=== PATIENT | female | born 1975 | race African-American/Black ===

== ENCOUNTER 2022-08-09 10:22 | Outpatient (REF) | payer MEDICARE, MEDICAID, SELFPAY ==
--- NOTE | ~2022-08-09 | XR_ITS ---
EXAMINATION: XR WRIST, LEFT XR HAND, LEFT CLINICAL INFORMATION: Left hand and wrist pain. COMPARISON: None available. TECHNIQUE: PA, lateral, and oblique views of the left wrist and PA, lateral, and oblique views of the left hand FINDINGS: LEFT WRIST: The bones and soft tissues appear unremarkable. No fracture appreciated. Alignment is anatomic. Joint spaces are maintained. No erosions or soft tissue calcifications. LEFT HAND: The bones and soft tissues appear unremarkable. No fracture appreciated. Alignment is anatomic. Joint spaces are maintained. No erosions or soft tissue calcifications. XR/XR hand wrist LT IMPRESSION: Normal plain film examination of the left hand and wrist.
== END 2022-08-09 10:23 | disposition home or self-care (01) ==
LOC: HO.XRAY 10:22
PROVIDERS: PCP Family Medicine; Visit Provider Family Medicine
DX: M25.532 Pain in left wrist (principal)
CPT/HCPCS: 73110; 73130

== ENCOUNTER 2022-08-30 10:39 | Outpatient (REF) | payer MEDICARE, MEDICAID, SELFPAY ==
--- NOTE | ~2022-08-30 | CT_ITS ---
EXAMINATION: CT ABDOMEN AND PELVIS WITH CONTRAST CLINICAL INFORMATION: Left lower quadrant abdominal pain. COMPARISON: None available. TECHNIQUE: Multidetector volumetric images were obtained from the superior aspect of the liver through the pubic symphysis following administration 85 mL of Omnipaque 350 intravenous contrast. Sagittal and coronal reformatted images were obtained on the technologist's workstation. Oral contrast: No This CT examination was performed using dose optimization techniques as appropriate, variously including the following: *Automated exposure control *Adjustment of mA and/or kV according to patient size (this includes techniques or standardized protocols for targeted exams where dose is matched to indication/reason for exam; i.e. extremities or head) *Use of iterative reconstruction technique DLP: 768. mGy-cm FINDINGS: LUNG BASES: The visualized lung bases are unremarkable. LIVER, GALLBLADDER, AND BILIARY TREE: The liver is normal in size, shape, and attenuation. No focal hepatic lesion or biliary ductal dilatation is present. The gallbladder is unremarkable with no evidence of radiopaque gallstones, gallbladder wall thickening, or obvious pericholecystic inflammatory changes. PANCREAS: No discrete pancreatic mass. No ductal dilatation or focal parenchymal atrophy. SPLEEN: Normal. ADRENAL GLANDS: No adrenal mass. KIDNEYS AND URETERS: Symmetric nephrograms. Tiny simple cyst lower right kidney. No imaging follow-up is recommended. No suspicious renal mass. No nephrolithiasis or hydronephrosis. BLADDER: Unremarkable. GASTROINTESTINAL TRACT: Small hiatal hernia. The small bowel is normal in caliber. No mesenteric mass or fluid. The appendix is normal. No inflammatory changes in the right lower quadrant. The large bowel is normal in caliber. ABDOMINAL WALL: No significant hernia is appreciated. LYMPH NODES: No lymphadenopathy. VASCULAR: No aortic aneurysm. Retroaortic left renal vein. PELVIC VISCERA: Hysterectomy. Simple appearing cyst left ovary. No imaging follow-up is recommended. The right ovary appears normal. OSSEOUS STRUCTURES: No suspicious osseous lesions. CT/CT abdomen pelvis w IV con IMPRESSION: No explanation for right lower quadrant pain. Normal appendix. Normal right ovary. No inflammatory changes or fluid collection in the right lower quadrant. Fleischner guidelines were followed.
[2022-08-30] MEDS: iohexoL 350 MG/ML 100 ML INFUS..BTL IV (13:36)
[2022-08-30] MEDS: Barium Sulfate Oral (Mocha) 450 ML ORAL.SUSP 900 ML PO (13:37)
== END 2022-08-30 10:40 | disposition home or self-care (01) ==
LOC: HO.CT 10:39
PROVIDERS: PCP Family Medicine; Visit Provider Family Medicine
DX: R10.32 Left lower quadrant pain (principal); G89.29 Other chronic pain
CPT/HCPCS: 74177; Q9967

== ENCOUNTER 2022-09-07 11:00 | Outpatient (RCR) | payer MEDICARE, MEDICAID, SELFPAY | END 2022-09-07 11:25 | disposition home or self-care (01) | LOC: HO.OT 11:00 | PROVIDERS: PCP Family Medicine; Visit Provider Family Medicine | DX: M25.532 Pain in left wrist (principal) | CPT/HCPCS: 29125; 97035; 97110; 97165; 97760 ==

== ENCOUNTER → 2022-11-29 10:27 | Outpatient (BNVA) | payer MEDICARE, MEDICAID, SELFPAY | PROVIDERS: PCP Family Medicine; Visit Provider Physician Assistant Surgical ==

== ENCOUNTER 2022-12-23 11:04 | Outpatient (AMB) | payer MEDICARE, MEDICAID, SELFPAY ==
--- NOTE | 2022-12-23 11:10 | A.OFFVIS_ITS ---
Intake VS Expanded 12/23/22 11:13 Height 5 ft 6 in Weight 214 lb 12.8 oz BMI 34.7 BP 134/73 Blood Pressure Location Rt brachial Blood Pressure Position Sitting Pulse 76 Pulse Source Pulse Oximeter Temp 97.2 F Temperature Source Temporal Artery Scan Pulse Oximetry 98 Oxygen Delivery Method Room Air Body Fat 92.4 Body Fat Percentage 43.0 Free Fat Mass 122.4 Muscle Mass 116.2 Visceral Mass 11.0 Water Mass 87.0 BMR 1,705 Intake Visit Reasons: (OV) [employer] [facility] BMI 35.2 Poultry Veterinarian Required: Yes Poultry Veterinarian Name: office cmi Allergies Latex, Natural Rubber Allergy (Severe, Verified 12/23/22 11:12) Hives Medication List - Last Reconciled 12/23/22 by RILEY Camara aripiprazole (Abilify) 5 mg PO BEDTIME cholecalciferol (vitamin D3) 50 mcg PO DAILY clonazepam 1 mg PO BID famotidine 10 mg PO DAILY rosuvastatin 10 mg PO DAILY venlafaxine ER (Effexor XR) 37.5 mg PO DAILY HPI HPI Comments History of Present Illness Details Pt is here to start the [facility] [place] Weight Management surgical weight loss program. She heard about our program from social media. Her goal is to lose weight and achieve a healthy lifestyle as well as to improve, if not resolve, obesity related medical conditions, including HLD and possible JIMMIE. She reports first being concerned about her weight about a year ago when she moved here from [facility], highest weight to date was 220. Her weight upon initial presentation to the SWL clinic at [facility] was 218.2 pounds with a BMI of 35.2 on 11/29/22. Current weight is 214.8 pounds with a BMI of 34.7. She has tried mul tiple methods of weight loss including fad diets without permanent results. She lives with a friend. She does not work. She wakes at:?10 am, and goes to bed at?6 pm. Stating she sleeps 16 hours per day and naps during the day. Dinner is at 4 pm. Willing to try to wake at 9 am and bed at 9 pm Breakfast: 2 eggs w toast or ham or Orgain shake AM snack: donut or cake, banana Lunch: skip or sandwich or fast food, pizza PM snack: skip Dinner: rice, beans, meat, salad, pasta potato After dinner: corn flakes or cheese/crackers Other snacks: as above Liquids: 48-64 oz water, rare soda, 12 oz fruit punch or apple juice daily Alcohol/marijuana/tobacco intake: 5-6 beers 1-2 x per month, no tobacco or cannabis Exercise: stationary bike at home, GERD score: 23 ALANA score: 2 ESS score: 12 QOL score: 114 PFSH Surgical History History of abdominoplasty Hx of breast implant Hx of hysterectomy Hx of knee surgery Hx of thyroidectomy Family History Mother Psychiatric diagnosis Hypertension Father Diabetes Sister Hypothyroid Vitamin D deficiency Vitamin B12 deficiency Social History Alcohol intake: current Alcohol intake frequency: holidays/special occasions only Patient Tobacco Use Status: Never used Tobacco Review of Systems Const All systems reviewed & are unremarkable except as noted in HPI and below Physical Exam Vital Signs: Last Vital Signs Temp 97.2 F 12/23/22 11:13 Pulse 76 12/23/22 11:13 BP 134/73 12/23/22 11:13 Pulse Ox 98 12/23/22 11:13 Oxygen Delivery Method Room Air 12/23/22 11:13 BMI result Body Mass Index 34.7 Const General: cooperative, healthy appearing and no acute distress Orientation/consciousness: patient oriented x3 HEENT Head: Yes normal to inspection Ears: hearing grossly normal bilaterally General nose exam: Normal external nose present Face and sinus: Yes normal facial exam Eyes General: appearance normal, both eyes and all related structures Resp Effort & Inspection: normal respiratory effort Auscultation: clear to auscultation bilaterally Cardio Rate: regular rate Rhythm: regular rhythm Heart sounds: S1 normal heart sound present and S2 normal heart sound present GI Inspection: Yes normal to inspection, No distended and Yes obesity Palpation (GI): Soft to palpation, nontender and no guarding Auscultation: normal bowel sounds Skin General skin exam: no rashes or lesions noted Neuro General: patient oriented x3 Extrem General: No edema Psych Appearance: grossly normal Mental Status: mental status grossly normal Speech and movement: Normal speech and movement present Affect: normal affect Attitude: cooperative Assessment & Plan Assessment & Plan (1) Obesity (BMI 30-39.9): Code(s): E66.9 - Obesity, unspecified Plan: This is a?47 yo female who will start our SWL program to prepare for bariatric surgery.? Blood work, h pylori , CXR, ECG, Abd US and UGI have been ordered. She is being scheduled for RD and BH initial consultations. She will start SWL classes and watch the first three videos before her next appointment. ? Adequate sleep of 7-8 hours per night discussed, awakening at 9 am and going to bed at 9 pm ? Purchase body composition analyzer scale (Radha zendejas or Sayra recommended) and check weight weekly. The best time to do this is first thing in the morning after going to the bathroom. 1. Nutritional counseling: Be sure to careful read the number of scoops per shake Start with 3 Orgain shakes ([employer], [employer], [employer]), (1 scoop in 8 oz low fat unsweetened almond milk or water each) First shake at 10am-12pm, Second shake at 1pm-3pm 1 protein bar (Fulfil bars at [employer], [employer], or [employer]) at 5pm-7pm. Dinner at 4pm (8 forks of protein and 8 forks of salad/vegetables). Meal to inc lude lean meat (beef, fish, pork, turkey, chicken), cooked vegetables or a salad with olive oil and/or fruits (berries, pears, apples, kiwi). Avoid salt, breads, potatoes, rice, pasta, desserts. 1 protein bar (Fulfil bars at [employer], [employer], or [employer]) at 5pm-7pm. Another shake with 1 scoop in 8 oz unsweetened almond milk at 7pm-9pm. Try to drink 64 oz of water daily and avoid soda and juices. ?2. Each shake would be drunk slowly, like coffee in a period of 2 hours. ?3. Cut each bar in 4 pieces and eat each piece in 30 min ?to make each bar last 2 hours. ?4. I emphasized the importance of measuring accurately the food portion and measure it carefully when serving the food on the plate ?5. The meal portions include 8 full-size forks of meat and 8 full-size forks of salad. You always eat the meat portion but you can replace up to half of the forks of salad/vegetables with rice, potatoes or pasta, or a fruit ?if you like. The less you do it the better weight loss will be. ?6. One full-size fork is what can be scooped on the fork without falling aside and not what can be bit with the fork. Use regular forks like those you find in a typical restaurant. ?7.? Please send me weight measurements as soon as possible and then once a week. Always include your diet and exercise plan. Alternatively come weekly at the office for weight checks and send me the measurements. ?8. Exercise counseling: Begin by watching a stretching for beginners video. Start slowly and begin to stretch your muscles. You should do this before and after each exercise session to prevent injury. Please join [employer] gym near your home. Ask the support group manager or one of the trainers how to use the machines if you are unfamiliar with them. Start elliptical with a resistance of 2. Increase resistance by 1 every 3 min to your most comfortable resistance with a max resistance of 8. Reduce the resistance by 1 every 3 minutes back down to 2 and repeat cycles for 300 calories. Alternatively, start treadmill with a speed of 3.0 and incline of 0, increasing incline by 1 every 3 minutes to the highest comfortable level (max 6 for now) then decrease in the same fashion. Repeat process to a goal of 300 calories. Goal of 2000 calories burned or more weekly. You may also consider use of the stationary bike. The easiest would be to chose the fat-burn or interval training program on the machine and do this until you reach the 300 calorie goal. Alternatively, you can manually adjust the resistance in a similar fashion as mentioned above, (resistance of 2-8 with a goal speed of 12 mph). Tracking calories is essential. 9. Alternatively start walking outside daily, tracking calories with a goal of 300 calories per day, daily. You can download the tamar [employer] which can track your time, distance and calories while walking outside. You press start in the tamar when you start and then stop when you are finished. 10.? It is important to communicate with me weekly by text, your weight and if you are having any problems with the plans. 11. Please get labs, EKG and chest X-Ray within 1 week. 12. Discussed and answered all questions regarding?obtained consent to participate in the [facility]?Registry. 13. Please follow the diet plan exactly, without any change. If you do not like something about the plan or you feel hungry, you need to communicate with me so I can help you revise the plan. You should not change the plan yourself. Text me at [phone] 14. Goal is to lose at least 12 pounds in the first month 15. Goal is to lose 10% of your weight before surgery, which is about 21 lbs. Ultimate weight goal: 193 lbs before surgery Patient is morbidly obese and is not considered stable at this time.?I spent a total of 70 minutes reviewing/updating records, examining the patient and counseling the patient on weight management as detailed above. (2) Snoring: Code(s): R06.83 - Snoring Plan: check home sleep study, refer to Sleep Med if pos Orders: Orders Vitamin B12 and Folate Today E66.9 - Obesity, unspecified Comprehensive Met. Panel Today E66.9 - Obesity, unspecified C Reactive Protein Today E66.9 - Obesity, unspecified Ferritin Today E66.9 - Obesity, unspecified Hemoglobin A1c Today E66.9 - Obesity, unspecified Insulin Today E66.9 - Obesity, unspecified IRON PROFILE Today E66.9 - Obesity, unspecified Lipid Panel Today E66.9 - Obesity, unspecified PTHI Today E66.9 - Obesity, unspecified TSH reflex Free T4 Today E66.9 - Obesity, unspecified Vitamin A Today E66.9 - Obesity, unspecified Vitamin B1 Today E66.9 - Obesity, unspecified Vitamin D 25-OH Total Today E66.9 - Obesity, unspecified Zinc Today E66.9 - Obesity, unspecified ECG 12 lead EKG Today E66.9 - Obesity, unspecified FL upper GI w air Today E66.9 - Obesity, unspecified Complete Blood Count Auto Diff Today E66.9 - Obesity, unspecified RT home sleep study Today E66.9 - Obesity, unspecified, R06.83 - Snoring H Pylori Breath Test Today E66.9 - Obesity, unspecified US abdomen comp w elastography Today E66.9 - Obesity, unspecified XR chest 2V Today E66.9 - Obesity, unspecified Referrals Behavioral Health Referral E66.9 - Obesity, unspecified Nutrition/Dietitian Referral E66.9 - Obesity, unspecified Coding Level of Care Code New Pt Level 5 (37951) Diagnoses Obesity (BMI 30-39.9) E66.9 Snoring R06.83 Time Spent (min) 70
[2022-12-23 11:13] VITALS: BP 134/73; PULSE 76; TEMP 36.2; O2SAT 98; BMI 34.7
== END 2022-12-23 12:09 | disposition home or self-care (01) ==
PROVIDERS: PCP Family Medicine; Visit Provider Physician Assistant Surgical
DX: E66.9 Obesity, unspecified (principal); Z68.34 Body mass index [BMI] 34.0-34.9, adult; R06.83 Snoring
CPT/HCPCS: 99205

== ENCOUNTER → 2022-12-23 11:04 | Outpatient (BNVA) | payer MEDICARE, MEDICAID, SELFPAY | PROVIDERS: PCP Family Medicine; Visit Provider Physician Assistant Surgical | DX: E66.9 Obesity, unspecified (principal); R06.83 Snoring; Z68.34 Body mass index [BMI] 34.0-34.9, adult | CPT/HCPCS: 99202 ==

== ENCOUNTER → 2022-12-26 12:30 | Outpatient (REF) | payer MEDICARE, MEDICAID, SELFPAY | LOC: HO.SL 12:30 | PROVIDERS: PCP Family Medicine; Visit Provider Physician Assistant Surgical | DX: G47.33 Obstructive sleep apnea (adult) (pediatric) (principal); E66.9 Obesity, unspecified; R06.83 Snoring | CPT/HCPCS: 95806 ==

== ENCOUNTER → 2022-12-26 12:46 | Outpatient (BNV) | payer MEDICARE, MEDICAID, SELFPAY | PROVIDERS: PCP Family Medicine; Visit Provider Internal Medicine | DX: G47.33 Obstructive sleep apnea (adult) (pediatric) (principal) | CPT/HCPCS: 95806 ==

== ENCOUNTER 2022-12-27 09:45 | Outpatient (REF) | payer MEDICARE, MEDICAID, SELFPAY ==
--- NOTE | ~2022-12-27 | XR_ITS ---
EXAMINATION: XR CHEST 2 VIEWS CLINICAL INFORMATION: Obesity. COMPARISON: None. TECHNIQUE: Frontal and lateral views of the chest were obtained. FINDINGS: The heart, great vessels, pulmonary vasculature and mediastinum are normal. The lungs show no focal infiltrate, effusion or pneumothorax. There is no acute osseous abnormality. XR/XR chest 2V IMPRESSION: No active cardiopulmonary disease.
--- NOTE | 2022-12-27 09:51 | ECG_ITS ---
Test Reason : e66.9 Blood Pressure : / mmHG Vent. Rate : 065 BPM Atrial Rate : 065 BPM P-R Int : 158 ms QRS Dur : 088 ms QT Int : 412 ms P-R-T Axes : 052 -12 002 degrees QTc Int : 428 ms Normal sinus rhythm Minimal voltage criteria for LVH, may be normal variant ( R in aVL ) Cannot rule out Anterior infarct , age undetermined Abnormal ECG No previous ECGs available Referred By: Ramiro Monte Electronically Signed By:Juan C Kinsey
[2022-12-27 10:15] LABS: MANUAL DIFF FLAG NO
[2022-12-27 10:19] LABS: Basophils Percent Auto 0.7 % (0-2); Eosinophils Absolute Auto 0.1 X10*3/uL (0.0-0.4); Eosinophils Percent Auto 2.3 % (0-4); Hematocrit 44.2 % (37.0-47.0); Hemoglobin 14.5 g/dl (12.0-16.0); Imm Gran Abs Auto 0.04 X10*3/uL (0.00-0.03); Imm Gran Pct Auto 0.7 % (0.0-0.4); Lymphocytes Absolute Auto 1.4 X10*3/uL (1.2-4.9); Lymphocytes Percent Auto 22.9 % (20-40); Mean Corpuscular HGB Conc 32.8 g/dl (31.0-35.0); Mean Corpuscular Hemoglobin 28.3 pg (27.0-33.0); Mean Corpuscular Volume 86.3 fL (80.0-98.0); Monocytes Absolute Auto 0.3 X10*3/uL (0.1-1.2); Monocytes Percent Auto 5.1 % (2-11); Neutrophils Absolute Auto 4.1 x10*3/uL (2.0-8.3); Neutrophils Percent Auto 68.3 % (45-73); Platelet Count 145 X10*3/uL (160-400); Red Blood Count 5.12 X10*6/uL (4.20-5.50); Red Cell Distribution Width 14.4 % (11.0-16.0); White Blood Count 6.1 X10*3/uL (4.8-10.8)
[2022-12-27 10:37] LABS: Estimated Average Glucose 108 mg/dL; Hemoglobin A1c % 5.4 %
[2022-12-27 10:48] LABS: Alanine Aminotransferase 13 U/L (0-31); Albumin Level 4.1 g/dL (3.5-5.0); Alkaline Phosphatase 82 U/L (39-117); Anion Gap 10 (12-20); Aspartate Amino Transferase 15 U/L (5-31); Bilirubin Total 0.5 mg/dL (0.0-1.0); Blood Urea Nitrogen 11 mg/dL (9-16); C Reactive Protein 1.35 mg/dL (< or = 0.50); Calcium 8.9 mg/dL (8.4-10.2); Carbon Dioxide 25 mmol/L (22-29); Chloride 110 mmol/L (96-108); Cholesterol 138 mg/dL; Estimated Glomerular Filt Rate > 60; Glucose Random 91 mg/dL (60-115); HDL Cholesterol 48 mg/dL; Iron 106 mcg/dL (30-160); LDL Cholesterol Calculated 76 mg/dl; Percent Iron Saturation 44 % (15-50); Potassium 4.2 mmol/L (3.3-5.1); Sodium 141 mmol/L (135-145); Total Iron Binding Capacity 241 mcg/dL (228-428); Total Protein 7.3 g/dL (6.5-8.0); Triglycerides 70 mg/dL; Unsaturated Iron Binding 135 ug/dL
[2022-12-27 11:08] LABS: Folate 11.6 ng/mL (> or = 4.0); Vitamin B12 425 pg/mL (200-900)
[2022-12-27 11:26] LABS: Ferritin 121 ng/mL (10-250); TSH reflex Free T4 1.49 uIU/mL (0.32-4.0); Vitamin D 25-OH Total 42.3 ng/mL (>30)
[2022-12-27 12:08] LABS: Insulin 11 uU/mL (2-29)
[2022-12-29 22:09] LABS: Calcium (PTHI) 8.6 mg/dL (8.6-10.2); PTHI 53 pg/mL (16-77)
[2022-12-30 16:59] LABS: Zinc 64 mcg/dL (60-130)
[2022-12-31 17:48] LABS: Vitamin A 36 mcg/dL (38-98)
[2023-01-04 14:54] LABS: Vitamin B1 9 nmol/L (8-30)
== END 2022-12-27 09:46 | disposition home or self-care (01) ==
LOC: HO.XRAY 09:45
PROVIDERS: PCP Family Medicine; Visit Provider Physician Assistant Surgical
DX: E66.9 Obesity, unspecified (principal); R94.31 Abnormal electrocardiogram [ECG] [EKG]
CPT/HCPCS: 36415; 71046; 80053; 80061; 82306; 82607; 82728; 82746; 83036; 83525; 83540; 83970; 84425; 84443; 84590; 84630; 85025; 86140; 93005

== ENCOUNTER → 2022-12-27 09:51 | Outpatient (BNV) | payer MEDICARE, MEDICAID, SELFPAY | PROVIDERS: PCP Family Medicine; Visit Provider Internal Medicine Cardiovascular Disease | DX: R94.31 Abnormal electrocardiogram [ECG] [EKG] (principal) | CPT/HCPCS: 93010 ==

== ENCOUNTER 2023-01-05 11:20 | Outpatient (AMB) | payer MEDICARE, MEDICAID, SELFPAY ==
--- NOTE | 2023-01-05 11:54 | A.OFFWM_ITS ---
Intake Intake Visit Reasons: (OV) BH Intake Allergies Latex, Natural Rubber Allergy (Severe, Verified 12/23/22 11:12) Hives PFSH Surgical History History of abdominoplasty Hx of breast implant Hx of hysterectomy Hx of knee surgery Hx of thyroidectomy Family History Mother Psychiatric diagnosis Hypertension Father Diabetes Sister Hypothyroid Vitamin D deficiency Vitamin B12 deficiency Social History Alcohol intake: current Alcohol intake frequency: holidays/special occasions only Patient Tobacco Use Status: Never used Tobacco Behavioral Health Assessment Weight Management Therapy Therapy Notes Details PT is a 47 year old female who presents for initial BH assessment as part of surgical Weight-loss management program. Presenting Concerns Referral Source [facility] Provider. Reason for referral Completion of behavioral health assessment as part of process for weight-loss surgery. Precipitating Event Weight gain and physical challenges. Living Situation Current Living Situation Relative's/Guardian's [place] (Pt lives at her boyfriend's home.) At risk of losing current housing? No Satisfied with current living situation? Yes Comments PT lives with boyfriend and his son. Food/Weight/Diet Expectations of change Pt wants to be at her healthy weight or at least 135- 140Lbs. Goal is to lose 10% of her weight before surgery, which is about 21 lbs. Ultimate weight goal: 193 lbs before surgery. History/Relationship with food Used to skip meals. Example of meals Breakfast: eggs/skip or will have a shake. Lunch: Skip or something quick (ground meat/letters/tortilla chips) Dinner: rice, beans, meat. Will have snacks in between meals. Soda couple times at week. History/Relationship with weight Was overweight after pregnancies for the past 20 years her weight has been in between 145-150Lbs until last year, when she started gaining weight in . History/Relationship with dieting Tried OTC pills, diets, eat less, shakes. PCP prescribed her with Lomaira 8mg and Topamax 50mg for weight loss, tried for about 2 weeks but [facility]MP-provider D/C these meds. Walking 1 hour. Binge Eating Do you frequently eat large amounts of food in short periods of time, not feeling physically hungry? No Do you feel out of control when you eat a large amount of food in a short period of time? Yes Do you eat large amounts of food rapidly and typically alone? No Night Eating Do you wake up at least once during the night to eat? No If you wake up in the night, do you find that it is necessary to eat something in order to fall back asleep? No Do you have little or no appetite in the morning and feel very hungry in the evening, often overeating between dinner and when you go to bed? No Social History Family history and relationship PT is . She has 2 adult sons. (28 and 21 y/o) they live in [place]. Has 2 siblings, sister lives near, brother in [place]. They have a good relationship Parents alive. Mom in [place], dad in [place]. Good relationships. Parental/Familial medical asst obligations None, children are adult. Developmental history and status None reported. Social support Sister, son, partner, cousin, mother. Community support None reported. Confucianism/Spirituality Restorationist. Cultural/Ethnic information [place] in [place]. [place] speaking only. Moved to [place] in 2021. Legal Involvement and History Current or historical involvement with the legal system? None reported. Education Highest grade completed 9th grade. Has a certificate in cosmetology. Preferred learning style Verbal Currently enrolled in educational program? No Interested in further educational program? No Educational Interests/Skills Decor, arts/craft. 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 No Meaningful activities Listen to music, exercise, cleaning. Financial Situation Describe current financial situation Comfortable Financial assistance? Food [employer] and [employer]SI Service Service? No Mental Health and Addiction Treatment Current/Past substance abuse? No Current/Past addictive behavior concerns? No Psychiatric history PT has been in mental health treatment for about 12 years ago. Never inpatient but has received partial hospitalization for severe depression. Currently sees a psychiatrist every 3 month and therapist on a monthly basis. Denies any hx of SI and/or self/other-harm. Medical and Physical Health Summary Additional Medical History not covered in history None reported Sexual History concerns None reported Physical exam in the last year? Yes Pain Screening Current pain? Yes Pain in the last few months? Yes Comments Knee pain, had multiple surgeries in both knee due to arthritis. Medications Is the patient compliant with medications? Yes Does the patient have Singh Guardian in place? Not applicable Does the patient use complimentary health approaches? No Trauma/Abuse History History of trauma? No Questionnaires PHQ-9 Over the last 2 weeks, how often have you been bothered by any of the following problems? 1. Little interest or pleasure in doing things: several days 2. Feeling down, depressed, or hopeless: not at all 3. Trouble falling or staying asleep, or sleeping too much: nearly every day ( I Sleeps a lot 7pm-9am, during the day she naps.) 4. Feeling tired or having little energy: several days 5. Poor appetite or overeating: not at all 6. Feeling bad about yourself - or that you are a failure or have let yourself or your family down: not at all 7. Trouble concentrating on things, such as reading the newspaper or watching television: not at all 8. Moving or speaking so slowly that other people could have noticed. Or the opposite - being so fidgety or restless that you have been moving around a lot more than usual: not at all 9. Thoughts that you would be better off or of hurting yourself in some way: not at all Total score: 5 Depression Screening Interpretation: Positive Source: Developed by Drs. Akin Estrella, Caron Bower, Primo Gamino and colleagues, with an educational leroy from [employer] Binge Eating Scale Group 1 A. I don't feel self-conscious about my wt. or body size when I'm with others. B. I feel concerned about how I look to others, but it normally does not make me fell disappointed with myself C. I do get self-conscious about my appearance and wt. which makes me feel disappointed in myself. D. I feel very self-conscious about my wt. and frequently I feel intense shame and disgust for myself. I try to avoid social contacts because of my self- consciousness. Response Group 1: C Group 2 A. I don't have any difficulty eating slowly in the proper manner. B. Although I seem to gobble down foods, I don't end up feeling stuffed because of eating to much. C. At times, I tend to eat quickly and then, I feel uncomfortably full afterwards. D. I have the habit of bolting down my food, without really chewing it. When this happens I usually feel uncomfortably stuffed because I've eaten to much. Response Group 2: C Group 3 A. I feel capable to control my eating urges when I want to. B. I feel like I have failed to control my eating more than the average person. C. I feel utterly helpless when it comes to feeling in control of my eating urges. D. Because I feel so helpless about controlling my eating I have become very desperate about trying to get control. Response Group 3: A Group 4 A. I don't have the habit of eating when I'm bored. B. I sometimes eat when I'm bored, but often I'm able to get busy and get my mind off food. C. I have a regular habit of eating when I'm bored, but occasionally, I can use some other activity to get my mind off eating. D. I have a strong habit of eating when I'm bored. Nothing seems to help me breath the habit. Response Group 4: B Group 5 A. I'm usually physically hungry when I eat something. B. Occasionally, I eat something on impulse even though I really am not hungry. C. I have the regular habit of eating foods, that I might not really enjoy, to satisfy a hungry feeling even though physically, I don't need the food. D. Although I'm not physically hungry, I get a hungry feeling in my mouth that only seems to be satisfied when I eat a food, like sandwich, that fills my mouth. Sometimes, when I eat the food to satisfy my mouth hunger, I then spit the food out so I won't gain weight. Response Group 5: B Group 6 A. I don't feel any guilt or self-hate after I overeat. B. After I overeat, occasionally I feel guilt or self-hate. C. Almost all the time I experience strong guilt or self-hate after I overeat. Response Group 6: B Group 7 A. I don't lose total control of my eating when dieting even after periods when I overeat. B. Sometimes when I eat a forbidden food on a diet, I feel like I blew it and eat even more. C. Frequently, I have the habit of saying to myself, I've blown it now, why not go all the way, when I overeat on a diet. When that happens I eat more. D. I have a regular habit of starting a strict diets for myself but I break the diets by going on an eating binge. My life seems to be either a feast or famine. Response Group 7: A Group 8 A. I rarely eat so much food that I feel uncomfortably stuffed afterwards. B. Usually about once a month, I each such a quantity of food, I end up feeling very stuffed. C. I have regular periods during the month when I eat large amounts of food, either at mealtime or at snacks. D. I eat so much food that I regularly feel quite uncomfortable after eating and sometimes a bit nauseous. Response Group 8: C Group 9 A. My level of calorie intake does not go up very high or go down very low on a regular basis. B. Sometimes after I overeat, I will try to reduce my caloric intake to almost nothing to compensate for the excess calories I've eaten. C. I have a regular habit of overeating during the night. It seems that my routine is not to be hungry in the morning but overeat in the evening. D. In my adult years, I have had week-long periods where I practically starve myself. This follows periods when I overeat. It seems I live a life of either feast or famine. Response Group 9: A Group 10 A. I usually am able to stop eating when I want to. I know when enough is enough . B. Every so often, I experience a compulsion to eat which I can't seem to control. C. Frequently, I experience strong urges to eat which I seem unable to control, but at other times I can control my eating urges. D. I feel incapable of controlling urges to eat. I have a fear of not being able to stop eating voluntarily. Response Group 10: C Group 11 A. I don't have any problem stopping eating when I feel full. B. I usually can stop eating when I feel full but occasionally overeat leaving me feeling uncomfortably stuffed. C. I have a problem stopping eating once I start and usually I feel unco mfortably stuffed after I eat a meal. D. Because I have a problem not being able to stop eating when I want, I sometimes have to induce vomiting to relieve my stuffed feeling. Response Group 11: C Group 12 A. I seem to eat just as much when I'm with others, Family social gatherings as when I'm by myself. B. Sometimes, when I'm with other persons, I don't eat as much as I want to eat because I'm self-conscious about my eating. C. Frequently, I eat only a small amount of food when others are present, because I'm very embarrassed about my eating. D. I feel so ashamed about overeating that I pick times to overeat when I know no one will see me. I feel like a closet eater. Response Group 12: A Group 13 A. I eat three meals a day with only an occasional between meal snack. B. I eat 3 meals a day, but I also normally snack between meals. C. When I am snacking heavily, I get in the habit of skipping regular meals. D. There are regular periods when I seem to be continually eating, with no planned meals. Response Group 13: C Group 14 A. I don't think much about trying to control unwanted eating urges. B. At least some of the time, I feel my thoughts are pre-occupied with trying to control my eating urges. C. I feel that frequently I spend much time thinking about how much I ate or about trying not to eat anymore. D. It seems to me that most of my waking hours are pre-occupied by thoughts about eating or not eating. I feel like I'm constantly struggling not to eat. Response Group 14: C Group 15 A. I don't think about food a great deal. B. I have strong craving for food but they last only for brief periods of time. C. I have days when I can't seem to think about anything else but food. D. Most of my days seem to be pre-occupied with thoughts about food. I feel like I live to eat. Response Group 15: A Group 16 A. I usually know whether or not I'm physically hungry. I take the right portion of food to satisfy me. B. Occasionally, I feel uncertain about knowing whether or not I'm physically hungry. A these times it's hard to know how much food I should take to satisfy me. C. Even though I might know how many calories I should eat, I don't have any idea what is a normal amount of food for me. Response Group 16: A Binge Eating Score: 17 Score less than 17 Minimal Risk Score between 18-26 Moderate Risk Score between 27-46 High Risk Assessment & Plan Assessment & Plan (1) Major depression: Code(s): F32.9 - Major depressive disorder, single episode, unspecified Qualifiers: Major depression recurrence: recurrent Major depression episode severity: moderate Plan PT will need support with habit building and with behavioral activation. Will be seen 1-2 more times to provide toolds and monitor compliance before being cleared. Follow up in 1 month. Coding Level of Care Code New Pt Psy Diag Eval (71379) Patient Type New Diagnoses Major depression F32.9 Major depression recurrence: recurrent Major depression episode severity: moderate Time Spent (min) 60
== END 2023-01-05 12:39 | disposition home or self-care (01) ==
PROVIDERS: PCP Family Medicine; Visit Provider Counselor Mental Health
DX: F32.9 Major depressive disorder, single episode, unspecified (principal)
CPT/HCPCS: 90791

== ENCOUNTER → 2023-01-05 11:20 | Outpatient (BNVA) | payer MEDICARE, MEDICAID, SELFPAY | PROVIDERS: PCP Family Medicine; Visit Provider Counselor Mental Health ==

== ENCOUNTER 2023-01-10 09:51 | Outpatient (REF) | payer MEDICARE, MEDICAID, SELFPAY | END 2023-01-10 09:52 | disposition home or self-care (01) | LOC: HO.US 09:51 | PROVIDERS: PCP Family Medicine; Visit Provider Physician Assistant Surgical | DX: E66.9 Obesity, unspecified (principal) | CPT/HCPCS: 76705; 76981 ==

== ENCOUNTER → 2023-01-10 09:55 | Outpatient (BNV) | payer MEDICARE, MEDICAID, SELFPAY | PROVIDERS: Visit Provider Radiology Diagnostic Radiology | DX: E66.9 Obesity, unspecified (principal) | CPT/HCPCS: 74246 ==

== ENCOUNTER 2023-01-13 10:37 | Outpatient (AMB) | payer MEDICARE, MEDICAID, SELFPAY ==
--- NOTE | 2023-01-13 10:25 | A.OFFVIS_ITS ---
Intake Intake Visit Reasons: (TV) Initial Nutrition [facility] Report Checker Required: Yes Report Checker Name: [email or web address] [id number] Information Interpreted: non-clinical & clinical Allergies Latex, Natural Rubber Allergy (Severe, Verified 12/23/22 11:12) Hives HPI Nutrition Presentation Reason for consult elevated BMI Diet Assmnt Details I am doing very well with nutrition plan - but doesn't seem to be following it at all 10am 2 scoops orgain in water 10:30am takes all her medications 12pm 1 boiled egg 5pm salad with chicken 8 bites of each Exercise: is walking 30 minutes, 1 mile [facility] online classes: completed, pt took them in [place]. reports she understood, willing to take in tongan also she has no questions. we did not discuss classes today Dietary counseling reduction Who buys your food self Who prepares/cooks your food self Meal frequency regular: breakfast (eggs, toast), dinner (rice, beans, juice ) and snacks and irregular: lunch Lifestyle Eating out rarely or never Food frequency Dairy: daily, Fruit: several times weekly, Vegetables: occasionally (only likes broccoli , tomato, lettuce ), Grains/pasta/breads/cereal (carbs): daily, Meats/poultry/fish (protein): daily, Meat substitutes/nuts/seeds/legumes: daily, Restaurants/fast foods: never (rarely), Water: daily, Soda: daily, Juice: daily and Coffee: daily (AM coffee ) Diagnosis Nutrition problem #1 overweight/obesity As related to (etiology) #1 excess energy intake and physical inactivity As evidenced by (sign/symptom) #1 high BMI Monitoring/Goals Nutrition problem monitoring total energy intake, level of knowledge/skill, total PRO intake, total CHO intake and weight Outcome progress applied knowledge Learning/Education Readiness to learn good Stages of change action Educational materials provided Yes Most Recent Diabetes Results: Cholesterol 138 mg/dL 12/27/22 HDL Cholesterol 48 mg/dL 12/27/22 Triglycerides 70 mg/dL 12/27/22 Creatinine 0.80 mg/dL (0.5-1.4) 12/27/22 Blood Urea Nitrogen 11 mg/dL (9-16) 12/27/22 Sodium 141 mmol/L (135-145) 12/27/22 Potassium 4.2 mmol/L (3.3-5.1) 12/27/22 Chloride 110 mmol/L (96-108) H 12/27/22 Carbon Dioxide 25 mmol/L (22-29) 12/27/22 Calcium 8.9 mg/dL (8.4-10.2) 12/27/22 AST 15 U/L (5-31) 12/27/22 ALT 13 U/L (0-31) 12/27/22 Total Protein 7.3 g/dL (6.5-8.0) 12/27/22 Albumin 4.1 g/dL (3.5-5.0) 12/27/22 PFSH Surgical History History of abdominoplasty Hx of breast implant Hx of hysterectomy Hx of knee surgery Hx of thyroidectomy Family History Mother Psychiatric diagnosis Hypertension Father Diabetes Sister Hypothyroid Vitamin D deficiency Vitamin B12 deficiency Social History Alcohol intake: current Alcohol intake frequency: holidays/special occasions only Patient Tobacco Use Status: Never used Tobacco Assessment & Plan Assessment & Plan (1) Obesity (BMI 30-39.9): Code(s): E66.9 - Obesity, unspecified Patient Instructions: I reviewed her nutrition plan from [place] with pt. she did not realize she wasnt following it. will start today. Recommend increasing exercise intensity or duration. Will review classes at next appointment. She will take them in [facility]. Follow-up again 02/16 at 11am phone Telehealth Telehealth Location of provider rendering services: practice address Location of patient: address on file Patient Identification confirmed using: Name, : Yes Telehealth method: voice only Patient verbally consented to treatment: Yes Patient verbally consented to billing insurance company: Yes Patient informed of any privacy concerns related to visit: Yes Minutes spent on Phone/Video with Pt.: 35 Coding Level of Care Code Nutr Indiv Intake (74612) Diagnoses Obesity (BMI 30-39.9) E66.9 Time Spent (min) 35
== END 2023-01-13 10:47 | disposition home or self-care (01) ==
LOC: HO.HBS 10:37
PROVIDERS: Visit Provider Dietitian, Registered
DX: E66.9 Obesity, unspecified (principal)

== ENCOUNTER → 2023-01-13 10:37 | Outpatient (BNVA) | payer MEDICARE, MEDICAID, SELFPAY | PROVIDERS: Visit Provider Dietitian, Registered | DX: E66.9 Obesity, unspecified (principal); Z71.3 Dietary counseling and surveillance | CPT/HCPCS: 97802 ==

== ENCOUNTER → 2023-01-19 07:45 | Outpatient (REF) | payer MEDICARE, MEDICAID, SELFPAY ==
--- NOTE | ~2023-01-19 | NM_ITS ---
EXERCISE MYOCARDIAL PERFUSION STUDY INDICATION: Preoperative cardiovascular evaluation TECHNIQUE: The patient was brought in for an exercise perfusion study on 01/19/2023. Patient performed exercise as per Wai protocol and was injected 35 mCi of sestamibi once target heart rate was achieved. Images were obtained using the SPECT gamma camera interlaced with the gating device. Images were obtained in supine position. Resting perfusion study was performed on 01/25/2023. Patient was administered 35 mCi of sestamibi intravenously at rest. Images were then obtained in supine position. Images were processed with the software and compared side to side in short axis, horizontal long axis and vertical long axis views. Total DLP 102mGy-cm. FINDINGS: Raw images were reviewed. The stress perfusion study showed no significant perfusion defects. Both uncorrected as well as CT attenuation corrected images were reviewed. The gated study shows normal LV systolic function with calculated LVEF of 68%. LV cavity is normal in size. The gated study shows normal wall thickening and contraction of segments. Resting study shows diminished tracer uptake along the anterior wall. There is some improvement with CT attenuation correction that could all indicate soft tissue attenuation artifact. Gating at rest reveals normal wall motion with ejection fraction at 71%. The findings are consistent with no clear reversible or fixed perfusion defects. NM/NM latrice perf SPECT rest & str IMPRESSION: 1. Myocardial perfusion imaging study shows normal myocardial perfusion. 2. Gated LVEF is 68% during stress and 71% during rest. 3. Transient ischemic dilatation not present. EKG component of the test reported separately.
--- NOTE | ~2023-01-19 | US_ITS ---
EXAMINATION: US COMPLETE ABDOMEN WITH LIVER ELASTOGRAPHY CLINICAL INFORMATION: Obesity. COMPARISON: None available. TECHNIQUE: Real-time imaging of the abdominal viscera. Noninvasive ultrasound liver fibrosis assessment is performed using Elvira ElastPQ point quantification shear wave elastography (2D-SWE) with a C5-2 MHz transducer. Multiple elastography samples are obtained. FINDINGS: PANCREAS: Limited. The visualized pancreatic head, neck and proximal body are normal in appearance. The remainder of the pancreas is obscured from visualization by the overlying bowel gas. ABDOMINAL AORTA: The proximal, middle, and distal aortic segments are normal in caliber. INFERIOR VENA CAVA: Visualized portions are normal. LIVER: Normal. The liver demonstrates normal size, contour and echogenicity. No focal lesion or intrahepatic biliary duct dilatation. The right lobe measures 16.3 cm in length. The left lobe measures 11.3 cm in length. Portal flow is towards the liver (hepatopetal). Shear wave liver elastography median stiffness is 1.27 m/s (reference: normal median stiffness is 1.3 m/s or less). IQR/median stiffness to assess sampling precision is 0.10 (reference: good quality data set is IQR/median stiffness of 0.15 or less). GALLBLADDER: Normal. The gallbladder is physiologically distended without evidence of stones, sludge, polyps, wall thickening or pericholecystic fluid. COMMON BILE DUCT: Normal in caliber measuring 0.0 cm in diameter. RIGHT KIDNEY: Normal. No hydronephrosis. No renal calculi or focal parenchymal lesions. The kidney measures 11.1 cm in maximum dimension. LEFT KIDNEY: Normal. No hydronephrosis. No renal calculi or focal parenchymal lesions. The kidney measures 11.0 cm in maximum dimension. SPLEEN: Normal. The spleen measures 10.8 cm in maximum dimension. FREE FLUID: None. US/US abdomen comp w elastography IMPRESSION: 1. There is generalized increase in hepatic echotexture, consistent with fatty infiltration or hepatocellular disease. Please correlate clinically. No focal hepatic mass or intrahepatic biliary dilatation is seen. 2. Liver elastography: Measurements are consistent with a high probability of normal liver stiffness. 3. Technically limited ultrasound examination of the pancreas. REFERENCE: Society of Radiologists in Ultrasound Liver Stiffness Thresholds (2020): LIVER STIFFNESS THRESHOLDS: *Liver Stiffness equal or less than 1.3 m/s: High probability of being normal. *Liver Stiffness less than 1.7 m/s: In the absence of other known clinical signs, rules out compensated advanced chronic liver disease. *Liver Stiffness 1.7-2.1 m/s: Suggestive of compensated advanced chronic liver disease but need further test for confirmation. *Liver Stiffness over 2.1 m/s: Rules in compensated advanced chronic liver disease. *Liver Stiffness over 2.4 m/s: Suggestive of clinically significant portal hypertension. QUALITY OF DATA SET: *IQR/Median value equal or less than 0.15 implies a quality data set. *IQR/Median value over 0.15 implies a poor quality data set. SIGNIFICANT CHANGE FROM PRIOR EXAM: Significant change if liver stiffness measurement is 10% or greater from prior exam. OTHER CONSIDERATIONS: The stage of liver fibrosis may be overestimated in the setting of acute hepatitis, liver inflammation, elevated liver function tests, hepatic vascular congestion, obstructive cholestasis, non-fasting state, and infiltrative diseases such as amyloidosis and lymphoma. In some patients with NAFLD, the liver stiffness thresholds for compensated advanced chronic liver disease may be lower. In causes other than viral hepatitis and NAFLD, liver stiffness thresholds are not well established.
--- NOTE | ~2023-01-19 | FL_ITS ---
EXAMINATION: XR FLUOROSCOPY UPPER GI WITH AIR CLINICAL INFORMATION: Preop obesity. COMPARISON: No relevant prior. TECHNIQUE: Air-contrast upper GI examination was performed using standard techniques with both thick and thin barium and effervescent granules. Numerous spot images were obtained. FINDINGS: The esophagus is normal in caliber, contour, and mucosal appearance. There is no stricture or mass. Esophageal peristalsis is normal in appearance. There is a tiny type I hiatus hernia. There is minimal GE reflux noted during the examination, approximately a length of 1 thoracic vertebral body. The stomach has a normal contour and mucosal fold appearance. No evidence of mass, ulceration, or fold thickening. There is normal passage of contrast into the duodenal bulb and duodenal sweep. Normal appearing bulb and normal mucosal pattern in the proximal duodenum. FLUOROSCOPY TIME: 3.3 minutes 30 fluoroscopy spot images obtained. DOSE AREA PRODUCT: 37.031 uGy-m2 (microgray-meter squared) FL/FL upper GI w air IMPRESSION: Very small type I hiatus hernia. Mild episodic GE reflux. Otherwise normal examination.
--- NOTE | 2023-01-19 07:47 | CA_ITS ---
Acquisition Time: 2023-01-19 08:05:24 Total Exercise Time: 00:07:37 Test Indications: Abnormal ECG Medications: CLONAZAPAM ARPIPRAZOLE VIT D FAMOTIDINE ROSUVASTATIN Protocol: MARJ Max HR: 153 BPM 88% of Pred: 173 BPM Max BP: 144/080 mmHG Max Work Load: 9.4 METS Exercise stress test exercise 7 min 37 sec of marj protocol achieving 89% MPHR, with mild SOB, no chest discomfort, without arrhythmais, with normotensive response to exercise, without EKG changes. Nuclear images pending. Test reviewed with Dr. Kinsey. Referred By: Ramiro Monte Overread By: XAVI SANFORD
== END ==
LOC: HO.CARD 07:45
PROVIDERS: Visit Provider Physician Assistant Surgical
DX: R94.31 Abnormal electrocardiogram [ECG] [EKG] (principal); E66.9 Obesity, unspecified
CPT/HCPCS: 74246; 78452; 93017; A9500

== ENCOUNTER → 2023-01-19 08:02 | Outpatient (BNV) | payer MEDICARE, MEDICAID, SELFPAY | PROVIDERS: Visit Provider Internal Medicine | DX: R06.02 Shortness of breath (principal); R94.31 Abnormal electrocardiogram [ECG] [EKG] | CPT/HCPCS: 78452; 93016; 93018 ==

== ENCOUNTER 2023-01-20 11:10 | Outpatient (AMB) | payer MEDICARE, MEDICAID, SELFPAY ==
--- NOTE | 2023-01-20 11:38 | A.OFFVIS_ITS ---
Intake VS Expanded 01/20/23 11:46 Height 5 ft 6 in Weight 210 lb 3.2 oz BMI 33.9 BP 140/81 H Blood Pressure Location Rt brachial Blood Pressure Position Sitting Pulse 83 Pulse Source Pulse Oximeter Temp 97.1 F Temperature Source Temporal Artery Scan Pulse Oximetry 98 Oxygen Delivery Method Room Air Body Fat 90.0 Body Fat Percentage 42.8 Free Fat Mass 120.2 Muscle Mass 114.0 Visceral Mass 10.0 Water Mass 85.6 BMR 1,673 Intake Visit Reasons: (OV) F/U SWL Waffle Machine Operator Required: Yes Waffle Machine Operator Name: office cmi Allergies Latex, Natural Rubber Allergy (Severe, Verified 01/20/23 11:45) Hives Medication List - Last Reconciled 01/20/23 by RILEY Camara aripiprazole (Abilify) 5 mg PO BEDTIME cholecalciferol (vitamin D3) 50 mcg PO DAILY clonazepam 1 mg PO BID famotidine 10 mg PO DAILY rosuvastatin 10 mg PO DAILY venlafaxine ER (Effexor XR) 37.5 mg PO DAILY vitamin A palmitate 3,000 mcg PO DAILY 90 days HPI HPI Comments History of Present Illness Details The patient is a pleasant 47 year old female who returns to the clinic for pre-operative surgical weight loss management. They were last seen in the office on 12/23/22, recorded weight at that time was 214.8 pounds, with a BMI of 34.7. Today's weight is 214.2 pounds and BMI is 33.9. There has been a weight loss of 8 pounds since initiating the surgical weight loss program on 11/29/22 with a total body weight loss of 3.6 %. 12/27/22 sleep study positive for mod-severe JIMMIE Pre op work up completed as follows: SWL classes:? 08/27 BH appts: f/u 02/09/23 ? ? RD appts: f/u 02/16/23 Labs: 12/27/22-low A H. pylori: P CXR: 12/27/22-nad EK12/27/22-min voltage for LVH cannot r/o ant infarct - 01/19/23 stress test results P ABD U/S: 01/10/23-fatty liver UGI: 01/05/23-sm HH, GERD The patient reports she is doing well. She is following the meal plan but not exactly. Drinking shakes over 30 minutes. Eating the bars only sometimes as too sweet. Bars 2-3 days per week. Now doing 2 shakes Current meal plan includes: 2 Orgain shakes ([employer], [employer], [employer]), (2 scoop in 8 oz low fat unsweetened almond milk or water each) First shake at 10am-12pm, Second shake at? 1pm-3pm Dinner at 4pm (8 forks of protein and 8 forks of salad/vegetables). Drinking 48 oz of water Current exercise plan includes: walking outside, 3 days not tracking calories, 1 hour stationary bike at home 2 x per week 30 minutes. PFSH Surgical History History of abdominoplasty Hx of breast implant Hx of hysterectomy Hx of knee surgery Hx of thyroidectomy Family History Mother Psychiatric diagnosis Hypertension Father Diabetes Sister Hypothyroid Vitamin D deficiency Vitamin B12 deficiency Social History Alcohol intake: current Alcohol intake frequency: holidays/special occasions only Patient Tobacco Use Status: Never used Tobacco Physical Exam Const General: healthy appearing and no acute distress Resp Effort & Inspection: normal respiratory effort Auscultation: clear to auscultation bilaterally Cardio Rate: regular rate Rhythm: regular rhythm GI Auscultation: normal bowel sounds Extrem General: Yes normal to inspection Assessment & Plan Assessment & Plan (1) Obesity (BMI 30-39.9): Code(s): E66.9 - Obesity, unspecified Plan: Follow meal plans exactly, including duration to drink the shakes. Increase exercise and track calories. f/u appts discussed rtc 1 month Coding Level of Care Code Est Pt Level 3 (11689) Diagnoses Obesity (BMI 30-39.9) E66.9
[2023-01-20 11:46] VITALS: BP 140/81; PULSE 83; TEMP 36.2; O2SAT 98; BMI 33.9
== END 2023-01-20 12:10 | disposition home or self-care (01) ==
PROVIDERS: PCP Family Medicine; Visit Provider Physician Assistant Surgical
DX: E66.9 Obesity, unspecified (principal); Z68.33 Body mass index [BMI] 33.0-33.9, adult
CPT/HCPCS: 99213

== ENCOUNTER → 2023-01-20 11:10 | Outpatient (BNVA) | payer MEDICARE, MEDICAID, SELFPAY | PROVIDERS: PCP Family Medicine; Visit Provider Physician Assistant Surgical | DX: E66.9 Obesity, unspecified (principal); Z68.33 Body mass index [BMI] 33.0-33.9, adult | CPT/HCPCS: 99212 ==

== ENCOUNTER 2023-01-31 10:44 | Outpatient (REF) | payer MEDICARE, MEDICAID, SELFPAY ==
[2023-02-01 03:59] LABS: HIV AB/AG Nonreactive (Nonreactive); HIV Num 1 0.05 S/CO (0.00-0.99); ~HepC Num1 0.21 S/CO (0.00-0.79); ~Hepatitis C Antibody Nonreactive (Nonreactive)
== END 2023-01-31 10:45 | disposition home or self-care (01) ==
LOC: HO.CHCLDS 10:44
PROVIDERS: Visit Provider Family Medicine
DX: Z11.4 Encounter for screening for human immunodeficiency virus [HIV] (principal); Z11.59 Encounter for screening for other viral diseases
CPT/HCPCS: 36415; 86803; 87389

== ENCOUNTER 2023-02-09 10:46 | Outpatient (AMB) | payer MEDICARE, MEDICAID, SELFPAY ==
--- NOTE | 2023-02-09 11:09 | A.OFFWM_ITS ---
Intake Intake Visit Reasons: (OV) F/U SWL Allergies Latex, Natural Rubber Allergy (Severe, Verified 01/20/23 11:45) Hives PFSH Surgical History History of abdominoplasty Hx of breast implant Hx of hysterectomy Hx of knee surgery Hx of thyroidectomy Family History Mother Psychiatric diagnosis Hypertension Father Diabetes Sister Hypothyroid Vitamin D deficiency Vitamin B12 deficiency Social History Alcohol intake: current Alcohol intake frequency: holidays/special occasions only Patient Tobacco Use Status: Never used Tobacco Behavioral Health Assessment Weight Management Therapy Therapy Notes Details PT is a 47 year old female who presents for a follow up. BH intake done on 01/05. Pt disclosed she is currently receiving mental health services for depression, she sees her therapist every month and prescriber every 3 months. PT reports she is stable and reported no history of hospitalization/crisis for behavioral h ealth. Denied any safety concerns around SI and/or self-other harm, also there is no history of substance use reported. There is also no evidence for stress/emotional-eating, and scores from BES suggest minimal risk for binge eating behavior. PHQ- scores from today showed no active symptoms/concerns with depression. Her mental status exam is withing normal limits, suggesting person's functioning is not impaired. Today, Pt reports she has increased exercise and her meal plan was adjusted. She is more active during the day and sleep schedule is better (10pm-8am). She also has finished her online nutrition classes. Doing spinning class (5 days at week for 30-45 min) and burning 200-300 Calories per day. PT was provided with strategies for behavioral activation and increase engagement in activities that don't involve food. At this time patient is cleared from the behavioral health standpoint. Presenting Concerns Referral Source WMP Provider. Reason for referral Completion of behavioral health assessment as part of process for weight-loss surgery. Precipitating Event Weight gain and physical challenges. Living Situation Current Living Situation Relative's/Guardian's [place] (Pt lives at her boyfriend's home.) At risk of losing current housing? No Satisfied with current living situation? Yes Comments PT lives with boyfriend and his son. Food/Weight/Diet Expectations of change Pt wants to be at her healthy weight or at least 135- 140Lbs. Goal is to lose 10% of her weight before surgery, which is about 21 lbs. Ultimate weight goal: 193 lbs before surgery. History/Relationship with food Used to skip meals. Example of meals Breakfast: eggs/skip or will have a shake. Lunch: Skip or something quick (ground meat/letters/tortilla chips) Dinner: rice, beans, meat. Will have snacks in between meals. Soda couple times at week. History/Relationship with weight Was overweight after pregnancies for the past 20 years her weight has been in between 145-150Lbs until last year, when she started gaining weight in . History/Relationship with dieting Tried OTC pills, diets, eat less, shakes. PCP prescribed her with Lomaira 8mg and Topamax 50mg for weight loss, tried for about 2 weeks but WMP-provider D/C these meds. Walking 1 hour. Binge Eating Do you frequently eat large amounts of food in short periods of time, not feeling physically hungry? No Do you feel out of control when you eat a large amount of food in a short period of time? Yes Do you eat large amounts of food rapidly and typically alone? No Night Eating Do you wake up at least once during the night to eat? No If you wake up in the night, do you find that it is necessary to eat something in order to fall back asleep? No Do you have little or no appetite in the morning and feel very hungry in the evening, often overeating between dinner and when you go to bed? No Social History Family history and relationship PT is . She has 2 adult sons. (28 and 21 y/o) they live in another [place]. Has 2 siblings, sister lives near, brother in [place]. They have a good relationship Parents alive. Mom in [place], dad in [place]. Good relationships. Parental/Familial night stocker obligations None, children are adult. Developmental history and status None reported. Social support Sister, son, partner, cousin, mother. Community support None reported. Nondenominational/Spirituality [employer]. Cultural/Ethnic information Born and raised in [place]. [place]ian speaking only. Moved to [place] in 2021. Legal Involvement and History Current or historical involvement with the legal system? None reported. Education Highest grade completed 9th grade. Has a certificate in cosmetology. Preferred learning style Verbal Currently enrolled in educational program? No Interested in further educational program? No Educational Interests/Skills Decor, arts/craft. 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 No Meaningful activities Listen to music, exercise, cleaning. Financial Situation Describe current financial situation Comfortable Financial assistance? Food [place] [facility] and [employer] Service Service? No Mental Health and Addiction Treatment Current/Past substance abuse? No Current/Past addictive behavior concerns? No Psychiatric history PT has been in mental health treatment about 12 years ago. Never inpatient but has received partial hospitalization for severe depression. Currently sees a psychiatrist every 3 month and therapist on a monthly basis. - Services @[facility] in [place], [place]. Services via telehealth. Denies any Hx of SI and/or self/other-harm. Medical and Physical Health Summary Additional Medical History not covered in history None reported Sexual History concerns None reported Physical exam in the last year? Yes Pain Screening Current pain? Yes Pain in the last few months? Yes Comments Knee pain, had multiple surgeries in both knee due to arthritis. Medications Is the patient compliant with medications? Yes Does the patient have Singh Guardian in place? Not applicable Does the patient use complimentary health approaches? No Trauma/Abuse History History of trauma? No Questionnaires PHQ-9 Over the last 2 weeks, how often have you been bothered by any of the following problems? 1. Little interest or pleasure in doing things: not at all 2. Feeling down, depressed, or hopeless: not at all 3. Trouble falling or staying asleep, or sleeping too much: not at all 4. Feeling tired or having little energy: not at all 5. Poor appetite or overeating: not at all 6. Feeling bad about yourself - or that you are a failure or have let yourself or your family down: not at all 7. Trouble concentrating on things, such as reading the newspaper or watching television: not at all 8. Moving or speaking so slowly that other people could have noticed. Or the opposite - being so fidgety or restless that you have been moving around a lot more than usual: not at all 9. Thoughts that you would be better off or of hurting yourself in some way: not at all Total score: 0 Depression Screening Interpretation: Negative Source: Developed by Drs. Akin Estrella, Caron Bower, Primo Gamino and colleagues, with an educational leroy from [employer]. Binge Eating Scale Group 1 A. I don't feel self-conscious about my wt. or body size when I'm with others. B. I feel concerned about how I look to others, but it normally does not make me fell disappointed with myself C. I do get self-conscious about my appearance and wt. which makes me feel disappointed in myself. D. I feel very self-conscious about my wt. and frequently I feel intense shame and disgust for myself. I try to avoid social contacts because of my self- consciousness. Response Group 1: C Group 2 A. I don't have any difficulty eating slowly in the proper manner. B. Although I seem to gobble down foods, I don't end up feeling stuffed because of eating to much. C. At times, I tend to eat quickly and then, I feel uncomfortably full afterwards. D. I have the habit of bolting down my food, without really chewing it. When this happens I usually feel uncomfortably stuffed because I've eaten to much. Response Group 2: C Group 3 A. I feel capable to control my eating urges when I want to. B. I feel like I have failed to control my eating more than the average person. C. I feel utterly helpless when it comes to feeling in control of my eating urges. D. Because I feel so helpless about controlling my eating I have become very desperate about trying to get control. Response Group 3: A Group 4 A. I don't have the habit of eating when I'm bored. B. I sometimes eat when I'm bored, but often I'm able to get busy and get my mind off food. C. I have a regular habit of eating when I'm bored, but occasionally, I can use some other activity to get my mind off eating. D. I have a strong habit of eating when I'm bored. Nothing seems to help me breath the habit. Response Group 4: B Group 5 A. I'm usually physically hungry when I eat something. B. Occasionally, I eat something on impulse even though I really am not hungry. C. I have the regular habit of eating foods, that I might not really enjoy, to satisfy a hungry feeling even though physically, I don't need the food. D. Although I'm not physically hungry, I get a hungry feeling in my mouth that only seems to be satisfied when I eat a food, like sandwich, that fills my mouth. Sometimes, when I eat the food to satisfy my mouth hunger, I then spit the food out so I won't gain weight. Response Group 5: B Group 6 A. I don't feel any guilt or self-hate after I overeat. B. After I overeat, occasionally I feel guilt or self-hate. C. Almost all the time I experience strong guilt or self-hate after I overeat. Response Group 6: B Group 7 A. I don't lose total control of my eating when dieting even after periods when I overeat. B. Sometimes when I eat a forbidden food on a diet, I feel like I blew it and eat even more. C. Frequently, I have the habit of saying to myself, I've blown it now, why not go all the way, when I overeat on a diet. When that happens I eat more. D. I have a regular habit of starting a strict diets for myself but I break the diets by going on an eating binge. My life seems to be either a feast or famine. Response Group 7: A Group 8 A. I rarely eat so much food that I feel uncomfortably stuffed afterwards. B. Usually about once a month, I each such a quantity of food, I end up feeling very stuffed. C. I have regular periods during the month when I eat large amounts of food, either at mealtime or at snacks. D. I eat so much food that I regularly feel quite uncomfortable after eating and sometimes a bit nauseous. Response Group 8: C Group 9 A. My level of calorie intake does not go up very high or go down very low on a regular basis. B. Sometimes after I overeat, I will try to reduce my caloric intake to almost nothing to compensate for the excess calories I've eaten. C. I have a regular habit of overeating during the night. It seems that my routine is not to be hungry in the morning but overeat in the evening. D. In my adult years, I have had week-long periods where I practically starve myself. This follows periods when I overeat. It seems I live a life of either feast or famine. Response Group 9: A Group 10 A. I usually am able to stop eating when I want to. I know when enough is enough. B. Every so often, I experience a compulsion to eat which I can't seem to control. C. Frequently, I experience strong urges to eat which I seem unable to control, but at other times I can control my eating urges. D. I feel incapable of controlling urges to eat. I have a fear of not being able to stop eating voluntarily. Response Group 10: C Group 11 A. I don't have any problem stopping eating when I feel full. B. I usually can stop eating when I feel full but occasionally overeat leaving me feeling uncomfortably stuffed. C. I have a problem stopping eating once I start and usually I feel uncomfortably stuffed after I eat a meal. D. Because I have a problem not being able to stop eating when I want, I sometimes have to induce vomiting to relieve my stuffed feeling. Response Group 11: C Group 12 A. I seem to eat just as much when I'm with others, Family social gatherings as when I'm by myself. B. Sometimes, when I'm with other persons, I don't eat as much as I want to eat because I'm self-conscious about my eating. C. Frequently, I eat only a small amount of food when others are present, because I'm very embarrassed about my eating. D. I feel so ashamed about overeating that I pick times to overeat when I know no one will see me. I feel like a closet eater. Response Group 12: A Group 13 A. I eat three meals a day with only an occasional between meal snack. B. I eat 3 meals a day, but I also normally snack between meals. C. When I am snacking heavily, I get in the habit of skipping regular meals. D. There are regular periods when I seem to be continually eating, with no planned meals. Response Group 13: C Group 14 A. I don't think much about trying to control unwanted eating urges. B. At least some of the time, I feel my thoughts are pre-occupied with trying to control my eating urges. C. I feel that frequently I spend much time thinking about how much I ate or about trying not to eat anymore. D. It seems to me that most of my waking hours are pre-occupied by thoughts about eating or not eating. I feel like I'm constantly struggling not to eat. Response Group 14: C Group 15 A. I don't think about food a great deal. B. I have strong craving for food but they last only for brief periods of time. C. I have days when I can't seem to think about anything else but food. D. Most of my days seem to be pre-occupied with thoughts about food. I feel like I live to eat. Response Group 15: A Group 16 A. I usually know whether or not I'm physically hungry. I take the right portion of food to satisfy me. B. Occasionally, I feel uncertain about knowing whether or not I'm physically hungry. A these times it's hard to know how much food I should take to satisfy me. C. Even though I might know how many calories I should eat, I don't have any idea what is a normal amount of food for me. Response Group 16: A Binge Eating Score: 17 Score less than 17 Minimal Risk Score between 18-26 Moderate Risk Score between 27-46 High Risk Assessment & Plan Assessment & Plan (1) Major depression: Code(s): F32.9 - Major depressive disorder, single episode, unspecified Qualifiers: Major depression recurrence: recurrent Active/Remission status: remission status unspecified Qualified Code(s): F33.9 - Major depressive disorder, recurrent, unspecified Plan PT is cleared today and there is no need to F/up. Coding Level of Care Code Established Pt Psytx 45 mins (38414) Patient Type Established Diagnoses Recurrent major depressive disorder, remission status unspecified F33.9 Major depression recurrence: recurrent Active/Remission status: remission status unspecified Time Spent (min) 50
== END 2023-02-09 12:00 | disposition home or self-care (01) ==
PROVIDERS: PCP Family Medicine; Visit Provider Counselor Mental Health
DX: F33.9 Major depressive disorder, recurrent, unspecified (principal)
CPT/HCPCS: 90834

== ENCOUNTER → 2023-02-09 10:46 | Outpatient (BNVA) | payer MEDICARE, MEDICAID, SELFPAY | PROVIDERS: PCP Family Medicine; Visit Provider Counselor Mental Health ==

== ENCOUNTER → 2023-02-16 10:59 | Outpatient (BNVA) | payer MEDICARE, MEDICAID, SELFPAY | PROVIDERS: PCP Family Medicine; Visit Provider Dietitian, Registered | DX: E66.9 Obesity, unspecified (principal); Z71.3 Dietary counseling and surveillance | CPT/HCPCS: 97803 ==

== ENCOUNTER 2023-02-17 10:53 | Outpatient (AMB) | payer MEDICARE, MEDICAID, SELFPAY ==
--- NOTE | 2023-02-17 11:35 | A.OFFVIS_ITS ---
Intake VS Expanded 02/17/23 11:41 BP 134/69 Blood Pressure Location Rt brachial Blood Pressure Position Sitting Pulse 78 Pulse Source Pulse Oximeter Temp 97.3 F Temperature Source Temporal Artery Scan Pulse Oximetry 100 Oxygen Delivery Method Room Air Height 5 ft 6 in Weight 205 lb 3.2 oz BMI 33.1 Body Fat % 43.4 Body Fat Mass 89.0 Fat Free Mass 116.0 Visceral Fat Rating 10.0 Body Water % 40.3 Body Water Mass 82.6 Muscle Mass/Score 110.0 Basal Metabolic Rate/Score 1,620 Intake Visit Reasons: (OV) F/U SWL Allergies Latex, Natural Rubber Allergy (Severe, Verified 02/17/23 11:40) Hives HPI HPI Comments History of Present Illness Details The patient is a pleasant 47 year old female who returns to the clinic for pre-operative surgical weight loss management. They were last seen in the office on 01/20/23, recorded weight at that time was 210.2 pounds, with a BMI of 33.9. Today's weight is 205.2 pounds and BMI is 33.1. There has been a weight loss of 13 pounds since initiating the surgical weight loss program on 11/29/22 with a total body weight loss of 5.95 %. 12/27/22 sleep study positive for mod-kanu re JIMMIE Pre op work up completed as follows: SWL classes:? 08/27 BH appts: cleared-02/09/23 ? ? RD appts: cleared-02/16/23 Labs: 12/27/22-low A H. pylori: not yet done CXR: 12/27/22-nad EK12/27/22-min voltage for LVH cannot r/o ant infarct - 01/19/23 stress test results-normal perfusion imaging study ABD U/S: 01/10/23-fatty liver UGI: 01/05/23-sm HH, GERD The patient reports she is doing well. doing the two shakes but added a anguillan yo gurt after dinner. reports feeling hungry in the morning Current meal plan includes: 2 Orgain shakes ([employer], [employer], [employer]), (2 scoop in 8 oz low fat unsweetened almond milk or water each) First shake at 10am-12pm, Second shake at? 1pm-3pm Dinner at 4pm (8 forks of protein and 8 forks of salad/vegetables). anguillan yogurt Drinking 48 oz of water Current exercise plan includes: walking outside, 3 days not tracking calories, 1 hour stationary bike at home 5 x per week 300-340 calories. PFSH Surgical History History of abdominoplasty Hx of breast implant Hx of hysterectomy Hx of thyroidectomy Hx of knee surgery Family History Mother Psychiatric diagnosis Hypertension Father Diabetes Sister Hypothyroid Vitamin D deficiency Vitamin B12 deficiency Social History Alcohol intake: current Alcohol intake frequency: holidays/special occasions only Patient Tobacco Use Status: Never used Tobacco Physical Exam Const General: healthy appearing and no acute distress Resp Effort & Inspection: normal respiratory effort Auscultation: clear to auscultation bilaterally Cardio Rate: regular rate Rhythm: regular rhythm GI Auscultation: normal bowel sounds Extrem General: Yes normal to inspection Assessment & Plan Assessment & Plan (1) Obesity (BMI 30-39.9): Code(s): E66.9 - Obesity, unspecified Plan: cristina meal plan: 2 Orgain shakes ([employer], [employer], [employer]), First shake at 10am-12pm, (2 scoop in 8 oz low fat unsweetened almond milk or water each) anguillan yogurt noon Second shake at? 1pm-3pm, (1 scoop in 8 oz low fat unsweetened almond milk or water each) Dinner at 4pm (8 forks of protein and 8 forks of salad/vegetables). Continue exercise plan and will refer to Dr Montgomery for further pre-op planning. Given number for sleep medicine and told to call by monday if she has not heard from them Coding Level of Care Code Est Pt Level 3 (44927) Diagnoses Obesity (BMI 30-39.9) E66.9
[2023-02-17 11:41] VITALS: BP 134/69; PULSE 78; TEMP 36.3; O2SAT 100; BMI 33.1
== END 2023-02-17 12:06 | disposition home or self-care (01) ==
PROVIDERS: PCP Family Medicine; Visit Provider Physician Assistant Surgical
DX: E66.9 Obesity, unspecified (principal); Z68.33 Body mass index [BMI] 33.0-33.9, adult
CPT/HCPCS: 99213

== ENCOUNTER → 2023-02-17 10:53 | Outpatient (BNVA) | payer MEDICARE, MEDICAID, SELFPAY | PROVIDERS: PCP Family Medicine; Visit Provider Physician Assistant Surgical | DX: E66.9 Obesity, unspecified (principal) | CPT/HCPCS: 99212 ==

== ENCOUNTER 2023-03-01 10:30 | Outpatient (REF) | payer MEDICARE, MEDICAID, SELFPAY ==
--- NOTE | ~2023-03-01 | MM_ITS ---
EXAMINATION: MM SCREENING DIGITAL BREAST TOMOSYNTHESIS, BILATERAL BILATERAL BREAST IMPLANTS CLINICAL INFORMATION: Screening. Asymptomatic. COMPARISON: Mammography: This study is compared to prior mammogram from 2020. There are no other mammograms for comparison. TECHNIQUE: Digital mammography is performed in craniocaudal and mediolateral oblique views along with computer-aided detection (CAD). Digital breast tomosynthesis is performed in implant-displaced craniocaudal and implant-displaced mediolateral oblique views along with computer-aided detection (CAD). Synthesized 2D images are generated from the tomosynthesis. FINDINGS: The breasts are heterogeneously dense, which may obscure small masses (ACR BI-RADS breast composition Category c). There are bilateral, retroglandular, mammographically intact silicone breast implants. There is an asymmetry in the lower outer quadrant of the left breast. This is present in the implant displaced view. Additional mammographic and targeted sonographic imaging of this finding is advised. In the right breast, there no are no significant masses, abnormal calcifications, or other abnormalities. MM/MM tomosynthesis screen imp BI IMPRESSION: Asymmetry of the left breast in the left CC implant displaced view warrants additional mammographic and targeted sonographic imaging. No mammographic signs of malignancy right breast. Mammographically intact, retroglandular silicone breast implants. ASSESSMENT: BI-RADS BI-RADS 0 - Incomplete: Needs additional Imaging. RECOMMENDATION: 1. Additional views of the left breast 2. Targeted ultrasound if warranted after review of the additional views. 3. Radiology department staff will contact the patient for additional imaging. Additional Imaging required This patient's information was entered into a reminder system with a target due date for their next mammogram.
== END 2023-03-01 10:31 | disposition home or self-care (01) ==
LOC: HO.MAMMO 10:30
PROVIDERS: Visit Provider Family Medicine
DX: Z12.31 Encounter for screening mammogram for malignant neoplasm of breast (principal)
CPT/HCPCS: 77063; 77067

== ENCOUNTER → 2023-03-01 11:00 | Outpatient (BNV) | payer MEDICARE, MEDICAID, SELFPAY | PROVIDERS: Visit Provider Radiology Diagnostic Radiology | DX: Z12.31 Encounter for screening mammogram for malignant neoplasm of breast (principal) | CPT/HCPCS: 77063; 77067 ==

== ENCOUNTER 2023-03-17 10:25 | Outpatient (AMB) | payer MEDICARE, MEDICAID, SELFPAY ==
--- NOTE | 2023-03-17 10:30 | MHC.OFFVISWM ---
Intake VS Expanded 03/17/23 10:40 BP 104/61 Blood Pressure Location Rt brachial Blood Pressure Position Sitting Pulse 90 Pulse Source Pulse Oximeter Temp 97.6 F Temperature Source Tympanic Pulse Oximetry 96 Oxygen Delivery Method Room Air Height 5 ft 6 in Weight 207 lb BMI 33.4 Body Fat % 96 Body Fat Mass 86.2 Fat Free Mass 120.6 Visceral Fat Rating 10.0 Body Water % 41.6 Body Water Mass 86.0 Muscle Mass/Score 114.4 Basal Metabolic Rate/Score 1,672 Intake Visit Reasons: (OV) F/U SWL (Ramiro) Log Scaler Required: Yes Log Scaler Name: Lashay Allergies Latex, Natural Rubber Allergy (Severe, Verified 03/17/23 10:44) Hives HPI HPI Comments History of Present Illness Details The patient is a pleasant 47 year old female who returns to the clinic for pre-operative surgical weight loss management. She entered the SWL program upon initial presentation to the SWL clinic at [facility] was 218.2 pounds with a BMI of 35.2 on 11/29/22. On 02/17/23, her weight was 205.2 pounds and BMI is 33.1. There has been a weight loss of 11 pounds since initiating the surgical weight loss program on 11/29/22. Her goal was to the 21 lb to a weight of 193 lb for surgery. 12/27/22 sleep study positive for mod-severe JIMMIE She has past surgical history that includes multiple right knee operations and ongoing pain. Her right knee limits what she can do and her last procedure was 3 years ago. She also reports a history of an abdominplasty but no intra-abdominal surgery. Pre op work up completed as follows: SWL classes:? 08/27 BH appts: cleared-02/09/23 ? ? RD appts: cleared-02/16/23 Labs: 12/27/22-low A H. pylori: not yet done CXR: 12/27/22-nad EK12/27/22-min voltage for LVH cannot r/o ant infarct - 01/19/23 stress test results-normal perfusion imaging study ABD U/S: 01/10/23-fatty liver UGI: 01/05/23-sm HH, GERD The patient reports she is doing well. doing the two shakes but added a latvian yogurt after dinner. reports feeling hungry in the morning Current meal plan includes: 2 Orgain shakes ([employer], [employer], [facility]), (2 scoop in 8 oz low fat unsweetened almond milk or water each) First shake at 10am-12pm, Second shake at? 1pm-3pm Dinner at 4pm (8 forks of protein and 8 forks of salad/vegetables). latvian yogurt She denies any hunger and there were no changes made to the meal plan, but she notes that she is limited and not exercising due to her right knee pain. Drinking 48 oz of water Current exercise plan includes: walking outside, 3 days not tracking calories, 1 hour; she reports less exercises today's visit secondary to right knee pain stationary bike at home 5 x per week 300-340 calories. [facility] Surgical History History of abdominoplasty Hx of breast implant Hx of hysterectomy Hx of thyroidectomy Hx of knee surgery Family History Mother Psychiatric diagnosis Hypertension Father Diabetes Sister Hypothyroid Vitamin D deficiency Vitamin B12 deficiency Social History Alcohol intake: current Alcohol intake frequency: holidays/special occasions only Patient Tobacco Use Status: Never used Tobacco Review of Systems Const All systems reviewed & are unremarkable except as noted in HPI and below Physical Exam On exam, she is anicteric and nontoxic She is in good spirits She is having no respiratory distress Abdomen is obese Her right knee has visible scarring and trace lower extremity edema Results Reviewed Results Reviewed: 12/27/22 labs Load vitamin-A (replaced) o/w MVI wnl Hemoglobin 14.5 with normal indices, normal iron studies, white blood cell count 6.1, platelets are slightly low at 145 K BUN 11, creatinine 0.80, electrolytes within normal parameters CRP elevated at 1.35 LFTs, lipids, remaining studies WNL Diagnostic imaging 01/25/23 myocardial perfusion test EF 71% with no reversible or fixed defect CXR NAD U/S NAFLD, no evidence of fibrosis UGI small HH with GERD Assessment & Plan Assessment & Plan (1) Hypercholesterolemia: Code(s): E78.00 - Pure hypercholesterolemia, unspecified (2) Abnormal EKG: Code(s): R94.31 - Abnormal electrocardiogram [ECG] [EKG] (3) JIMMIE (obstructive sleep apnea): Code(s): G47.33 - Obstructive sleep apnea (adult) (pediatric) (4) Snoring: Code(s): R06.83 - Snoring (5) Obesity (BMI 30-39.9): Code(s): E66.9 - Obesity, unspecified Plan We reviewed her initial appointment & goal is to lose 10% of your weight before surgery, which is about 21 lbs. Ultimate weight goal: 193 lbs before surgery as well as the fact she is 207 lbs today, which is up 2 lbs from her last visit. The patient is advised of these parameters and will follow-up with me in 2 weeks to reassess. 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 The importance of diet and increased activity to optimize surgical weight loss was reviewed and apparently understood. The inherent risks of weight regain if maladaptive eating and sedentary behavior occur, risks of bleeding that could require reoperation or blood transfusion and risk of from DVT/PE were discussed with the patient and apparently understood. Patient states she is having no hunger issues and there are no changes to her meal plan. The importance of increasing her activity regarding her weight gain was discussed and apparently understood. Her questions seemed to be satisfactorily answered. F/u 2 weeks re: 45' appt Coding Level of Care Code Est Pt Level 4 (55600) Diagnoses Hypercholesterolemia E78.00 Abnormal EKG R94.31 JIMMIE (obstructive sleep apnea) G47.33 Snoring R06.83 Obesity (BMI 30-39.9) E66.9
[2023-03-17 10:40] VITALS: BP 104/61; PULSE 90; TEMP 36.4; O2SAT 96; BMI 33.4
== END 2023-03-17 11:16 | disposition home or self-care (01) ==
PROVIDERS: PCP Family Medicine; Visit Provider Surgery
DX: E66.9 Obesity, unspecified (principal); Z68.33 Body mass index [BMI] 33.0-33.9, adult; R94.31 Abnormal electrocardiogram [ECG] [EKG]; G47.33 Obstructive sleep apnea (adult) (pediatric); R06.83 Snoring
CPT/HCPCS: 99213

== ENCOUNTER → 2023-03-17 10:25 | Outpatient (BNVA) | payer MEDICARE, MEDICAID, SELFPAY | PROVIDERS: PCP Family Medicine; Visit Provider Surgery | DX: E66.9 Obesity, unspecified (principal); R94.31 Abnormal electrocardiogram [ECG] [EKG]; E78.00 Pure hypercholesterolemia, unspecified; G47.33 Obstructive sleep apnea (adult) (pediatric); R06.83 Snoring; Z68.33 Body mass index [BMI] 33.0-33.9, adult | CPT/HCPCS: 99212 ==

== ENCOUNTER 2023-03-31 13:33 | Outpatient (AMB) | payer MEDICARE, MEDICAID, SELFPAY ==
--- NOTE | 2023-03-31 13:43 | MHC.OFFVISWM ---
Intake VS Expanded 03/31/23 13:52 BP 136/71 Blood Pressure Location Rt brachial Blood Pressure Position Sitting Pulse 87 Pulse Source Pulse Oximeter Temp 97.0 F Temperature Source Tympanic Pulse Oximetry 95 Oxygen Delivery Method Room Air Height 5 ft 6 in Weight 205 lb 12.8 oz BMI 33.2 Body Fat % 41.5 Body Fat Mass 85.4 Fat Free Mass 120.4 Visceral Fat Rating 10.0 Body Water % 41.7 Body Water Mass 85.8 Muscle Mass/Score 114.2 Basal Metabolic Rate/Score 1,668 Intake Visit Reasons: (OV) F/U SWL (Ramiro) Home Energy Inspector Required: Yes Information Interpreted: clinical only Field Operations Farm Manager: Field Operations Farm Manager Present Allergies Latex, Natural Rubber Allergy (Severe, Verified 03/17/23 10:44) Hives HPI HPI Comments History of Present Illness Details The patient is a pleasant 47 year old female who returns to the clinic for pre-operative surgical weight loss management. She entered the SWL program upon initial presentation to the SWL clinic at [facility] [place] was 218.2 pounds with a BMI of 35.2 on 11/29/22. On 02/17/23, her weight was 205.2 pounds and BMI is 33.1. There has been a weight loss of 11 pounds since initiating the surgical weight loss program on 11/29/22. Her goal was to the 21 lb to a weight of 193 lb for surgery. Hospital interpretive services helped for today's visit. 12/27/22 sleep study positive for mod-severe JIMMIE She has past surgical history that includes multiple right knee operations and ongoing pain. Her right knee limits what she can do and her last procedure was 3 years ago. She also reports a history of an abdominplasty but no intra-abdominal surgery. Pre op work up completed as follows: SWL classes:? 08/27 BH appts: cleared-02/09/23 ? ? RD appts: cleared-02/16/23 Labs: 12/27/22-low A H. pylori: not yet done CXR: 12/27/22-nad EK12/27/22-min voltage for LVH cannot r/o ant infarct - 01/19/23 stress test results-normal perfusion imaging study ABD U/S: 01/10/23-fatty liver UGI: 01/05/23-sm HH, GERD The patient reports she is doing well. doing the two shakes but added a croatian yogurt after dinner. reports feeling hungry in the morning Current meal plan includes: 2 Orgain shakes ([employer], [employer], [facility]), (2 scoop in 8 oz low fat unsweetened almond milk or water each) First shake at 10am-12pm, Second shake at? 1pm-3pm Dinner at 4pm (8 forks of protein and 8 forks of salad/vegetables). [place] yogurt She denies any hunger and there were no changes made to the meal plan, but she notes that she is limited and not exercising due to her right knee pain. Drinking 48 oz of water Current exercise plan includes: walking outside, 3 days not tracking calories, 1 hour; she reports less exercises today's visit secondary to right knee pain stationary bike at home 5 x per week 300-340 calories. [facility] Surgical History History of abdominoplasty Hx of breast implant Hx of hysterectomy Hx of thyroidectomy Hx of knee surgery Family History Mother Psychiatric diagnosis Hypertension Father Diabetes Sister Hypothyroid Vitamin D deficiency Vitamin B12 deficiency Social History Alcohol intake: current Alcohol intake frequency: holidays/special occasions only Patient Tobacco Use Status: Never used Tobacco Review of Systems Const All systems reviewed & are unremarkable except as noted in HPI and below Physical Exam Vital Signs: Last Vital Signs Temp 97.0 F 03/31/23 13:52 Pulse 87 03/31/23 13:52 BP 136/71 03/31/23 13:52 Pulse Ox 95 03/31/23 13:52 Oxygen Delivery Method Room Air 03/31/23 13:52 BMI result Body Mass Index 33.2 On exam, she is anicteric and nontoxic She is in good spirits She is having no respiratory distress Abdomen is obese Her right knee has visible scarring and trace lower extremity edema Results Reviewed Results Reviewed: 12/27/22 labs Load vitamin-A (replaced) o/w MVI wnl Hemoglobin 14.5 with normal indices, normal iron studies, white blood cell count 6.1, platelets are slightly low at 145 K BUN 11, creatinine 0.80, electrolytes within normal parameters CRP elevated at 1.35 LFTs, lipids, remaining studies WNL Diagnostic imaging 01/25/23 myocardial perfusion test EF 71% with no reversible or fixed defect CXR NAD U/S NAFLD, no evidence of fibrosis UGI small HH with GERD Assessment & Plan Assessment & Plan (1) Obesity (BMI 30-39.9): Code(s): E66.9 - Obesity, unspecified (2) Hypercholesterolemia: Code(s): E78.00 - Pure hypercholesterolemia, unspecified (3) Snoring: Code(s): R06.83 - Snoring (4) Abnormal EKG: Code(s): R94.31 - Abnormal electrocardiogram [ECG] [EKG] (5) JIMMIE (obstructive sleep apnea): Code(s): G47.33 - Obstructive sleep apnea (adult) (pediatric) Plan The patient noted that she bought protein bars off [employer] and she is not happy with the taste. She is not happy with the degree of weight loss and she also was concerned that causing her to lose weight to 193 lb preoperatively would ultimately result in a final weight of 93 lb. She noted that her son had a bariatric operation in [place] and lost 100 lb and only weighs 128 lb currently. So the patient extrapolated this to believe that she would be only 93 lb and she does not want to be that then. The importance of having a healthy meal plan was reviewed via interpretive services. Will schedule a follow-up with Lillie Oconnor since the patient seems to both be struggling with weight loss and her selections. Patient will see me in 3 weeks for follow-up. Coding Level of Care Code Est Pt Level 4 (72542) Diagnoses Obesity (BMI 30-39.9) E66.9 Hypercholesterolemia E78.00 Snoring R06.83 Abnormal EKG R94.31 JIMMIE (obstructive sleep apnea) G47.33
[2023-03-31 13:52] VITALS: BP 136/71; PULSE 87; TEMP 36.1; O2SAT 95; BMI 33.2
== END 2023-03-31 14:27 | disposition home or self-care (01) ==
PROVIDERS: PCP Family Medicine; Visit Provider Surgery
DX: E66.9 Obesity, unspecified (principal); Z68.33 Body mass index [BMI] 33.0-33.9, adult
CPT/HCPCS: 99213

== ENCOUNTER → 2023-03-31 13:33 | Outpatient (BNVA) | payer MEDICARE, MEDICAID, SELFPAY | PROVIDERS: PCP Family Medicine; Visit Provider Surgery | DX: E66.9 Obesity, unspecified (principal); E78.00 Pure hypercholesterolemia, unspecified; R06.83 Snoring; G47.33 Obstructive sleep apnea (adult) (pediatric); Z68.33 Body mass index [BMI] 33.0-33.9, adult | CPT/HCPCS: 99212 ==

== ENCOUNTER 2023-04-17 13:35 | Outpatient (REF) | payer MEDICARE, MEDICAID, SELFPAY ==
--- NOTE | ~2023-04-17 | US_ITS ---
EXAMINATION: MM DIAGNOSTIC DIGITAL BREAST TOMOSYNTHESIS, LEFT US BREAST LIMITED, LEFT MAMMOGRAPHY: CLINICAL INFORMATION: Evaluate one view asymmetry seen 4:00 axis left breast, implant displaced CC view only. COMPARISON: Mammography: 03/01/2023 TECHNIQUE: Digital left mammography is performed in craniocaudal and mediolateral oblique views. Digital breast tomosynthesis is performed in implant-displaced craniocaudal and implant-displaced mediolateral oblique views. Synthesized 2D images are generated from the tomosynthesis. Computer-aided detection (CAD) is performed for this exam FINDINGS: The breasts are heterogeneously dense, which may obscure small masses (ACR BI-RADS breast composition Category c). In the approximate 4:00 axis of the left breast, there is a circumscribed oval mass which will be evaluated by ultrasound. Otherwise, implants appear intact. No additional masses, areas of architectural distortion, or suspicious calcifications identified in the left breast. ULTRASOUND: CLINICAL INFORMATION: Evaluate oval circumscribed mass seen left breast 4:00 axis. COMPARISON: None TECHNIQUE: Targeted sonographic evaluation was performed using a high frequency linear transducer. Attention was given to the 4:00 axis left breast. Selected archived documentation. FINDINGS: LEFT BREAST: There is a mixture of fatty and fibroglandular tissue. No suspicious mass is seen. There is no pathologic acoustic shadowing. There is a simple cyst in the 4:00 axis, 4 cm from the nipple, left breast, measuring 1.1 x 0.4 x 0.8 cm. There is a small daughter cyst measuring 5 mm. There is no implant abnormality. No abnormal fluid collection. US/US breast LT limited mamm only IMPRESSION: Benign cyst left breast 4:00 axis correlating with the mammographic finding. No implant abnormality. No findings suspicious for malignancy in the left breast. Recommend the patient resume routine annual screening. OVERALL ASSESSMENT: Mammography: BI-RADS 2 - Benign Findings Ultrasound: BI-RADS 2 - Benign Findings RECOMMENDATION: 1 year F/U This patient's information was entered into a reminder system with a target due date for their next mammogram.
== END 2023-04-17 13:36 | disposition home or self-care (01) ==
LOC: HO.MAMMO 13:35
PROVIDERS: PCP Family Medicine; Visit Provider Family Medicine
DX: N64.89 Other specified disorders of breast (principal)
CPT/HCPCS: 76642; 77061; 77065

== ENCOUNTER → 2023-04-17 14:00 | Outpatient (BNV) | payer MEDICARE, MEDICAID, SELFPAY | PROVIDERS: PCP Family Medicine; Visit Provider Radiology Diagnostic Radiology | DX: N63.23 Unspecified lump in the left breast, lower outer quadrant (principal) | CPT/HCPCS: 76642; 77061; 77065; G0279 ==

== ENCOUNTER → 2023-04-18 11:54 | Outpatient (BNVA) | payer MEDICARE, MEDICAID, SELFPAY | PROVIDERS: PCP Family Medicine; Visit Provider Dietitian, Registered | DX: E66.9 Obesity, unspecified (principal); E78.00 Pure hypercholesterolemia, unspecified; G47.33 Obstructive sleep apnea (adult) (pediatric); Z68.32 Body mass index [BMI] 32.0-32.9, adult | CPT/HCPCS: 97803; 99212 ==

== ENCOUNTER 2023-04-18 13:21 | Outpatient (AMB) | payer MEDICARE, MEDICAID, SELFPAY ==
--- NOTE | 2023-04-18 13:37 | A.OFFVIS_ITS ---
Intake VS Expanded 04/18/23 13:44 BP 130/79 Blood Pressure Location Rt brachial Blood Pressure Position Sitting Pulse 87 Pulse Source Pulse Oximeter Temp 96.7 F L Temperature Source Tympanic Pulse Oximetry 98 Oxygen Delivery Method Room Air Height 5 ft 6 in Weight 202 lb 9.6 oz BMI 32.7 Body Fat % 42.3 Body Fat Mass 85.6 Fat Free Mass 116.8 Visceral Fat Rating 10.0 Body Water % 41.2 Body Water Mass 83.4 Muscle Mass/Score 110.8 Basal Metabolic Rate/Score 1,625 Intake Visit Reasons: (OV) F/U SWL (Ramiro) Discharge Coordinator Required: Yes Discharge Coordinator Language: Peanut Sheller Name: Zoila Allergies Latex, Natural Rubber Allergy (Severe, Verified 03/17/23 10:44) Hives HPI HPI Comments History of Present Illness Details The patient is a pleasant 47 year old female who returns to the clinic for pre-operative surgical weight loss management. She entered the SWL program upon [place] presentation to [place] [facility] [place] 218.2 pounds with a BMI of 35.2 on 11/29/22 and was diagnosed with moderate-severe obstructive sleep apnea related to her obesity. Today, she presents with a weight of 202.6 pounds and BMI is 32.7, represent a weight loss of 13 pounds since initiating the surgical weight loss program on 11/29/22. Her goal was to the 21 lb to a weight of 193 lb for surgery. Hospital interpretive services helped for today's visit. 12/27/22 sleep study positive for mod-aknu re JIMMIE. The patient notes daytime fatigue is interfering with her exercise and activity. She again noted today that she is comfortable with her frame and is adding cheese to her diet. She has past surgical history that includes multiple right knee operations and ongoing pain. Her right knee limits what she can do and her last procedure was 3 years ago. She also reports a history of an abdominplasty but no intra-abdominal surgery. Pre op work up completed as follows: SWL classes:? 08/27 BH appts: cleared-02/09/23 ? ? RD appts: cleared-02/16/23 Labs: 12/27/22-low A H. pylori: not yet done CXR: 12/27/22-nad EK12/27/22-min voltage for LVH cannot r/o ant infarct - 01/19/23 stress test results-normal perfusion imaging study ABD U/S: 01/10/23-fatty liver UGI: 01/05/23-sm HH, GERD The patient reports she is doing well. doing the two shakes but added a frisian yogurt after dinner. reports feeling hungry in the morning Current meal plan includes: 2 Orgain shakes ([employer], [employer], [facility]), (2 scoop in 8 oz low fat unsweetened almond milk or water each) First shake at 10am-12pm, Second shake at? 1pm-3pm Dinner at 4pm (8 forks of protein and 8 forks of salad/vegetables). Divehi yogurt if needed She denies any hunger and there were no changes made to the meal plan, but she notes that she is limited and not exercising due to her right knee pain. Drinking 48 oz of water Current exercise plan includes: walking outside, 3 days not tracking calories, 1 hour; she reports less exercises today's visit secondary to right knee pain stationary bike at home 5 x per week 300-340 calories. [facility] Surgical History History of abdominoplasty Hx of breast implant Hx of hysterectomy Hx of thyroidectomy Hx of knee surgery Family History Mother Psychiatric diagnosis Hypertension Father Diabetes Sister Hypothyroid Vitamin D deficiency Vitamin B12 deficiency Social History Alcohol intake: current Alcohol intake frequency: holidays/special occasions only Patient Tobacco Use Status: Never used Tobacco Review of Systems Const All systems reviewed & are unremarkable except as noted in HPI and below Physical Exam On exam, she is anicteric and nontoxic She is in good spirits She is having no respiratory distress Abdomen is obese Her right knee has visible scarring and trace lower extremity edema Results Reviewed Results Reviewed: 12/27/22 labs Load vitamin-A (replaced) o/w MVI wnl Hemoglobin 14.5 with normal indices, normal iron studies, white blood cell count 6.1, platelets are slightly low at 145 K BUN 11, creatinine 0.80, electrolytes within normal parameters CRP elevated at 1.35 LFTs, lipids, remaining studies WNL Diagnostic imaging 01/25/23 myocardial perfusion test EF 71% with no reversible or fixed defect CXR NAD U/S NAFLD, no evidence of fibrosis UGI small HH with GERD Assessment & Plan Assessment & Plan (1) Obesity (BMI 30-39.9): Code(s): E66.9 - Obesity, unspecified (2) Hypercholesterolemia: Code(s): E78.00 - Pure hypercholesterolemia, unspecified (3) JIMMIE (obstructive sleep apnea): Code(s): G47.33 - Obstructive sleep apnea (adult) (pediatric) Plan The patient is a follow-up with her sleep medicine doctor for mid April. She is not yet contact them regarding her fatigue. Importance of following the meal plan and increased activity for weight loss was discussed. Patient again stated that she does not believe it is reasonable for her to lose 10% of her body weight preoperatively; she is worried that she will lose 100 lb postoperatively and only weigh 93 lb. She also asked today about the gastric balloon which we briefly discussed, along with the importance of following the meal plan and exercising. No changes were made to her meal plan. Patient will follow-up in 1 month with Ramiro Monte PA-C and is encouraged to discuss her concerns with him. The patient may benefit from 2nd opinion from Dr. Santizo. The risk of weight regain if she does not follow meal plan or exercise was discussed. The patient has not lost the 10% weight loss and we did discuss candidly that she may be at an increased risk for failure of bariatric surgery, which carries an increased risk of weight regain. Coding Level of Care Code Est Pt Level 4 (39962) Diagnoses Obesity (BMI 30-39.9) E66.9 Hypercholesterolemia E78.00 JIMMIE (obstructive sleep apnea) G47.33
[2023-04-18 13:44] VITALS: BP 130/79; PULSE 87; TEMP 35.9; O2SAT 98; BMI 32.7
== END 2023-04-18 14:11 | disposition home or self-care (01) ==
PROVIDERS: PCP Family Medicine; Visit Provider Surgery
DX: E66.9 Obesity, unspecified (principal); Z68.32 Body mass index [BMI] 32.0-32.9, adult; E78.00 Pure hypercholesterolemia, unspecified; G47.33 Obstructive sleep apnea (adult) (pediatric)
CPT/HCPCS: 99214

== ENCOUNTER 2023-05-02 07:35 | Outpatient (AMB) | payer MEDICARE, MEDICAID, SELFPAY ==
--- NOTE | 2023-05-02 07:56 | MHC.OFFVIS ---
Intake Vital Signs 05/02/23 08:01 Height 5 ft 6 in Weight 202 lb BMI 32.6 BP 112/82 Blood Pressure Location Rt brachial Position Sitting Pulse 81 Pulse Source Pulse Oximeter Pulse Oximetry (%) 97 Oxygen Delivery Method Room Air Intake Visit Reasons: INP-Snoring/JIMMIE - Confirmed Intake Note: Patient presents for snoring,had sleep study done. Allergies Latex, Natural Rubber Allergy (Severe, Verified 05/02/23 08:02) Hives HPI HPI Comments History of Present Illness Details 47 y/o female patient presents for new in-person visit to manage sleep apnea. She had a home sleep study done. The home sleep study result was significant for moderately severe degree of sleep apnea. The AHI 20/hr and oxygen bia was 87%. Pt reports loud snoring, non refreshing sleep with daytime sleepiness. Sleep questionnaire: Have you ever been diagnosed with a sleep disorder? Yes, JIMMIE. Have you ever had a sleep study in the past? Yes, home sleep study. Have you ever been treated for a sleep disorder? No. Do you take medications for a sleep disorder? No. Do you snore? Yes, loudly. Do you wake up gasping at night? No. Do you have episodes of apneas? Yes. If yes, are they witnessed? Yes. Do you have episodes of nocturnal chest pain or dyspnea? No. Do you have difficulty initiating sleep? No. Do you have difficulty maintaining sleep? No. Do you wake up tired? Yes. Do you have headaches upon awakening? Yes, sometimes. Do you wake up with dry mouth or throat? Yes. Do you have GERD? Yes. Do you have nocturia? 2-3 times. Do you have nocturnal leg cramps? Yes, sometimes. Do you have symptoms of restless legs? No. Do you act out your dreams? No. Sleep hygiene questionnaire: What is your usual sleep routine? Usual bedtime is at 7-8 pm; Usual wake up time is at 9-10 am. Do you take naps? Yes, sometimes. Is your sleep environment cool, dark, and quiet? Yes. Do you exercise? Yes. Do you take caffeine or other stimulants? Coffee in the morning. Do you use electronics in bed? Watching TV. What is your work schedule? N/A. Hypersomnolence questionnaire: Do you have daytime tiredness or fatigue? Yes. Do you easily fall asleep when inactive? Yes. Have you ever had episodes of sudden weakness? No. Have you ever had episodes of sudden weakness associated with strong emotions? No. PFSH Surgical History (Reviewed 04/18/23 @ 14:11 by David Montgomery MD, FACS, [facility]) History of abdominoplasty Hx of breast implant Hx of hysterectomy Hx of thyroidectomy Hx of knee surgery Family History Mother Psychiatric diagnosis Hypertension Father Diabetes Sister Hypothyroid Vitamin D deficiency Vitamin B12 deficiency Social History Alcohol intake: current Alcohol intake frequency: holidays/special occasions only Patient Tobacco Use Status: Never used Tobacco Review of Systems Const All systems reviewed & are unremarkable except as noted in HPI and below Physical Exam Vital Signs: Last Vital Signs Pulse 81 05/02/23 08:01 BP 112/82 05/02/23 08:01 Pulse Ox 97 05/02/23 08:01 Oxygen Delivery Method Room Air 05/02/23 08:01 BMI result Body Mass Index 32.6 Const General: cooperative Nutritional Appearance: obese Orientation/consciousness: patient oriented x3 Limitations: language barrier Neck Neck: Yes full ROM and Yes supple Resp Effort & Inspection: normal respiratory effort and able to speak in complete sentences Neuro General: patient oriented x3, gait normal and moves all extremities Cranial nerves: Yes CN's II-XII intact bilaterally Cognition (Neuro): normal cognition Gait exam (Neuro): Normal gait present Motor exam (neuro): 5/5 motor strength present throughout, Pronator motor function not present and no tremor noted Psych Appearance: grossly normal Mental Status: mental status grossly normal Speech and movement: Normal speech and movement present Affect: normal affect Attitude: cooperative Assessment & Plan Assessment & Plan (1) JIMMIE (obstructive sleep apnea): Comment: Moderately severe degree of sleep apnea. The AHI was 20/hr and oxygen bia was 87% Code(s): G47.33 - Obstructive sleep apnea (adult) (pediatric) Plan Advised patient to start APAP [id number] to treat her sleep apnea. Stressed compliance, use CPAP nightly and more than 4 hrs. Sleep hygiene education provided. Coding Level of Care Code New Pt Level 3 (57422) Diagnoses JIMMIE (obstructive sleep apnea) G47.33
[2023-05-02 08:01] VITALS: BP 112/82; PULSE 81; O2SAT 97; BMI 32.6
== END 2023-05-02 08:33 | disposition home or self-care (01) ==
PROVIDERS: PCP Family Medicine; Visit Provider Nurse Practitioner Family
DX: G47.33 Obstructive sleep apnea (adult) (pediatric) (principal)
CPT/HCPCS: 99203

== ENCOUNTER → 2023-05-02 07:35 | Outpatient (BNVA) | payer MEDICARE, MEDICAID, SELFPAY | PROVIDERS: PCP Family Medicine; Visit Provider Nurse Practitioner Family | DX: G47.33 Obstructive sleep apnea (adult) (pediatric) (principal) | CPT/HCPCS: 99202 ==

== ENCOUNTER 2023-05-17 10:21 | Outpatient (AMB) | payer MEDICARE, MEDICAID, SELFPAY ==
--- NOTE | 2023-05-17 10:23 | MHC.OFFVISWM ---
Intake VS Expanded 05/17/23 10:33 BP 118/70 Blood Pressure Location Rt brachial Blood Pressure Position Sitting Pulse 82 Pulse Source Pulse Oximeter Temp 96.8 F Temperature Source Temporal Artery Scan Pulse Oximetry 99 Oxygen Delivery Method Room Air Height 5 ft 6 in Weight 202 lb 9.6 oz BMI 32.7 Body Fat % 43.0 Body Fat Mass 87.0 Fat Free Mass 115.4 Visceral Fat Rating 10.0 Body Water % 40.6 Body Water Mass 82.2 Muscle Mass/Score 109.6 Basal Metabolic Rate/Score 1,608 Intake Visit Reasons: (OV) F/U SWL Field Research Associate Required: Yes Field Research Associate Name: [id number] Allergies Latex, Natural Rubber Allergy (Severe, Verified 05/17/23 10:26) Hives Medication List - Last Reconciled 05/17/23 by RILEY Camara aripiprazole (Abilify) 5 mg PO BEDTIME cholecalciferol (vitamin D3) 50 mcg PO DAILY clonazepam 1 mg PO BID famotidine 10 mg PO DAILY rosuvastatin 10 mg PO DAILY venlafaxine ER (Effexor XR) 37.5 mg PO DAILY vitamin A palmitate 3,000 mcg PO DAILY 90 days HPI HPI Comments History of Present Illness Details The patient is a pleasant 47 year old female who returns to the clinic for pre-operative surgical weight loss management. They were last seen in the office on 04/18/2023, recorded weight at that time was 202.6 pounds, with a BMI of 37 point. Today's weight is 202.6 pounds and BMI is 32.7. There has been a weight loss of 15.6 pounds since initiating the surgical weight loss program on 11/29/2022 with a total body weight loss of 7.1 %. Pre op work up completed as follows: SWL classes:? []/8 BH appts: Clear-02/09/2023 ? ? RD appts: Clear-02/16/2023 Labs: 12/27/2022-low a H. pylori: [] CXR: 12/27/2022-no active disease EK12/27/2022-minimal voltage for LVH, cannot rule out anterior infarct. 12/27/2022 nuclear stress test ordered. 01/19/2023-normal perfusion imaging study. ABD U/S: 01/10/2023-fatty liver UGI: 01/05/2023-small hiatal hernia, mild reflux 12/27/2022-sleep study with moderate to severe JIMMIE. The patient reports that since last visit, she states she is continuing to try to lose weight. Sleeping better with CPAP but stressed as she feels she cannot lose any more weight. Current meal plan includes: 2 Orgain shakes ([employer], [employer], [employer]), (2 scoop in 8 oz low fat unsweetened almond milk or water each) First shake at 10am-12pm, Second shake at? 1pm-3pm Dinner at 4pm (8 forks of protein and 8 forks of salad/vegetables). [place] yogurt 1-2 x per week Drinking 80 oz of water Current exercise plan includes: 45 minutes for 300-320 calories, stationary bike, 4-5 days per week in her home. [facility] Surgical History History of abdominoplasty Hx of breast implant Hx of hysterectomy Hx of thyroidectomy Hx of knee surgery Family History Mother Psychiatric diagnosis Hypertension Father Diabetes Sister Hypothyroid Vitamin D deficiency Vitamin B12 deficiency Social History Alcohol intake: current Alcohol intake frequency: holidays/special occasions only Patient Tobacco Use Status: Never used Tobacco Assessment & Plan Assessment & Plan (1) Obesity (BMI 30-39.9): Code(s): E66.9 - Obesity, unspecified Plan: Continue current meal plan. Encouraged increased exercise by 1 day. Will need to get H pylori testing done at her next visit. We attempted to get it done at this visit however she took Pepcid last night. She was encouraged to take Tums if needed and we will check at her next visit as above. Coding Level of Care Code Est Pt Level 3 (83031) Diagnoses Obesity (BMI 30-39.9) E66.9
[2023-05-17 10:33] VITALS: BP 118/70; PULSE 82; TEMP 36; O2SAT 99; BMI 32.7
== END 2023-05-17 11:30 | disposition home or self-care (01) ==
PROVIDERS: PCP Family Medicine; Visit Provider Physician Assistant Surgical
DX: E66.9 Obesity, unspecified (principal); Z68.32 Body mass index [BMI] 32.0-32.9, adult
CPT/HCPCS: 99213

== ENCOUNTER → 2023-05-17 10:21 | Outpatient (BNVA) | payer MEDICARE, MEDICAID, SELFPAY | PROVIDERS: PCP Family Medicine; Visit Provider Physician Assistant Surgical | DX: E66.9 Obesity, unspecified (principal); Z68.32 Body mass index [BMI] 32.0-32.9, adult | CPT/HCPCS: 99212 ==

== ENCOUNTER 2023-06-19 10:13 | Outpatient (AMB) | payer MEDICARE, MEDICAID, SELFPAY ==
--- NOTE | 2023-06-19 10:24 | MHC.OFFVISWM ---
Intake VS Expanded 06/19/23 10:42 BP 122/69 Blood Pressure Location Rt brachial Blood Pressure Position Sitting Pulse 75 Pulse Source Pulse Oximeter Temp 97.3 F Temperature Source Temporal Artery Scan Pulse Oximetry 98 Oxygen Delivery Method Room Air Height 5 ft 6 in Weight 201 lb 9.6 oz BMI 32.5 Body Fat % 42.1 Body Fat Mass 84.8 Fat Free Mass 116.6 Visceral Fat Rating 10.0 Body Water % 41.2 Body Water Mass 83.2 Muscle Mass/Score 110.6 Basal Metabolic Rate/Score 1,621 Intake Visit Reasons: (OV) F/U SWL Commanding Officer Homicide [employer] Required: Yes Commanding Officer H[employer] Name: office cmi Allergies Latex, Natural Rubber Allergy (Severe, Verified 06/19/23 10:35) Hives Medication List - Last Reconciled 06/19/23 by RILEY Camara aripiprazole (Abilify) 5 mg PO BEDTIME cholecalciferol (vitamin D3) 50 mcg PO DAILY clonazepam 1 mg PO BID famotidine 10 mg PO DAILY rosuvastatin 10 mg PO DAILY venlafaxine ER (Effexor XR) 37.5 mg PO DAILY vitamin A palmitate 3,000 mcg PO DAILY 90 days HPI HPI Comments History of Present Illness Details The patient is a pleasant 47 year old female who returns to the clinic for pre-operative surgical weight loss management. They were last seen in the office on 05/17/2023, recorded weight at that time was 202.6 pounds, with a BMI of 32.7. Today's weight is 201.6 pounds and BMI is 32.5. There has been a weight loss of 16.6 pounds since initiating the surgical weight loss program on 11/29/2022 with a total body weight loss of 7.6 %. Complains of constipation. Last BM yesterday but small. Pre op work up completed as follows: SWL classes:? 12/27 BH appts: Clear-02/09/2023 ? ? RD appts: Damien-02/16/2023 Labs: 12/27/2022-low a H. pylori: 06/19/23 CXR: 12/27/2022-no active disease EK12/27/2022-minimal voltage for LVH, cannot rule out anterior infarct. 12/27/2022 nuclear stress test ordered. 01/19/2023-normal perfusion imaging study. ABD U/S: 01/10/2023-fatty liver UGI: 01/05/2023-small hiatal hernia, mild reflux 12/27/2022-sleep study with moderate to severe JIMMIE. The patient reports that since last visit, she states she is continuing to try to lose weight. Sleeping better with CPAP but stressed as she feels she cannot lose any more weight. Current meal plan includes: 2 Orgain shakes ([employer], [employer], [employer]), (2 scoop in 8 oz low fat unsweetened almond milk or water each) First shake at 10am-12pm, Second shake at? 1pm-3pm Dinner at 4pm (8 forks of protein and 8 forks of salad/vegetables). Sinhala yogurt 3-4 x per week Drinking 80-96 oz of water Exercise plan: zoomba, 3 x per week x 20 minutes spin class, 60 minutes, 4-5 x per week, 300-350 calories per session PFSH Surgical History History of abdominoplasty Hx of breast implant Hx of hysterectomy Hx of thyroidectomy Hx of knee surgery Family History Mother Psychiatric diagnosis Hypertension Father Diabetes Sister Hypothyroid Vitamin D deficiency Vitamin B12 deficiency Social History Alcohol intake: current Alcohol intake frequency: holidays/special occasions only Patient Tobacco Use Status: Never used Tobacco Physical Exam Const General: healthy appearing and no acute distress Resp Effort & Inspection: normal respiratory effort Auscultation: clear to auscultation bilaterally Cardio Rate: regular rate Rhythm: regular rhythm GI Auscultation: normal bowel sounds Extrem General: Yes normal to inspection Assessment & Plan Assessment & Plan (1) Obesity (BMI 30-39.9): Code(s): E66.9 - Obesity, unspecified Plan: Overall, patient is doing well. We will adjust her meal plan slightly. 2 Orgain shakes ([employer], [employer], [employer]), (2 scoop in 8 oz low fat unsweetened almond milk or water in erica shake and 1 scoop in second) First shake at 10am-12pm, Second shake at? 1pm-3pm Dinner at 4pm (8 forks of protein and 8 forks of salad/vegetables). Encouraged to increase exercise calories burned to a goal of [address] of increasing her exercise Gautam during her spin class to 400. Additionally, we will discuss with Dr. Santizo possible transfer to him for continued preoperative planning. (2) Constipation: Code(s): K59.00 - Constipation, unspecified Plan: Add senna, 2 at HS. Medications: New sennosides (senna) 17.2 mg (2 x 8.6 mg) PO BEDTIME 90 days PRN 180 tabs 0RF constipation Coding Level of Care Code Est Pt Level 3 (79019) Diagnoses Obesity (BMI 30-39.9) E66.9 Constipation K59.00
[2023-06-19 10:42] VITALS: BP 122/69; PULSE 75; TEMP 36.3; O2SAT 98; BMI 32.5
== END 2023-06-19 10:59 | disposition home or self-care (01) ==
PROVIDERS: PCP Family Medicine; Visit Provider Physician Assistant Surgical
DX: E66.9 Obesity, unspecified (principal); Z68.32 Body mass index [BMI] 32.0-32.9, adult; K59.00 Constipation, unspecified
CPT/HCPCS: 99213

== ENCOUNTER → 2023-06-19 10:13 | Outpatient (BNVA) | payer MEDICARE, MEDICAID, SELFPAY | PROVIDERS: PCP Family Medicine; Visit Provider Physician Assistant Surgical | DX: E66.9 Obesity, unspecified (principal); K59.00 Constipation, unspecified; Z68.32 Body mass index [BMI] 32.0-32.9, adult | CPT/HCPCS: 83013; 99211; 99212 ==

== ENCOUNTER 2023-06-19 10:49 | Outpatient (REF) | payer MEDICARE, MEDICAID, SELFPAY ==
[2023-06-22 13:59] LABS: H Pylori Breath Test Negative (Negative)
== END 2023-06-19 10:50 | disposition home or self-care (01) ==
LOC: HO.LNP 10:49
PROVIDERS: Visit Provider Physician Assistant Surgical
DX: Z13.89 Encounter for screening for other disorder (principal)
CPT/HCPCS: 83013

== ENCOUNTER → 2023-07-05 11:12 | Outpatient (BNVA) | payer MEDICARE, MEDICAID, SELFPAY | PROVIDERS: PCP Family Medicine; Visit Provider Physician Assistant ==

== ENCOUNTER 2023-07-26 10:46 | Outpatient (AMB) | payer MEDICARE, MEDICAID, SELFPAY ==
--- NOTE | 2023-07-26 10:48 | A.OFFVIS_ITS ---
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: Yes Middle School Music Teacher Name: office cmi Allergies Latex, Natural Rubber Allergy (Severe, Verified 07/26/23 10:57) Hives Medication List - Last Reconciled 07/26/23 by RILEY Camara aripiprazole (Abilify) 5 mg PO BEDTIME cholecalciferol (vitamin D3) 50 mcg PO DAILY clonazepam 1 mg PO BID famotidine 10 mg PO DAILY rosuvastatin 10 mg PO DAILY sennosides (senna) 17.2 mg (2 x 8.6 mg) PO BEDTIME PRN 90 days venlafaxine ER (Effexor XR) 37.5 mg PO DAILY vitamin A 1 cap PO DAILY HPI HPI Comments History of Present Illness Details The patient is a pleasant 47 year old female who returns to the clinic for pre-operative surgical weight loss management. They were last seen in the office on 06/19/23, recorded weight at that time was 201.6 pounds, with a BMI of 32.5. Today's weight is 207.8 pounds and BMI is 33.5. There has been a weight loss of 10.4 pounds since initiating the surgical weight loss program on 11/29/2022 with a total body weight loss of 4.7 %. Complains of constipation. Last BM yesterday but small. Pre op work up completed as follows: SWL classes:? 12/27 BH appts: Damien-02/09/2023 ? ? RD appts: Damien-02/16/2023 Labs: 12/27/2022-low a H. pylori: 06/19/23 CXR: 12/27/2022-no active disease EK12/27/2022-minimal voltage for LVH, cannot rule out anterior infarct. 12/27/2022 nuclear stress test ordered. 01/19/2023-normal perfusion imaging study. ABD U/S: 01/10/2023-fatty liver UGI: 01/05/2023-small hiatal hernia, mild reflux 12/27/2022-sleep study with moderate to se sujatha JIMMIE. Given patient's current insurance, she does not qualify for surgery any longer. We discussed this and she has not sure which he would like to do at this point. She is going to discuss it with her family. Current meal plan includes: 2 Orgain shakes ([employer], [employer], [employer]), (2 scoop in 8 oz low fat unsweetened almond milk or water in first shake and 1 scoop in second) First shake at 10am-12pm, Second shake at? 1pm-3pm Dinner at 4pm (8 forks of protein and 8 forks of salad/vegetables). Drinking 80-96 oz of water Exercise plan: zoomba, 3 x per week x 20 minutes spin class, 60 minutes, 4-5 x per week, 300-350 calories per session [facility] Surgical History History of abdominoplasty Hx of breast implant Hx of hysterectomy Hx of thyroidectomy Hx of knee surgery Family History Mother Psychiatric diagnosis Hypertension Father Diabetes Sister Hypothyroid Vitamin D deficiency Vitamin B12 deficiency Social History Alcohol intake: current Alcohol intake frequency: holidays/special occasions only Patient Tobacco Use Status: Never used Tobacco Physical Exam Vital Signs: Last Vital Signs Temp 97.1 F 07/26/23 11:01 Pulse 83 07/26/23 11:01 BP 121/72 07/26/23 11:01 Pulse Ox 98 07/26/23 11:01 Oxygen Delivery Method Room Air 07/26/23 11:01 BMI result Body Mass Index 33.5 Assessment & Plan Assessment & Plan (1) Obesity (BMI 30-39.9): Code(s): E66.9 - Obesity, unspecified Plan: According to the regulations by her insurance, she no longer qualifies for a surgical intervention. She has not sure whether she wants to continue in our program and is going to discuss this with her family. She may return to the office at any time. Coding Level of Care Code Est Pt Level 2 (36735) Diagnoses Obesity (BMI 30-39.9) E66.9
[2023-07-26 11:01] VITALS: BP 121/72; PULSE 83; TEMP 36.2; O2SAT 98; BMI 33.5
== END 2023-07-26 11:25 | disposition home or self-care (01) ==
PROVIDERS: PCP Family Medicine; Visit Provider Physician Assistant Surgical
DX: E66.9 Obesity, unspecified (principal); Z68.33 Body mass index [BMI] 33.0-33.9, adult
CPT/HCPCS: 99212

== ENCOUNTER → 2023-07-26 10:46 | Outpatient (BNVA) | payer MEDICARE, MEDICAID, SELFPAY | PROVIDERS: PCP Family Medicine; Visit Provider Physician Assistant Surgical | DX: E66.9 Obesity, unspecified (principal); Z68.33 Body mass index [BMI] 33.0-33.9, adult | CPT/HCPCS: 99212 ==

== ENCOUNTER 2023-07-27 12:22 | Outpatient (REF) | payer MEDICARE, MEDICAID, SELFPAY ==
--- NOTE | ~2023-07-27 | XR_ITS ---
EXAMINATION: XR ANKLE, LEFT CLINICAL INFORMATION: Left heel pain. COMPARISON: None available. TECHNIQUE: 4 views of the left ankle. FINDINGS: Bone mineralization is normal. Large plantar calcaneal spur. Small ossification at the dorsal aspect of the calcaneus at site of the Achilles tendon insertion. Talar dome preserved. No acute displaced fracture appreciated. Moderate ankle joint effusion. XR/XR ankle LT 2V IMPRESSION: 1. Large plantar calcaneal spur. 2. Small ossification at the dorsal aspect of the calcaneus at site of the Achilles tendon insertion. 3. No acute displaced fracture appreciated. 4. Recommend follow up imaging in 10-14 days if fracture is suspected.
== END 2023-07-27 12:23 | disposition home or self-care (01) ==
LOC: HO.XRAY 12:22
PROVIDERS: PCP Family Medicine; Visit Provider Family Medicine
DX: M79.672 Pain in left foot (principal)
CPT/HCPCS: 73600

== ENCOUNTER 2023-07-28 09:33 | Outpatient (AMB) | payer MEDICARE, MEDICAID, SELFPAY ==
--- NOTE | 2023-07-28 09:59 | A.OFFVIS_ITS ---
Intake Vital Signs 07/28/23 10:05 Height 5 ft 6 in Weight 211 lb BMI 34.1 BP 115/70 Blood Pressure Location Lt brachial Position Sitting Pulse 69 Pulse Source Pulse Oximeter Pulse Oximetry (%) 98 Oxygen Delivery Method Room Air Intake Visit Reasons: 4 mo f/u - Snoring/Elias- CONF Intake Note: Patient intake 4 months f/u. need new supplies for CPAP machine Allergies Latex, Natural Rubber Allergy (Severe, Verified 07/28/23 10:04) Hives HPI HPI Comments History of Present Illness Details 47 y/o female patient presents for follo w up of sleep study. staff interpreter ID # [id number] utilized. The home sleep study result was significant for a moderately to severe degree of sleep apnea. The total sleep time AHI was 20/hr and oxygen bia was 87% with excessive snoring for 54 % of the sleep time. Pt started APAP [id number]. The CPAP compliance and therapy response (04/26/23-07/24/23) reviewed. The usage days 82% and the average usage hours 7 hrs 20 min. The max pressure was 12 and the residual AHI was 1.3/hr. Pt reports she sleeps well, less snoring. She wakes up refreshed, has energy, and daytime sleepiness has resolved. Pt did not get extra supplies, she does not speak Amharic and had hard time to request the supplies. [facility] Surgical History History of abdominoplasty Hx of breast implant Hx of hysterectomy Hx of thyroidectomy Hx of knee surgery Family History Mother Psychiatric diagnosis Hypertension Father Diabetes Sister Hypothyroid Vitamin D deficiency Vitamin B12 deficiency Social History Alcohol intake: current Alcohol intake frequency: holidays/special occasions only Patient Tobacco Use Status: Never used Tobacco Review of Systems Const All systems reviewed & are unremarkable except as noted in HPI and below Physical Exam Vital Signs: Last Vital Signs Pulse 69 07/28/23 10:05 BP 115/70 07/28/23 10:05 Pulse Ox 98 07/28/23 10:05 Oxygen Delivery Method Room Air 07/28/23 10:05 BMI result Body Mass Index 34.1 Const General: cooperative Nutritional Appearance: obese Orientation/consciousness: patient oriented x3 Limitations: language barrier Neck Neck: Yes full ROM and Yes supple Resp Effort & Inspection: normal respiratory effort and able to speak in complete sentences Neuro General: patient oriented x3, gait normal and moves all extremities Cranial nerves: Yes CN's II-XII intact bilaterally Cognition (Neuro): normal cognition Gait exam (Neuro): Normal gait present Motor exam (neuro): 5/5 motor strength present throughout, Pronator motor function not present and no tremor noted Psych Appearance: grossly normal Mental Status: mental status grossly normal Speech and movement: Normal speech and movement present Affect: normal affect Attitude: cooperative Assessment & Plan Assessment & Plan (1) ELIAS (obstructive sleep apnea): Comment: Moderately severe degree of sleep apnea. The AHI was 20/hr and oxygen bia was 87% Code(s): G47.33 - Obstructive sleep apnea (adult) (pediatric) Plan Advised patient to continues to use APAP at [id number] as patient experiences good clinical effects, less snoring, sleep quality has improved. Stressed compliance, use CPAP nightly and more than 4 hrs. Will send supply prescription to [facility]. Coding Level of Care Code Est Pt Level 3 (86648) Diagnoses ELIAS (obstructive sleep apnea) G47.33
[2023-07-28 10:05] VITALS: BP 115/70; PULSE 69; O2SAT 98; BMI 34.1
== END 2023-07-28 10:19 | disposition home or self-care (01) ==
PROVIDERS: PCP Family Medicine; Visit Provider Nurse Practitioner Family
DX: G47.33 Obstructive sleep apnea (adult) (pediatric) (principal)
CPT/HCPCS: 99213

== ENCOUNTER → 2023-07-28 09:33 | Outpatient (BNVA) | payer MEDICARE, MEDICAID, SELFPAY | PROVIDERS: PCP Family Medicine; Visit Provider Nurse Practitioner Family | DX: G47.33 Obstructive sleep apnea (adult) (pediatric) (principal) | CPT/HCPCS: 99212 ==

== ENCOUNTER 2023-08-01 08:50 | Outpatient (REF) | payer MEDICARE, MEDICAID, SELFPAY ==
[2023-08-01 14:13] LABS: Basophils Percent Auto 0.7 % (0-2); Eosinophils Absolute Auto 0.2 X10*3/uL (0.0-0.4); Eosinophils Percent Auto 2.9 % (0-4); Hematocrit 44.5 % (37.0-47.0); Hemoglobin 14.8 g/dl (12.0-16.0); Imm Gran Abs Auto 0.03 X10*3/uL (0.00-0.03); Imm Gran Pct Auto 0.5 % (0.0-0.4); Lymphocytes Absolute Auto 1.8 X10*3/uL (1.2-4.9); MANUAL DIFF FLAG NO; Mean Corpuscular HGB Conc 33.3 g/dl (31.0-35.0); Mean Corpuscular Hemoglobin 28.2 pg (27.0-33.0); Mean Corpuscular Volume 84.9 fL (80.0-98.0); Mean Platelet Volume 11.8 fL (9.4-12.3); Monocytes Absolute Auto 0.3 X10*3/uL (0.1-1.2); Monocytes Percent Auto 5.8 % (2-11); Neutrophils Absolute Auto 3.2 x10*3/uL (2.0-8.3); Neutrophils Percent Auto 57.1 % (45-73); Platelet Count 155 X10*3/uL (160-400); Red Blood Count 5.24 X10*6/uL (4.20-5.50); Red Cell Distribution Width 14.6 % (11.0-16.0); White Blood Count 5.5 X10*3/uL (4.8-10.8)
[2023-08-01 14:59] LABS: Alanine Aminotransferase 17 U/L (0-31); Albumin Level 4.2 g/dL (3.5-5.0); Alkaline Phosphatase 93 U/L (39-117); Anion Gap 15 (12-20); Aspartate Amino Transferase 15 U/L (5-31); Bilirubin Total 0.4 mg/dL (0.0-1.0); Blood Urea Nitrogen 15 mg/dL (9-16); Calcium 9.4 mg/dL (8.4-10.2); Carbon Dioxide 25 mmol/L (22-29); Chloride 106 mmol/L (96-108); Cholesterol 158 mg/dL (<200); Estimated Glomerular Filt Rate > 60; HDL Cholesterol 57 mg/dL (>40); LDL Cholesterol Calculated 82 mg/dL (<100); Potassium 3.7 mmol/L (3.3-5.1); Sodium 142 mmol/L (135-145); Total Protein 7.4 g/dL (6.5-8.0); Triglycerides 95 mg/dL (<150)
[2023-08-01 15:01] LABS: Glucose Fasting 57 mg/dL (60-99)
[2023-08-01 15:04] LABS: Vitamin D 25-OH Total 41.8 ng/mL (>30)
[2023-08-01 15:35] LABS: Free T4 (Free Thyroxine) 0.79 ng/dL (0.71-1.85)
== END 2023-08-01 08:51 | disposition home or self-care (01) ==
LOC: HO.CHCLDS 08:50
PROVIDERS: Visit Provider Family Medicine
DX: E66.09 Other obesity due to excess calories (principal); Z13.29 Encounter for screening for other suspected endocrine disorder; Z13.228 Encounter for screening for other metabolic disorders; Z13.0 Encounter for screening for diseases of the blood and blood-forming organs and certain disorders involving the immune mechanism; Z68.34 Body mass index [BMI] 34.0-34.9, adult
CPT/HCPCS: 36415; 80053; 80061; 82306; 84439; 84443; 85025

== ENCOUNTER 2023-08-28 08:58 | Outpatient (REF) | payer MEDICARE, MEDICAID, SELFPAY ==
[2023-08-28 15:47] LABS: TSH reflex Free T4 2.11 uIU/mL (0.32-4.0)
== END 2023-08-28 08:59 | disposition home or self-care (01) ==
LOC: HO.CHCLDS 08:58
PROVIDERS: Visit Provider Family Medicine
DX: E03.9 Hypothyroidism, unspecified (principal)
CPT/HCPCS: 36415; 84443; 84481

== ENCOUNTER 2023-09-26 14:32 | Outpatient (REF) | payer MEDICARE, MEDICAID, SELFPAY ==
[2023-09-27 04:22] LABS: HBS Num1 0.24 mIU/mL (0-7.99); HBc Num1 0.17 S/CO (0.00-0.79); HBsAGNum1 0.25 S/CO (0.00-0.99); Hepatitis B Core Antibody Nonreactive (Nonreactive); Hepatitis B Surface Antigen Negative (Negative); ~Hepatitis B Surface Antibody NONREACTIVE (Nonreactive)
== END 2023-09-26 14:33 | disposition home or self-care (01) ==
LOC: HO.CHCLDS 14:32
PROVIDERS: Visit Provider Family Medicine
DX: Z11.59 Encounter for screening for other viral diseases (principal); Z72.89 Other problems related to lifestyle
CPT/HCPCS: 36415; 86704; 86706; 87340

== ENCOUNTER → 2023-09-27 10:03 | Outpatient (BNVA) | payer MEDICARE, MEDICAID, SELFPAY | PROVIDERS: PCP Family Medicine; Visit Provider Physician Assistant Surgical ==

== ENCOUNTER 2023-11-03 08:57 | Outpatient (REF) | payer MEDICARE, MEDICAID, SELFPAY ==
--- NOTE | ~2023-11-03 | XR_ITS ---
EXAMINATION: XR KNEE, LEFT Limited right knee CLINICAL INFORMATION: Pain in the knee COMPARISON: None available. TECHNIQUE: AP upright of both knees. Additional lateral patella view of the left knee FINDINGS: Left knee: Small marginal osteophytes but patellofemoral compartment without joint space narrowing indicative of mild osteoarthritis. Medial compartment: Tiny marginal osteophytes without joint space narrowing indicative of minimal osteoarthritis. Lateral compartment normal. No effusion. Limited AP upright right knee: Mild osteoarthritis of the medial compartment with marginal osteophytes without joint space narrowing. Lateral compartment normal. Slight prominence of the tibial tubercle perhaps related to old fracture. Remaining bone and soft tissues unremarkable. XR/XR knee LT 3V IMPRESSION: LEFT KNEE: Mild osteoarthritis. RIGHT KNEE limited: Mild osteoarthritis of the medial compartment.
== END 2023-11-03 08:58 | disposition home or self-care (01) ==
LOC: HO.HOSX 08:57
PROVIDERS: Visit Provider Physician Assistant
DX: M17.12 Unilateral primary osteoarthritis, left knee (principal)
CPT/HCPCS: 20610; 73562; 99202; J1010

== ENCOUNTER 2023-11-03 10:02 | Outpatient (AMB) | payer MEDICARE, MEDICAID, SELFPAY ==
--- NOTE | 2023-11-03 10:16 | MHC.OFFVIS ---
Intake Visit Reasons: New Pt - Left knee pain Intake Note: Shandra is a 48 year old female who presents today as a new patient for a evaluation of her left knee pain. Hx of arthroscopies in [place]. Pt denies any injury. Patient reports ongoing pain for a long time. Pt states it hurts to walk and she hears a cracking sound when she bends her leg. 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 The patient was referred to the office by Family Medicine, in 09/2023, with a complaint of intermittent left knee pain for 7 years, with an increase starting in 08/2023. Per Family Medicine note, the patient reported having two prior surgeries on the bilateral knees. Her medical chart reports five surgeries on the right knee and two surgeries on the left knee but does not specify the procedure performed. While in the office she reports the arthroscopies were done in [place]. While in the office today the patient denies any known injury to the left knee. She states she has had ongoing pain ?for a long time?. She reports pain with ambulation. She claims to hear a cracking sound when she bends her left lower extremity. [facility] Surgical History History of abdominoplasty Hx of breast implant Hx of hysterectomy Hx of thyroidectomy Hx of knee surgery Family History Mother Psychiatric diagnosis Hypertension Father Diabetes Sister Hypothyroid Vitamin D deficiency Vitamin B12 deficiency Social History (System 08/01/23 @ 12:51 by Rosemarie Soto) Alcohol intake: current Alcohol intake frequency: holidays/special occasions only Patient Tobacco Use Status: Never used Tobacco Review of Systems Const All systems reviewed & are unremarkable except as noted in HPI and below Physical Exam Const General: cooperative and no acute distress Orientation/consciousness: patient oriented x3 Resp Effort & Inspection: normal respiratory effort and able to speak in complete sentences Cardio Peripheral pulses: Peripheral pulses 2+ throughout Skin General skin exam: no rashes or lesions noted Neuro General: patient oriented x3 Extrem Other: Left knee: Normal to inspection. No ecchymosis, erythema, or joint effusion. No tenderness to palpation along the medial or lateral joint lines. Full knee extension and flexion. Crepitus felt with ROM. NVI. Office Procedures Joint Injection/Drain Joint Injection/Drain Primary Site: left knee Prep: site was prepped using aseptic technique, ethochloride spray was applied and injection warnings given Injected: 80 mg of, DepoMedrol, with 8 mL of (2% plain lido ) and in the joint Approach Used: anterolateral Procedure: The patient tolerated the procedure well, but had some pain with the injection and there was some relief with the local anesthesia Coding 49363 - Large joint Procedure code (CPT) selection complete Assessment & Plan Assessment & Plan (1) Patellofemoral arthritis of left knee: Code(s): M17.12 - Unilateral primary osteoarthritis, left knee Category: Medical Plan Ms. Sang Sharp is a 48-year-old female, who is Gambian speaking, presents in the office today for an evaluation of left knee pain. The patient was referred to the office by Family Medicine, in 09/2023, with a complaint of intermittent left knee pain for 7 years, with an increase starting in 08/2023. Per Family Medicine note, the patient reported having two prior surgeries on the bilateral knees. Her medical chart reports five surgeries on the right knee and two surgeries on the left knee but does not specify the procedure performed. While in the office she reports the arthroscopies were done in [place]. While in the office today the patient denies any known injury to the left knee. She states she has had ongoing pain ?for a long time?. She reports pain with ambulation. She claims to hear a cracking sound when she bends her left lower extremity. The patient was offered a cortisone injection in the left knee with 80 mg of DepoMedrol. The patient was explained the risk, benefits, and alternatives to receiving this injection. After receiving consent for the injection, the patient had the procedure done while in the office today. The patient tolerated the procedure well with no complications. Follow-up will be PRN, or sooner if needed. X-rays of the left knee which were obtained while in the office today and were reviewed by me, Nu Espinosa PA-C, revealed patellofemoral arthritis. Orders: Orders XR knee LT 3V Today M25.569 - Pain in unspecified knee Patient Instructions: Scribed by Hannah Mcdaniel, family practice medical doctor, for Nu Espinosa PA-C on 11/03/2023 at 10:08 am, EST. Coding Level of Care Code New Pt Level 3 (18784) Diagnoses Patellofemoral arthritis of left knee M17.12 CPT Codes Coding - 10821 Large joint: 04332 - Large joint ([id number])
== END 2023-11-03 10:39 | disposition home or self-care (01) ==
PROVIDERS: PCP Family Medicine; Visit Provider Physician Assistant
DX: M17.12 Unilateral primary osteoarthritis, left knee (principal)
CPT/HCPCS: 20610; 99204; 99214

== ENCOUNTER → 2023-11-24 11:06 | Outpatient (BNVA) | payer MEDICARE, MEDICAID, SELFPAY | PROVIDERS: PCP Family Medicine; Visit Provider Surgery ==

== ENCOUNTER 2023-12-06 11:00 | Outpatient (RCR) | payer MEDICARE, MEDICAID, SELFPAY | END 2024-01-11 09:57 | disposition home or self-care (01) | LOC: HO.PT 11:00 | PROVIDERS: PCP Family Medicine; Visit Provider Podiatrist Foot & Ankle Surgery | DX: M21.962 Unspecified acquired deformity of left lower leg (principal) | CPT/HCPCS: 97110; 97140; 97161; 97535 ==

== ENCOUNTER → 2023-12-11 09:57 | Outpatient (BNVA) | payer MEDICARE, MEDICAID, SELFPAY | PROVIDERS: PCP Family Medicine; Visit Provider Physician Assistant Surgical ==

== ENCOUNTER → 2024-01-05 09:39 | Outpatient (BNVA) | payer MEDICARE, MEDICAID, SELFPAY | PROVIDERS: PCP Family Medicine; Visit Provider Physician Assistant Surgical ==

== ENCOUNTER 2024-01-08 08:04 | Outpatient (AMB) | payer MEDICARE, MEDICAID, SELFPAY ==
--- NOTE | 2024-01-08 10:44 | A.OFFVIS_ITS ---
VS Expanded 01/08/24 10:50 Height 5 ft 6 in Weight 229 lb BMI 37.0 Intake Visit Reasons: TV Consult/Transfer Ramiro *TELEVISION PRODUCTION ASSISTANT* Allergies Latex, Natural Rubber Allergy (Severe, Verified 11/03/23 10:16) Hives HPI HPI TV Consult/Transfer Ramiro *TELEVISION PRODUCTION ASSISTANT*: Details: Start time: 10.00am, End time: 11am ?I spent 45 minutes speaking with the patient on the phone plus an additional 15 minutes reviewing and updating records for a total of 60 minutes HPI Comments Details: Wakes up: 9am, Sleeps: 8pm Has been in the program since 12/2022. Has completed 8 physician visits, 3 nutritional visits and 3 mental health visits Has a stationary bike at home Reviewed results of blood work, CXR, EKG, sleep study, nuclear stress test, H pylori test, UGI and abdominal ultrasound and she is cleared for surgery [facility] Medical History (Updated 01/08/24 @ 11:01 by Laurent Santizo MD) GERD (gastroesophageal reflux disease) Surgical History (System 08/01/23 @ 12:51 by Rosemarie Soto) History of abdominoplasty Hx of breast implant Hx of hysterectomy Hx of thyroidectomy Hx of knee surgery Family History Mother Psychiatric diagnosis Hypertension Father Diabetes Sister Hypothyroid Vitamin D deficiency Vitamin B12 deficiency Social History (System 08/01/23 @ 12:51 by Rosemarie Soto) Alcohol intake: current Alcohol intake frequency: holidays/special occasions only Patient Tobacco Use Status: Never used Tobacco Telehealth Telehealth Telehealth Platform: Telephone Location of provider rendering services: practice address Location of patient: address on file Patient Identification confirmed using: Name, : Yes Telehealth method: voice only Patient verbally consented to treatment: Yes Patient verbally consented to billing insurance company: Yes Patient informed of any privacy concerns related to visit: Yes Minutes spent on Phone/Video with Pt.: 60 Assessment & Plan Assessment & Plan (1) Obesity (BMI 30-39.9): Code(s): E66.9 - Obesity, unspecified Category: Medical Plan: 1. Plan for lap sleeve gastrectomy including upper GI endoscopy. All tests has been completed and reviewed and the patient is cleared for the surgery. ?If diaphragmatic or ventral hernias are present at time of surgery, these will be repaired laparoscopically as well. Risks and complications were discussed in detail including possible conversion to an open procedure, anastomotic leak, bleeding requiring transfusion, small bowel obstruction, , DVT and pulmonary embolism, cardiac, or pulmonary complications, as exterminator termite complications such as anastomotic ulcer, insufficient weight loss and vitamin deficiencies. I emphasized the importance of close follow-up, adherence to instructions and good communication. So far she has proven to be an excellent communicator and very compliant with all our directions accomplishing a great weight loss. I believe that she is an excellent candidate and she is ready. 2. The patient participated in a structured preoperative lifestyle intervention program supervised by a physician the 12 months preceding the surgical procedure. The lifestyle intervention included a structured nutritional plan w ith a specific daily protein intake goal, an exercise plan with a 2000 calorie burn weekly goal, weekly behavior modification guidance and completion of eight 1-hour online nutritional classes and passing successfully the corresponding quizzes. Adherence to preoperative care plan was demonstrated by completing an extensive preoperative work-up. Program participation was demonstrated by completing 14 visits with our medical team and by sharing weight measurements for 12 consecutive months via an approved body composition scale. 3. Until this coming Monday please follow this plan: Orgain shake with ONE scoop in 8oz water at 9-11am and one more at 12pm-2pm, Celebrate protein bar at 3pm- 5pm, dinner at 6pm (SIX forks of protein and SIX forks of salad or vegetables). 4. As of Monday01/15/24 stop food and bars and do 4 Orgain shakes with ONE scoop each at 9-11, 11-1, 1-3 and 4-6 AND one more Orgain shake with TWO scoops in 10oz water at 6pm-8pm. 5. Start stationary bike at a resistance level of 4.0 Increase level by 1.0 every 3 min to a max level of 10.0. Stay at this level for 3 min and then return to level 4.0 and repeat same steps until 300 calories are burned. Velocity target is 12mph and heart rate is 145 bpm. Goal is to burn 2000 calories per week on exercise. 6. Buy a body composition scale this week and send me measurements this week and weekly after that. Orders: Orders Prothrombin Time INR Today E66.9 - Obesity, unspecified, E78.00 - Pure hypercholesterolemia, unspecified, G47.33 - Obstructive sleep apnea (adult) (pediatric) Type and Screen Today E66.9 - Obesity, unspecified, E78.00 - Pure hypercholesterolemia, unspecified, G47.33 - Obstructive sleep apnea (adult) (pediatric) C Reactive Protein Today E66.9 - Obesity, unspecified, E78.00 - Pure hypercholesterolemia, unspecified, G47.33 - Obstructive sleep apnea (adult) (pediatric) Complete Blood Count Auto Diff Today E66.9 - Obesity, unspecified, E78.00 - Pure hypercholesterolemia, unspecified, G47.33 - Obstructive sleep apnea (adult) (pediatric) Comprehensive Met. Panel Today E66.9 - Obesity, unspecified, E78.00 - Pure hypercholesterolemia, unspecified, G47.33 - Obstructive sleep apnea (adult) (pediatric) TSH reflex Free T4 Today E66.9 - Obesity, unspecified, E78.00 - Pure hypercholesterolemia, unspecified, G47.33 - Obstructive sleep apnea (adult) (pediatric) Hemoglobin A1c Today E66.9 - Obesity, unspecified, E78.00 - Pure hypercholesterolemia, unspecified, G47.33 - Obstructive sleep apnea (adult) (pediatric) Lipid Panel Today E66.9 - Obesity, unspecified, E78.00 - Pure hypercholesterolemia, unspecified, G47.33 - Obstructive sleep apnea (adult) (pediatric) Partial Thromboplastin Time Today E66.9 - Obesity, unspecified, E78.00 - Pure hypercholesterolemia, unspecified, G47.33 - Obstructive sleep apnea (adult) (pediatric) Medications: New pantoprazole 40 mg PO DAILY 90 tabs 0RF K21.9 - Gastro-esophageal reflux disease without esophagitis sucralfate 10 mL PO BID 600 mL 2RF K21.9 - Gastro-esophageal reflux disease without esophagitis ondansetron Only take one every 12 hours as needed if you have nausea 4 mg PO Q12H 20 tabs 0RF nausea and vomiting R11.0 - Nausea polyethylene glycol 3350 Mix each measuring cup with 8oz of water, Crystal light, or Gatorade zero, or Propel and do 7 measuring cups on 01/21/24 and another 7 measuring cups on 01/22/24 17 grams PO DAILY 238 grams 0RF Z01.818 - Encounter for other preprocedural examination
[2024-01-08 10:50] VITALS: BMI 37.0
== END 2024-01-08 11:03 | disposition home or self-care (01) ==
LOC: HO.HBS 08:04
PROVIDERS: PCP Family Medicine; Visit Provider Surgery
DX: E66.9 Obesity, unspecified (principal); Z68.37 Body mass index [BMI] 37.0-37.9, adult
CPT/HCPCS: 99443

== ENCOUNTER → 2024-01-08 08:04 | Outpatient (BNVA) | payer MEDICARE, MEDICAID, SELFPAY | PROVIDERS: PCP Family Medicine; Visit Provider Surgery ==

== ENCOUNTER 2024-01-19 09:14 | Outpatient (AMB) | payer MEDICARE, MEDICAID, SELFPAY ==
--- NOTE | 2024-01-19 09:16 | MHC.OFFVISWM ---
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* Allergies Latex, Natural Rubber Allergy (Severe, Verified 01/19/24 09:48) Hives Medication List - Last Reconciled 01/19/24 by Laurent Santizo MD aripiprazole (Abilify) 5 mg PO BEDTIME cholecalciferol (vitamin D3) 50 mcg PO DAILY clonazepam 1 mg PO BID ondansetron 4 mg PO Q12H pantoprazole 40 mg PO DAILY polyethylene glycol 3350 17 grams PO DAILY rosuvastatin 10 mg PO DAILY sennosides (senna) 17.2 mg (2 x 8.6 mg) PO BEDTIME PRN 90 days sucralfate 10 mL PO BID venlafaxine ER (Effexor XR) 37.5 mg PO DAILY vitamin A 1 cap PO DAILY HPI Comments Details: Is doing 4 Orgain shakes with ONE scoop each at 9-11, 11-1, 1-3 and 4-6 AND one more Orgain shake with TWO scoops in 10oz water at 6pm-8pm. exercise: stationary bike [facility] Medical History (Updated 01/19/24 @ 10:03 by Laurent Santizo MD) Arthritis Thyroid nodule Elevated cholesterol Sleep apnea Anxiety GERD (gastroesophageal reflux disease) Surgical History History of abdominoplasty Hx of breast implant Hx of hysterectomy Hx of thyroidectomy Hx of knee surgery Family History Mother Psychiatric diagnosis Hypertension Father Diabetes Sister Hypothyroid Vitamin D deficiency Vitamin B12 deficiency Social History Are you a primary career representative to a significant other at home: No Do you presently have visiting nurse or other home services: No Alcohol intake: current Alcohol intake frequency: a few times a month Patient Tobacco Use Status: Never used Tobacco Physical Exam Vital Signs: Last Vital Signs Temp 96.8 F 01/19/24 09:25 Pulse 72 01/19/24 09:25 BP 140/74 H 01/19/24 09:25 Pulse Ox 98 01/19/24 09:25 Oxygen Delivery Method Room Air 01/19/24 09:25 BMI result Body Mass Index 34.5 GI Inspection: Yes normal to inspection (Gynecoid), Yes incision (well healed) and Yes obesity Palpation (GI): Soft to palpation Extrem Right lower extremity: normal to inspection Left lower extremity: normal to inspection Assessment & Plan Assessment & Plan (1) Obesity (BMI 30-39.9): Code(s): E66.9 - Obesity, unspecified Category: Medical Plan: 1. Plan for lap sleeve gastrectomy including upper GI endoscopy. All tests has been completed and reviewed and the patient is cleared for the surgery. ?If diaphragmatic or ventral hernias are present at time of surgery, these will be repaired laparoscopically as well. Risks and complications were discussed in detail including possible conversion to an open procedure, anastomotic leak, bleeding requiring transfusion, small bowel obstruction, , DVT and pulmonary embolism, cardiac, or pulmonary complications, as snf complications such as anastomotic ulcer, insufficient weight loss and vitamin deficiencies. I emphasized the importance of close follow-up, adherence to instructions and good communication. So far she has proven to be an excellent communicator and very compliant with all our directions accomplishing a great weight loss. I believe that she is an excellent candidate and she is ready. 2. Preop prescriptions were provided and explained the purpose of each one. Need to be purchased preop. Start Pantoprazole now as you get it from the pharmacy, 1 pill per day. Sucralfate and Zofran are for after surgery as needed. 3. Bowel prep: please do 7 packets ?of Miralax mixing each one with a an 8oz glass of water, crystal light, gatorade zero, or propel ?on 01/21/24 and the same amount on 01/22/24. The Miralax you begin with one packet at a time in 8oz water or crystal light, gatorade zero, or propel ?as early in the day as you can and you do them back to back until you finish them. Continue the protein shakes during ?the bowel prep. 4. Needs to purchase 1oz medicine cups . 5. Needs to purchase Children's liquid Tylenol for postop pain control. 6. She needs to stop the Meloxicam as of today 01/19/24. Avoid aspirin, motrin, Advil, Aleve, Ibuprofen, Naproxyn. Tylenol is OK. 7. She needs to purchase the Celebrate 4:1 protein shakes from the hospital's gift shop. 8. Importance of adherence to postop folllow-up and recommendations was underscored and she understands that. 9. Continue to avoid food and bars and continue with 4 Orgain shakes with ONE scoop each at 9-11, 11-1, 1-3 and 4-6 AND one more Orgain shake with TWO scoops in 10oz water at 6pm-8pm. 10. No soups, broths or V8 11. The patient's?medical?history has been reviewed and they are considered low risk for post op DVT and therefore DVT prophylaxis is not considered necessary. Travel after surgery was reviewed. The patient has not disclosed any travel plans during the first 30 days after surgery and they have been advised that within the first 30 days after surgery any bus, plane, train or car travel over 2 hours in duration is contraindicated due to the possibility of developing blood clots from immobility. Any travel, needs to include periods of ambulation of 10 minutes in duration every 2 hours.? Patient was instructed to discuss any plans for travel during this period with their bariatric surgeon.? 12. Use your CPAP daily and bring it to the hospital with your mask 13. Please take at the day of surgery the following medications: NONE 14. Stop any control pills and don't use them for one month after surgery 15. Absolutely no smoking or vaping, or marijuana until the surgery and for at least the first 4 weeks. Only nicotine patches are allowed. 16. Send me weight measurements on Monday, the day of surgery before you go to the hospital. 17. Avoid any steroids by mouth for any reason. Let me know if someone prescribes them to you 18. These instructions supersede anything else you read in the handbook, anything you watched in videos or classes or you were told by any other provider. If there is any conflict, you follow the above instructions and nothing else.
[2024-01-19 09:25] VITALS: BP 140/74; PULSE 72; TEMP 36; O2SAT 98; BMI 35.5
== END 2024-01-19 10:10 | disposition home or self-care (01) ==
PROVIDERS: PCP Family Medicine; Visit Provider Surgery
DX: E66.9 Obesity, unspecified (principal); Z68.35 Body mass index [BMI] 35.0-35.9, adult
CPT/HCPCS: 99499

== ENCOUNTER → 2024-01-19 09:14 | Outpatient (BNVA) | payer MEDICARE, MEDICAID, SELFPAY | PROVIDERS: PCP Family Medicine; Visit Provider Surgery ==

== ENCOUNTER 2024-01-23 08:06 | Inpatient (IN) | payer MEDICARE, MEDICAID, SELFPAY ==
[2024-01-10 12:35] VITALS: BMI 37.0
[2024-01-10 14:16] LABS: MANUAL DIFF FLAG NO
[2024-01-10 14:51] LABS: Basophils Absolute Auto 0.1 X10*3/uL (0.0-0.2); Basophils Percent Auto 0.6 % (0-2); Eosinophils Absolute Auto 0.1 X10*3/uL (0.0-0.4); Eosinophils Percent Auto 0.7 % (0-4); Hematocrit 44.7 % (37.0-47.0); Hemoglobin 14.5 g/dl (12.0-16.0); Imm Gran Abs Auto 0.12 X10*3/uL (0.00-0.03); Imm Gran Pct Auto 1.2 % (0.0-0.4); Lymphocytes Absolute Auto 1.8 X10*3/uL (1.2-4.9); Lymphocytes Percent Auto 18.5 % (20-40); Mean Corpuscular HGB Conc 32.4 g/dl (31.0-35.0); Mean Corpuscular Hemoglobin 28.3 pg (27.0-33.0); Mean Corpuscular Volume 87.1 fL (80.0-98.0); Mean Platelet Volume 11.3 fL (9.4-12.3); Monocytes Absolute Auto 0.4 X10*3/uL (0.1-1.2); Monocytes Percent Auto 4.5 % (2-11); Neutrophils Absolute Auto 7.3 x10*3/uL (2.0-8.3); Neutrophils Percent Auto 74.5 % (45-73); Platelet Count 150 X10*3/uL (160-400); Red Blood Count 5.13 X10*6/uL (4.20-5.50); Red Cell Distribution Width 14.8 % (11.0-16.0); White Blood Count 9.8 X10*3/uL (4.8-10.8)
[2024-01-10 14:58] LABS: Prothrombin Time 11.6 SEC (11.1-13.3)
[2024-01-10 15:10] LABS: Estimated Average Glucose 111 mg/dL; Hemoglobin A1c % 5.5 % (<6.0)
[2024-01-10 16:52] LABS: Alanine Aminotransferase 24 U/L (0-31); Albumin Level 4.5 g/dL (3.5-5.0); Alkaline Phosphatase 93 U/L (39-117); Anion Gap 12 (12-20); Aspartate Amino Transferase 14 U/L (5-31); Bilirubin Total 0.4 mg/dL (0.0-1.0); Blood Urea Nitrogen 17 mg/dL (9-16); C Reactive Protein 2.85 mg/dL (< or = 0.50); Carbon Dioxide 25 mmol/L (22-29); Chloride 104 mmol/L (96-108); Cholesterol 165 mg/dL (<200); Creatinine Clr Calc Pharmacy 98.5; Estimated Glomerular Filt Rate > 60; Glucose Random 83 mg/dL (60-115); HDL Cholesterol 62 mg/dL (>40); LDL Cholesterol Calculated 87 mg/dL (<100); Potassium 3.9 mmol/L (3.3-5.1); Sodium 137 mmol/L (135-145); Total Protein 7.8 g/dL (6.5-8.0); Triglycerides 84 mg/dL (<150)
[2024-01-10 16:54] LABS: TSH reflex Free T4 1.97 uIU/mL (0.32-4.0)
--- NOTE | 2024-01-18 08:43 | ECG_ITS ---
Test Reason : PRE OP Blood Pressure : / mmHG Vent. Rate : 060 BPM Atrial Rate : 060 BPM P-R Int : 158 ms QRS Dur : 088 ms QT Int : 426 ms P-R-T Axes : 071 -02 014 degrees QTc Int : 426 ms Normal sinus rhythm Normal ECG When compared with ECG of 27-DEC-2022 09:52, No significant change was found Referred By: Ramiro oMnte Electronically Signed By:SAM SOLIS
[2024-01-18 09:05] LABS: MANUAL DIFF FLAG NO
[2024-01-18 10:10] LABS: Basophils Absolute Auto 0.1 X10*3/uL (0.0-0.2); Eosinophils Percent Auto 0.7 % (0-4); Hematocrit 46.3 % (37.0-47.0); Hemoglobin 15.2 g/dl (12.0-16.0); Imm Gran Abs Auto 0.02 X10*3/uL (0.00-0.03); Imm Gran Pct Auto 0.3 % (0.0-0.4); Lymphocytes Absolute Auto 1.5 X10*3/uL (1.2-4.9); Lymphocytes Percent Auto 23.9 % (20-40); Mean Corpuscular HGB Conc 32.8 g/dl (31.0-35.0); Mean Corpuscular Hemoglobin 28.4 pg (27.0-33.0); Mean Corpuscular Volume 86.5 fL (80.0-98.0); Mean Platelet Volume 11.5 fL (9.4-12.3); Monocytes Absolute Auto 0.4 X10*3/uL (0.1-1.2); Monocytes Percent Auto 5.9 % (2-11); Neutrophils Absolute Auto 4.1 x10*3/uL (2.0-8.3); Neutrophils Percent Auto 68.2 % (45-73); Platelet Count 154 X10*3/uL (160-400); Red Blood Count 5.35 X10*6/uL (4.20-5.50); Red Cell Distribution Width 14.1 % (11.0-16.0); White Blood Count 6.1 X10*3/uL (4.8-10.8)
[2024-01-18 10:18] LABS: Prothrombin Time 11.7 SEC (11.1-13.3)
[2024-01-18 10:26] LABS: Partial Thromboplastin Time 33.2 SEC (26.0-36.8)
[2024-01-18 10:36] LABS: Estimated Average Glucose 111 mg/dL; Hemoglobin A1c % 5.5 % (<6.0)
[2024-01-18 11:43] LABS: Alanine Aminotransferase 15 U/L (0-31); Albumin Level 4.6 g/dL (3.5-5.0); Alkaline Phosphatase 89 U/L (39-117); Anion Gap 13 (12-20); Aspartate Amino Transferase 14 U/L (5-31); Bilirubin Total 0.5 mg/dL (0.0-1.0); Blood Urea Nitrogen 16 mg/dL (9-16); C Reactive Protein 2.17 mg/dL (< or = 0.50); Calcium 10.1 mg/dL (8.4-10.2); Carbon Dioxide 26 mmol/L (22-29); Chloride 105 mmol/L (96-108); Cholesterol 157 mg/dL (<200); Creatinine Clr Calc Pharmacy 87.2; Estimated Glomerular Filt Rate > 60; Glucose Random 85 mg/dL (60-115); HDL Cholesterol 54 mg/dL (>40); LDL Cholesterol Calculated 89 mg/dL (<100); Potassium 3.8 mmol/L (3.3-5.1); Sodium 140 mmol/L (135-145); Triglycerides 71 mg/dL (<150)
[2024-01-18 12:02] LABS: Insulin 14 uU/mL (2-29)
--- NOTE | 2024-01-18 13:13 | P.CONAN_ITS ---
Documented by User: Griselda Jimenez NP 01/18/24 13:14 HPI - Anesthesia Eval Consult details Narrative: 48yo F for Gastrectomy Sleeve- EGD, possible diaphragmatic hernia, possible ventral hernia, possible open PMFSH Active Problems Active Problems: All Active Problems Pre-op evaluation (Acute) Patellofemoral arthritis of left knee (Acute) Constipation (Acute) JIMMIE (obstructive sleep apnea) (Acute) Abnormal EKG (Acute) Snoring (Acute) Hypercholesterolemia (Acute) Obesity (BMI 30-39.9) (Acute) GERD (gastroesophageal reflux disease) (Acute) Past Medical History Medical History Arthritis Thyroid nodule Elevated cholesterol Sleep apnea Anxiety GERD (gastroesophageal reflux disease) Family History Family History Mother Psychiatric diagnosis Hypertension Father Diabetes Sister Hypothyroid Vitamin D deficiency Vitamin B12 deficiency Surgical History Surgical History History of abdominoplasty Hx of breast implant Hx of hysterectomy Hx of thyroidectomy Hx of knee surgery Social History Social History Are you a primary hospice spiritual care coordinator to a significant other at home: No Do you presently have visiting nurse or other home services: No Alcohol intake: current Alcohol intake frequency: a few times a month Patient Tobacco Use Status: Never used Tobacco Use of substances other than those prescribed or required for medical reasons: No Have you been hit, kicked, punched, or otherwise hurt by someone within the past year? If so, by whom?: No Are you DNR?: No Advance Directives: No Advance Directives on File: No Recently lost weight without trying: No Eating poorly because of decreased appetite: No Nutrition Risks: No Nutritional Risk Patient : No : No Poor oral hygiene: Yes (upper crown) Meds Allergies Allergy/AdvReac Type Severity Reaction Status Date / Time Latex, Natural Rubber Allergy Severe Hives Verified 01/23/24 08:14 Home Medications ?Medication ?Instructions ?Recorded ?Confirmed ?Last Taken ?Type aripiprazole 5 mg tablet (Abilify) 5 mg PO BEDTIME 11/29/22 01/19/24 01/22/24 History cholecalciferol (vitamin D3) 50 50 mcg PO DAILY 11/29/22 01/19/24 01/22/24 History mcg (2,000 unit) capsule clonazepam 1 mg tablet 1 mg PO BID 11/29/22 01/19/24 01/22/24 History rosuvastatin 10 mg tablet 10 mg PO DAILY 11/29/22 01/19/24 01/22/24 History venlafaxine 37.5 mg 37.5 mg PO DAILY 11/29/22 01/19/24 01/23/24 06:30 History capsule,extended release 24 hr (Effexor XR) meloxicam 15 mg tablet 15 mg PO DAILY 01/23/24 01/23/24 01/16/24 History Exam Height,Weight and Vital Signs: Height 5 ft 6 in Weight 103.873 kg Pertinent Lab Results Pertinent Lab Results: Laboratory Tests 01/10/24 01/10/24 01/18/24 14:10 14:15 09:03 WBC 9.8 6.1 RBC 5.13 5.35 Hgb 14.5 15.2 Hct 44.7 46.3 MCV 87.1 86.5 MCH 28.3 28.4 MCHC 32.4 32.8 RDW 14.8 14.1 Plt Count 150 L 154 L MPV 11.3 11.5 Immature Gran % (Auto) 1.2 H 0.3 Neut % (Auto) 74.5 H 68.2 Lymph % (Auto) 18.5 L 23.9 [place] % (Auto) 4.5 5.9 Eos % (Auto) 0.7 0.7 Baso % (Auto) 0.6 1.0 Lymph # (Auto) 1.8 1.5 [place] # (Auto) 0.4 0.4 Eos # (Auto) 0.1 0.0 Baso # (Auto) 0.1 0.1 Abs Immat Gran (auto) 0.12 H 0.02 Absolute Neuts (auto) 7.3 4.1 Absolute Nucleated RBC 0.000 0.000 Nucleated RBC % (auto) 0.0 0.0 PT 11.6 11.7 INR 1.0 1.0 APTT 33.0 33.2 Sodium 137 140 Potassium 3.9 3.8 Chloride 104 105 Carbon Dioxide 25 26 Anion Gap 12 13 BUN 17 H 16 Creatinine 0.85 0.96 Estim Creat Clear Calc 98.5 87.2 Estimated GFR > 60 > 60 Random Glucose 83 85 Estimat Average Glucose 111 111 Hemoglobin A1c % 5.5 5.5 Insulin Level 14 Calcium 10.0 D 10.1 Total Bilirubin 0.4 0.5 AST 14 14 ALT 24 15 Alkaline Phosphatase 93 89 C-Reactive Protein 2.85 H 2.17 H Total Protein 7.8 8.0 Albumin 4.5 4.6 Triglycerides 84 71 Cholesterol 165 157 LDL Cholesterol, Calc 87 89 HDL Cholesterol 62 54 TSH 1.97 2.00 Blood Type O Positive Antibody Screen NEGATIVE Narrative Narrative: EKG 12/2023 Vent. Rate : 060 BPM Atrial Rate : 060 BPM P-R Int : 158 ms QRS Dur : 088 ms QT Int : 426 ms P-R-T Axes : 071 -02 014 degrees QTc Int : 426 ms Normal sinus rhythm Normal ECG When compared with ECG of 27-DEC-2022 09:52, No significant change was found Assessment and Plan Assessment Anesthesia Assessment: Chart Reviewed Documented by User: Sherri Esquivel MD 01/23/24 12:28 HPI - Anesthesia Eval Consult details Narrative: 48yo F for EGD, Laparoscopic Sleeve Gastrectomy, possible diaphragmatic hernia repair, possible ventral hernia repair, possible open PMFSH Past Medical History Medical History Arthritis Thyroid nodule Elevated cholesterol Sleep apnea Anxiety GERD (gastroesophageal reflux disease) Family History Family History Mother Psychiatric diagnosis Hypertension Father Diabetes Sister Hypothyroid Vitamin D deficiency Vitamin B12 deficiency Family history of problems with anesthesia: No Surgical History Surgical History History of abdominoplasty Hx of breast implant Hx of hysterectomy Hx of thyroidectomy Hx of knee surgery History of Problems with Anesthesia: No Social History Social History Are you a primary hospice spiritual care coordinator to a significant other at home: No Do you presently have visiting nurse or other home services: No Alcohol intake: current Alcohol intake frequency: a few times a month Patient Tobacco Use Status: Never used Tobacco Use of substances other than those prescribed or required for medical reasons: No Have you been hit, kicked, punched, or otherwise hurt by someone within the past year? If so, by whom?: No Are you DNR?: No Advance Directives: No Advance Directives on File: No Recently lost weight without trying: No Eating poorly because of decreased appetite: No Nutrition Risks: No Nutritional Risk Patient : No : No Poor oral hygiene: Yes (upper crown) Meds Allergies Allergy/AdvReac Type Severity Reaction Status Date / Time Latex, Natural Rubber Allergy Severe Hives Verified 01/23/24 08:14 Home Medications ?Medication ?Instructions ?Recorded ?Confirmed ?Last Taken ?Type aripiprazole 5 mg tablet (Abilify) 5 mg PO BEDTIME 11/29/22 01/19/24 01/22/24 History cholecalciferol (vitamin D3) 50 50 mcg PO DAILY 11/29/22 01/19/24 01/22/24 History mcg (2,000 unit) capsule clonazepam 1 mg tablet 1 mg PO BID 11/29/22 01/19/24 01/22/24 History rosuvastatin 10 mg tablet 10 mg PO DAILY 11/29/22 01/19/24 01/22/24 History venlafaxine 37.5 mg 37.5 mg PO DAILY 11/29/22 01/19/24 01/23/24 06:30 History capsule,extended release 24 hr (Effexor XR) meloxicam 15 mg tablet 15 mg PO DAILY 01/23/24 01/23/24 01/16/24 History Exam Height,Weight and Vital Signs: Height 5 ft 6 in Weight 103.873 kg 01/23/24 Height 5 ft 6 in Weight 95.708 kg Vital Signs Temp Pulse Resp BP Pulse Ox O2 Del Method 01/23/24 08:24 97.0 F 66 16 141/87 H 97 Room Air Airway Mallampati Class: III TM Dist: >3cm Neck ROM: Full Loose/Missing/Broken Teeth: No (Cap top front. Denies broken, loose or missing teeth) Heart: RRR + ?murmur (patient unaware) Lungs: CTAB Assessment and Plan Assessment Anesthesia Assessment: Anesthesia Plan Discussed and Chart Reviewed Final Anesthetic Review Family History of Problems with Anesthesia: No History of Problems with Anesthesia: No NPO: Yes ASA Class: III Final Preanesthetic Review: No Changes in Pt Med Stat, Meds/Allgs Chart Reviewed, Consent Obtained/Reviewed and Anes Risks/Benef Reviewed Patient Risk: Intermediate Procedure Risk: Intermediate Assessment/Block/Sedation in SS: Assess/Block/Sedation- Anesthetic Plan Anesthetic Plan: GA Disposition: Standard PACU and Inp. Admit - Standard Bed
[2024-01-23] VITALS (10 sets, daily range): BP systolic 120–148; BP diastolic 75–87; PULSE 59–90; RESP 12–18; TEMP 36.1–36.6; O2SAT 97–98; BMI 34.1
[2024-01-23] MEDS: Aprepitant 32 MG/4.4 ML VIAL IVPUSH (08:42)
[2024-01-23] MEDS: Lactated Ringers 1,000 ML 999 ML IV (08:43)
--- NOTE | 2024-01-23 10:29 | P.BOP_ITS ---
Brief Operative Note Date of Service: 01/23/24 Pre-op diagnosis: Severe obesity with comorbidities (see below) Post-op diagnosis: same Procedure: BMI : 37 Kg/m2 COMORBIDITIES: sleep apnea on CPAP, hyperlipidemia, depression, anxiety, GERD ?The patient presented to the Weight Management Program with significant obesity that was negatively impacting the patient's comorbidities as listed above.? The program is a phased program with a special focus on preoperative medical weight management to promote substantial weight loss and prepare the patients for the second phase of the program: bariatric surgery. The patient participated in an intensive weekly lifestyle ?intervention and exercise program. It was deemed appropriate for the patient to now have bariatric surgery. In light of the current Covid-19 pandemic and the well documented strong association of obesity and increased risk of worse outcomes if infected with Covid-19 (REFERENCES: https://pubmed.ncbi.nlm.nih.gov/06139265/ ,? https://pubmed.ncb i.nlm.nih.gov/17463720/ ), any delay in undergoing bariatric surgery may lead to the patient's worsening health condition and increased?risk of more severe Covid-19 disease if infected. In addition a recent?study from [facility] published in [facility] [facility] on 05/17/2021 ([email or web address]) found that, among patients with obesity, substantial weight loss achieved with surgery was associated with improved outcomes of COVID-19 infection. The findings suggest that obesity can be a modifiable risk factor for the severity of COVID-19 infection. In addition, the patient met the BMI-criteria for bariatric surgery based on the BMI on initial presentation. The patient should not be penalized for achieving such weight loss because ?it is not sustainable long-term without surgical intervention and it was achieved in preparation for bariatric surgery ?under my direction and based on my published research (file :///[email or web address]).pdf and? https://www.soard.org/article/[email or web address](39)60587-X/pdf ) ?that a 10% preoperative weight loss improves long-term weight loss after surgery and reduces perioperative complications.? Insurance carriers such as [facility] have endorsed my recommendations ?and have included in their policies criteria to include a 10% preoperative weight loss requirement. PROCEDURE: Esophago-gastroscopy, laparoscopic lysis of adhesions, laparoscopic sleeve gastrectomy and laparoscopic gastropexy INDICATIONS: This is a 48 year-old female who was electively scheduled for laparoscopic, possibly open sleeve gastrectomy. The risks and complications of the procedure were discussed with the patient in advance, particularly the possibility of ; pulmonary embolism; staple line leak; bleeding; GERD; cardiac, pulmonary, or renal complications; as well as long-term problems such as insufficient weight loss, vitamin deficiency, strictures, or ulcers. The patient understood all the risks, and was in agreement to proceed with surgery. DESCRIPTION OF PROCEDURE: After informed consent was obtained from the patient, the patient was given preoperative antibiotics, and was transferred to the operating room. After successful induction of general anesthesia, pneumatic compression devices were placed on both lower extremities. An upper endoscopy was performed next. The oropharynx and esophagus appeared to be within normal limits. There was no diaphragmatic hernia present. The stomach was entered. Then after all fluid and air were suctioned and the stomach was fully decompressed, the scope was withdrawn and secured in the mid esophagus. The patient was then prepped and draped in the usual sterile manner, and abdominal access was established at the right upper quadrant with the Mariam technique. A 12 mm blunt port was inserted, and the abdomen was insufflated with CO2 to a pressure of 15 mmHg. Under direct visualization, additional ports were placed, specifically two 5 mm Versi-step ports to the left upper quadrant, and a 5 mm Versi-Step port to the right upper quadrant. 1% lidocaine plain was used to infiltrate all port sites as well as all fascia defects. Using the EndoClose suture passer device, I placed a #1 Polysorb tie across the falciform ligament in order to retract it up against the abdominal wall and prevent injury of the ligament with our instruments during the procedure. Following that, the patient was placed in a steep reverse Trendelenburg position. An additional 5 mm port was placed to the right flank for the Mediflex retractor that was used to retract the left lobe of the liver. The gastro-esophageal fat pad was opened with the ultrasonic device (Thunderbeat, Olympus) and the anterior esophagus and hiatus were exposed. The angle of His was opened with the ultrasonic device the fundus of the stomach from any diaphragmatic and splenic attachments. I then opened the gastrocolic ligament between the transverse colon and the greater curvature of the stomach with the ultrasonic device to enter the lesser sac and facilitate the ligation of the short gastric vessels. I started at a mid-point along the greater curvature and using the Thunderbeat, all short gastric vessels were divided all the way to the angle of His until the left quinton was completely dissected at its entirety. I then divided the gastro-colic ligament distally to a distance of about 3-4 cm proximal to the pylorus. The stomach was then divided transversely with two Endo BETHANY-45 purple and four BETHANY-60 articulating purple loads using the [employer] stapler and loads. Every effort was made that the gastric sleeve had a tubular shape and an even caliber throughout. Once the sleeve resection was completed, the staple line of the gastric sleeve was reinforced with Hemoclips. The resected stomach was retrieved without difficulty from the Mariam port. A gastropexy was then performed in order to prevent postoperative GERD and partial gastric volvulus. Several interrupted 2.0 Surgidac sutures were placed between the sleeve's staple line and the previously divided greater omentum and gastro-colic ligament using the Endo-Stitch device. ?An upper endoscopy was performed. There was no narrowing at the GE junction. The scope was easily advanced all the way to the pylorus which was clearly visualized. There was no narrowing anywhere and the sleeve's caliber was even throughout. The sleeve's staple line was inspected and there was no evidence of ischemia, bleeding or dehiscence. At that point the gastroscope was withdrawn from the patient?s mouth while we were decompressing the bowel and the stomach from any remaining air. I looked into the lesser sac to see how the sleeve was situating and it was situ ating well. There was no bleeding from the staple line, spleen, or short gastric vessels. The Mediflex retractor was removed, and the undersurface of the liver was inspected and there was no bleeding. The patient was placed in supine position. I closed the fascial defect of the 12 mm port site with a figure of eight #1 Polysorb suture. Then 30cc Ropivacaine plain with 10 mg of Dexamethasone were used to infiltrate the fascial closure as well as all skin incisions. At this point, the abdomen was deflated, all ports were removed under direct vision, and no bleeding was noted from any of the port sites. The skin incisions were irrigated with saline and were closed with 4-0 absorbable monofilament sutures. Steri-Strips and OpSites were used to cover all incisions. The patient was extubated and was transferred in stable condition to the recovery room for further care. I was present and performed all urban parts of the procedure. Mr. Monte was the assistant laboratory director. There were no residents to assist with this case. Brody Santizo MD, PhD, FACS Surgeon: Laurent Santizo MD Anesthesia: GETA, local and other (TAP block) Was an Gas Distribution Supervisor used for this Procedure?: No Gas Distribution Supervisor: Ramiro Monte Estimated blood loss (mL): 10 IV fluids (mL): 2,000 Urine output (mL): 0 (No Anglin to record output) Pathology: other (Stomach) Condition: stable Disposition: PACU
--- NOTE | 2024-01-23 10:29 | MHC.SHP ---
Pre-Procedural Eval Section A - 24 Hr Update-Section A only Date of Service: 01/23/24 The patient is an INPATIENT: Yes The patient has been examined within 24 hours of the surgical procedure. The History & Physical has been completed within 30 days and I have reviewed it.: Yes Section B - Complete if H&P > 30 days Chief Complaint: obesity Relevant Family History (Specify if Yes): No Relevant Social History: None Present Medications: None Medical History: No relevant PMH History of Previous Operations: No relevant previous surgery Allergies: Allergies Allergy/AdvReac Type Severity Reaction Status Date / Time Latex, Natural Rubber Allergy Severe Hives Verified 01/23/24 08:14 Review of Systems Sugical H&P ROS: Negative: Constitution, Cardiovascular, Respiratory, Neurological, Psychiatric, Hem-Onc, Allergic/Immunologic, Gastrointestinal, Genitourinary, Musculoskeletal, Integumentary, Endocrine and Eyes/Ears/Nose/Throat Exam Surgical H&P Exam: Normal: HEENT, Normal: Heart, Normal: Lungs, Normal: Extremities, Normal: Abdomen, Normal: Skin and Normal: Neurological Plan Diagnosis/Plan: Unchanged I have reviewed the history and physical and performed a pertinent physical examination on my patient. No changes have occurred unless specified. Time Spent With Patient Time: Total time managing care of this patient today ____ minutes.
--- NOTE | 2024-01-23 10:43 | P.PNGS_ITS ---
Subjective Subjective Date of Service: 01/24/24 Interval history: Feels well. Mild incisional pain. She is tolerating phase 1 bariatric diet Physical Exam 2 Vital Signs: Vital Signs: Last Vital Signs Temp 97.0 F 01/23/24 08:24 Pulse 66 01/23/24 08:24 Resp 16 01/23/24 08:24 BP 141/87 H 01/23/24 08:24 Pulse Ox 97 01/23/24 08:24 O2 Del Method Room Air 01/23/24 08:24 BMI result Body Mass Index 34.1 GI: Inspection: Yes normal to inspection and Yes incision (clean, dry and intact) Palpation (GI): Soft to palpation Extrem: Right lower extremity: normal to inspection (no calf tenderness) L eft lower extremity: normal to inspection (no calf tenderness) Objective Data Active Medications Lactated Ringer's (Lr) 1,000 mls @ 100 mls/hr IVCONT .Q10H NEREYDA Labs 01/24/24 05:38 01/24/24 05:38 Procedures Date of Service Date of Service: 01/24/24 Progress Note: A&P Assessment and plan (1) Obesity (BMI 30-39.9): Status: Acute Assessment and Plan: s/p laparoscopic sleeve gastrectomy, lysis of adhesions and gastropexy Doing well Will check am labs and if OK the patient will be discharged home (2) BMI 37.0-37.9, adult: Status: Acute (3) Hypercholesterolemia: Status: Acute (4) Sleep apnea treated with continuous positive airway pressure (CPAP): Status: Acute (5) GERD (gastroesophageal reflux disease): Status: Acute (6) S/P laparoscopic sleeve gastrectomy: Status: Acute Time Spent With Patient Time: Total time managing care of this patient today ____ minutes. Quality Stroke Does the patient have a stroke diagnosis?: No VTE Prior VTE?: No VTE Risk Level:: Surgical - moderate VTE Device Contraindication: N/A - Device Ordered VTE Drug Contraindication: Treatment Not Indicated
[2024-01-23] MEDS: ceFAZolin Sodium/Dextrose,Iso 2 GM/50 ML PIGGYBACK IV ×2 (11:03→17:18)
[2024-01-23] MEDS: Acetaminophen 1,000 MG/100 ML PIGGYBACK 400 MG IV (11:10)
--- NOTE | 2024-01-23 13:25 | P.DS_ITS ---
DS: Providers Provider Date of Service: 01/24/24 Date of admission: 01/23/24 08:06 Primary care physician: Zoila Titus MD DS: Diagnosis Discharge Diagnosis (1) Obesity (BMI 30-39.9): Status: Acute (2) BMI 37.0-37.9, adult: Status: Acute (3) Hypercholesterolemia: Status: Acute (4) Sleep apnea treated with continuous positive airway pressure (CPAP): Status: Acute (5) GERD (gastroesophageal reflux disease): Status: Acute (6) S/P laparoscopic sleeve gastrectomy: Status: Acute DS: Summary Hospital Course Hospital Course: ADMITTING DIAGNOSIS: obesity, anxiety, vanessa, hld ? DISCHARGE DIAGNOSIS: same, s/p laparoscopic sleeve gastrectomy ? PAST SURGICAL HISTORY: abdominoplasty, breast augmentation, hysterectomy, thyroidectomy ? PROCEDURE: upper endoscopy, laparoscopic sleeve gastrectomy ? DISCHARGE SUMMARY: ? History of Present Illness: ? The patient is a?48 year-old woman with a BMI of?35 kg/m2 and associated co- morbidities as described above. The patient had extensive work-up and was electively scheduled for laparoscopic, possible open sleeve gastrectomy and gastropexy. Risks and complications of the surgery were discussed with the patient in advance, particularly the possibility of , pulmonary embolism, anastomotic leak, bleeding, bowel injury, GERD, cardiac, renal or pulmonary complications. The patient understood all the risks and was in agreement with the surgical plan. ? Hospital Course: ? The patient underwent an uneventful laparoscopic sleeve gastrectomy with gastropexy on the day of admission. Postoperatively, the patient was transferred to the surgical floor. The patient received IV Acetaminophen and IV dilaudid for pain control. Patient was started on bariatric phase 1 diet POD #0. On postoperative day one, the patient was feeling well without nausea, vomiting, fevers, or tachycardia. The patient had some mild incisional pain and the abdomen was soft. ? On the morning of postoperative day one, the patient was continued on 1 ounce of water or ice every half hour. During the day, the patient did fairly well, having some incisional pain, but able to ambulate adequately and to tolerate liquids well. ? Since the patient is doing well, we decided that the patient was ready to be discharged. The patient was given instructions to follow-up with me next week and to call my office for any fever over 101, persistent abdominal pain, nausea, vomiting, GERD, symptoms of DVT such as calf tenderness, or leg swelling, or pulmonary embolism such as chest pain or shortness of breath. The patient was also instructed to drink 40-60 ounces of liquids per day using the 1-ounce cups. The patient had been given prescriptions for Tylenol for pain, Zofran prn for nausea, and pantoprazole and carafate previously. The patient was encouraged to ambulate and use the incentive spirometer. The patient was allowed to shower, but no baths, and encouraged to stay active at home. All of these instructions were given to the patient personally. All questions were answered and the patient understood all instructions, the instructions were also given to the patient in print. Time Attestation Total time managing care of this patient today: 25 mintues. Discharge Coordination Time (in mins): 25 Quality: Safe Use of Opioids Does Pt have an Active Cancer Diagnosis on the Problem List?: No Quality: Stroke Does the patient have a stroke diagnosis?: No Physical Exam Vital Signs: Vital Signs: Last Vital Signs Temp 97.7 F 01/23/24 13:18 Pulse 90 01/23/24 13:18 Resp 12 01/23/24 13:18 BP 123/81 01/23/24 13:18 Pulse Ox 97 01/23/24 13:18 O2 Del Method Nasal Cannula wit h Capnography 01/23/24 13:18 O2 Flow Rate 3 01/23/24 13:18 BMI result Body Mass Index 34.1 DS: Data Data Completed and Pending Pending studies at discharge: Pending at discharge 01/23/24 11:59 Surgical [PTH] Routine Discharge Plan Discharge Anticipated Discharge Date/Time: 01/24/24 10:00 Patient Disposition: Home, Self-Care Discharge Diagnosis: s/p laparoscopic sleeve gastrectomy Referrals: Zoila Titus MD [Primary Care Provider] - 1 Week Discharge Medications: Continued aripiprazole 2 mg tablet 2 mg PO BEDTIME venlafaxine [Effexor XR] 37.5 mg capsule,extended release 24hr 37.5 mg PO DAILY rosuvastatin 10 mg tablet 10 mg PO DAILY clonazepam 1 mg tablet 1 mg PO BID sennosides [senna] 8.6 mg tablet 17.2 mg PO BEDTIME PRN (Reason: constipation) 90 Days Qty: 180 0RF pantoprazole 40 mg tablet,delayed release (DR/EC) 40 mg PO DAILY Qty: 90 0RF sucralfate 100 mg/mL suspension 10 ml PO BID Qty: 600 2RF ondansetron 4 mg tablet,disintegrating 4 mg PO Q12H Qty: 20 0RF Rx Instructions: Only take one every 12 hours as needed if you have nausea Discontinued vitamin A 3,000 mcg (10,000 unit) capsule 1 cap PO DAILY Qty: 90 0RF meloxicam 15 mg tablet 15 mg PO DAILY vitamin A 3,000 mcg (10,000 unit) capsule 1 cap PO DAILY cholecalciferol (vitamin D3) 50 mcg (2,000 unit) capsule 50 mcg PO DAILY Discharge Orders: Discharge Order (Routine); Ordered 01/24/24 Ordered By: Laurent Santizo Activity on Discharge: No heavy lifting Stand Alone Forms: Patient Portal Discharge page Print Language: [place] Care Plan Goals: weight loss Health Concerns: obesity Plan of Treatment: No tub baths, sex or returning to work until discussed at first post op appointment. No exercise, alcohol, tobacco or illegal drug use. Continue to use incentive spirometer hourly while awake. Walk in home for 5- 10 minutes every 2 hours during the first week. Follow all instructions in the bariatric handbook and call with any questions.Discharge Instructions 1. Please call your doctor or come back to the emergency room should any new symptoms arise. 2. You will receive a courtesy call from [facility] 24-48 hours after discharge. 3. Activity: abstain from alcohol, practice limited stair climbing, no bending, no driving, no exercise, no illicit substances, no lifting, no sex, no tub bath, no work. 4. Diet: continue as discussed with Dr. Santizo. 5. Dressing Change/Wound Care: Your incision is covered by clear bandages and guaze underneath. If the area is tender, you may apply an ice pack for short intervals (no more than 20 minutes on, followed by at least 20 minutes off). Do not apply heat. Do not use creams, lotions, or topical antibiotics unless instructed to do so by your surgeon. These can cause infection or allergic reaction. 6. Call your doctor if: - Your temperature exceeds 101.5 F - You experience excessive pain or swelling - You have an unexpected reaction to medication - You have excessive bleeding - You experience continued vomiting/nausea - Your incision begins to separate - Your incision shows signs of infection such as increased redness, swelling, excessive pain, heat, or drainage (light blood or clear fluid is normal) 7. General instructions: No lifting greater than 5 lbs for 1 week and not more than 20lbs the next 3?weeks. No driving until seen at the office in 5-7 days after surgery. If you do not move your bowels in the next 2 days, please tell?Dr. Santizo. Please walk around your home every hour or two to prevent blood clots from forming in your legs. You do not need to wake from sleeping to walk. Please sleep in a bed or couch to prevent kinking at the hips and knees. Please take your incentive spirometer (your lung protective services case worker) home with you and use it for the next few days to prevent pneumonia. You may shower, no hot tubs, baths or swimming pools.?Please follow the post op diet instructions you are?given by Dr Santizo? and text me daily at 5-6pm for an update.?If you have any issues or concerns or questions please communicate this to him via text.? The Celebrate shakes have all of the bariatric vitamins you need if you consume these shakes. If you are drinking other protein shakes, you will need to purchase the Celebrate multivitamins and calcium that are available in the hospital gift shop on the first floor of the main hospital.??Do not take anything without first discussing with Dr Santizo. Please make sure you are consuming at least 40 ounces of fluids per day starting the?day AFTER your discharge from the hospital. Always drink 1-2 ml per minute using the 5ml?syringe. If you drink faster you may experience?bloating,?gas pain, burping, nausea or heartburn. In that case please slow down your pace and use the syri nge to?understand better the?proper?pace and volume of drinking. Do not hesitate to contact the office with any questions at . The patient's medical history has been reviewed and they are considered low risk for post op DVT and therefore DVT prophylaxis is not considered necessary. Travel after surgery was reviewed. The patient has not disclosed any travel plans during the first 30 days after surgery and they have been advised that within the first 30 days after surgery any bus, plane, train or car travel over 2 hours in duration is contraindicated due to the possibility of developing blood clots from immobility. Any travel, needs to include periods of ambulation of 10 minutes in duration every 2 hours.? The patient was instructed to discuss any plans for travel during this period with their bariatric surgeon. Assessment: stable s/p laparoscopic sleeve gastrectomy Discharge Date/Time: 01/24/24 09:30
[2024-01-23 13:49] LABS: Hematocrit 43.2 % (37.0-47.0); Hemoglobin 14.5 g/dl (12.0-16.0)
[2024-01-23 14:05] LABS: Anion Gap 14 (12-20); Blood Urea Nitrogen 12 mg/dL (9-16); Carbon Dioxide 23 mmol/L (22-29); Chloride 106 mmol/L (96-108); Creatinine Clr Calc Pharmacy 95.5; Estimated Glomerular Filt Rate > 60; Glucose Random 120 mg/dL (60-115); Potassium 3.7 mmol/L (3.3-5.1); Sodium 139 mmol/L (135-145)
[2024-01-23] MEDS: 0.9 % Sodium Chloride Flush 3 ML SYRINGE IVFLUSH ×2 (15:28→21:34)
[2024-01-23] MEDS: Lactated Ringers 1,000 ML 100 ML IVCONT ×2 (15:31→23:42)
--- NOTE | 2024-01-23 15:37 | PHA.MEDREC ---
Addendum entered by Jeni Tapia RPh 01/23/24 16:29: Reviewed by [facility] Original Note: Pharmacy Consult ? Medication Reconciliation Pharmacy has completed the medication reconciliation. Spoke to patient through gambling supervisor service (Lul) to speak with patient. Patient was able to confirm med list with me . Patient states she no longer takes Topiramate 50 mg daily. Patient states she is not sure if her Aripiprazole is 2 mg or 5 mg, claim states 2 mg, so left what claim states. she said she doesn't take it all the time because it makes her sad.
[2024-01-23] MEDS: Acetaminophen 1,000 MG/100 ML PIGGYBACK 16.7 MG IV ×2 (17:48→22:44)
[2024-01-23] MEDS: clonazePAM 1 MG TABLET PO (21:33)
[2024-01-23] MEDS: Famotidine/PF 20 MG/2 ML VIAL IVPUSH (21:33)
[2024-01-24 03:39] VITALS: BP 141/77; PULSE 61; RESP 16; TEMP 36; O2SAT 97
[2024-01-24] MEDS: Acetaminophen 1,000 MG/100 ML PIGGYBACK 16.7 MG IV (04:57)
[2024-01-24 06:05] LABS: MANUAL DIFF FLAG NO
[2024-01-24 06:24] LABS: Basophils Percent Auto 0.1 % (0-2); Hematocrit 41.4 % (37.0-47.0); Imm Gran Abs Auto 0.03 X10*3/uL (0.00-0.03); Imm Gran Pct Auto 0.3 % (0.0-0.4); Lymphocytes Absolute Auto 0.9 X10*3/uL (1.2-4.9); Lymphocytes Percent Auto 9.1 % (20-40); Mean Corpuscular HGB Conc 33.8 g/dl (31.0-35.0); Mean Corpuscular Hemoglobin 28.7 pg (27.0-33.0); Mean Corpuscular Volume 84.8 fL (80.0-98.0); Mean Platelet Volume 11.7 fL (9.4-12.3); Monocytes Absolute Auto 0.3 X10*3/uL (0.1-1.2); Monocytes Percent Auto 2.9 % (2-11); Neutrophils Absolute Auto 8.3 x10*3/uL (2.0-8.3); Neutrophils Percent Auto 87.6 % (45-73); Platelet Count 142 X10*3/uL (160-400); Red Blood Count 4.88 X10*6/uL (4.20-5.50); Red Cell Distribution Width 13.4 % (11.0-16.0); White Blood Count 9.5 X10*3/uL (4.8-10.8)
[2024-01-24 06:27] LABS: Anion Gap 14 (12-20); Blood Urea Nitrogen 10 mg/dL (9-16); Calcium 9.2 mg/dL (8.4-10.2); Carbon Dioxide 21 mmol/L (22-29); Chloride 105 mmol/L (96-108); Creatinine Clr Calc Pharmacy 96.6; Estimated Glomerular Filt Rate > 60; Glucose Random 106 mg/dL (60-115); Potassium 3.9 mmol/L (3.3-5.1); Sodium 136 mmol/L (135-145)
[2024-01-24 06:49] VITALS: BP 141/71; PULSE 82; RESP 17; TEMP 36.6; O2SAT 98
[2024-01-24] MEDS: Venlafaxine HCl ER 37.5 MG CAP.ER.24H PO (08:27)
[2024-01-24] MEDS: clonazePAM 1 MG TABLET PO (08:27)
[2024-01-24] MEDS: Famotidine/PF 20 MG/2 ML VIAL IVPUSH (08:27)
--- NOTE | 2024-01-24 09:39 | MHC.CM.PN ---
IMM DELIVERED. PT LIVES WITH FRIENDS. INDEPENDENT WITH MOBILITY. PCP DR. MCQUEEN PT AGREES TO COMPLETING A HCP, WHEN CM RETURNED TO ROOM FOR PT SIGNATURE, PT HAD LEFT. DP: PT HAS BEEN MEDICALLY CLEARED FOR DC HOME, NO SERVICES. PT HAS OWN RIDE HOME.
== END 2024-01-24 09:30 | disposition home or self-care (01) | DRG 621 ==
LOC: HO.SSSA 13:28 → HO.S3 13:42
PROVIDERS: Physician Assistant Surgical; Admitting Provider Surgery; PCP Family Medicine; Visit Provider Surgery
PROC: 0DB64Z3 Excision of Stomach, Percutaneous Endoscopic Approach, Vertical (ICD-10-PCS; CPT 43845; principal; 2024-01-23 10:20)
DX: E66.01 Morbid (severe) obesity due to excess calories (principal); F41.9 Anxiety disorder, unspecified; K21.9 Gastro-esophageal reflux disease without esophagitis; E78.00 Pure hypercholesterolemia, unspecified; F32.A Depression, unspecified; G47.33 Obstructive sleep apnea (adult) (pediatric); Z68.37 Body mass index [BMI] 37.0-37.9, adult; Z91.040 Latex allergy status; Z79.899 Other long term (current) drug therapy
CPT/HCPCS: 36415; 80048; 80053; 80061; 83036; 83525; 84443; 85014; 85018; 85025; 85610; 85730; 86140; 86850; 86900; 86901; 88304; 88307; 88342; 93005; A4649; C9145; J0131; J0690; J1100; J1170; J2250; J2405; J2704; J2795; J3010; J7120

== ENCOUNTER → 2024-01-23 08:06 | Outpatient (BNV) | payer MEDICARE, MEDICAID, SELFPAY | PROVIDERS: Admitting Provider Surgery; PCP Family Medicine; Visit Provider Surgery | DX: E66.9 Obesity, unspecified (principal); Z68.37 Body mass index [BMI] 37.0-37.9, adult; E78.00 Pure hypercholesterolemia, unspecified; G47.30 Sleep apnea, unspecified; K21.9 Gastro-esophageal reflux disease without esophagitis; Z98.84 Bariatric surgery status | CPT/HCPCS: 43659; 43775; 99024; 99499 ==

== ENCOUNTER 2024-02-02 09:13 | Outpatient (AMB) | payer MEDICARE, MEDICAID, SELFPAY ==
--- NOTE | 2024-02-02 09:19 | A.OFFVIS_ITS ---
VS Expanded 02/02/24 09:26 BP 122/70 Blood Pressure Location Rt brachial Blood Pressure Position Sitting Pulse 75 Pulse Source Pulse Oximeter Temp 97.1 F Temperature Source Temporal Artery Scan Pulse Oximetry 97 Oxygen Delivery Method Room Air Height 5 ft 6 in Weight 201 lb 9.6 oz BMI 32.5 Body Fat % 44.4 Body Fat Mass 89.6 Fat Free Mass 112.0 Visceral Fat Rating 10.0 Body Water % 39.6 Body Water Mass 79.8 Muscle Mass/Score 106.2 Basal Metabolic Rate/Score 1,571 Intake Visit Reasons: (OV) PO LSG 01/23/24 Systems Technician Required: Yes Systems Technician Name: #[id number] Allergies Latex, Natural Rubber Allergy (Severe, Verified 02/02/24 09:28) Hives Medication List - Last Reconciled 02/02/24 by RILEY Camara aripiprazole 2 mg PO BEDTIME clonazepam 1 mg PO BID pantoprazole 40 mg PO DAILY rosuvastatin 10 mg PO DAILY sennosides (senna) 17.2 mg (2 x 8.6 mg) PO BEDTIME PRN 90 days sucralfate 10 mL PO BID venlafaxine ER (Effexor XR) 37.5 mg PO DAILY HPI Comments Details: Patient is a pleasant 48-year-old female who returns to the office today in follow-up. She underwent a sleeve gastrectomy approximately 10 days ago on 01/23/2024. Tolerating 2 celebrate 4 in 1 shakes with 2 scoops each and 1 celebrate rebuild shake with 1 scoop. She is additionally having a proximally 40-50 oz of fluid per day. She is moving her bowels. [facility] Medical History (Updated 01/27/24 @ 00:03 by Jese Trinidad) BMI 37.0-37.9, adult Pre-op evaluation Arthritis Thyroid nodule Elevated cholesterol Sleep apnea Anxiety GERD (gastroesophageal reflux disease) Surgical History (Updated 02/02/24 @ 09:19 by Kasandra Wu CMA) Hx of laparoscopic partial gastrectomy History of abdominoplasty Hx of breast implant Hx of hysterectomy Hx of thyroidectomy Hx of knee surgery Family History Mother Psychiatric diagnosis Hypertension Father Diabetes Sister Hypothyroid Vitamin D deficiency Vitamin B12 deficiency Social History Household Members: Spouse Housing: House Are you a primary home care liaison to a significant other at home: No Do you presently have visiting nurse or other home services: No Alcohol intake: current Alcohol intake frequency: a few times a month Patient Tobacco Use Status: Never used Tobacco service: No Physical Exam Vital Signs: Last Vital Signs Temp 97.1 F 02/02/24 09:26 Pulse 75 02/02/24 09:26 BP 122/70 02/02/24 09:26 Pulse Ox 97 02/02/24 09:26 Oxygen Delivery Method Room Air 02/02/24 09:26 BMI result Body Mass Index 32.5 GI Inspection: Yes incision (Clean, dry, intact.) Assessment & Plan Assessment & Plan (1) S/P laparoscopic sleeve gastrectomy: Code(s): Z98.84 - Bariatric surgery status Category: Surgical Plan: POD 10 s/p LSG on 01/23/[address] Santizo Original weight on 12/23/2022 was 214.8 pounds and op weight was 228.3 pounds. Be sure to text Dr Santizo exactly 1 week after surgery your weight from your home scale so he can adjust your meal plan. Continue meal plan until f/u soraida Rubio in 2 weeks May shower, no submersion in bath for another week Continue abdominal binder with activity and exercise for the next 2 weeks. Exercise prior to surgery was stationary bike and may resume No abdominal exercises for 6 weeks post operatively Will be emailed link to post op video for review Reminded of the pace of drinking, 2 mL per minute, 1 oz/15 min.
[2024-02-02 09:26] VITALS: BP 122/70; PULSE 75; TEMP 36.2; O2SAT 97; BMI 32.5
== END 2024-02-02 09:50 | disposition home or self-care (01) ==
PROVIDERS: PCP Family Medicine; Visit Provider Physician Assistant Surgical
DX: Z98.84 Bariatric surgery status (principal)
CPT/HCPCS: 99024

== ENCOUNTER → 2024-02-02 09:13 | Outpatient (BNVA) | payer MEDICARE, MEDICAID, SELFPAY | PROVIDERS: PCP Family Medicine; Visit Provider Physician Assistant Surgical | DX: Z48.815 Encounter for surgical aftercare following surgery on the digestive system (principal); Z98.84 Bariatric surgery status; Z71.3 Dietary counseling and surveillance | CPT/HCPCS: 99212 ==

== ENCOUNTER 2024-02-23 10:40 | Outpatient (AMB) | payer MEDICARE, MEDICAID, SELFPAY ==
--- NOTE | 2024-02-23 10:41 | MHC.OFFVISWM ---
VS Expanded 02/23/24 10:48 BP 117/68 Blood Pressure Location Rt brachial Blood Pressure Position Sitting Pulse 71 Pulse Source Pulse Oximeter Temp 97.3 F Temperature Source Temporal Artery Scan Pulse Oximetry 95 Oxygen Delivery Method Room Air Height 5 ft 6 in Weight 191 lb 12.8 oz BMI 31.0 Body Fat % 41.9 Body Fat Mass 80.2 Fat Free Mass 111.4 Visceral Fat Rating 9.0 Body Water % 41.4 Body Water Mass 79.4 Muscle Mass/Score 105.6 Basal Metabolic Rate/Score 1,547 Intake Visit Reasons: (OV) PO LSG 01/23/24 Allergies Latex, Natural Rubber Allergy (Severe, Verified 02/02/24 09:28) Hives HPI Comments Details: This?a?48?yo female who is s/p LSG without hiatal hernia repair on?01/23/2024. Presents for 1 month post op visit. Weight today is 191.8 pounds, with a BMI of 30.9. There has been a 23 pound weight loss,(initial weight 214.8 pounds) since starting the program on 12/23/2022 reflecting a 10.7 % total body weight loss and a weight loss of 19.2 pounds since surgery (operative weight 211 pounds) reflecting a 9 % TBWL since surgery. No complaints of nausea, emesis, abdominal pain or reflux. Reports infrequent but normal bowel movements every 2-3 days and uses stool softeners regularly. States that she is feeling as though the bars are 2 sweet. She will discuss this with Dr. Santizo. Present meal plan includes: celebrate 4 in 1 x 3, 1 scoop, 1 scoop, 2 scoops. 8-10, 11-1, 2-4 celebrate bar at 5-8 drinking 32 oz ? Exercise routine includes: treadmill 220 calories 6 days per week [facility] Medical History (Updated 01/27/24 @ 00:03 by Jese Trinidad) BMI 37.0-37.9, adult Pre-op evaluation Arthritis Thyroid nodule Elevated cholesterol Sleep apnea Anxiety GERD (gastroesophageal reflux disease) Surgical History Hx of laparoscopic partial gastrectomy History of abdominoplasty Hx of breast implant Hx of hysterectomy Hx of thyroidectomy Hx of knee surgery Family History Mother Psychiatric diagnosis Hypertension Father Diabetes Sister Hypothyroid Vitamin D deficiency Vitamin B12 deficiency Social History Household Members: Spouse Housing: House Are you a primary director long term care to a significant other at home: No Do you presently have visiting nurse or other home services: No Alcohol intake: current Alcohol intake frequency: a few times a month Patient Tobacco Use Status: Never used Tobacco service: No Physical Exam Vital Signs: Last Vital Signs Temp 97.3 F 02/23/24 10:48 Pulse 71 02/23/24 10:48 BP 117/68 02/23/24 10:48 Pulse Ox 95 02/23/24 10:48 Oxygen Delivery Method Room Air 02/23/24 10:48 BMI result Body Mass Index 31.0 GI Inspection: Yes incision (Spitting suture removed from the lateral right to port sites.) Assessment & Plan Assessment & Plan (1) S/P laparoscopic sleeve gastrectomy: Code(s): Z98.84 - Bariatric surgery status Category: Surgical Plan: Overall doing well. She will discuss with Dr. Santizo possibly changing the bar to a celebrate rebuild shake or possibly English yogurt. I would encourage her to increase her exercise to 300 calories burned daily. We will have her follow-up in the office in approximately 3 weeks. Encouraged to continue to send weight is weekly and if any questions or concerns
[2024-02-23 10:48] VITALS: BP 117/68; PULSE 71; TEMP 36.3; O2SAT 95; BMI 31.0
== END 2024-02-23 11:30 | disposition home or self-care (01) ==
PROVIDERS: PCP Family Medicine; Visit Provider Physician Assistant Surgical
DX: Z98.84 Bariatric surgery status (principal)
CPT/HCPCS: 99024

== ENCOUNTER → 2024-02-23 10:40 | Outpatient (BNVA) | payer MEDICARE, MEDICAID, SELFPAY | PROVIDERS: PCP Family Medicine; Visit Provider Physician Assistant Surgical | DX: Z71.3 Dietary counseling and surveillance (principal); Z98.84 Bariatric surgery status | CPT/HCPCS: 99212 ==

== ENCOUNTER 2024-04-01 10:47 | Outpatient (AMB) | payer MEDICARE, MEDICAID, SELFPAY ==
--- NOTE | 2024-04-01 10:53 | A.OFFVIS_ITS ---
VS Expanded 04/01/24 11:10 BP 112/64 Blood Pressure Location Rt brachial Blood Pressure Position Sitting Pulse 64 Pulse Source Pulse Oximeter Temp 97.2 F Temperature Source Temporal Artery Scan Pulse Oximetry 98 Oxygen Delivery Method Room Air Height 5 ft 6 in Weight 177 lb 3.2 oz BMI 28.6 Body Fat % 39.4 Body Fat Mass 69.6 Fat Free Mass 107.4 Visceral Fat Rating 8.0 Body Water % 43.2 Body Water Mass 76.6 Muscle Mass/Score 101.8 Basal Metabolic Rate/Score 1,481 Intake Visit Reasons: (OV) PO LSG 01/23/24 Accounts Receivable Supervisor Required: Yes Accounts Receivable Supervisor Name: # [id number] Allergies Latex, Natural Rubber Allergy (Severe, Verified 04/01/24 10:58) Hives Medication List - Last Reconciled 04/01/24 by RILEY Camara aripiprazole 2 mg PO BEDTIME clonazepam 1 mg PO BID pantoprazole 40 mg PO DAILY rosuvastatin 10 mg PO DAILY sennosides (senna) 17.2 mg (2 x 8.6 mg) PO BEDTIME PRN 90 days sucralfate 10 mL PO BID venlafaxine ER (Effexor XR) 37.5 mg PO DAILY HPI Comments Details: This?a?48?yo female who is s/p LSG without hiatal hernia repair on?01/23/2024. Presents for 2 month post op visit. Weight today is 177.2 pounds, with a BMI of 28.6. There has been a 37.6 pound weight loss,(initial weight 214.8 pounds) since starting the program on 12/23/2022 reflecting a 17.5 % total body weight loss and a weight loss of 33.8 pounds since surgery (operative weight 211 pounds) reflecting a 16 % TBWL since surgery. No complaints of nausea, emesis, abdominal pain or reflux. Reports infrequent but normal bowel movements every 2- 3 days and uses stool softeners regularly. States that she does not want to continue with the protein bar and wants to reduce number of shakes Present meal plan includes: celebrate 4 in 1 x 3, 1 scoop, 1 scoop, 2 scoops. 8-10, 11-1, 2-4 celebrate bar at 5-8 drinking 32 oz ? Exercise routine includes: spinning, 3 days per week, 320-350 calories treadmill 290 calories 3 days per week [facility] Medical History (Reviewed 04/01/24 @ 11: by RILEY Camara) BMI 37.0-37.9, adult Pre-op evaluation Arthritis Thyroid nodule Elevated cholesterol Sleep apnea Anxiety GERD (gastroesophageal reflux disease) Surgical History (Reviewed 04/01/24 @ 11: by RILEY Camara) Hx of laparoscopic partial gastrectomy History of abdominoplasty Hx of breast implant Hx of hysterectomy Hx of thyroidectomy Hx of knee surgery Family History (Reviewed 04/01/24 @ : by RILEY Camara) Mother Psychiatric diagnosis Hypertension Father Diabetes Sister Hypothyroid Vitamin D deficiency Vitamin B12 deficiency Social History (Reviewed 04/01/24 @ : by RILEY Camara) Household Members: Spouse Housing: House Are you a primary lawn care professional to a significant other at home: No Do you presently have visiting nurse or other home services: No Alcohol intake: current Alcohol intake frequency: a few times a month Patient Tobacco Use Status: Never used Tobacco service: No Physical Exam Const General: healthy appearing and no acute distress Resp Effort & Inspection: normal respiratory effort Auscultation: clear to auscultation bilaterally Cardio Rate: regular rate Rhythm: regular rhythm GI Auscultation: normal bowel sounds Extrem General: Yes normal to inspection Assessment & Plan Assessment & Plan (1) S/P laparoscopic sleeve gastrectomy: Code(s): Z98.84 - Bariatric surgery status Category: Surgical Plan: Change meal plan per pt celebrate 4 in 1 x 3, 1 scoop, 2 scoops. 8-10, 11-1 Meal with 4 forks of protein and 4 forks of cooked vegetables at 5-8 Continue to text weekly with her weight and if any questions or concerns.
[2024-04-01 11:10] VITALS: BP 112/64; PULSE 64; TEMP 36.2; O2SAT 98; BMI 28.6
== END 2024-04-01 11:34 | disposition home or self-care (01) ==
PROVIDERS: PCP Family Medicine; Visit Provider Physician Assistant Surgical
DX: Z98.84 Bariatric surgery status (principal)
CPT/HCPCS: 99024

== ENCOUNTER → 2024-04-01 10:47 | Outpatient (BNVA) | payer MEDICARE, MEDICAID, SELFPAY | PROVIDERS: PCP Family Medicine; Visit Provider Physician Assistant Surgical | DX: Z48.815 Encounter for surgical aftercare following surgery on the digestive system (principal); Z71.3 Dietary counseling and surveillance; Z98.84 Bariatric surgery status | CPT/HCPCS: 99212 ==

== ENCOUNTER 2024-05-01 09:20 | Outpatient (REF) | payer MEDICARE, MEDICAID, SELFPAY ==
--- NOTE | ~2024-05-01 | MM_ITS ---
EXAMINATION: MM SCREENING DIGITAL BREAST TOMOSYNTHESIS, BILATERAL CLINICAL INFORMATION: Screening. Asymptomatic. COMPARISON: Mammography: Comparison is made with relevant avialable priors. TECHNIQUE: Digital mammography is performed in craniocaudal and mediolateral oblique views along with computer-aided detection (CAD). Digital breast tomosynthesis is performed in implant-displaced craniocaudal and implant-displaced mediolateral oblique views along with computer-aided detection (CAD). FINDINGS: The breasts are heterogeneously dense, which may obscure small masses (ACR BI-RADS breast composition Category c). Bilateral prepectoral silicone implants are stable appearing. There are no significant masses, abnormal calcifications, or other abnormalities. MM/MM tomosynthesis screen imp BI IMPRESSION: There are no significant changes from prior study. ASSESSMENT: BI-RADS BI-RADS 2 - Benign Findings RECOMMENDATION: Routine annual mammography screening. 1 year F/U This patient's information was entered into a reminder system with a target due date for their next mammogram. Electronically signed by: Kamla Christianson DO 05/07/2024 01:30 PM AYAAN
[2024-05-01 09:45] LABS: MANUAL DIFF FLAG NO
[2024-05-01 10:11] LABS: Basophils Percent Auto 0.5 % (0-2); Eosinophils Absolute Auto 0.1 X10*3/uL (0.0-0.4); Eosinophils Percent Auto 0.8 % (0-4); Hematocrit 39.5 % (37.0-47.0); Hemoglobin 13.4 g/dl (12.0-16.0); Imm Gran Abs Auto 0.03 X10*3/uL (0.00-0.03); Imm Gran Pct Auto 0.4 % (0.0-0.4); Lymphocytes Absolute Auto 1.4 X10*3/uL (1.2-4.9); Lymphocytes Percent Auto 19.1 % (20-40); Mean Corpuscular HGB Conc 33.9 g/dl (31.0-35.0); Mean Corpuscular Hemoglobin 28.5 pg (27.0-33.0); Monocytes Absolute Auto 0.4 X10*3/uL (0.1-1.2); Neutrophils Absolute Auto 5.3 x10*3/uL (2.0-8.3); Neutrophils Percent Auto 73.2 % (45-73); Platelet Count 130 X10*3/uL (160-400); Red Cell Distribution Width 14.5 % (11.0-16.0); White Blood Count 7.3 X10*3/uL (4.8-10.8)
[2024-05-01 10:51] LABS: Alanine Aminotransferase 18 U/L (0-31); Albumin Level 4.1 g/dL (3.5-5.0); Alkaline Phosphatase 100 U/L (39-117); Anion Gap 10 (12-20); Aspartate Amino Transferase 17 U/L (5-31); Bilirubin Total 0.4 mg/dL (0.0-1.0); Blood Urea Nitrogen 13 mg/dL (9-16); Carbon Dioxide 26 mmol/L (22-29); Chloride 111 mmol/L (96-108); Cholesterol 169 mg/dL (<200); Estimated Glomerular Filt Rate > 60; Glucose Random 83 mg/dL (60-115); HDL Cholesterol 44 mg/dL (>40); LDL Cholesterol Calculated 109 mg/dL (<100); Sodium 143 mmol/L (135-145); Total Protein 7.1 g/dL (6.5-8.0); Triglycerides 81 mg/dL (<150)
[2024-05-01 11:09] LABS: TSH reflex Free T4 0.04 uIU/mL (0.32-4.0); Vitamin D 25-OH Total 60.7 ng/mL (>30)
[2024-05-01 12:11] LABS: Free T4 (Free Thyroxine) 1.04 ng/dL (0.71-1.85)
== END 2024-05-01 09:21 | disposition home or self-care (01) ==
LOC: HO.MAMMO 09:20
PROVIDERS: PCP Family Medicine; Visit Provider Family Medicine
DX: E66.09 Other obesity due to excess calories (principal); Z68.34 Body mass index [BMI] 34.0-34.9, adult; Z13.29 Encounter for screening for other suspected endocrine disorder; Z13.228 Encounter for screening for other metabolic disorders; Z13.0 Encounter for screening for diseases of the blood and blood-forming organs and certain disorders involving the immune mechanism; Z12.31 Encounter for screening mammogram for malignant neoplasm of breast
CPT/HCPCS: 36415; 77063; 77067; 80053; 80061; 82306; 84439; 84443; 85025

== ENCOUNTER → 2024-05-01 12:15 | Outpatient (BNV) | payer MEDICARE, MEDICAID, SELFPAY | PROVIDERS: PCP Family Medicine; Visit Provider Internal Medicine | DX: Z12.31 Encounter for screening mammogram for malignant neoplasm of breast (principal) | CPT/HCPCS: 77063; 77067 ==

== ENCOUNTER 2024-05-08 10:24 | Outpatient (AMB) | payer MEDICARE, MEDICAID, SELFPAY ==
--- NOTE | 2024-05-08 10:53 | A.OFFVIS_ITS ---
VS Expanded 05/08/24 11:04 BP 121/61 Blood Pressure Location Rt brachial Blood Pressure Position Sitting Pulse 64 Pulse Source Pulse Oximeter Temp 98.1 F Temperature Source Temporal Artery Scan Pulse Oximetry 99 Oxygen Delivery Method Room Air Height 5 ft 6 in Weight 168 lb 3.2 oz BMI 27.1 Body Fat % 36.6 Body Fat Mass 61.6 Fat Free Mass 106.4 Visceral Fat Rating 7.0 Body Water % 45.1 Body Water Mass 75.8 Muscle Mass/Score 101.0 Basal Metabolic Rate/Score 1,457 Intake Visit Reasons: (OV) PO LSG 01/23/24 Photographic Engineer Required: Yes Photographic Engineer Services: Photographic Engineer Present Photographic Engineer Name: Hospital ear muff assembler Allergies Latex, Natural Rubber Allergy (Severe, Verified 05/08/24 10:58) Hives Medication List - Last Reconciled 05/08/24 by RILEY Camara aripiprazole 2 mg PO BEDTIME clonazepam 1 mg PO BID rosuvastatin 10 mg PO DAILY sennosides (senna) 17.2 mg (2 x 8.6 mg) PO BEDTIME PRN 90 days venlafaxine ER (Effexor XR) 37.5 mg PO DAILY HPI Comments Details: This?a?48?yo female who is s/p LSG without hiatal hernia repair on?01/23/2024. Presents for 3 month post op visit. Weight today is 168.2 pounds, with a BMI of 27.1. There has been a 46.6 pound weight loss,(initial weight 214.8 pounds) since starting the program on 12/23/2022 reflecting a 21.6 % total body weight loss and a weight loss of 42.8 pounds since surgery (operative weight 211 pounds) reflecting a 20.2 % TBWL since surgery. No complaints of nausea, emesis, abdominal pain or reflux. Reports infrequent but normal bowel movements every 2-3 days and uses stool softeners regularly. Wants to use celebrate rebuild or Orgain Present meal plan includes: celebrate 4 in 1 x 2, 1 scoop, 2 scoops. 8-10, 11-1 Meal with 4 forks of protein and 4 forks of cooked vegetables at 5-8 drinking 32 oz ? Exercise routine includes: spinning, 3 days per week, 320-350 calories treadmill 250-300 calories 2 days per week [facility] Medical History BMI 37.0-37.9, adult Pre-op evaluation Arthritis Thyroid nodule Elevated cholesterol Sleep apnea Anxiety GERD (gastroesophageal reflux disease) Surgical History Hx of laparoscopic partial gastrectomy History of abdominoplasty Hx of breast implant Hx of hysterectomy Hx of thyroidectomy Hx of knee surgery Family History Mother Psychiatric diagnosis Hypertension Father Diabetes Sister Hypothyroid Vitamin D deficiency Vitamin B12 deficiency Social History Household Members: Spouse Housing: House Are you a primary healthcare associate to a significant other at home: No Do you presently have visiting nurse or other home services: No Alcohol intake: current Alcohol intake frequency: a few times a month Patient Tobacco Use Status: Never used Tobacco service: No Physical Exam Vital Signs: Last Vital Signs Temp 98.1 F 05/08/24 11:04 Pulse 64 05/08/24 11:04 BP 121/61 05/08/24 11:04 Pulse Ox 99 05/08/24 11:04 Oxygen Delivery Method Room Air 05/08/24 11:04 BMI result Body Mass Index 27.1 Const General: healthy appearing and no acute distress Resp Effort & Inspection: normal respiratory effort Auscultation: clear to auscultation bilaterally Cardio Rate: regular rate Rhythm: regular rhythm GI Auscultation: normal bowel sounds Extrem General: Yes normal to inspection Assessment & Plan Assessment & Plan (1) S/P laparoscopic sleeve gastrectomy: Code(s): Z98.84 - Bariatric surgery status Category: Surgical Plan: Change meal plans slightly: celebrate 4 in 1 ,2 scoops. 8-10, celebrate rebuild, 1.5 scoops or Orgain 1.5 scoops in 8 oz of almond milk at 11-1 Meal with 4 forks of protein and 4 forks of cooked vegetables at 5-8 Recommend increasing exercise while using the treadmill for a goal of 400 calories per session Return to the office 1 month.
[2024-05-08 11:04] VITALS: BP 121/61; PULSE 64; TEMP 36.7; O2SAT 99; BMI 27.1
== END 2024-05-08 11:33 | disposition home or self-care (01) ==
PROVIDERS: PCP Family Medicine; Visit Provider Physician Assistant Surgical
DX: E66.3 Overweight (principal); Z68.27 Body mass index [BMI] 27.0-27.9, adult; Z90.3 Acquired absence of stomach [part of]; Z98.84 Bariatric surgery status
CPT/HCPCS: 99213

== ENCOUNTER → 2024-05-08 10:24 | Outpatient (BNVA) | payer MEDICARE, MEDICAID, SELFPAY | PROVIDERS: PCP Family Medicine; Visit Provider Physician Assistant Surgical | DX: Z98.84 Bariatric surgery status (principal) | CPT/HCPCS: 99212 ==

== ENCOUNTER 2024-06-06 08:36 | Outpatient (AMB) | payer MEDICARE, MEDICAID, SELFPAY ==
--- NOTE | 2024-06-06 08:54 | MHC.OFFVIS ---
Vital Signs 06/06/24 08:55 Height 5 ft 6 in Weight 166 lb BMI 26.8 BP 100/70 Blood Pressure Location Rt brachial Position Sitting Intake Visit Reasons: follow up Snoring/JIMMIE Intake Note: Patient presents for JIMMIE Allergies Latex, Natural Rubber Allergy (Severe, Verified 06/06/24 09:01) Hives HPI Comments Details: 47 y/o female patient presents for follow up of sleep apnea. Since last visit, patient has undergone weight loss surgery, with good effect. She has lost at least 50 lb since. HST showed AHI 20/hr and oxygen bia was 87% with excessive snoring for 54 % of the sleep time. Pt reports she is overall compliant with her APAP machine. She has been having dry throat when using her machine. However, overall she states she is sleeping well and feels better when she uses her APAP machine. [facility] Usage 05/11/2023 - 06/09/2023 Usage days 29/30 days (97%) >= 4 hours 29 days Usage hours 205 hours 58 minutes Average usage (total days) 6 hours 52 minutes Average usage (days used) 7 hours 6 minutes Median usage (days used) 7 hours 4 minutes Total used hours (value since last reset - 06/09/2023) 205 hours AirSense 10 AutoSet Serial number [id number] Mode AutoSet Min Pressure 6 cmH2O Max Pressure 20 cmH2O EPR Fulltime EPR level 2 Response Standard Therapy Pressure - cmH2O Median: 7.4 95th percentile: 10.2 Maximum: 11.6 Leaks - L/min Median: 0.0 95th percentile: 3.0 Maximum: 12.7 Events per hour AI: 0.7 HI: 0.1 AHI: 0.8 Apnea Index Central: 0.0 Obstructive: 0.7 Unknown: 0.0 RERA Index PFSH Medical History BMI 37.0-37.9, adult Pre-op evaluation Arthritis Thyroid nodule Elevated cholesterol Sleep apnea Anxiety GERD (gastroesophageal reflux disease) Surgical History Hx of laparoscopic partial gastrectomy History of abdominoplasty Hx of breast implant Hx of hysterectomy Hx of thyroidectomy Hx of knee surgery Family History Mother Psychiatric diagnosis Hypertension Father Diabetes Sister Hypothyroid Vitamin D deficiency Vitamin B12 deficiency Social History Household Members: Spouse Housing: House Are you a primary customer care representative to a significant other at home: No Do you presently have visiting nurse or other home services: No Alcohol intake: current Alcohol intake frequency: a few times a month Patient Tobacco Use Status: Never used Tobacco service: No Physical Exam Vital Signs: Last Vital Signs BP 100/70 06/06/24 08:55 BMI result Body Mass Index 26.8 Const General: no acute distress Orientation/consciousness: patient oriented x3 Resp Effort & Inspection: normal respiratory effort and able to speak in complete sentences Neuro General: patient oriented x3 Psych Mental Status: mental status grossly normal Speech and movement: Clear speech present Attitude: cooperative Assessment & Plan Assessment & Plan (1) JIMMIE (obstructive sleep apnea): Comment: Moderately severe degree of sleep apnea. The AHI was 20/hr and oxygen bia was 87% Code(s): G47.33 - Obstructive sleep apnea (adult) (pediatric) Category: Medical (2) Dry throat: Code(s): J39.2 - Other diseases of pharynx Category: Medical Plan Continue APAP 6-20 cmH2O nightly > 4 hours, as pt continues to have good clinical effect from use. However, we adjusted EPR from 2 to 3 and humidification level from automatic set to level 4 to manual set to level 5 via pt's [employer] Airview Account- in hopes this reduces throat dryness at night. If ineffective, patient may try OTC XyliMelts 1-2 tabs apply to gum q.h.s. p.r.n. oral/throat dryness. Clean CPAP machine and supplies routinely. Change CPAP supplies routinely. Use distilled water in CPAP water reservoir. Pt to contact us or respiratory company with any questions or concerns. Pt to follow-up in 6 months or sooner prn. Coding Level of Care Code Est Pt Level 4 (37847) Diagnoses JIMMIE (obstructive sleep apnea) G47.33 Dry throat J39.2
[2024-06-06 08:55] VITALS: BP 100/70; BMI 26.8
== END 2024-06-06 09:52 | disposition home or self-care (01) ==
PROVIDERS: PCP Family Medicine; Visit Provider Nurse Practitioner Family
DX: G47.33 Obstructive sleep apnea (adult) (pediatric) (principal); J39.2 Other diseases of pharynx
CPT/HCPCS: 99214

== ENCOUNTER → 2024-06-06 08:36 | Outpatient (BNVA) | payer MEDICARE, MEDICAID, SELFPAY | PROVIDERS: PCP Family Medicine; Visit Provider Nurse Practitioner Family | DX: G47.33 Obstructive sleep apnea (adult) (pediatric) (principal); J39.2 Other diseases of pharynx | CPT/HCPCS: 99212 ==

== ENCOUNTER 2024-06-24 10:03 | Outpatient (AMB) | payer MEDICARE, MEDICAID, SELFPAY ==
--- NOTE | 2024-06-24 10:11 | A.OFFVIS_ITS ---
VS Expanded 06/24/24 10:15 BP 128/69 Blood Pressure Location Rt brachial Blood Pressure Position Sitting Pulse 61 Pulse Source Pulse Oximeter Temp 97.9 F Temperature Source Temporal Artery Scan Pulse Oximetry 97 Oxygen Delivery Method Room Air Height 5 ft 6 in Weight 160 lb 6.4 oz BMI 25.9 Body Fat % 35.6 Body Fat Mass 57.0 Fat Free Mass 103.2 Visceral Fat Rating 7.0 Body Water % 45.8 Body Water Mass 73.4 Muscle Mass/Score 97.8 Basal Metabolic Rate/Score 1,410 Intake Visit Reasons: (OV) PO LSG 01/23/24 Special Education Instructor Required: Yes Special Education Instructor Services: Special Education Instructor Present Special Education Instructor Name: hospital cmi Allergies Latex, Natural Rubber Allergy (Severe, Verified 06/24/24 10:12) Hives Medication List - Last Reconciled 06/24/24 by RILEY Camara aripiprazole 2 mg PO BEDTIME clonazepam 1 mg PO BID rosuvastatin 10 mg PO DAILY sennosides (senna) 17.2 mg (2 x 8.6 mg) PO BEDTIME PRN 90 days venlafaxine ER (Effexor XR) 37.5 mg PO DAILY HPI Comments Details: This?a?48?yo female who is s/p LSG without hiatal hernia repair on?01/23/2024. Presents for 5 month post op visit. Weight today is 160.4 pounds, with a BMI of 25.9. There has been a 54.4 pound weight loss,(initial weight 214.8 pounds) since starting the program on 12/23/2022 reflecting a 25.3 % total body weight loss and a weight loss of 50.6 pounds since surgery (operative weight 211 pounds) reflecting a 23.9 % TBWL since surgery. No complaints of nausea, emesis, abdominal pain or reflux. Reports infrequent but normal bowel movements every 2-3 days and uses stool softeners regularly. Taking bariatric fusion mvi Reports that she is doing well and very happy with her results Present meal plan includes: ccelebrate 4 in 1 ,2 scoops. 8-10, celebrate rebuild, 1.5 scoops at 11-1 Meal with 4 forks of protein and 4 forks of cooked vegetables at 5-8 drinking 48 oz ? Exercise routine includes: spinning, 3 days per week, 300-350 calories treadmill 300-310 calories 3 days per week PFSH Medical History BMI 37.0-37.9, adult Pre-op evaluation Arthritis Thyroid nodule Elevated cholesterol Sleep apnea Anxiety GERD (gastroesophageal reflux disease) Surgical History Hx of laparoscopic partial gastrectomy History of abdominoplasty Hx of breast implant Hx of hysterectomy Hx of thyroidectomy Hx of knee surgery Family History Mother Psychiatric diagnosis Hypertension Father Diabetes Sister Hypothyroid Vitamin D deficiency Vitamin B12 deficiency Social History Household Members: Spouse Housing: House Are you a primary home care attendant to a significant other at home: No Do you presently have visiting nurse or other home services: No Alcohol intake: current Alcohol intake frequency: a few times a month Patient Tobacco Use Status: Never used Tobacco service: No Physical Exam Const General: healthy appearing and no acute distress Resp Effort & Inspection: normal respiratory effort Auscultation: clear to auscultation bilaterally Cardio Rate: regular rate Rhythm: regular rhythm GI Auscultation: normal bowel sounds Extrem General: Yes normal to inspection Assessment & Plan Assessment & Plan (1) S/P laparoscopic sleeve gastrectomy: Code(s): Z98.84 - Bariatric surgery status Category: Surgical Plan: Doing well, wants to continue current meal plan encouraged to continue exercising as she is able f/u 1 month and will check labs at that
[2024-06-24 10:15] VITALS: BP 128/69; PULSE 61; TEMP 36.6; O2SAT 97; BMI 25.9
--- OUTSIDE RECORDS SUMMARY | 2024-06-24 10:42 | XMS_ITS | Encounter Summary ---
Author Organization [facility] Address [id number] [place] [id number] Care Team Providers Care Cyber Defense Incident Responder Name Role Phone Zoila Titus MD Primary Care Provider [phone] Encounter Details Date Type Department Care Team (Late Contact Info) Description 05/24/2024 Telephone Orthopedic Surgery [place] [id number] [phone] Moe Blair DPM [address] [phone] Social History Tobacco Use Types Packs/Day Years Used Date Smoking Tobacco: Never Assessed Sex and Gender Information Value Date Recorded Sex Assigned at Not on file Gender Identity Not on file Sexual Orientation Not on file Job Start Date Occupation Industry Not on file Not on file Not on file documented as of this encounter Progress Notes * Kenzie Noriega - 05/24/2024 12:16 PM EST Lidocaine needs a PA documented in this encounter Plan of Treatment Upcoming Encounters Date Type Department Care Team (Late st Contact Info) Description 07/25/2024 10:30 AM EST Office Visit Orthopedic Surgery [facility] [address] [phone] Moe Blair DPM [address] [phone] documented as of this encounter Visit Diagnoses Not on filedocumented in this encounter Care Teams Cyber Defense Incident Responder Relationship Specialty Start Date End Date Zoila Titus MD [address] [place] [address] PCP - General 08/03/23 documented as of this encounter
--- OUTSIDE RECORDS SUMMARY | 2024-06-24 10:42 | XMS_ITS | Encounter Summary ---
Author Organization [employer] [facility] Address [address] [place] [address] Care Team Providers Care Hcc Coders Name Role Phone Zoila Titus MD Primary Care Provider [phone] Reason for Visit * Reason Comments Acupuncture Encounter Details Date Type Department Care Team ([facility] st Contact Info) Description 06/11/2024 9:45 AM EST Office Visit [facility] [address] [place], [place] [phone] Stephenie Cristina MD [address] [place], [place] [phone] Chronic pain of both knees (Primary Dx); Stress Social History Tobacco Use Types Packs/Day Years Used Date Smoking Tobacco: Never Passive Smoke Exposure: Never Smokeless Tobacco: Never Alcohol Use Standard Drinks/Week Comments Never 0 (1 standard drink = 0.6 oz pur e alcohol) Depression Answer Date Recorded Patient Health Questionnaire-9 Score 6 01/27/2023 Housing Stability Answer Date Recorded What is your housing situation today? I have arsenio may 03/06/[address] you li ve. Do you have problems with any of the following? None of the above 03/06/2023 Food Insecurity Answer Date Recorded Within the past 12 months, y ou worried that your food would run out before you got money to buy more: Never True 03/06/2023 Within the past 12 months,th e food you bought just didn't last and you didn't have enough money to get more: Never True Transportation Answer Date Recorded In the past 12 months, has l ack of transportation kept you from medical appts, meetings, work or from getting things needed for daily living? No 03/06/2023 Utilities Answer Date Recorded In the past 12 months, has t he electric, gas, oil or water company threatened to shut off services in your home? No 03/06/2023 Depression Answer Date Recorded Patient Health Questionnaire-2 Score 0 01/27/2023 Comments Unknown Sex and Gender Information Value Date Recorded Sex Assigned at Female 05/18/2022 10:29 AM EST Legal Sex Female 10:26 AM EST Gender Identity Female 05/18/2022 10:29 AM EST Sexual Orientation Straight 06/09/2022 10 :26 AM EST documented as of this encounter Progress Notes * Stephenie Cristina MD - 06/11/2024 9:45 AM EST Subjective Patient ID: Shandra Sharp is a 48 y.o. female who presents for Acupuncture. Shandra is here for acupuncture visit #4 for knee and hip pain and stress. She experience some pain relief after last week's treatment. Objective Physical Exam Constitutional: Appearance: Normal appearance. Skin: General: Skin is warm and dry. Neurological: Mental Status: She is alert and oriented to person, place, and time. Assessment/Plan Diagnoses and all orders for this visit: Chronic pain of both knees Stress Written consent obtained for ear acupuncture. Ears prepped with alcohol pad. Five ear points needled bilaterally: Sympathetic, Bernstein Men, Kidney, Liver and Lung. Treatment duration: 30 minutes. Good hemostasis. Patient tolerated well. Follow up weekly for repeat acupuncture treatments as desired. documented in this encounter Plan of Treatment Upcoming Encounters Date Type Department Care Team (Late st Contact Info) Description 11/06/2024 10:00 AM EDT Office Visit [facility] [address] [place] [address] Rere Zarco documented as of this encounter Visit Diagnoses Diagnosis Chronic pain of both knees- Primary Stress Other psychological or physical stress, not elsewhere classified documented in this encounter Additional Health Concerns Assessment Noted Time PHQ-9 Depression Total Score: 6 01/28/20 23 11:47 AM EDT documented as of this encounter Care Teams Hcc Coders Relationship Specialty Start Date End Date Zoila Titus MD [address] [place] [address] PCP - General Family Medicine 06/28/22 Jerson Ramirez Psychiatrist 07/27/23 documented as of this encounter
--- OUTSIDE RECORDS SUMMARY | 2024-06-24 10:42 | XMS_ITS | Encounter Summary ---
Author Organization [employer] Address [address] [place] [address] Care Team Providers Care Loading Machine Adjuster Name Role Phone Zoila Titus MD Primary Care Provider [phone] Encounter Details Date Type Department Care Team (Latest Contact Info) Description 06/04/2024 Travel Social History Tobacco Use Types Packs/Day Years Used Date Smoking Tobacco: Never Passive Smoke Exposure: Never Smokeless Tobacco: Never Alcohol Use Standard Drinks/Week Comments Never 0 (1 standard drink = 0.6 oz pur e alcohol) Depression Answer Date Recorded Patient Health Questionnaire-9 Score 6 01/27/2023 Housing Stability Answer Date Recorded What is your housing situation today? I have arsenio yadira 03/06/[address] you li [...] AM EST documented as of this encounter Plan of Treatment Upcoming Encounters Date Type Department Care Team (Late st Contact Info) Description 11/06/2024 10:00 AM EDT Office Visit [facility] [address] [place] [address] Rere Zarco documented as of this encounter Visit Diagnoses Not on filedocumented in this encounter Additional Health Concerns Assessment Noted Time PHQ-9 Depression Total Score: 6 01/28/20 23 11:47 AM EDT documented as of this encounter Care Teams Loading Machine Adjuster Relationship Specialty Start Date End Date Zoila Tiuts MD [address] [place] [phone] PCP - General Family Medicine 06/28/22 Jerson Ramirez Psychiatrist 07/27/23 documented as of this encounter
--- OUTSIDE RECORDS SUMMARY | 2024-06-24 10:42 | XMS_ITS | Clinical Summary ---
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 022 Active venlafaxine XR (Effexor XR) 37.5 MG 24 hr capsule 023 Active lidocaine (Lidoderm) 5 % patch Apply 1 patch topically in the morning. Remove & discard patch within 12 hours or as directed by . 30 patch 11 024 Active Additional Information Patient not taking.Reported on 05/03/2024 clotrimazole (Lotrimin) 1 % cream 024 Active senna (Senokot) 8.6 MG tablet Take 2 tablets (17.2 mg) by mouth if needed at bedtime for constipation. 120 tablet 2 024 Active Additional Information Patient not taking.Reported on 05/03/2024 pantoprazole (ProtoNix) 40 MG EC tablet Active polyethylene glycol, PEG, 3350 (Glycolax) 17 GM/SCOOP powder Active sucralfate (Carafate) 1 GM/10ML suspension 08/30/2 024 Active rosuvastatin (Crestor) 10 MG tabletIndications :Mixed hyperlipidemia TAKE 1 TABLET BY MOUTH EVERY MORNING 30 tablet 5 024 Active Additional Information Patient not taking.Reported on 05/03/2024 Diclofenac Sodium 1 % gel APPLY 5 GRAMS TOPICALLY BEFORE BREAKFAST, BEFORE LUNCH, BEFORE EVENING MEAL, AND AT BEDTIME. 200 g 1 025 Active Diclofenac Sodium 1 % gel Apply 5 g topically before breakfast, before lunch, before evening meal, and at bedtime. 200 g 2 023 2024 Discontinued Active Problems Problem Noted Date Diagnosed Date Class 2 severe obesity with serious comorbidity and body mass index (BMI) of 35.0 to 35.9 in adult 11/13/2023 Assessment & Plan (11/14/2023 10:43 AM EDT): Discussed alternative treatments to aid with weight loss and side effects. Discussed calorie deficit, recommended reduction of 20-30% of maintenance calories; assistant superintendent for curriculum referral offered. Recommended to decrease soda and sugary beverage consumption. Recommended at least 20 g per meal of protein to assist with satiety. Recommended at least 150 min/week of moderate intensity exercise. Prescribing Wegovy for continued weight loss. Advised to consider possible surgery for her knee and foot due to decreasing effect of injection. Reviewed and updated immunization records. Discussed medications and refills as needed. F/u in 6 weeks. Relevant Medications Beta Carotene (Vitamin A) 3 MG (75425 UT) Capsule Semaglutide-Weight Management (Wegovy) 0.25 MG /0.5 ML solution auto-injector. Senna (Senokot) 8.6 MG Tablet Relevant Orders Hepatitis B Vaccine Adult 19 yrs + Class 2 obesity due to exces s calories without serious comorbidity with body mass index (BMI) of 35.0 to 35.9 in adult 09/26/2023 Assessment & Plan (09/26/2023 2:35 PM EDT): Discussed increasing medication dosage. Discontinue 8 mg and begin 37.5 mg of Adipex-P. Relevant Medication Phentermine (Adipex-P) 7.5 MG Tablet Topiramate 50 MG Tablet Intractable left heel pain 07/27/2023 Assessment & Plan (07/29/2023 2:39 AM EST): Ordered XR ankle and sent referral to duck farmer for left heel pain worse with stepping, no plantar pain Chronic LLQ pain 08/08/2022 Assessment & Plan (08/08/2022 1:24 PM EDT): Reports feels like a pulsating force in her abdomen LLQ, denies constipation. On and off for the last 8 months, reviewed recent labs. Benign abdominal exam. Will send imaging and f/up with results Left wrist pain 08/08/2022 Assessment & Plan (08/08/2022 1:25 PM EDT): New onset, does have some decrease turnaround planner strength unknown if chronic. Right hand dominant. Will send for imaging and OP. Consider hand surgery referral. Iron deficiency 06/09/2022 Assessment & Plan (06/09/2022 4:54 PM EST): Reviewed labs from [place], reports prior hx of AUB due to fibroids and hx of iron deficiency, last last Hgb normal and ferritin within normal limits, if normal on labs then will discontinue iron Chronic pain of both knees 06/09/2022 Assessment & Plan (08/08/2022 1:06 PM EDT): Patient? s clinical findings support the need for a walker given the patient has a mobility limitation that significantly impairs her ability to participate in one or more mobility-related activities of daily living (MRADL). Medical condition: Severe bilateral knee osteoarthrtiis Patient needs a walker to perform MRADL? s and the functional mobility deficit cannot be sufficiently resolved by use of a cane or crutches, given he/she will need assistance of both upper extremities for balance. The patient is willing to use a walker and the functional mobility deficit can be improved with the use of this device. Patient has a minimal need for weight bearing and will benefit from a four-wheel walker (rollator) with a seat and a basket. Assessment & Plan (06/09/2022 4:54 PM EST): Patient reports various surgeries in [place] for both knees, reports difficulties with ambulation due to this, no use of assistance devices observed, she requested disability parking given her knee pain, printed out form from [facility] for her to bring with her information for medical records. Blurry vision, bilateral 06/09/2022 Assessment & Plan (06/09/2022 4:55 PM EST): Requested radiation control specialist referral Vitamin D insufficiency 06/09/2022 Assessment & Plan (06/09/2022 4:55 PM EST): Present on labs drawn in [place], not on supplementation, will check and supplement if needed Hyperlipidemia 06/09/2022 Assessment & Plan (02/01/2024 2:53 PM EDT): Pt was advised to stop taking Crestor. Advised to have a lipid panel recheck in 3 months to r/o necessity to continue treatment. Assessment & Plan (06/09/2022 4:56 PM EST): Present on labs review from [place], will recheck labs and assess need for pharmacotherapy after results are available for review. Fatigue 06/09/2022 Assessment & Plan (06/09/2022 4:56 PM EST): Reports fatigue more often since moving from [place], following with psychiatry. Will check labs and f/up Anxiety 06/09/2022 Moderate episode of recurrent major depressive d isorder 06/09/2022 Assessment & Plan (07/27/2023 11:23 AM EST): Following with psychiatry. On abilify, clonazepam and effexor. History of parathyroid surgery 06/09/2022 Resolved Problems Problem Noted Date Diagnosed Date Resolved Date Iron deficiency anemia 06/09/202206/09 Encounters Date Type Department Care Team Description 06/20/2024 Orders Only [facility] [address] [place] [address] Provider, MD Domenica 06/11/2024 9:45 AM EST Office Visit [facility] [address] [place] [phone] Stephenie Cristina MD Chronic pain of both knees (Primary Dx); Stress 06/11/2024 Travel 06/04/2024 10:00 AM EST Office Visit [facility] [address], [place] [phone] Stephenie Cristina MD Chronic pain of both knees (Primary Dx); Stress 06/04/2024 Travel 05/27/2024 Refill [facility] [address] [place] [address] Zoila Titus MD 05/08/2024 Telephone [facility] [address] [place] [address] Zoila Titus MD Results 05/03/2024 9:00 AM EST Office Visit [facility] [address] [place] [address] Rere Zarco Periodontal disease (Primary Dx) 05/01/2024 Orders Only [facility] [address] [place] [address] Zoila Titus MD 04/15/2024 Travel from Last 3 Months Immunizations Name Administration Dates Next Due Hep B, adult 11/13/2023,10/13/2023 INFLUENZA VACCINE QUADRIVALE NT RECOMBINANT PRESERVATIVE FREE RIV4 01/20/2023 Influenza injectable quadriv alent preservative free 02/24/2022 Influenza, IIV3, injectable 01/20/2023 Influenza, seasonal, injecta ble, preservative free 02/01/2024 Pfizer Covid-19 Vaccine 12+ 09/26/2023,,08/28/2020 Tdap 01/27/2023 Family History Medical History Relation Name Comments Colon cancer Mother's Brother Breast cancer Mother's Sister Relation Name Status Comments Mother's Brother Alive Mother's Sister Other Social History Tobacco Use Types Packs/Day Years Used Date Smoking Tobacco: Never Passive Smoke Exposure: Never Smokeless Tobacco: Never Tobacco Cessation:Counseling Given: Not Answered Alcohol Use Standard Drinks/Week Comments Never 0 [...] Orientation Straight 06/09/2022 10 :26 AM EST Last Filed Vital Signs Vital Sign Reading Time Taken Comments Blood Pressure 124/78 05/03/2024 8:26 AM EST Pulse 65 03/14/2024 10:32 AM EDT Temperature 36.8 ??C (98.2 ??F) 02/01/2024 1 0:07 AM EDT Respiratory Rate 20 02/01/2024 10:0 7 AM EDT Oxygen Saturation 98% 02/01/2024 10: 07 AM EDT Inhaled Oxygen Concentration - - Weight 92.4 kg (203 lb 12.8 oz) 024 10:07 AM EDT Height 165.1 cm (5' 5 ) 02/01/2024 10:0 7 AM EDT Body Mass Index 33.91 02/01/2024 10:07 AM EDT Plan of Treatment Upcoming Encounters Date Type Department Care Team (Late st Contact Info) Description 11/06/2024 10:00 AM EDT Office Visit [facility] [address] [place] [phone] Rere Frazier Health Maintenance Due Date Last Done Comments CT Colonography 1975 Colonoscopy 1975 FIT 1975 FOBT 1975 Sigmoidoscopy 1975 Alcohol/Substance Use Screening 1987 Family Planning (PISQ) 09/19/1990 HPV/Cotest 09/19/2005 COVID-19 Vaccine ( season) 2024 09/26/2023, 03/29/2021, 09/24/2020, Additional history exists Depression Screening 01/28/2024 01/27/2023, 01/28/20 23 Hepatitis B Vaccines (3 of 3 - 19+ 3-dose series) 04/14/2024 11/13/2023, 10/13/2023 Cervical Cancer Screening 09/13/2024 Pap Smear 09/13/2024 09/13/2021 Dental X-Ray: Bitewings 10/18/2024 10/18/2023, 07/07 SDOH Screening 10/30/2024 10/31/2023 Dental Oral Exam 11/02/2024 05/03/2024, , 01/24/2023, Additional history exists Dental Prophylaxis 11/02/2024 05/03/2024, 0 10/18/2023, 01/24/2023, Additional history exists Mammogram 05/01/2025 05/01/2024, 03/23, 03/01/2023 Tobacco Screening 05/03/2025 05/03/2024 Dental X-Ray: Full Mouth 07/08/2025 07/07/2022 Zoster Vaccines (1 of 2) 09/19/2025 Colorectal Cancer Screening 08/28/2026 FIT DNA/Cologuard 08/28/2026 08/29/2023 Lipid Panel 05/01/2029 05/01/2024, 07/20, 12/27/2022, Additional history exists DTaP/Tdap/Td Vaccines (2 - Td or Tdap) 01/27/2033 01/27/2023 RSV Patients and Patients Aged 60 years or older (1 - 1-dose 75+ series) 09/19/2050 HIV Screening Completed 01/31/2023 Hepatitis C Screening Completed 01/31/2023 Influenza Vaccine Completed 02/01/2024, , 01/20/2023, Additional history exists HIB Vaccines Aged Out No longer eligi ble based on patient's age to complete this topic HPV Vaccines Aged Out No longer eligi ble based on patient's age to complete this topic Hepatitis A Vaccines Aged Out No long er eligible based on patient's age to complete this topic IPV Vaccines Aged Out No longer eligi ble based on patient's age to complete this topic Meningococcal Vaccine Aged Out No bandar lyndsay eligible based on patient's age to complete this topic Pneumococcal Vaccine: Pediatrics (0 to 5 Years) and At-Risk Patients (6 to 49) Years) Aged Out No longer eligible based on patient's age to complete this topic RSV under 20 months Aged Out No longe r eligible based on patient's age to complete this topic Rotavirus Vaccines Aged Out No longer eligible based on patient's age to complete this topic Procedures Procedure Name Priority Date/Time Associated Diagnosis Comments XR FOOT 3+ VIEWS LEFT Routine 06/20/2024 1:39 PM EST PERIODIC ORAL EVALUATION - ESTABLISHED PATIENT Routine 05/03/2024 9:00 AM EST Periodontal disease ORAL HYGIENE INSTRUCTIONS Routine 05/03/2024 9:00 AM EST Periodontal disease ADJUNCTIVE GENERAL SERVICES - PROFESSIONAL VISITS - CASE PRESENTATION, SUBSEQUENT TO DETAILED AND EXTENSIVE TREATMENT PLANNING Routine 05/03/2024 9:00 AM EST Periodontal disease PROPHYLAXIS - ADULT Routine 05/03/2024 9 :00 AM EST Periodontal disease BI MAMMOGRAM SCREEN W FRITZ W IMPLANTS ROGER Routine 05/01/2024 11:31 AM EST T4, FREE Routine 05/01/2024 9:43 AM EST TSH W/REFLEX TO FT4 Routine 05/01/2024 9 :43 AM EST VITAMIN D,25-OH,TOTAL,IA Routine 05/01/2024 9:43 AM EST CBC WITH AUTO DIFFERENTIAL Routine 05/01/2024 9:43 AM EST LIPID PANEL, STANDARD Routine 05/01/2024 9:43 AM EST Hyperlipidemia, unspecified hyperlipidemia type COMPREHENSIVE METABOLIC PANEL Routine 05/01/2024 9:43 AM EST Class 1 obesity due to excess calories with serious comorbidity and body mass index (BMI) of 34.0 to 34.9 in adult BITEWINGS - 4 RADIOGRAPHIC IMAGES Routine 10/18/2023 10:00 AM EDT Periodontal disease Dental caries LAB COLOGUARD?? COLON CANCER SCREEN Routine 08/29/2023 6:10 AM EDT Colon cancer screening HEPATITIS C ANTIBODY Routine 01/31/2023 10:48 AM EDT Encounter for health-related screening HIV ANTIBODY/ANTIGEN ([place] D[facility]) Routine 01/31/2023 10:48 AM EDT DIAGNOSTIC - DIAGNOSTIC IMAGING - INTRAORAL - COMPREHENSIVE SERIES OF RADIOGRAPHIC IMAGES Routine 07/07/2022 11:00 AM EST PAP SMEAR Routine 09/13/2021 12:00 AM EDT from Last 3 Months or Most Recently Relevant to Health Maintenance Results * XR Foot 3+ Views Left (06/20/2024 1:39 PM EST) Anatomical Region Laterality Modality Lower Extremities, Foot Left Radiogra phic Imaging us Historical Provider IMLori XR PROCEDURES Final R esult * BI Mammogram Screen w/ Fritz w/ Implants Roger (05/01/2024 11:31 AM EST) Anatomical Region Laterality Modality Mammography 05/01/2024 11:3 1 AM EST Narrative 05/07/2024 1:33 PM EST ? [facility] ? [address] ?[place] [address] ? Mammography Report ? Signed ? Patient: Shandra Boyd ?MR#: [id number] ?? [id number] ? : 1975 ?Acct:[id number] ? Age/Sex: 48 / F ?ADM Date: 12/11/24 ? Loc: HO.MAMMO ? Attending Dr: Zoila Titus MD ? Ordering Physician: Zoila Titus MD ?Results: 2Beni ?? gn Findings ? Date of Service: 05/01/24 ?Follow Up: 1 Year From Orig ?? inal Mammogram ? Procedure(s): MM tomosynthesis screen imp BI ?? Accession Number(s): [id number] ? cc: Zoila Titus MD ? EXAMINATION: ?? MM SCREENING DIGITAL BREAST TOMOSYNTHESIS, BILATERAL ? CLINICAL INFORMATION: ? Screening. Asymptomatic. ? COMPARISON: ?? Mammography: Comparison is made with relevant avialable priors. ? TECHNIQUE: ?? Digital mammography is performed in craniocaudal and mediolateral ?? oblique views along with computer-aided detection (CAD). Digital breast ?? tomosynthesis is performed in implant-displaced craniocaudal and ?? implant-displaced mediolateral oblique views along with computer-aided ?? detection (CAD). ? FINDINGS: ?? The breasts are heterogeneously dense, which may obscure small masses ?? (ACR BI-RADS breast composition Category c). ?? Bilateral prepectoral silicone implants are stable appearing. ?? There are no significant masses, abnormal calcifications, or other ?? abnormalities. ? MM/MM tomosynthesis screen imp BI ?? IMPRESSION: ?? There are no significant changes from prior study. ? ASSESSMENT: ? BI-RADS BI-RADS 2 - Benign Findings ? RECOMMENDATION: ?? Routine annual mammography screening. ? 1 year F/U ? This patient's information was entered into a reminder system with a ?? target due date for their next mammogram. ? Electronically signed by: ??Kamla Christianson DO ??05/07/2024 01:30 PM EST ? Dictated By: ?Kamla Christianson DO ? Signed By: ?<Electronically signed by Kamla Christianson, DO in OV> ? 05/07/24 1330 ? DD/ 1131 ? TD/TT: 05/01/24 1158 ? Process Operator: ? Procedure Note Donotuseinterpreter, Image - 05/07/2024 [facility] [address] [place], [place] [address] Mammography Report Signed Patient: Shandra BoydMR#: [id number] : 1975Acct:[id number] Age/Sex: 48 / FADM Date: 05/01/24 Loc: HO.MAMMO Attending Dr: Zoila Titus MD Ordering Physician: Zoila Titus MDResults: 2Beni gn Findings Date of Service: 05/01/24Follow Up: 1 Year From Orig inal Mammogram Procedure(s): MM tomosynthesis screen imp BI Accession Number(s): [id number] cc: Zoila Titus MD EXAMINATION: MM SCREENING DIGITAL BREAST TOMOSYNTHESIS, BILATERAL CLINICAL INFORMATION: Screening. Asymptomatic. COMPARISON: Mammography: Comparison is made with relevant avialable priors. TECHNIQUE: Digital mammography is performed in craniocaudal and mediolateral oblique views along with computer-aided detection (CAD). Digital breast tomosynthesis is performed in implant-displaced craniocaudal and implant-displaced mediolateral oblique views along with computer-aided detection (CAD). FINDINGS: The breasts are heterogeneously dense, which may obscure small masses (ACR BI-RADS breast composition Category c). Bilateral prepectoral silicone implants are stable appearing. There are no significant masses, abnormal calcifications, or other abnormalities. MM/MM tomosynthesis screen imp BI IMPRESSION: There are no significant changes from prior study. ASSESSMENT: BI-RADS BI-RADS 2 - Benign Findings RECOMMENDATION: Routine annual mammography screening. 1 year F/U This patient's information was entered into a reminder system with a target due date for their next mammogram. Electronically signed by: Kamla Christianson DO 05/07/2024 01:30 PM EST RP Dictated By: Kamla Christianson DO Signed By: <Electronically signed by Kamla Christianson DO in OV> 05/07/24 1330 DD/ 1131 TD/TT: 05/01/24 1158 Process Operator: Zoila Titus MD IMG BI PROCEDURES Final Resul t * Vitamin D, 25-Hydroxy, Total, Immunoassay (05/01/2024 9:43 AM EST) Vitamin D 25-OH Total 60.7 >30 ng/mL [facility] Comment:Health Based Referen ce Values*< 20 ng/mL Ovsivzbhf59-44 ng/mL Insufficient> 30 ng/mL Sufficient*Patricia ORTIZ. N Engl J Med. 2007;357:266-280Care must be taken in interpreting Vitamin D results fromdifferent laboratories and methodologies. Published datademonstrated that results from patients undergoinghemodialysis may show a negative bias when tested withvarious automated 25-OH vitamin D assays when compared toLC-MS/MS.When testing samples from patients whose predominant form ofVitamin D is Vitamin D2, such as patients receiving VitaminD2 supplementation, results that are subtherapeutic shouldbe confirmed with another method such as LC-MS/MS. 05/01/2024 9:43 AM EST 05/01/2024 9:43 AM EST us Zoila Titus MD LAB BLOOD ORDERABLES Final Re sult [facility] [address] [place] [address] [phone] * (ABNORMAL) TSH with Reflex to Free T4 (05/01/2024 9:43 AM EST) TSH reflex Free T4 0.04(L) 0.32 - 4.0 uIU/mL [facility] 05/01/2024 9:43 AM EST 05/01/2024 9:43 AM EST us Zoila Titus MD LAB BLOOD ORDERABLES Final Re sult [facility] [address] [place] [phone] * (ABNORMAL) CBC auto differential (05/01/2024 9:43 AM EST) White Blood Count 7.3 4.8 - 10.8 X10*3/uL [facility] Red Blood Count 4.70 4.20 - 5.50 X10*6/uL [facility] Hemoglobin 13.4 12.0 - 16.0 g/dl [facility] Hematocrit 39.5 37.0 - 47.0 % [facility] Mean Corpuscular Volume 84.0 80.0 - 98.0 fL [facility] Mean Corpuscular Hemoglobin 28.5 27.0 - 33.0 pg [facility] Mean Corpuscular HGB Conc 33.9 31.0 - 35.0 g/dl [facility] Red Cell Distribution Width 14.5 11.0 - 16.0 % [facility] Platelet Count 130(L) 160 - 400 X10*3/uL [facility] Mean Platelet Volume 12.0 9.4 - 12.3 fL [facility] Neutrophils Percent Auto 73.2(H) 45 - 73 % [facility] Imm Gran Pct Auto 0.4 0.0 - 0.4 % [facility] Lymphocytes Percent Auto 19.1(L) 20 - 40 % [facility] Monocytes Percent Auto 6.0 2 - 11 % [facility] Eosinophils Percent Auto 0.8 0 - 4 % [facility] Basophils Percent Auto 0.5 0 - 2 % [facility] NRBC Pct Auto 0.0 0.0 - 0.2 /100WBC [facility] Neutrophils Absolute Auto 5.3 2.0 - 8.3 x10*3/uL [facility] Imm Gran Abs Auto 0.03 0.00 - 0.03 X10*3/uL [facility] Lymphocytes Absolute Auto 1.4 1.2 - 4.9 X10*3/uL [facility] Monocytes Absolute Auto 0.4 0.1 - 1.2 X10*3/uL [facility] Eosinophils Absolute Auto 0.1 0.0 - 0.4 X10*3/uL [facility] Basophils Absolute Auto 0.0 0.0 - 0.2 X10*3/uL [facility] NRBC Abs Auto 0.000 0.0 - 0.012 X10*3/uL [facility] 05/01/2024 9:43 AM EST 05/01/2024 9:43 AM EST Zoila Titus MD LAB BLOOD ORDERABLES Final Re sult Performing Organization Address [facility] Co co Phone Number [facility] [address] [place] [phone] * T4, Free (05/01/2024 9:43 AM EST) Free T4 (Free Thyroxine) 1.04 0.71 - 1.85 ng/dL [facility] 05/01/2024 9:43 AM EST 05/01/2024 9:43 AM EST Zoila Titus MD LAB BLOOD ORDERABLES Final Re sult Performing Organization Address [facility] Co co Phone Number [facility] [address] [place] [phone] * (ABNORMAL) Lipid Panel, Standard (05/01/2024 9:43 AM EST) Triglycerides 81 <150 mg/dL [facility] Comment:Desirable Triglyceri de: less than 150 mg/dLBorderline High Triglyceride 150-199 mg/dLHigh Triglyceride: 200-499 mg/dLVery High Triglyceride: greater than or equal to 5OO mg/dL Cholesterol 169 <200 mg/dL [facility] Comment:Desirable Cholestero l: less than 200 mg/dLBorderline High Cholesterol: 200-239 mg/dLHigh Cholesterol: greater than 239 mg/dL LDL Cholesterol Calculated 109(H) <100 mg/dL [facility] Comment:Desirable LDL: less than 100 mg/dLNear Optimal/Above Optimal LDL: 110- 129 mg/dLBorderline High LDL: 130-159 mg/dLHigh LDL: 160-189 mg/dLVery High LDL: greater than or equal to 190 mg/dL HDL Cholesterol 44 >40 mg/dL [facility] Comment:Desirable HDL: great er than 40 mg/dL Note: This HDL assay may give artificially low results in patients with liver disease. Blood Venous blood specimen / Unknown 05/01/2024 9:43 AM EST 05/01/2024 9:43 AM EST us Zoila Titus MD LAB BLOOD ORDERABLES Final Re sult [facility] [address] [place] [phone] * (ABNORMAL) Comprehensive Metabolic Panel (05/01/2024 9:43 AM EST) Sodium 143 135 - 145 mmol/L [facility] Potassium 4.0 3.3 - 5.1 mmol/L [facility] Chloride 111(H) 96 - 108 mmol/L [facility] Carbon Dioxide 26 22 - 29 mmol/L [facility] Anion Gap 10(L) 12 - 20 [facility] Urea Nitrogen (BUN) 13 9 - 16 mg/dL [facility] Creatinine, Serum 0.71 0.5 - 1.4 mg/dL [facility] Estimated Glomerular Filt Rate >60 [facility] Comment:Chronic Kidney Disea se: Estimated GFR < 60 mL/min/[id number] Kidney Disease: Estimated GFR < 15 mL/min/1.73m2 Glucose 83 60 - 115 mg/dL [facility] Calcium 10.0 8.4 - 10.2 mg/dL [facility] Bilirubin, Total 0.4 0.0 - 1.0 mg/dL [facility] Aspartate Amino Transferase 17 5 - 31 U/L [facility] Alanine Aminotransferase 18 0 - 31 U/L [facility] Total Protein 7.1 6.5 - 8.0 g/dL [facility] Albumin Level 4.1 3.5 - 5.0 g/dL [facility] Alkaline Phosphatase 100 39 - 117 U/L [facility] Blood Venous blood specimen / Unknown 05/01/2024 9:43 AM EST 05/01/2024 9:43 AM EST us Zoila Titus MD LAB BLOOD ORDERABLES Final Re sult [facility] [address] [place] [phone] * Cologuard?? colon cancer screening (08/29/2023 6:10 AM EDT) Cologuard Result Negative Negative 09/03/19 5:36 PM EDT [employer] (CLIA #:[id number]) Comment: NEGATIVE TEST RESULT. A negative Cologuard result indicates a low likelihood that a colorectal cancer (CRC) or advanced adenoma (adenomatous polyps with more advanced pre-malignant features) ??is present. The chance that a person with a negative Cologuard test has a colorectal cancer is less than 1 in 1500 (negative predictive value >99.9%) or has an ??advanced adenoma is less than ??5.3% (negative predictive value 94.7%). These data are based on a prospective cross-sectional study of 10,000 individuals at average risk for colorectal cancer who were screened with both Cologuard and colonoscopy. (Charly Bryant al, N Engl J Med 2014;370(14):1286- 1297) The normal value (reference range) for this assay is negative. COLOGUARD RE-SCREENING RECOMMENDATION: Periodic colorectal cancer screening is an important part of preventive healthcare for asymptomatic individuals at average risk for colorectal cancer. ??Following a negative Cologuard result, the [place] [employer] Society and U.S. Multi-Society Task Force screening guidelines recommend a Cologuard re-screening interval of 3 years. References: [place] [employer] Guideline for Colorectal Cancer Screening: https://www.cancer.org/cancer/izakh-zounai-jifybh/vvlqikuhn-rymexuvov-cevoilp/ac s-rec ommendations.html.; Alejandro DK, Pantera STANLEY, Norma CamarilloK, Colorectal Cancer Screening: Recommendations for Physicians and Patients from the U.S. Multi-Society Task Force on Colorectal Cancer Screening , Am J Gastroenterology 2017; 112:7143-6757. TEST DESCRIPTION: Composite algorithmic analysis of stool DNA-biomarkers with hemoglobin immunoassay. ?? Quantitative values of individual biomarkers are not reportable and are not associated with individual biomarker result reference ranges. Cologuard is intended for colorectal cancer screening of adults of either sex, 45 years or older, who are at average-risk for colorectal cancer (CRC). Cologuard has been approved for use by the U.S. FDA. The performance of Cologuard was established in a cross sectional study of average-risk adults aged 50-84. Cologuard performance in patients ages 45 to 49 years was estimated by sub-group analysis of near-age groups. Colonoscopies performed for a positive result may find as the most clinically significant lesion: colorectal cancer [4.0%], advanced adenoma (including sessile serrated polyps greater than or equal to 1cm diameter) [20%] or non- advanced adenoma [31%]; or no colorectal neoplasia [45%]. These estimates are derived from a prospective cross-sectional screening study of 10,000 individuals at average risk for colorectal cancer who were screened with both Cologuard and colonoscopy. (Charly Bryant al, N Engl J Med 2014;370(14):0704-7950.) Cologuard may produce a false negative or false positive result (no colorectal cancer or precancerous polyp present at colonoscopy follow up). A negative Cologuard test result does not guarantee the absence of CRC or advanced adenoma (pre-cancer). The current Cologuard screening interval is every 3 years. ([place] [employer] Society and U.S. Multi-Society Task Force). Cologuard performance data in a 10,000 patient pivotal study using colonoscopy as the reference method can be accessed at the following location: www.Ubiterra.com/results. Additional description of the Cologuard test process, warnings and precautions can be found at www.colPayDivvyrd.com. Stool specimen (specimen) 08/29/2023 6:10 AM EDT 08/30/2023 2:36 PM EDT Zoila Titus MD LAB MOLECULAR DIAGNOSTICS ORD ERABLES Final Result [employer] (CLIA #:[id number]) [place] [address], * Hepatitis C Ab (01/31/2023 10:48 AM EDT) Hepatitis C Antibody Nonreactive Nonreactive [facility] Comment:Antibodies to HCV no t detected; does not exclude early acuteHCV infection. Blood 01/31/2023 10:4 8 AM EDT 01/31/2023 2:30 PM EDT Zoila Titus MD LAB BLOOD ORDERABLES Final Re sult Performing Organization Address [facility]/ZIP Co de Phone Number [facility] [address] [place] [phone] * HIV Ab/Ag ([facility]) (01/31/2023 10:48 AM EDT) HIV AB/AG Nonreactive Nonreactive [facility] Comment:HIV-1 p24 Ag and/or HIV-1/HIV-2 Ab not detected.A test result that is nonreactive does not exclude thepossibility of exposure to or infection with HIV-1 and/orHIV-2. Nonreactive results in this assay for individualswith prior exposure to HIV-1 and/or HIV-2 may be due toantigen and antibody levels that are below the limit ofdetection of this assay.The Kera HIV Ag/Ab Combo assay result andsupplemental assay results should be interpreted inconjunction with the patient's clinical presentation,history and other laboratory results. If the results areinconsistent with clinical evidence, additional testing issuggested to confirm the result. 01/31/2023 10:4 8 AM EDT 01/31/2023 2:30 PM EDT us Zoila Titus MD LAB BLOOD ORDERABLES Final Re sult Performing Organization Address [facility] Co de Phone Number [facility] [address] [place] [phone] * Pap Smear (09/13/2021 12:00 AM EDT) Swab us Domenica Provider LAB CYTOLOGY ORDERABLES F inal Result Performing Organization Address [facility] Co de Phone Number [facility] [address] [place] [phone] from Last 3 Months or Most Recently Relevant to Health Maintenance Insurance [facility]IC[facility] [place] Care Teams Restaurant Service Manager Relationship Specialty Start Date End Date Zoila Titus MD [address] [place] [address] PCP - General Family Medicine 06/28/22 Jerson Ramirez Psychiatrist 07/27/23
--- OUTSIDE RECORDS SUMMARY | 2024-06-24 10:42 | XMS_ITS | Encounter Summary ---
Author Organization [employer] Address [address] [facility] 7t [place] [address] Care Team Providers Care Assembler Skylights Name Role Phone Zoila Titus MD Primary Care Provider [phone] Reason for Visit * Reason Comments Med Refill Encounter Details Date Type Department Care Team ([facility] st Contact Info) Description 06/15/2023 Refill [facility] CHC MED & PEDS [address] [place], [place] [phone] Zoila Titus MD [address] [place] [address] Social History Tobacco Use Types Packs/Day Years [...] Description 11/06/2024 10:00 AM EDT Office Visit [facility] ADULT DENTAL [address] [place] [address] Rere Zarco documented as of this encounter Visit Diagnoses Not on filedocumented in this encounter Additional Health Concerns Assessment Noted Time PHQ-9 Depression Total Score: 6 01/28/20 23 11:47 AM EDT documented as of this encounter Care Teams Assembler Skylights Relationship Specialty Start Date End Date Zoila Titus MD [address] [place] [address] PCP - General Family Medicine 06/28/22 Jerson Ramirez Psychiatrist 07/27/23 documented as of this encounter
--- OUTSIDE RECORDS SUMMARY | 2024-06-24 10:42 | XMS_ITS | Encounter Summary ---
Author Organization [employer] Address [address] [facility] 7t [place] [address] Care Team Providers Care Underwear Welter Name Role Phone Zoila Titus MD Primary Care Provider Reason for Visit * Reason Comments Med Refill Encounter Details Date Type Department Care Team ([facility] st Contact Info) Description 05/27/2024 Refill [facility] CHC MED & PEDS [address] [place], [place] [phone] Zoila Titus MD [address] [place] [address] Social History Tobacco Use Types Packs/Day Years [...] Description 11/06/2024 10:00 AM EDT Office Visit [facility] ADULT DENTAL [address] [place] [address] Rere Zarco documented as of this encounter Visit Diagnoses Not on filedocumented in this encounter Additional Health Concerns Assessment Noted Time PHQ-9 Depression Total Score: 6 01/28/20 23 11:47 AM EDT documented as of this encounter Care Teams Underwear Welter Relationship Specialty Start Date End Date Zoila Titus MD [address] [place] [address] PCP - General Family Medicine 06/28/22 Jerson Ramirez Psychiatrist 07/27/23 documented as of this encounter
--- OUTSIDE RECORDS SUMMARY | 2024-06-24 10:42 | XMS_ITS | Encounter Summary ---
Author Organization [employer] Address [address] [facility] [address] 7t [place] [address] Care Team Providers Care Functional Mental Disability Teacher Name Role Phone Zoila Titus MD Primary Care Provider [phone] Reason for Visit * Reason Onset Date Comments Medication Question 12/04/2023 Encounter Details Date Type Department Care Team ([facility] Contact Info) Description 12/04/2023 Telephone [facility] MEDICINE [address] [place] [address] Zoila Titus MD [address] [place] [phone] Medication Question Social History Tobacco Use Types Packs/Day Years [...] AM EST documented as of this encounter Miscellaneous Notes * Telephone Encounter - Wing Nikolai RN - 12/07/2023 10:45 AM EDT Tc to Sonia regarding questions on Wegovy. Unable to reach her, left message for her to call back. * Telephone Encounter - Loc Shukla - 12/04/2023 11:36 AM EDT [facility] [place] [facility] questions she has for Semaglutide-Weight Management (Wegovy) 0.25 MG/0.5ML solution auto-injector. Please contact Sonia at [phone]. documented in this encounter Plan of Treatment Upcoming Encounters Date Type Department Care Team (Late st Contact Info) Description 11/06/2024 10:00 AM EDT Office Visit [facility] ADULT DENTAL [address] [place] [address] Rere Zarco documented as of this encounter Visit Diagnoses Not on filedocumented in this encounter Additional Health Concerns Assessment Noted Time PHQ-9 Depression Total Score: 6 01/28/20 23 11:47 AM EDT documented as of this encounter Care Teams Functional Mental Disability Teacher Relationship Specialty Start Date End Date Zoila Titus MD [address] [place] [address] PCP - General Family Medicine 06/28/22 Jerson Ramirez Psychiatrist 07/27/23 documented as of this encounter
--- OUTSIDE RECORDS SUMMARY | 2024-06-24 10:42 | XMS_ITS | Encounter Summary ---
Author Organization [employer] Address 75 [facility] 7t [place] [address] Care Team Providers Care Logistics Planner Name Role Phone Zoila Titus MD Primary Care Provider [phone] Reason for Visit * Reason Comments Med Refill Encounter Details Date Type Department Care Team ([facility] st Contact Info) Description 01/08/[address] [facility] CHC MED & PEDS [address] [place], [place] [phone] Zoila Titus MD 505 [place] [address] Social History Tobacco Use Types Packs/Day Years [...] Description 11/06/2024 10:00 AM EDT Office Visit [facility] ADULT DENTAL [address] [place] [address] Rere Zarco documented as of this encounter Visit Diagnoses Not on filedocumented in this encounter Additional Health Concerns Assessment Noted Time PHQ-9 Depression Total Score: 6 01/28/20 23 11:47 AM EDT documented as of this encounter Care Teams Logistics Planner Relationship Specialty Start Date End Date Zoila Titus MD [address] [place] [address] PCP - General Family Medicine 06/28/22 Jerson Ramirez Psychiatrist 07/27/23 documented as of this encounter
--- OUTSIDE RECORDS SUMMARY | 2024-06-24 10:42 | XMS_ITS | Encounter Summary ---
Author Organization [employer] [facility] Address [address] [facility] 7t [place] [address] Care Team Providers Care Community Marketing Coordinator Name Role Phone Zoila Titus MD Primary Care Provider [phone] Reason for Visit * Reason Comments Acupuncture Encounter Details Date Type Department Care Team ([facility] st Contact Info) Description 06/04/2024 10:00 AM EST Office Visit [facility] MEDICINE [address] [place], [place] [phone] Stephenie Cristina MD [address] [place], [place] [phone] Chronic pain of both knees (Primary Dx); [...] Progress Notes * Stephenie Cristina MD - 06/04/2024 10:00 AM EST Subjective Patient ID: Shandra Sharp is a 48 y.o. female who presents for Acupuncture. Shandra is here for acupuncture visit #3 for knee and hip pain and stress. She was last here in 2023 and had experienced some pain reduction with treatment. She is experiencing worsening pain and would like to try again. Objective Physical Exam Constitutional: Appearance: Normal appearance. [...] 11/06/2024 10:00 AM EDT Office Visit [facility] AD[facility] [address] [facility] [place] [address] Rere Zarco documented as of this encounter Visit Diagnoses Diagnosis Chronic pain of both knees- Primary Stress Other psychological or physical stress, not elsewhere classified documented in this encounter Additional Health Concerns Assessment Noted Time PHQ-9 Depression Total Score: 6 01/28/20 23 11:47 AM EDT documented as of this encounter Care Teams Community Marketing Coordinator Relationship Specialty Start Date End Date Zoila Titus MD [address] [place] [address] PCP - General Family Medicine 06/28/22 Jerson Ramirez Psychiatrist 07/27/23 documented as of this encounter
--- OUTSIDE RECORDS SUMMARY | 2024-06-24 10:42 | XMS_ITS | Clinical Summary ---
Author Organization [address] [facility] Address [address] [place] [address] Phone Care Team Providers Care Negative Cleaner Name Role Phone Zoila Titus MD Primary Care Provider [phone] Allergies No known active allergies Medications Medication Sig Dispensed Refills Start Date End Date Status venlafaxine HCl (EFFEXOR ORAL) Take by mouth. Active ARIPiprazole (ABILIFY) 10 mg tablet Take 1 Tablet by mouth daily. Active ARIPiprazole (ABILIFY) 5 mg tablet Take 1 Tablet by mouth daily. Active clonazePAM (KlonoPIN) 0.5 mg tablet Take 1 Tablet by mouth 2 times daily as needed. Active clotrimazole (LOTRIMIN) 1 % cream Apply to skin and toenails daily for 12 weeks 10/30/2023 Active diclofenac (VOLTAREN) 1 % topical gel Apply topically. Active lidocaine (ZTlido) 1.8 % adhesive patch,medicated Apply topically. Act laura rosuvastatin (CRESTOR) 10 mg tablet Take 1 Tablet by mouth daily. Active topiramate (TOPAMAX) 50 mg tablet Take 1 Tablet by mouth 2 times daily. Active lidocaine (LIDODERM) 5 % patchIndications: Neuritis of foot, left Apply 1 patch topically 1 (one) time each day. Remove & discard patch within 12 hours or as directed by . 30 each 2 05/20/2024 08/18/2024 Active ammonium lactate (AmLactin) 12 % lotion Apply topically if needed for dry skin. 400 g 06/20/2024 06/20/2025 Active ammonium lactate (AmLactin) 12 % lotion Apply topically if needed for dry skin. 400 g 05/20/2024 06/20/2024 Discontinued (Reorder) Hospital, Clinic, or Other Facility Administered Medication Ordered Dose Route Frequency Start Date End Date Status lidocaine (PF) (XYLOCAINE-MPF) 1 % injection 0.5 mLIndications:Tendin itis of left ankle .5 mL inj Once PRN Procedure 06/20/2024 06/20/2024 Ended triamcinolone acetonide (KENALOG-40) 40 mg/mL injection 20 mgIndications:Tendin itis of left ankle 20 mg IAtc Once PRN Procedure 06/20/2024 06/20/2024 Ended Encounters Date Type Department Care Team Description 06/20/2024 10:30 AM EST Office Visit [facility] [place] [phone] [phone] Moe Blair, ALEIDA Neuritis of foot, left (Primary Dx); Tendinitis of left ankle; Xerosis of skin 05/24/2024 Telephone [facility] [place] [address] [phone] Moe Blair DPM 05/20/2024 10:30 AM EST Office Visit [facility] [place] [address] [phone] Moe Blair, ALEIDA Tendinitis of left ankle (Primary Dx); Neuritis of foot, left; Xerosis of skin from Last 3 Months Social History Tobacco Use Types Packs/Day Years Used Date Smoking Tobacco: Never Assessed Sex and Gender Information Value Date Recorded Sex Assigned at Not on file Gender Identity Not on file Sexual Orientation Not on file Job Start Date Occupation Industry Not on file Not on file Not on file Last Filed Vital Signs Vital Sign Reading Time Taken Comments Blood Pressure - - Pulse - - Temperature - - Respiratory Rate - - Oxygen Saturation - - Inhaled Oxygen Concentration - - Weight 95.3 kg (210 lb) 06/20/2024 10:16 AM EST Height 170.2 cm (5' 7.01 ) 06/20/2024 10:16 AM E Body Mass Index 32.88 06/20/2024 10:16 AM EST Plan of Treatment Upcoming Encounters Date Type Department Care Team (Late st Contact Info) Description 07/25/2024 10:30 AM EST Office Visit [facility] [place] [address] [phone] Moe Blair DPM 175 [facility] [address] [place] [address] Health Maintenance Due Date Last Done Comments Breast Cancer Screening 1975 HIV Screening 12/15/2023 Hepatitis C Screening 12/15/2023 Medicare Annual Wellness Visit 12/15/2023 Social Influencers of Health Screening 12/15/2023 COVID-19 Vaccine ( season) 2024 09/26/2023, 03/29/2021, 09/24/2020, Additional history exists Depression Screening 01/28/2024 01/27/2023 Hepatitis B Vaccines (3 of 3 - 19+ 3-dose series) 04/14/2024 11/13/2023, 10/13/2023 Cervical Cancer Screening: Pap Smear 09/13/2024 09/13/2021 Colorectal Cancer Screening: FIT-DNA (Cologuard) 08/28/2026 08/29/2023 Cholesterol Screening (Lipid Panel) 05/01/2029 05/01/2024 DTaP,Tdap,and Td Vaccines (2 - Td or Tdap) 01/27/2033 01/27/2023 Influenza Vaccine Completed 02/01/2024, , 02/24/2022 HIB Vaccines Aged Out No longer eligi [...] on patient's age to complete this topic MMR Vaccines Aged Out No longer eligi ble based on patient's age to complete this topic Meningococcal ACWY Vaccine Aged Out N o longer eligible based on patient's age to complete this topic Pneumococcal Vaccine: Pediatrics (0 to 5 Years) and At-Risk Patients (6 to 64 Years) Aged Out No longer eligible based on patient's age to complete this topic RSV Immunization Patients Under 20 months Aged Out No longer eligible based on patient's age to complete this topic Varicella Vaccines Aged Out No longer eligible based on patient's age to complete this topic Procedures Procedure Name Priority Date/Time Associated Diagnosis Comments XR FOOT 3+ VIEWS LEFT Routine 06/20/2024 10:35 AM EST Pain INJECTION TENDON OR LIGAMENT Routine 06/20/2024 10:30 AM EST Tendinitis of left ankle from Last 3 Months Results * XR Foot 3+ Views Left (06/20/2024 10:35 AM EST) Anatomical Region Laterality Modality Lower Extremities, Foot Left Computed Radiography Narrative 06/20/2024 11:51 AM EST Left foot 3 views No fracture. No radiopaque foreign joint spaces normal ?? Foot position Pes planus with Talus navicular uncovering decreased calcaneal inclination anterior displaced symes line talus navicular joint to calcaneal cuboid joint ?? Moe Blair DPM IMG XR PROCEDURES * Injection tendon or ligament (06/20/2024 10:30 AM EST) Narrative Moe Blair DPM - 06/20/2024 10:30 AM EST Moe Blair DPM ? 06/20/2024 11:52 AM Injection tendon or ligament Indications: pain Details: 25 G needle Medications: 0.5 mL lidocaine (PF) 1 %; 20 mg triamcinolone acetonide 40 mg/mL Informed Consent: ??Site: ??Foot ligament tendon Moe Blair DPM IN CLINIC/BEDSIDE ORDERABLES from Last 3 Months Care Teams Negative Cleaner Relationship Specialty Start Date End Date Zoila Titus MD [address] [place] [address] [facility] - General 08/03/23
--- OUTSIDE RECORDS SUMMARY | 2024-06-24 10:42 | XMS_ITS | Encounter Summary ---
Author Organization [employer] Address [address] [facility] [address] [place] [address] Care Team Providers Care Healthcare Prof Name Role Phone Zoila Titus MD Primary Care Provider [phone] Encounter Details Date Type Department Care Team (Latest Contact Info) Description 06/11/2024 Travel Social History Tobacco Use Types Packs/Day [...] Description 11/06/2024 10:00 AM EDT Office Visit [facility] ADULT DENTAL [address] [place] [address] Rere Zarco documented as of this encounter Visit Diagnoses Not on filedocumented in this encounter Additional Health Concerns Assessment Noted Time PHQ-9 Depression Total Score: 6 01/28/20 23 11:47 AM EDT documented as of this encounter Care Teams Healthcare Prof Relationship Specialty Start Date End Date Zoila Titus MD [address] [place] [address] PCP - General Family Medicine 06/28/22 Jerson Ramirez Psychiatrist 07/27/23 documented as of this encounter
--- OUTSIDE RECORDS SUMMARY | 2024-06-24 10:42 | XMS_ITS | Encounter Summary ---
Author Organization [employer] Address 75 [facility] 7t [place] [address] Care Team Providers Care Money Market Dealer Name Role Phone Zoila Titus MD Primary Care Provider [phone] Reason for Visit * Reason Onset Date Comments Med Refill 06/15/2023 Encounter Details Date Type Department Care Team ([facility] st Contact Info) Description 06/15/2023 Refill [facility] CHC MED & PEDS [address] [place] [address] Zoila Titus MD [address] [place] [address] Social History Tobacco Use Types Packs/Day Years [...] encounter Miscellaneous Notes * Telephone Encounter - Zoila Titus MD - 06/15/2023 4:21 PM EST Patient was last seen in Jan for this and did not have appropriate f/up documented in this encounter Plan of Treatment Upcoming Encounters Date Type Department Care Team (Late st Contact Info) Description 11/06/2024 10:00 AM EDT Office Visit [facility] ADULT D[facility] [address] [place] [address] Rere Zarco documented as of this encounter Visit Diagnoses Not on filedocumented in this encounter Additional Health Concerns Assessment Noted Time PHQ-9 Depression Total Score: 6 01/28/20 23 11:47 AM EDT documented as of this encounter Care Teams Money Market Dealer Relationship Specialty Start Date End Date Zoila Titus MD [address] [place] [address] PCP - General Family Medicine 06/28/22 Jerson Ramirez Psychiatrist 07/27/23 documented as of this encounter
--- OUTSIDE RECORDS SUMMARY | 2024-06-24 10:42 | XMS_ITS | Encounter Summary ---
Author Organization [employer] Address [address] [facility] 7t [place] [address] Care Team Providers Care Welding Pantograph Machine Operator Name Role Phone Zoila Titus MD Primary Care Provider [phone] Encounter Details Date Type Department Care Team (Late st Contact Info) Description 06/20/2024 Orders Only [facility] [address] [place] [address] ProviderDomenica MD Social History Tobacco Use Types Packs/Day Years [...] Description 11/06/2024 10:00 AM EDT Office Visit [facility] ADULT DENTAL [address] [place] [address] Rere Zarco documented as of this encounter Procedures Procedure Name Priority Date/Time Associated Diagnosis Comments XR FOOT 3+ VIEWS LEFT Routine 06/20/2024 1:39 PM EST documented in this encounter Results * XR Foot 3+ Views Left (06/20/2024 1:39 PM EST) Anatomical Region Laterality Modality Lower Extremities, Foot Left Radiogra phic Imaging us Historical Provider MD PHELPS XR PROCEDURES Final R esult documented in this encounter Visit Diagnoses Not on filedocumented in this encounter Additional Health Concerns Assessment Noted Time PHQ-9 Depression Total Score: 6 01/28/20 23 11:47 AM EDT documented as of this encounter Care Teams Welding Pantograph Machine Operator Relationship Specialty Start Date End Date Zoila Titus MD [address] [place] [address] PCP - General Family Medicine 06/28/22 Jerson Ramirez Psychiatrist 07/27/23 documented as of this encounter
--- OUTSIDE RECORDS SUMMARY | 2024-06-24 10:42 | XMS_ITS | Encounter Summary ---
Author Organization [facility] Address [address] [place] [address] Care Team Providers Care Emergency Technician Name Role Phone Zoila Titus MD Primary Care Provider [phone] Reason for Referral * Consultation (Routine) - Authorized Specialty Diagnoses / Procedures Referred By Contmayra t Referred To Contact Physical Therapy Diagnoses Tendinitis of left ankle Moe Blair DPM [address] [address] Referral ID Status Reason Start Date Expiration Date Visits Requested Visits Authorized [id number] Authorized Specialty Services Required 06/20/2024 06/20/2025 1 1 Reason for Visit * Reason Comments Follow-up Left heel pain Encounter Details Date Type Department Care Team (Late st Contact Info) Description 06/20/2024 10:30 AM EST Office Visit Orthopedic Surgery - [place] [id number] [phone] Moe Blair DPM [address] [address] Neuritis of foot, left (Primary Dx); Tendinitis of left ankle; Xerosis of skin Social History Tobacco Use Types Packs/Day Years Used Date Smoking Tobacco: Never Assessed Sex and Gender Information Value Date Recorded Sex Assigned at Not on file Gender Identity Not on file Sexual Orientation Not on file Job Start Date Occupation Industry Not on file Not on file Not on file documented as of this encounter Last Filed Vital Signs Vital Sign Reading Time Taken Comments Blood Pressure - - Pulse - - Temperature - - Respiratory Rate - - Oxygen Saturation - - Inhaled Oxygen Concentration - - Weight 95.3 kg (210 lb) 06/20/2024 10:16 AM EST Height 170.2 cm (5' 7.01 ) 06/20/2024 10:[address] Body Mass Index 32.88 06/20/2024 10:16 AM EST documented in this encounter Ordered Prescriptions Prescription Sig Dispensed Refills Start Date End Da te ammonium lactate (AmLactin) 12 % lotion Apply topically if needed for dry skin. 400 g 06/20/2024 06/20/2025 documented in this encounter Progress Notes * Moe Blair DPM - 06/20/2024 10:30 AM ESTAssociated Order(s): Injection tendon or ligament Post-Procedure Diagnose(s): Tendinitis of left ankle S Patient presents today with multiple new pedal complaints she reports that she is getting new pain on the top of her left foot has been going for last 2 months has not really been getting worse denies trauma to the area she is achy throbbing pain she is localized to the top of her left foot states that has been going on for that period of time rates it as a 5 out of 10 on a visual analog scale has not done nothing for it. She reports that she is getting worsening pain and new complaint of thickdry skin on her left foot she says mostly in her heels she has thick cracking skin in the winter has been bothered her more worse in the last 3 months patient states that thick skin has improved significant she has been ammonium lactate as prescribed notes that she has not gone to physical therapy yet states the pain entire foot has stagnated ROS: GENERAL: Pt denies nausea, fever, vomiting, chills, or shortness of breath. Pt in NAD. CARDIOLOGY: pt denies chest pain, palpitations LUNGS: pt denies shortness of breath MUSCULOSKELETAL: See HPI, otherwise no joint pain or swelling, back pain, or muscle pain. SKIN: see HPI, otherwise no lesions, rash or itching NEURO: No persistent headache, weakness or numbness The remainder of the review of systems is noncontributory PAST MEDICAL HISTORY: There is no problem list on file for this patient. SOCIAL HISTORY: Social History Tobacco Use Smoking status: Not on file Smokeless tobacco: Not on file Substance Use Topics Alcohol use: Not on file ACTIVE MEDICATIONS: Outpatient Medications Marked as Taking for the 06/20/24 encounter (Office Visit) with Moe Samson DPM Medication Sig Dispense Refill ammonium lactate (AmLactin) 12 % lotion Apply topically if needed for dry skin. 400 g 0 ARIPiprazole (ABILIFY) 10 mg tablet Take 1 Tablet by mouth daily. ARIPiprazole (ABILIFY) 5 mg tablet Take 1 Tablet by mouth daily. clonazePAM (KlonoPIN) 0.5 mg tablet Take 1 Tablet by mouth 2 times daily as needed. clotrimazole (LOTRIMIN) 1 % cream Apply to skin and toenails daily for 12 weeks diclofenac (VOLTAREN) 1 % topical gel Apply topically. lidocaine (LIDODERM) 5 % patch Apply 1 patch topically 1 (one) time each day. Remove & discard patch within 12 hours or as directed by . 30 each 2 lidocaine (ZTlido) 1.8 % adhesive patch,medicated Apply topically. rosuvastatin (CRESTOR) 10 mg tablet Take 1 Tablet by mouth daily. topiramate (TOPAMAX) 50 mg tablet Take 1 Tablet by mouth 2 times daily. venlafaxine HCl (EFFEXOR ORAL) Take by mouth. [DISCONTINUED] ammonium lactate (AmLactin) 12 % lotion Apply topically if needed for dry skin. 400 g 0 ALLERGIES: No Known Allergies PHYSICAL EXAM: Visit Vitals Ht 1.702 m (67.01 ) Wt 95.3 kg (210 lb) BMI 32.88 kg/m?? BSA 2.07 m?? PODIATRIC EXAMINATION: GENERAL: Patient appears well nourished, with NAD. VASCULAR: Dorsalis pedis pulses are 2/4 bilaterally and Posterior tibial pulses are 2/4 bilaterally. Capillary filling time within normal limits the digits. No pallor on elevation or rubor on dependency. Positive hair growth. No varicosities. Denies rest pain or claudication pain. NEUROLOGICAL: Sharp/dull sensation intact, protective sensation intact 10/10 with 5.07 semmes collette bilaterally, vibratory sensation with tuning fork intact to the tibial tuberosity. ORTHOPEDIC: Good muscle strength 5/5 of all flexors and extensors. Dorsi flexion of ankle ,10 degrees, plantar flexion WNL. No muscle atrophy. Palpation extensor tendons of left foot with no acute deficits predominantly over the extensor tendons of the midfoot left foot no deficits no inability to move strength is 5 out of 5 Localized nerve irritation of the peroneal nerve superficial overlying the midtarsal joint left Pain localized overlying the inferior aspect of the extensor retinaculum left foot DERMATOLOGICAL:.Thick dry skin bilateral heels BIOMECHANICS: Ankle ROM WNL, STJ ROM wnl, MTJ ROM wnl, 1st MPJ ROM wnl. IMAGING: IMPRESSION: 1. Neuritis of foot, left 2. Tendinitis of left ankle 3. Xerosis of skin PLAN: Pt was seen and examined, history reviewed. 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 Injection of left midfoot ligament was performed after consent was obtained. Risks and benefits discussed in detail with patient and include but are not limited to risk of infection risk of recurrence . Injection given of half cc 1% lidocaine half cc of Kenalog 40 Injection tendon or ligament Indications: pain Details: 25 G needle Medications: 0.5 mL lidocaine (PF) 1 %; 20 mg triamcinolone acetonide 40 mg/mL Informed Consent: Site: Foot ligament tendon Moe Blair DPM documented in this encounter Plan of Treatment Upcoming Encounters Date Type Department Care Team (Late st Contact Info) Description 07/25/2024 10:30 AM EST Office Visit Orthopedic Surgery - [place] [address] [phone] Moe Blair DPM [address] [address] Scheduled Referrals Name Type Priority Associated Diagnoses Order Schedule Ambulatory referral to Physical Therapy and Athletic Training Outpatient Referral Routine Tendinitis of left ankle 1 Occurrences starting 06/20/2024 until 06/20/2025 documented as of this encounter Procedures Procedure Name Priority Date/Time Associated Diagnosis Comments INJECTION TENDON OR LIGAMENT Routine 06/20/2024 10:30 AM EST Tendinitis of left ankle documented in this encounter Results * Injection tendon or ligament (06/20/2024 10:30 AM EST) Narrative Moe Blair DPM - 06/20/2024 10:30 AM EST Moe Blair DPM ? 06/20/2024 11:52 AM Injection tendon or ligament Indications: pain Details: 25 G needle Medications: 0.5 mL lidocaine (PF) 1 %; 20 mg triamcinolone acetonide 40 mg/mL Informed Consent: ??Site: ??Foot ligament tendon Moe Blair DPM IN CLINIC/BEDSIDE ORDERABLES documented in this encounter Visit Diagnoses Diagnosis Neuritis of foot, left- Primary Tendinitis of left ankle Xerosis of skin documented in this encounter Administered Medications Inactive Administered Medications - up to 3 most recent administrations Medication Order MAR Action Action Date Dose Rate Site lidocaine (PF) (XYLOCAINE-MPF) 1 % injection 0.5 mL 0.5 mL, injection, Once PRN Procedure, Starting on Marcella 06/20/24 at 1030, For 1 dose Given 06/20/2024 10:30 AM EST 0.5 mL triamcinolone acetonide (KENALOG-40) 40 mg/mL injection 20 mg 20 mg, intra-articular, Once PRN Procedure, Starting on Marcella 06/20/24 at 1030, For 1 dose Given 06/20/2024 10:30 AM EST 20 mg documented in this encounter Discontinued Medications Medication Sig Discontinue Reason Start Date End Da te ammonium lactate (AmLactin) 12 % lotion Apply topically if needed for dry skin. Reorder 05/20/2024 06/20/2024 documented as of this encounter Care Teams Emergency Technician Relationship Specialty Start Date End Date Zoila Titus MD [address] [place] [phone] PCP - General 08/03/23 documented as of this encounter
--- OUTSIDE RECORDS SUMMARY | 2024-06-24 10:42 | XMS_ITS | Encounter Summary ---
Author Organization [employer] Address [address] [facility] [address] [place] [address] Care Team Providers Care Exhibitions Curator Name Role Phone Zoila Titus MD Primary Care Provider [phone] Reason for Visit * Reason Comments Med Refill Encounter Details Date Type Department Care Team ([facility] st Contact Info) Description 05/31/2023 Refill [facility] MED & PEDS [address] [place], [place] [phone] Zoila Titus MD [address] [place] [address] Social History Tobacco Use Types Packs/Day Years [...] Telephone Encounter - Zoila Titus MD - 06/01/2023 1:07 PM EST Patient had reported she needed to stop medication when she started going to bariatric medicine that they told her to stop taking medication, we have not done the proper followup given she told me she stopped the med documented in this encounter Plan of Treatment Upcoming Encounters Date Type Department Care Team (Late st Contact Info) Description 11/06/2024 10:00 AM EDT Office Visit [facility] ADULT DENTAL [address] [place] [address] Rere Zarco documented as of this encounter Visit Diagnoses Not on filedocumented in this encounter Additional Health Concerns Assessment Noted Time PHQ-9 Depression Total Score: 6 01/28/20 23 11:47 AM EDT documented as of this encounter Care Teams Exhibitions Curator Relationship Specialty Start Date End Date Zoila Titus MD [address] [place] [phone] PCP - General Family Medicine 06/28/22 Jerson Shukla-Bright Psychiatrist 07/27/23 documented as of this encounter
== END 2024-06-24 11:00 | disposition home or self-care (01) ==
PROVIDERS: PCP Family Medicine; Visit Provider Physician Assistant Surgical
DX: E66.3 Overweight (principal); Z68.25 Body mass index [BMI] 25.0-25.9, adult; Z90.3 Acquired absence of stomach [part of]; Z98.84 Bariatric surgery status
CPT/HCPCS: 99213; G2211

== ENCOUNTER → 2024-06-24 10:03 | Outpatient (BNVA) | payer MEDICARE, MEDICAID, SELFPAY | PROVIDERS: PCP Family Medicine; Visit Provider Physician Assistant Surgical | DX: Z98.84 Bariatric surgery status (principal) | CPT/HCPCS: 99212 ==

== ENCOUNTER 2024-07-05 08:49 | Outpatient (REF) | payer MEDICARE, MEDICAID, SELFPAY ==
--- NOTE | ~2024-07-05 | XR_ITS ---
CLINICAL HISTORY: M25.569 - Pain in unspecified knee AP Bilateral Knees Standing, 2 view Left Knee Comparison: None Findings: Bones intact. No dislocations. No significant loss of joint space, osteophytes, or erosions. No joint effusion. No radiopaque foreign body. IMPRESSION: 1. No acute findings. This document has been electronically signed by: Vern Hassan MD on 07/06/2024 07:27:52
--- OUTSIDE RECORDS SUMMARY | 2024-07-08 08:52 | XMS_ITS | Encounter Summary ---
Author Organization [employer] [facility] Address 75 [facility] 7t [place] [address] Care Team Providers Care Lot Technician Name Role Phone Zoila Titus MD Primary Care Provider [phone] Reason for Visit * Reason Comments Acupuncture Encounter Details Date Type Department Care Team ([facility] st Contact Info) Description 06/11/2024 9:45 AM EST Office Visit [facility] MEDICINE [address] [place], [place] [phone] Stephenie Cristina MD [address] [place], [place] [phone] Chronic pain of both knees (Primary Dx); [...] [facility] [address] [place] [address] Rere Zarco documented as of this encounter Visit Diagnoses Diagnosis Chronic pain of both knees- Primary Stress Other psychological or physical stress, not elsewhere classified documented in this encounter Additional Health Concerns Assessment Noted Time PHQ-9 Depression Total Score: 6 01/28/20 23 11:47 AM EDT documented as of this encounter Care Teams Lot Technician Relationship Specialty Start Date End Date Zoila Titus MD [address] [place] [address] PCP - General Family Medicine 06/28/22 Jerson Ramirez Psychiatrist 07/27/23 documented as of this encounter
--- OUTSIDE RECORDS SUMMARY | 2024-07-08 08:52 | XMS_ITS | Encounter Summary ---
Author Organization [employer] Address [address] [facility] [address] [place] [address] Care Team Providers Care Offal Baler Name Role Phone Zoila Titus MD Primary Care Provider [phone] Reason for Visit * Reason Onset Date Comments Medication Question 12/04/2023 Encounter Details Date Type Department Care Team ([facility] Contact Info) Description 12/04/2023 Telephone [facility] MEDICINE [address] [place] [address] Zoila Titus MD [address] [place] [address] Medication Question Social History Tobacco Use Types [...] - 12/04/2023 11:36 AM EDT [facility] questions she has for Semaglutide-Weight Management (Wegovy) 0.25 MG/0.5ML solution auto-injector. Please contact Sonia at [phone]. documented in this encounter Plan of Treatment Upcoming Encounters Date Type Department Care Team (Late st Contact Info) Description 11/06/2024 10:00 AM EDT Office Visit [facility] ADULT DENTAL [address] [place] [address] Rere Zarco documented as of this encounter Visit Diagnoses Not on filedocumented in this encounter Additional Health Concerns Assessment Noted Time PHQ-9 Depression Total Score: 6 01/28/20 23 11:47 AM EDT documented as of this encounter Care Teams Offal Baler Relationship Specialty Start Date End Date Zoila Titus MD [address] [place] [address] PCP - General Family Medicine 06/28/22 Jerson Ramirez Psychiatrist 07/27/23 documented as of this encounter
--- OUTSIDE RECORDS SUMMARY | 2024-07-08 08:52 | XMS_ITS | Encounter Summary ---
Author Organization [employer] Address [address] [facility] [address] [place] [address] Care Team Providers Care Tank Refinisher Name Role Phone Zoila Titus MD Primary Care Provider [phone] Encounter Details Date Type Department Care Team (Late st Contact Info) Description 06/26/2024 Telephone [facility] MED[facility]INE [address] [place], [place] [phone] Janina Prasad, RN [address] [place] [address] Social History Tobacco Use Types Packs/Day Years [...] 4:44 PM EST T/C to pt VIA [employer] Order Takers Supervisor #[id number]. Advised of message from covering provider re: [...] Description 11/06/2024 10:00 AM EDT Office Visit [facility] ADULT DENTAL [address] [place] [address] Rere Zarco documented as of this encounter Visit Diagnoses Not on filedocumented in this encounter Additional Health Concerns Assessment Noted Time PHQ-9 Depression Total Score: 6 01/28/20 23 11:47 AM EDT documented as of this encounter Care Teams Tank Refinisher Relationship Specialty Start Date End Date Zoila Titus MD [address] [place] [address] PCP - General Family Medicine 06/28/22 Jerson Ramirez Psychiatrist 07/27/23 documented as of this encounter
--- OUTSIDE RECORDS SUMMARY | 2024-07-08 08:52 | XMS_ITS | Encounter Summary ---
Author Organization [employer] Address 75 [facility] 7t [place] [address] Care Team Providers Care Robotics Mechanic Name Role Phone Zoila Titus MD Primary Care Provider [phone] Reason for Visit * Reason Comments Med Refill Encounter Details Date Type Department Care Team ([facility] st Contact Info) Description 05/31/2023 Refill [facility] CHC MED & PEDS [address] [place], [place] [phone] Zoila Titus MD [address] [place] [address] Social History Tobacco Use Types Packs/Day Years [...] 11/06/2024 10:00 AM EDT Office Visit [facility] ADULT D[facility] [address] [place] [address] Rere Zarco documented as of this encounter Visit Diagnoses Not on filedocumented in this encounter Additional Health Concerns Assessment Noted Time PHQ-9 Depression Total Score: 6 01/28/20 23 11:47 AM EDT documented as of this encounter Care Teams Robotics Mechanic Relationship Specialty Start Date End Date Zoila Titus MD [address] [place] [address] PCP - General Family Medicine 06/28/22 Jerson Shkula-Bright Psychiatrist 07/27/23 documented as of this encounter
--- OUTSIDE RECORDS SUMMARY | 2024-07-08 08:52 | XMS_ITS | Clinical Summary ---
Author Organization [employer] Address [address] [facility] 7t [place] [address] Care Team Providers Care Cell Room Supervisor Name Role Phone Zoila Titus MD Primary Care Provider [phone] Allergies Active Allergy Reactions Criticality Noted Date Comments Latex Itching Low 06/09/2022 Medications ARIPiprazole (Abilify) 2 MG tablet 06/06/19 23 Active clonazePAM (KlonoPIN) 1 MG tablet 06/08/19 23 Active EuRso-WmPzuw-XH-B Cmp-C-Biot (Folivane-Plus) capsule Take 1 capsule by [...] recommended reduction of 20-30% of maintenance calories; program support specialist referral offered. Recommended to decrease soda and [...] Medications Beta Carotene (Vitamin A) 3 MG (81850 UT) Capsule Semaglutide-Weight Management (Wegovy) 0.25 MG [...] Ordered XR ankle and sent referral to crate opener for left heel pain worse with stepping, [...] EDT): New onset, does have some decrease organ pipe finisher strength unknown if chronic. Right hand dominant. [...] & Plan (06/09/2022 4:55 PM EST): Requested product development specialist referral Vitamin D insufficiency 06/09/2022 Assessment [...] Type Department Care Team Description 06/26/2024 Telephone [facility] [address] [place] [phone] Janina Prasad, ANNALISA 06/20/2024 Orders Only [facility] [address] [place] [address] Domenica Vazquez MD 06/11/2024 9:45 AM EST Office Visit [facility] [address] [place] [phone] Stephenie Cristina MD Chronic pain of both knees (Primary Dx); Stress 06/11/2024 Travel 06/04/2024 10:00 AM EST Office Visit [facility] [address] [place], [place] [phone] Stephenie Cristina MD Chronic pain of both knees (Primary Dx); Stress 06/04/2024 Travel 05/27/2024 Refill [facility] MED & PEDS [address] [place] [address] Zoila Titus MD 05/08/2024 Telephone [facility] MED & PEDS [address] [place] [address] Zoila Titus MD Results 05/03/2024 9:00 AM EST Office Visit [facility] ADULT DENTAL [address] [place], [place] [phone] Rere Zarco Periodontal disease (Primary Dx) 05/01/2024 Orders Only [facility] MED & PEDS [address] [place] [address] Zoila Titus MD 04/15/2024 Travel from Last [...] 10:00 AM EDT Office Visit [facility] ADULT DENTAL [address] [place] [address] Rere Zarco Health Maintenance Due Date Last [...] EST Narrative 05/07/2024 1:33 PM EST ? [facility] ? [address] ?[place] [address] ? Mammography Report ? Signed ? Patient: Shandra Boyd ?MR#: [id number] ?? [id number] ? : 1975 ?Acct:[id number] ? Age/Sex: 48 / F ?ADM Date: 12/11/24 ? Loc: HO.MAMMO ? Attending Dr: Zoila Titus MD ? Ordering Physician: Zoila Titus MD ?Results: 2Beni ?? gn Findings ? Date of Service: 05/01/24 ?Follow Up: 1 Year From Orig ?? inal Mammogram ? Procedure(s): MM tomosynthesis screen imp BI ?? Accession Number(s): [id number] ? cc: Zoila Titus MD ? EXAMINATION: [...] DD/ 1131 ? TD/TT: 05/01/24 1158 ? Shop Router: ? Procedure Note Donotuseinterpreter, Image - 05/07/2024 [facility] [address] [place] [address] Mammography Report Signed Patient: Shandra BoydMR#: [id number] : 1975Acct:[id number] Age/Sex: 48 / FADM Date: 05/01/24 Loc: HO.MAMMO Attending Dr: Zoila Titus MD Ordering Physician: Zoila Titus MDResults: 2Beni gn Findings Date of Service: 05/01/24Follow Up: 1 Year From Orig inal Mammogram Procedure(s): MM tomosynthesis screen imp BI Accession Number(s): [id number] cc: Zoila Titus MD EXAMINATION: MM SCREENING [...] 05/07/24 1330 DD/ 1131 TD/TT: 05/01/24 1158 Shop Router: Zoila Titus MD IMG BI PROCEDURES Final Resul t * Vitamin D, 25-Hydroxy, Total, Immunoassay (05/01/2024 9:43 AM EST) Vitamin D 25-OH Total 60.7 >30 ng/mL [facility] Comment:Health Based Referen ce Values*< 20 ng/mL Ebtyjvgna70-89 ng/mL Insufficient> 30 ng/mL Sufficient*Patricia ORTIZ. N [...] MD LAB BLOOD ORDERABLES Final Re sult [facility] [address] [place] [phone] * (ABNORMAL) TSH with Reflex to Free T4 (05/01/2024 9:43 AM EST) TSH reflex Free T4 0.04(L) 0.32 - 4.0 uIU/mL [facility] 05/01/2024 9:43 AM EST 05/01/2024 9:43 AM EST us Zoila Titus MD LAB BLOOD ORDERABLES Final Re sult [facility] [address] [place] [phone] [phone] * (ABNORMAL) CBC auto differential (05/01/2024 9:43 AM EST) White Blood Count 7.3 4.8 - 10.8 X10*3/uL [facility] Red Blood Count 4.70 4.20 - 5.50 X10*6/uL [facility] Hemoglobin 13.4 12.0 - 16.0 g/dl [facility] Hematocrit 39.5 37.0 - 47.0 % [facility] Mean Corpuscular Volume 84.0 80.0 - 98.0 fL [facility] Mean Corpuscular Hemoglobin 28.5 27.0 - 33.0 pg [facility] Mean Corpuscular HGB Conc 33.9 31.0 - 35.0 g/dl [facility] Red Cell Distribution Width 14.5 11.0 - 16.0 % [facility] Platelet Count 130(L) 160 - 400 X10*3/uL [facility] Mean Platelet Volume 12.0 9.4 - 12.3 fL [facility] Neutrophils Percent Auto 73.2(H) 45 - 73 % [facility] Imm Gran Pct Auto 0.4 0.0 - 0.4 % [facility] Lymphocytes Percent Auto 19.1(L) 20 - 40 % [facility] Monocytes Percent Auto 6.0 2 - 11 % [facility] Eosinophils Percent Auto 0.8 0 - 4 % [facility] Basophils Percent Auto 0.5 0 - 2 % [facility] NRBC Pct Auto 0.0 0.0 - 0.2 /100WBC [facility] Neutrophils Absolute Auto 5.3 2.0 - 8.3 x10*3/uL [facility] Imm Gran Abs Auto 0.03 0.00 - 0.03 X10*3/uL [facility] Lymphocytes Absolute Auto 1.4 1.2 - 4.9 X10*3/uL [facility] Monocytes Absolute Auto 0.4 0.1 - 1.2 X10*3/uL [facility] Eosinophils Absolute Auto 0.1 0.0 - 0.4 X10*3/uL [facility] Basophils Absolute Auto 0.0 0.0 - 0.2 X10*3/uL [facility] NRBC Abs Auto 0.000 0.0 - 0.012 X10*3/uL [facility] 05/01/2024 9:43 AM EST 05/01/2024 9:43 AM EST us Zoila Titus MD LAB BLOOD ORDERABLES Final Re sult Performing Organization Address [facility] Co la Phone Number [facility] [address] [place] [phone] * T4, Free (05/01/2024 9:43 AM EST) Free T4 (Free Thyroxine) 1.04 0.71 - 1.85 ng/dL [facility] 05/01/2024 9:43 AM EST 05/01/2024 9:43 AM EST us Zoila Titus MD LAB BLOOD ORDERABLES Final Re sult Performing Organization Address City/[facility] Co la Phone Number [facility] [address] [place] [phone] * (ABNORMAL) Lipid Panel, Standard (05/01/2024 9:43 AM EST) Triglycerides 81 <150 mg/dL [facility] Comment:Desirable Triglyceri de: less than 150 mg/dLBorderline High Triglyceride 150-199 mg/dLHigh Triglyceride: 200-499 mg/dLVery High Triglyceride: greater than or equal to 5OO mg/dL Cholesterol 169 <200 mg/dL [facility] Comment:Desirable Cholestero l: less than 200 mg/dLBorderline High Cholesterol: 200-239 mg/dLHigh Cholesterol: greater than 239 mg/dL LDL Cholesterol Calculated 109(H) <100 mg/dL [facility] Comment:Desirable LDL: less than 100 mg/dLNear Optimal/Above Optimal LDL: 110- 129 mg/dLBorderline High LDL: 130-159 mg/dLHigh LDL: 160-189 mg/dLVery High LDL: greater than or equal to 190 mg/dL HDL Cholesterol 44 >40 mg/dL [facility] Comment:Desirable HDL: great er than 40 mg/dL Note: This HDL assay may give artificially low results in patients with liver disease. Blood Venous blood specimen / Unknown 05/01/2024 9:43 AM EST 05/01/2024 9:43 AM EST us Zoila Titus MD LAB BLOOD ORDERABLES Final Re sult [facility] [address] [place] [phone] * (ABNORMAL) Comprehensive Metabolic Panel (05/01/2024 9:43 AM EST) Sodium 143 135 - 145 mmol/L [facility] Potassium 4.0 3.3 - 5.1 mmol/L [facility] Chloride 111(H) 96 - 108 mmol/L [facility] Carbon Dioxide 26 22 - 29 mmol/L [facility] Anion Gap 10(L) 12 - 20 [facility] Urea Nitrogen (BUN) 13 9 - 16 mg/dL [facility] Creatinine, Serum 0.71 0.5 - 1.4 mg/dL [facility] Estimated Glomerular Filt Rate >60 [facility] Comment:Chronic Kidney Disea se: Estimated GFR < 60 mL/min/1.04l5Sctgap Kidney Disease: Estimated GFR < 15 mL/min/1.73m2 Glucose 83 60 - 115 mg/dL [facility] Calcium 10.0 8.4 - 10.2 mg/dL [facility] Bilirubin, Total 0.4 0.0 - 1.0 mg/dL [facility] Aspartate Amino Transferase 17 5 - 31 U/L [facility] Alanine Aminotransferase 18 0 - 31 U/L [facility] Total Protein 7.1 6.5 - 8.0 g/dL [facility] Albumin Level 4.1 3.5 - 5.0 g/dL [facility] Alkaline Phosphatase 100 39 - 117 U/L [facility] Blood Venous blood specimen / Unknown 05/01/2024 9:43 AM EST 05/01/2024 9:43 AM EST us Zoila Titus MD LAB BLOOD ORDERABLES Final Re sult [facility] [address] [place] [address] [phone] * Cologuard?? colon cancer screening (08/29/2023 6:10 AM EDT) Cologuard Result Negative Negative 09/03/19 24 5:36 PM EDT [facility] (CLIA #:[id number]) Comment: NEGATIVE TEST RESULT. A negative Cologuard [...] cancer. ??Following a negative Cologuard result, the [place] [employer] Society and U.S. Multi-Society Task Force screening guidelines recommend a Cologuard re-screening interval of 3 years. References: [place] [employer] Guideline for Colorectal Cancer Screening: https://www.cancer.org/cancer/ocony-nhyfsi-impmfj/uiqwxqahc-mihlfqsms-oeucibh/ac s-rec ommendations.html.; Alejandro DK, Pantera CR, Norma CamarilloK, Colorectal Cancer Screening: Recommendations for Physicians and Patients from the U.S. Multi-Society Task Force on Colorectal Cancer Screening , Am J Gastroenterology 2017; 112:1913-8589. TEST DESCRIPTION: Composite algorithmic analysis of stool [...] (Charly Bryant al, N Engl J Med 2014;370(14):6647-0076.) Cologuard may produce a false negative or false positive result (no colorectal cancer or precancerous polyp present at colonoscopy follow up). A negative Cologuard test result does not guarantee the absence of CRC or advanced adenoma (pre-cancer). The current Cologuard screening interval is every 3 years. ([place] [employer] and U.S. Multi-Society Task Force). Cologuard performance data in a 10,000 patient pivotal study using colonoscopy as the reference method can be accessed at the following location: www.[employer].com/results. Additional description of the Cologuard test process, warnings and precautions can be found at www.[employer]ld[employer] Servicesrd.OUYA. Stool specimen (specimen) 08/29/2023 6:10 AM EDT 08/30/2023 2:36 PM EDT us Zoila Titus MD LAB MOLECULAR DIAGNOSTICS ORD ERABLES Final Result Performing Organization Address City/[facility]/ZIP Co de Phone Number [facility] (CLIA #:[id number]) [place] [address], * Hepatitis C Ab (01/31/2023 10:48 AM EDT) Pathologist [facility] Hepatitis C Antibody Nonreactive Nonreactive [facility] Comment:Antibodies to HCV no t detected; does not exclude early acuteHCV infection. Blood 01/31/2023 10:4 8 AM EDT 01/31/2023 2:30 PM EDT Zoila Titus MD LAB BLOOD ORDERABLES Final Re sult Performing Organization Address [facility] Co de Phone Number [facility] [address] [place] [phone] * HIV Ab/Ag ([facility]) (01/31/2023 10:48 AM EDT) Pathologist [facility] HIV AB/AG Nonreactive Nonreactive [facility] Comment:HIV-1 p24 Ag and/or HIV-1/HIV-2 Ab not detected.A test result that is nonreactive does not exclude thepossibility of exposure to or infection with HIV-1 and/orHIV-2. Nonreactive results in this assay for individualswith prior exposure to HIV-1 and/or HIV-2 may be due toantigen and antibody levels that are below the limit ofdetection of this assay.The [employer] HIV Ag/Ab Combo assay result andsupplemental assay results should be interpreted inconjunction with the patient's clinical presentation,history and other laboratory results. If the results areinconsistent with clinical evidence, additional testing issuggested to confirm the result. 01/31/2023 10:4 8 AM EDT 01/31/2023 2:30 PM EDT Zoila Titus MD LAB BLOOD ORDERABLES Final Re sult Performing Organization Address [facility]/ZIP Co de Phone Number [facility] [address] [place] [phone] [phone] * Pap Smear (09/13/2021 12:00 AM EDT) Swab Historical Provider LAB CYTOLOGY ORDERABLES F inal Result Performing Organization Address [facility] Co de Phone Number [facility] [address] [place] [phone] from Last 3 Months or Most Recently Relevant to Health Maintenance Insurance MEDICARE [facility] STAND ADULT Care Teams Cell Room Supervisor Relationship Specialty Start Date End Date Zoila Titus MD [address] [place] [phone] PCP - General Family Medicine 06/28/22 Jerson Ramirez Psychiatrist 07/27/23
--- OUTSIDE RECORDS SUMMARY | 2024-07-08 08:52 | XMS_ITS | Encounter Summary ---
Author Organization [employer] Address [address] [facility] 7t [place] [address] Care Team Providers Care Cathode Builder Name Role Phone Zoila Titus MD Primary Care Provider [phone] Reason for Visit * Reason Comments Med Refill Encounter Details Date Type Department Care Team ([facility] st Contact Info) Description 06/15/2023 Refill [facility] MED & PEDS [address] [place], [place] [phone] Zoila Titus MD [address] [place] [address] Social History Tobacco Use Types Packs/Day Years [...] [facility] [address] [place] [address] Rere Zarco documented as of this encounter Visit Diagnoses Not on filedocumented in this encounter Additional Health Concerns Assessment Noted Time PHQ-9 Depression Total Score: 6 01/28/20 23 11:47 AM EDT documented as of this encounter Care Teams Cathode Builder Relationship Specialty Start Date End Date Zoila Titus MD [address] [place] [phone] PCP - General Family Medicine 06/28/22 Jerson Ramirez Psychiatrist 07/27/23 documented as of this encounter
--- OUTSIDE RECORDS SUMMARY | 2024-07-08 08:52 | XMS_ITS | Clinical Summary ---
Author Organization [address] [facility] Address [address] [place] [address] Phone Care Team Providers Care Marketing Copywriter Name Role Phone Zoila Titus MD Primary Care Provider [phone] Allergies No known active allergies Medications venlafaxine [...] 10:30 AM EST Office Visit Orthopedic Surgery [facility] [address] [address] Moe Blair, ALEIDA Neuritis of foot, left (Primary Dx); Tendinitis of left ankle; Xerosis of skin 05/24/2024 Telephone Orthopedic [facility] [address] [phone] Moe Blair DPM 05/20/2024 10:30 AM EST Office Visit Orthopedic [facility] [address] [phone] Moe Blair, ALEIDA Tendinitis of left ankle [...] 10:30 AM EST Office Visit Orthopedic Surgery [place] [address] [phone] Moe Blair, DPM [address] [facility] [address] [place] [address] Health Maintenance Due Date Last Done Comments [...] Insurance MEDICARE MEDICAID - [place] Care Teams Marketing Copywriter Relationship Specialty Start Date End Date Zoila Titus MD [address] [place] [phone] PCP - General 08/03/23
--- OUTSIDE RECORDS SUMMARY | 2024-07-08 08:52 | XMS_ITS | Encounter Summary ---
Author Organization [employer] Address [address] [facility] 7t [place] [address] Care Team Providers Care Automotive Parts Interpreter Name Role Phone Zoila Titus MD Primary Care Provider [phone] Reason for Visit * Reason Onset Date Comments Med Refill 06/15/2023 Encounter Details Date Type Department Care Team ([facility] st Contact Info) Description 06/15/2023 Refill [facility] MED & PEDS [address] [place] [address] Zoila Titus MD [address] [place] [address] Social History Tobacco Use Types Packs/Day Years [...] Description 11/06/2024 10:00 AM EDT Office Visit [facility] ADULT DENTAL [address] [place] [address] Rere Zarco documented as of this encounter Visit Diagnoses Not on filedocumented in this encounter Additional Health Concerns Assessment Noted Time PHQ-9 Depression Total Score: 6 01/28/20 23 11:47 AM EDT documented as of this encounter Care Teams Automotive Parts Interpreter Relationship Specialty Start Date End Date Zoila Titus MD [address] [place] [address] PCP - General Family Medicine 06/28/22 Jerson Ramirez Psychiatrist 07/27/23 documented as of this encounter
--- OUTSIDE RECORDS SUMMARY | 2024-07-08 08:53 | XMS_ITS | Encounter Summary ---
Author Organization [employer] [facility] Address [address] [place] [address] Care Team Providers Care Personnel Specialist Name Role Phone Zoila Titus MD Primary Care Provider [phone] Reason for Referral * Consultation (Routine) - Authorized Specialty Diagnoses / Procedures Referred By Contmayra t Referred To Contact Physical Therapy Diagnoses Tendinitis of left ankle Moe Blair DPM [address] [address] Phone: tel: fax: Referral ID Status Reason Start Date Expiration Date Visits Requested Visits Authorized [id number] Authorized Specialty Services Required 06/20/2024 06/20/2025 1 1 Reason for Visit * Reason Comments Follow-up Left heel pain Encounter Details Date Type Department Care Team (Late st Contact Info) Description 06/20/2024 10:30 AM EST Office Visit Orthopedic Surgery - [place] [address] [address] Moe Blair DPM [address] [place] [address] Neuritis of foot, left (Primary Dx); Tendinitis [...] AM EST Office Visit Orthopedic Surgery - [place] [address] [phone] Moe Blair DPM [address] [address] Scheduled Referrals Name Type Priority Associated Diagnoses [...] documented as of this encounter Care Teams Personnel Specialist Relationship Specialty Start Date End Date Zoila Titus MD [address] [place] [address] PCP - General 08/03/23 documented as of this encounter
--- OUTSIDE RECORDS SUMMARY | 2024-07-08 08:53 | XMS_ITS | Encounter Summary ---
Author Organization [employer] Address [address] [facility] 7t [place] [address] Care Team Providers Care Professional Engineer Name Role Phone Zoila Titus MD Primary Care Provider [phone] Encounter Details Date Type Department Care Team (Late st Contact Info) Description 06/20/2024 Orders Only [facility] [address] [place] [address] ProviderDomenica MD Social History Tobacco Use Types [...] Description 11/06/2024 10:00 AM EDT Office Visit [facility] ADULT D[facility]AL [address] [place] [address] Rere Zarco documented as of this encounter [...] documented as of this encounter Care Teams Professional Engineer Relationship Specialty Start Date End Date Zoila Titus MD [address] [place] [address] PCP - General Family Medicine 06/28/22 Jerson Shukla-Bright Psychiatrist 07/27/23 documented as of this encounter
--- OUTSIDE RECORDS SUMMARY | 2024-07-08 08:53 | XMS_ITS | Encounter Summary ---
Author Organization [employer] Address [address] [facility] 7t [place] [address] Care Team Providers Care Clinical Rn Name Role Phone Zoila Titus MD Primary Care Provider [phone] Reason for Visit * Reason Comments Med Refill Encounter Details Date Type Department Care Team ([facility] st Contact Info) Description 01/08/2024 Refill [facility] CH[facility] MED & PEDS [address] [place], [place] [phone] Zoila Titus MD [address] [place] [address] Social History Tobacco Use Types Packs/Day Years [...] Description 11/06/2024 10:00 AM EDT Office Visit [facility] ADULT DENTAL [address] [place] [address] Rere Zarco documented as of this encounter Visit Diagnoses Not on filedocumented in this encounter Additional Health Concerns Assessment Noted Time PHQ-9 Depression Total Score: 6 01/28/20 23 11:47 AM EDT documented as of this encounter Care Teams Clinical Rn Relationship Specialty Start Date End Date Zoila Titus MD [address] [place] [address] PCP - General Family Medicine 06/28/22 Jerson Ramirez Psychiatrist 07/27/23 documented as of this encounter
--- OUTSIDE RECORDS SUMMARY | 2024-07-08 08:53 | XMS_ITS | Encounter Summary ---
Author Organization [employer] Address [address] [place] [address] Care Team Providers Care Machinist Name Role Phone Zoila Titus MD Primary Care Provider Encounter Details Date Type Department Care Team [...] Description 11/06/2024 10:00 AM EDT Office Visit [facility] ADULT DENTAL [address] [place] [address] Rere Zarco documented as of this encounter Visit Diagnoses Not on filedocumented in this encounter Additional Health Concerns Assessment Noted Time PHQ-9 Depression Total Score: 6 01/28/20 23 11:47 AM EDT documented as of this encounter Care Teams Machinist Relationship Specialty Start Date End Date Zoila Titus MD [address] [place] [address] PCP - General Family Medicine 06/28/22 Jerson Ramirez Psychiatrist 07/27/23 documented as of this encounter
== END 2024-07-05 08:50 | disposition home or self-care (01) ==
LOC: HO.HOSX 08:49
PROVIDERS: Visit Provider Physician Assistant
DX: M25.562 Pain in left knee (principal); M17.12 Unilateral primary osteoarthritis, left knee
CPT/HCPCS: 20610; 73562; 99212; J1010; J2003

== ENCOUNTER 2024-07-05 09:11 | Outpatient (AMB) | payer MEDICARE, MEDICAID, SELFPAY ==
--- NOTE | 2024-07-05 09:20 | A.OFFVIS_ITS ---
Intake Visit Reasons: OV - Left knee OA, last inj 11/03/23 Intake Note: Shandra is a 48 year old female who presents today for a follow up appointment of her left knee OA, last injection 11/03/23. Patient states that her last injection gave her relief and she would like to repeat. Allergies Latex, Natural Rubber Allergy (Severe, Verified 07/05/24 09:29) Hives HPI HPI OV - Left knee OA, last inj 11/03/23: Details: Ms. Sang Sharp is a 48-year-old female who presents to the office today for left knee repeat cortisone injection. Last cortisone injection was 11/03/2023. Patient reports that she had relief up until recently. She would like to repeat injection today. [facility] Medical History BMI 37.0-37.9, adult Pre-op evaluation Arthritis Thyroid nodule Elevated cholesterol Sleep apnea Anxiety GERD (gastroesophageal reflux disease) Surgical History Hx of laparoscopic partial gastrectomy History of abdominoplasty Hx of breast implant Hx of hysterectomy Hx of thyroidectomy Hx of knee surgery Family History Mother Psychiatric diagnosis Hypertension Father Diabetes Sister Hypothyroid Vitamin D deficiency Vitamin B12 deficiency Social History (Updated 07/05/24 @ 09:30 by Jeromy Shukla) Household Members: Spouse Housing: House Are you a primary chronic care nurse to a significant other at home: No Do you presently have visiting nurse or other home services: No Alcohol intake: current Alcohol intake frequency: a few times a month Patient Tobacco Use Status: Never used Tobacco service: No Current occupational status: unemployed Review of Systems Const All systems reviewed & are unremarkable except as noted in HPI and below Physical Exam Const General: cooperative, healthy appearing and no acute distress Orientation/consciousness: patient oriented x3 Resp Effort & Inspection: normal respiratory effort and able to speak in complete sentences Cardio Rate: regular rate Peripheral pulses: Peripheral pulses 2+ throughout Skin General skin exam: no rashes or lesions noted Lesions: no lesions Rashes: no rashes Neuro General: patient oriented x3 Extrem Other: Left knee: Normal to inspection. No ecchymosis, erythema, or joint effusion. No tenderness to palpation along the medial or lateral joint lines. Full knee extension and flexion. Crepitus felt with ROM. NVI. Office Procedures AMB Joint Injection/Aspiration Joint Injection/Aspiration Primary Site: left knee Prep: site was prepped using aseptic technique, ethochloride spray was applied and injection warnings given Injected: 80 mg of, DepoMedrol, with 8 mL of (2% plain lido ) and in the joint Approach Used: anterolateral Procedure: The patient tolerated the procedure well, but had some pain with the injection and there was some relief with the local anesthesia Coding - Large joint Procedure code (CPT) selection complete Assessment & Plan Assessment & Plan (1) Patellofemoral arthritis of left knee: Code(s): M17.12 - Unilateral primary osteoarthritis, left knee Category: Medical Plan Ms. Sang Sharp is a 48-year-old female who presents to the office today for left knee repeat cortisone injection. Last cortisone injection was 11/03/2023. Patient reports that she had relief up until recently. The patient was offered a cortisone injection in the left knee with 80 mg of DepoMedrol. The patient was explained the risks, benefits, and alternatives to receiving this injection. After receiving consent for the injection, the patient had the procedure done while in the office today. The patient tolerated the procedure well with no complications. Follow-up will be p.r.n., or sooner if needed Orders: Orders XR knee RT 1V Today M25.569 - Pain in unspecified knee XR knee LT 3V Today M25.569 - Pain in unspecified knee Coding Level of Care Code Est Pt Level 3 (51173) Diagnoses Patellofemoral arthritis of left knee M17.12 CPT Codes Coding - Large joint: 05973 - Large joint ([id number])
--- OUTSIDE RECORDS SUMMARY | 2024-07-05 09:37 | XMS_ITS | Encounter Summary ---
Author Organization [employer] [facility] Address [address] [address] [facility] [address] [place] [address] Care Team Providers Care Health Informatics Specialist Name Role Phone Zoila Titus MD Primary Care Provider [phone] Encounter Details Date Type Department Care Team (Late st Contact Info) Description 06/26/2024 Telephone [facility] MEDICINE [address] [place], [place] [phone] Janina Prasad, RN [address] [place] [address] Social History Tobacco Use Types Packs/Day Years [...] encounter Miscellaneous Notes * Telephone Encounter - Janina Prasad RN - 06/26/2024 4:44 PM EST T/C to pt [facility]IA [employer] [facility] [employer] [facility] #[id number]. Advised of message from covering provider re: x ray results. Pt verbalized understanding. * Telephone Encounter - Janina Prasad RN - 06/26/2024 4:36 PM EST ----- Message from Marilyn Hernandez MD sent at 06/25/2024 3:36 PM EST ----- Please let patient know her L foot xray results showed normal joint spaces, no foreign body, no fracture. Dr. Hernandez covering for Dr. Titus documented in this encounter Plan of Treatment Upcoming Encounters Date Type Department Care Team (Late st Contact Info) Description 11/06/2024 10:00 AM EDT Office Visit [facility] ADULT DENTAL [address] [place] [address] Rere Zarco documented as of this encounter Visit Diagnoses Not on filedocumented in this encounter Additional Health Concerns Assessment Noted Time PHQ-9 Depression Total Score: 6 01/28/20 23 11:47 AM EDT documented as of this encounter Care Teams Health Informatics Specialist Relationship Specialty Start Date End Date Zoila Titus MD [address] [place] [phone] PCP - General Family Medicine 06/28/22 Jerson Ramirez Psychiatrist 07/27/23 documented as of this encounter
--- OUTSIDE RECORDS SUMMARY | 2024-07-05 09:37 | XMS_ITS | Encounter Summary ---
Author Organization [employer] Address [address] [facility] [address] [place] [address] Care Team Providers Care Real Estate Broker Name Role Phone Zoila Titus MD Primary Care Provider [phone] Reason for Visit * Reason Comments Med Refill Encounter Details Date Type Department Care Team ([facility] st Contact Info) Description 06/15/2023 Refill [facility] CH[facility] MED & PEDS [address] [place], [place] [phone] Zoila Titus MD [address] [place] [address] Social History Tobacco Use Types Packs/Day Years [...] 10:00 AM EDT Office Visit [facility] ADULT D[facility] [address] [place] [address] Rere Zarco documented as of this encounter Visit Diagnoses Not on filedocumented in this encounter Additional Health Concerns Assessment Noted Time PHQ-9 Depression Total Score: 6 01/28/20 23 11:47 AM EDT documented as of this encounter Care Teams Real Estate Broker Relationship Specialty Start Date End Date Zoila Titus MD [address] [place] [address] PCP - General Family Medicine 06/28/22 Jerson Ramirez Psychiatrist 07/27/23 documented as of this encounter
--- OUTSIDE RECORDS SUMMARY | 2024-07-05 09:37 | XMS_ITS | Clinical Summary ---
Author Organization [employer] Address [address] [facility] 7t [place] [address] Care Team Providers Care Manager Pmo Name Role Phone Zoila Titus MD Primary Care Provider [phone] Allergies Active Allergy Reactions Criticality Noted Date Comments Latex Itching Low 06/09/2022 Medications ARIPiprazole (Abilify) 2 MG tablet 06/06/19 23 Active clonazePAM (KlonoPIN) 1 MG tablet 06/08/19 23 Active PjQyc-UlUmvq-MH-B Cmp-C-Biot (Folivane-Plus) capsule Take 1 capsule by mouth in the morning. 05/12/20 22 Active venlafaxine XR (Effexor XR) 37.5 MG 24 hr capsule 09/29/19 23 Active lidocaine (Lidoderm) 5 % patch Apply 1 patch topically in the morning. Remove & discard patch within 12 hours or as directed by . 30 patch 11 07/27/19 24 Active Additional Information Patient not taking.Reported on 05/03/2024 clotrimazole (Lotrimin) 1 % cream 10/30/19 24 Active senna (Senokot) 8.6 MG tablet Take 2 tablets (17.2 mg) by mouth if needed at bedtime for constipation. 120 tablet 2 11/13/19 24 Active Additional Information Patient not taking.Reported on 05/03/2024 pantoprazole (ProtoNix) 40 MG EC tablet 01/08/20 24 Active polyethylene glycol, PEG, 3350 (Glycolax) 17 GM/SCOOP powder 01/08/20 24 Active sucralfate (Carafate) 1 GM/10ML suspension 01/19/20 24 Active rosuvastatin (Crestor) 10 MG tabletIndications: Mixed hyperlipidemia TAKE 1 TABLET BY MOUTH EVERY MORNING 30 tablet 5 02/20/20 Active Additional Information Patient not taking.Reported on 05/03/2024 Diclofenac Sodium 1 % gel APPLY 5 GRAMS TOPICALLY BEFORE BREAKFAST, BEFORE LUNCH, BEFORE EVENING MEAL, AND AT BEDTIME. 200 g 1 05/28/19 Active Active Problems Problem Noted Date Diagnosed Date Class 2 severe obesity with serious comorbidity and body mass index (BMI) of 35.0 to 35.9 in adult 11/13/2023 Assessment & Plan (11/14/2023 10:43 AM EDT): Discussed alternative treatments to aid with weight loss and side effects. Discussed calorie deficit, recommended reduction of 20-30% of maintenance calories; enterprise sales person referral offered. Recommended to decrease soda and [...] Medications Beta Carotene (Vitamin A) 3 MG (61238 UT) Capsule Semaglutide-Weight Management (Wegovy) 0.25 MG [...] Ordered XR ankle and sent referral to handling tech for left heel pain worse with stepping, [...] EDT): New onset, does have some decrease lean consultant strength unknown if chronic. Right hand dominant. Will send for imaging and OP. Consider hand surgery referral. Iron deficiency 06/09/2022 Assessment & Plan (06/09/2022 4:54 PM EST): Reviewed labs from [place], reports prior hx of AUB due to [...] PM EST): Patient reports various surgeries in [place] for both knees, reports difficulties with ambulation due to this, no use of assistance devices observed, she requested disability parking given her knee pain, printed out form from [employer] for her to bring with her information for medical records. Blurry vision, bilateral 06/09/2022 Assessment & Plan (06/09/2022 4:55 PM EST): Requested tooling specialist referral Vitamin D insufficiency 06/09/2022 Assessment & Plan (06/09/2022 4:55 PM EST): Present on labs drawn in [place], not on supplementation, will check and supplement if needed Hyperlipidemia 06/09/2022 Assessment & Plan (02/01/2024 2:53 PM EDT): Pt was advised to stop taking Crestor. Advised to have a lipid panel recheck in 3 months to r/o necessity to continue treatment. Assessment & Plan (06/09/2022 4:56 PM EST): Present on labs review from [place], will recheck labs and assess need for pharmacotherapy after results are available for review. Fatigue 06/09/2022 Assessment & Plan (06/09/2022 4:56 PM EST): Reports fatigue more often since moving from [place], following with psychiatry. Will check labs and f/up Anxiety 06/09/2022 Moderate episode of recurrent major depressive d isorder 06/09/2022 Assessment & Plan (07/27/2023 11:23 AM EST): Following with psychiatry. On abilify, clonazepam and effexor. History of parathyroid surgery 06/09/2022 Resolved Problems Problem Noted Date Diagnosed Date Resolved Date Iron deficiency anemia 06/09/202206/09 Encounters Date Type Department Care Team Description 06/26/2024 Telephone [facility] [address] [place] [phone] Janina Prasad, ANNALISA 06/20/2024 Orders Only [facility] [address] [place] [address] Domenica Vazquez MD 06/11/2024 9:45 AM EST Office Visit [facility] [address] [place] [phone] Stephenie Cristina MD Chronic pain of both knees (Primary Dx); Stress 06/11/2024 Travel 06/04/2024 10:00 AM EST Office Visit [facility] [address], [place] [phone] Stephenie Cristina MD Chronic pain of both knees (Primary Dx); Stress 06/04/2024 Travel 05/27/2024 Refill [facility] [address] [place] [address] Zoila Titus MD 05/08/2024 Telephone [facility] [address] [place] [address] Zoila Titus MD Results 05/03/2024 9:00 AM EST Office Visit [facility] [address] [place], [place] [phone] Rere Zarco Periodontal disease (Primary Dx) 05/01/2024 Orders Only [facility] [address] [place] [address] Zoila Titus MD 04/15/2024 Travel from Last [...] your housing situation today? I have arsenio mya 03/06/[address] you li [...] Description 11/06/2024 10:00 AM EDT Office Visit [facility] [address] [place] [address] Rere Zarco Health Maintenance Due Date Last Done Comments [...] Routine 05/03/2024 9:00 AM EST Periodontal disease CASE PRESENTATION, DETAILED AND EXTENSIVE TREATMENT PLANNING Routine 05/03/2024 [...] ([place] DPH) Routine 01/31/2023 10:48 AM EDT INTRAORAL - COMPLETE SERIES OF RADIOGRAPHIC IMAGES Routine 07/07/2022 11:00 AM EST PAP SMEAR Routine 09/13/2021 12:00 AM EDT from Last 3 Months or Most Recently Relevant to Health Maintenance Results * XR Foot 3+ Views Left (06/20/2024 1:39 PM EST) Anatomical Region Laterality Modality Lower Extremities, Foot Left Radiogra phic Imaging us Historical Provider IMG XR PROCEDURES Final R esult * BI Mammogram Screen w/ Fritz w/ Implants Roger (05/01/2024 11:31 AM EST) Anatomical Region Laterality Modality Mammography 05/01/2024 11:3 1 AM EST Narrative 05/07/2024 1:33 PM EST ? [facility] ? [address] ?[place] [address] ? Mammography Report ? Signed ? Patient: Shandra Boyd ?MR#: [id number] ?? [id number] ? : 1975 ?Acct:[id number] ? Age/Sex: 48 / F ?ADM Date: 12/11/24 ? Loc: HO.MAMMO ? Attending Dr: Zoila Titus MD ? Ordering Physician: Zoila Titus MD ?Results: 2Beni ?? gn Findings ? Date of Service: 05/01/24 ?Follow Up: 1 Year From Orig ?? inal Mammogram ? Procedure(s): MM tomosynthesis screen imp BI ?? Accession Number(s): [id number] ? cc: Zoila Titus MD ? EXAMINATION: [...] ??Kamla Christianson DO ??05/07/2024 01:30 PM EST ?? RP ? Dictated By: ?Kamla Christianson DO ? Signed By: ?<Electronically signed by Kamla Christianson, DO in OV> ? 05/07/24 1330 ? DD/ 1131 ? TD/TT: 05/01/24 1158 ? Cancer Genetic Counselor: ? Procedure Note Donotuseinterpreter, Image - 05/07/2024 [facility] [address] [place] [address] Mammography Report Signed Patient: Shandra BoydMR#: [id number] : 1975Acct:[id number] Age/Sex: 48 / FADM Date: 05/01/24 Loc: HO.MAMMO Attending Dr: Zoila Titus MD Ordering Physician: Zoila Titus MDResults: 2Beni gn Findings Date of Service: 05/01/24Follow Up: 1 Year From Orig inal Mammogram Procedure(s): MM tomosynthesis screen imp BI Accession Number(s): [id number] cc: Zoila Titus MD EXAMINATION: MM SCREENING [...] 05/07/24 1330 DD/ 1131 TD/TT: 05/01/24 1158 Cancer Genetic Counselor: Zoila Titus MD IMG BI PROCEDURES Final Resul t * Vitamin D, 25-Hydroxy, Total, Immunoassay (05/01/2024 9:43 AM EST) Vitamin D 25-OH Total 60.7 >30 ng/mL [facility] Comment:Health Based Referen ce Values*< 20 ng/mL Bizpydiui30-39 ng/mL Insufficient> 30 ng/mL Sufficient*Patricia ORTIZ. N [...] MD LAB BLOOD ORDERABLES Final Re sult [facility] [address] [place] [phone] * (ABNORMAL) TSH with Reflex to Free T4 (05/01/2024 9:43 AM EST) TSH reflex Free T4 0.04(L) 0.32 - 4.0 uIU/mL [facility] 05/01/2024 9:43 AM EST 05/01/2024 9:43 AM EST us Zoila Titus MD LAB BLOOD ORDERABLES Final Re sult [facility] [address] [place] [phone] * (ABNORMAL) CBC auto differential (05/01/2024 9:43 AM EST) White Blood Count 7.3 4.8 - 10.8 X10*3/uL [facility] Red Blood Count 4.70 4.20 - 5.50 X10*6/uL [facility] Hemoglobin 13.4 12.0 - 16.0 g/dl [facility] Hematocrit 39.5 37.0 - 47.0 % [facility] Mean Corpuscular Volume 84.0 80.0 - 98.0 fL [facility] Mean Corpuscular Hemoglobin 28.5 27.0 - 33.0 pg [facility] Mean Corpuscular HGB Conc 33.9 31.0 - 35.0 g/dl [facility] Red Cell Distribution Width 14.5 11.0 - 16.0 % [facility] Platelet Count 130(L) 160 - 400 X10*3/uL [facility] Mean Platelet Volume 12.0 9.4 - 12.3 fL [facility] Neutrophils Percent Auto 73.2(H) 45 - 73 % [facility] Imm Gran Pct Auto 0.4 0.0 - 0.4 % [facility] Lymphocytes Percent Auto 19.1(L) 20 - 40 % [facility] Monocytes Percent Auto 6.0 2 - 11 % [facility] Eosinophils Percent Auto 0.8 0 - 4 % [facility] Basophils Percent Auto 0.5 0 - 2 % [facility] NRBC Pct Auto 0.0 0.0 - 0.2 /100WBC [facility] Neutrophils Absolute Auto 5.3 2.0 - 8.3 x10*3/uL [facility] Imm Gran Abs Auto 0.03 0.00 - 0.03 X10*3/uL [facility] Lymphocytes Absolute Auto 1.4 1.2 - 4.9 X10*3/uL [facility] Monocytes Absolute Auto 0.4 0.1 - 1.2 X10*3/uL [facility] Eosinophils Absolute Auto 0.1 0.0 - 0.4 X10*3/uL [facility] Basophils Absolute Auto 0.0 0.0 - 0.2 X10*3/uL [facility] NRBC Abs Auto 0.000 0.0 - 0.012 X10*3/uL [facility] 05/01/2024 9:43 AM EST 05/01/2024 9:43 AM EST us Zoila Titus MD LAB BLOOD ORDERABLES Final Re sult Performing Organization Address [facility] Co hi Phone Number [facility] [address] [place] [phone] * T4, Free (05/01/2024 9:43 AM EST) Free T4 (Free Thyroxine) 1.04 0.71 - 1.85 ng/dL [facility] 05/01/2024 9:43 AM EST 05/01/2024 9:43 AM EST us Zoila Titus MD LAB BLOOD ORDERABLES Final Re sult Performing Organization Address City/[facility] Co hi Phone Number [facility] [address] [place] [phone] * (ABNORMAL) Lipid Panel, Standard (05/01/2024 9:43 AM EST) Triglycerides 81 <150 mg/dL [facility] Comment:Desirable Triglyceri de: less than 150 mg/dLBorderline High Triglyceride 150-199 mg/dLHigh Triglyceride: 200-499 mg/dLVery High Triglyceride: greater than or equal to 5OO mg/dL Cholesterol 169 <200 mg/dL [facility] Comment:Desirable Cholestero l: less than 200 mg/dLBorderline High Cholesterol: 200-239 mg/dLHigh Cholesterol: greater than 239 mg/dL LDL Cholesterol Calculated 109(H) <100 mg/dL [facility] Comment:Desirable LDL: less than 100 mg/dLNear Optimal/Above Optimal LDL: 110- 129 mg/dLBorderline High LDL: 130-159 mg/dLHigh LDL: 160-189 mg/dLVery High LDL: greater than or equal to 190 mg/dL HDL Cholesterol 44 >40 mg/dL [facility] Comment:Desirable HDL: great er than 40 mg/dL Note: This HDL assay may give artificially low results in patients with liver disease. Blood Venous blood specimen / Unknown 05/01/2024 9:43 AM EST 05/01/2024 9:43 AM EST us Zoila Titus MD LAB BLOOD ORDERABLES Final Re sult [facility] [address] [place] [phone] * (ABNORMAL) Comprehensive Metabolic Panel (05/01/2024 9:43 AM EST) Sodium 143 135 - 145 mmol/L [facility] Potassium 4.0 3.3 - 5.1 mmol/L [facility] Chloride 111(H) 96 - 108 mmol/L [facility] Carbon Dioxide 26 22 - 29 mmol/L [facility] Anion Gap 10(L) 12 - 20 [facility] Urea Nitrogen (BUN) 13 9 - 16 mg/dL [facility] Creatinine, Serum 0.71 0.5 - 1.4 mg/dL [facility] Estimated Glomerular Filt Rate >60 [facility] Comment:Chronic Kidney Disea se: Estimated GFR < 60 mL/min/1.11z4Ukgtky Kidney Disease: Estimated GFR < 15 mL/min/1.73m2 Glucose 83 60 - 115 mg/dL [facility] Calcium 10.0 8.4 - 10.2 mg/dL [facility] Bilirubin, Total 0.4 0.0 - 1.0 mg/dL [facility] Aspartate Amino Transferase 17 5 - 31 U/L [facility] Alanine Aminotransferase 18 0 - 31 U/L [facility] Total Protein 7.1 6.5 - 8.0 g/dL [facility] Albumin Level 4.1 3.5 - 5.0 g/dL [facility] Alkaline Phosphatase 100 39 - 117 U/L [facility] Blood Venous blood specimen / Unknown 05/01/2024 9:43 AM EST 05/01/2024 9:43 AM EST us Zoila Titus MD LAB BLOOD ORDERABLES Final Re sult [facility] [address] [place] [phone] * Cologuard?? colon cancer screening (08/29/2023 6:10 AM EDT) Cologuard Result Negative Negative 09/03/19 24 5:36 PM EDT [facility] (CLIA #:[id number]) Comment: NEGATIVE TEST RESULT. A negative Cologuard [...] cancer. ??Following a negative Cologuard result, the [place] [employer] Society and U.S. Multi-Society Task Force screening guidelines recommend a Cologuard re-screening interval of 3 years. References: [place] [employer] Guideline for Colorectal Cancer Screening: https://www.cancer.org/cancer/jwbzo-efaffd-tvfvao/pnioxhsac-ubqzttkcv-eukyfbm/ac s-rec ommendations.html.; Alejandro DK, Pantera CR, Norma CamarilloK, Colorectal Cancer Screening: Recommendations for Physicians and Patients from the U.S. Multi-Society Task Force on Colorectal Cancer Screening , Am J Gastroenterology 2017; 112:3811-8240. TEST DESCRIPTION: Composite algorithmic analysis of stool [...] (Charly Bryant al, N Engl J Med 2014;370(14):6040-6948.) Cologuard may produce a false negative or false positive result (no colorectal cancer or precancerous polyp present at colonoscopy follow up). A negative Cologuard test result does not guarantee the absence of CRC or advanced adenoma (pre-cancer). The current Cologuard screening interval is every 3 years. ([place] [employer] and U.S. Multi-Society Task Force). Cologuard performance data in a 10,000 patient pivotal study using colonoscopy as the reference method can be accessed at the following location: www.EduRise.com/results. Additional description of the Cologuard test process, warnings and precautions can be found at www.SmartAssetrd.PLAXD. Stool specimen (specimen) 08/29/2023 6:10 AM EDT 08/30/2023 2:36 PM EDT us Zoila Titus MD LAB MOLECULAR DIAGNOSTICS ORD ERABLES Final Result Performing Organization Address City/[facility]/ZIP Co de Phone Number [facility] (CLIA #:[id number]) [place] [address], * Hepatitis C Ab (01/31/2023 10:48 AM EDT) Pathologist [facility] Hepatitis C Antibody Nonreactive Nonreactive [facility] Comment:Antibodies to HCV no t detected; does not exclude early acuteHCV infection. Blood 01/31/2023 10:4 8 AM EDT 01/31/2023 2:30 PM EDT Zoila Titus MD LAB BLOOD ORDERABLES Final Re sult Performing Organization Address [facility] Co de Phone Number [facility] [address] [place] [phone] * HIV Ab/Ag ([facility]) (01/31/2023 10:48 AM EDT) Pathologist [facility] HIV AB/AG Nonreactive Nonreactive [facility] Comment:HIV-1 p24 Ag and/or HIV-1/HIV-2 Ab not detected.A test result that is nonreactive does not exclude thepossibility of exposure to or infection with HIV-1 and/orHIV-2. Nonreactive results in this assay for individualswith prior exposure to HIV-1 and/or HIV-2 may be due toantigen and antibody levels that are below the limit ofdetection of this assay.The [employer] HIV Ag/Ab Combo assay result andsupplemental assay results should be interpreted inconjunction with the patient's clinical presentation,history and other laboratory results. If the results areinconsistent with clinical evidence, additional testing issuggested to confirm the result. 01/31/2023 10:4 8 AM EDT 01/31/2023 2:30 PM EDT Zoila Titus MD LAB BLOOD ORDERABLES Final Re sult Performing Organization Address [facility]/ZIP Co de Phone Number [facility] [address] [place] [phone] * Pap Smear (09/13/2021 12:00 AM EDT) Swab Historical Provider LAB CYTOLOGY ORDERABLES F inal Result Performing Organization Address [facility] Co de Phone Number [facility] [address] [place] [phone] from Last 3 Months or Most Recently Relevant to Health Maintenance Insurance MEDICARE [facility]ICA[facility] STAND ADULT Care Teams Manager Pmo Relationship Specialty Start Date End Date Zoila Titus MD [address] [place] [phone] PCP - General Family Medicine 06/28/22 Jerson Ramirez Psychiatrist 07/27/23
--- OUTSIDE RECORDS SUMMARY | 2024-07-05 09:37 | XMS_ITS | Encounter Summary ---
Author Organization [employer] Address [address] [place] [phone] Care Team Providers Care Activities Volunteer Name Role Phone Zoila Titus MD Primary Care Provider Reason for Referral * Consultation (Routine) - Authorized Specialty Diagnoses / Procedures Referred By Contmayra t Referred To Contact Physical Therapy Diagnoses Tendinitis of left ankle Moe Blair DPM [address] [address] Phone: tel: fax: Referral ID Status Reason Start Date Expiration Date Visits Requested Visits Authorized [id number] Authorized Specialty Services Required 06/20/2024 06/20/2025 1 1 Reason for Visit * Reason Comments Follow-up Left heel pain Encounter Details Date Type Department Care Team (Late st Contact Info) Description 06/20/2024 10:30 AM EST Office Visit Orthopedic Surgery - [place] [address] [phone] Moe Blair DPM [address] [place] [address] Neuritis of foot, left (Primary Dx); Tendinitis of left ankle; Xerosis of skin Social History Tobacco Use Types Packs/Day Years Used Date Smoking Tobacco: Never Assessed Comments Unknown Sex and Gender Information Value Date Recorded Sex Assigned at Not on file Legal Sex Female 11:07 AM EDT Gender Identity Not on file Sexual Orientation Not on file documented as of this [...] in this encounter Ordered Prescriptions Prescription Sig Dispense Quantity Refills Last Filled Start Date End Date ammonium lactate (AmLactin) 12 % lotion Apply topically if needed for dry skin. 400 g 06/20/2024 documented in this encounter Progress Notes * Moe Blair, ALEIDA - 06/20/2024 10:30 AM ESTAssociated Order(s): Injection [...] within 12 hours or as directed by MD. 30 each 2 lidocaine (ZTlido) 1.8 % [...] AM EST Office Visit Orthopedic Surgery - [place] [address] [phone] Moe Blair DPM [address] [address] Scheduled Referrals Name Type Priority Associated Diagnoses [...] tendon or ligament (06/20/2024 10:30 AM EST) Moe Garcia DPM - 06/20/2024 10:30 AM EST Moe Blair DPM ? 06/20/2024 11:52 AM Injection tendon or ligament Indications: pain Details: 25 G needle Medications: 0.5 mL lidocaine (PF) 1 %; 20 mg triamcinolone acetonide 40 mg/mL Informed Consent: ??Site: ??Foot ligament tendon us Moe Blair DPM IN CLINIC/BEDSIDE ORDERAB LES Final Result documented in this encounter Visit Diagnoses Diagnosis [...] on Marcella 06/20/24 at 1030, For 1 doseIndications:Tendinitis of left ankle Given 06/20/2024 10:30 AM EST 0.5 mL triamcinolone acetonide (KENALOG-40) 40 mg/mL injection 20 mg 20 mg, intra-articular, Once PRN Procedure, Starting on Marcella 06/20/24 at 1030, For 1 doseIndications:Tendinitis of left ankle Given 06/20/2024 10:30 AM EST 20 mg documented in this encounter Discontinued Medications Medication Sig Discontinue Reason Start Date End Da te ammonium lactate (AmLactin) 12 % lotion Apply topically if needed for dry skin. Reorder 05/20/2024 06/20/2024 documented as of this encounter Care Teams Activities Volunteer Relationship Specialty Start Date End Date Zoila Titus MD [address] [place] [phone] PCP - General 08/03/23 documented as of this encounter
--- OUTSIDE RECORDS SUMMARY | 2024-07-05 09:37 | XMS_ITS | Encounter Summary ---
Author Organization [employer] Address [address] [facility] 7t [place] [address] Care Team Providers Care National Facilities Manager Name Role Phone Zoila Titus MD Primary Care Provider [phone] Reason for Visit * Reason Comments Med Refill Encounter Details Date Type Department Care Team ([facility] st Contact Info) Description 01/08/2024 Refill [facility] [address] [place], [place] [phone] Zoila Titus MD [address] [place] [address] Social History Tobacco Use Types Packs/Day Years [...] Description 11/06/2024 10:00 AM EDT Office Visit [facility] [address] [place] [address] Rere Zarco documented as of this encounter Visit Diagnoses Not on filedocumented in this encounter Additional Health Concerns Assessment Noted Time PHQ-9 Depression Total Score: 6 01/28/20 23 11:47 AM EDT documented as of this encounter Care Teams National Facilities Manager Relationship Specialty Start Date End Date Zoila Titus MD [address] [place] [phone] PCP - General Family Medicine 06/28/22 Jerson Ramirez Psychiatrist 07/27/23 documented as of this encounter
--- OUTSIDE RECORDS SUMMARY | 2024-07-05 09:37 | XMS_ITS | Encounter Summary ---
Author Organization [employer] [facility] Address [address] [facility] 7t [place] [address] Care Team Providers Care Cigarette Package Examiner Name Role Phone Zoila Titus MD Primary Care Provider [phone] Reason for Visit * Reason Comments Acupuncture Encounter Details Date Type Department Care Team ([facility] st Contact Info) Description 06/11/2024 9:45 AM EST Office Visit [facility] [address] [place], [place] [phone] Stephenie Cristina MD [address] [place], [place] [phone] Chronic pain of both knees (Primary Dx); [...] 10:00 AM EDT Office Visit [facility] [address] [place] [address] Rere Zarco documented as of this encounter Visit Diagnoses Diagnosis Chronic pain of both knees- Primary Stress Other psychological or physical stress, not elsewhere classified documented in this encounter Additional Health Concerns Assessment Noted Time PHQ-9 Depression Total Score: 6 01/28/20 23 11:47 AM EDT documented as of this encounter Care Teams Cigarette Package Examiner Relationship Specialty Start Date End Date Zoila Titus MD [address] [place] [address] PCP - General Family Medicine 06/28/22 Jerson Ramirez Psychiatrist 07/27/23 documented as of this encounter
--- OUTSIDE RECORDS SUMMARY | 2024-07-05 09:37 | XMS_ITS | Clinical Summary ---
Author Organization [facility] Address 175 [place] [address] Phone Care Team Providers Care Domestic Violence Counselor Name Role Phone Zoila Titus MD Primary Care Provider [phone] Allergies No known active allergies Medications venlafaxine HCl (EFFEXOR ORAL) Take by mouth. Active ARIPiprazole (ABILIFY) 10 mg tablet Take 1 Tablet by mouth daily. Active ARIPiprazole (ABILIFY) 5 mg tablet Take 1 Tablet by mouth daily. Active clonazePAM (KlonoPIN) 0.5 mg tablet Take 1 Tablet by mouth 2 times daily as needed. Active clotrimazole (LOTRIMIN) 1 % cream Apply to skin and toenails daily for 12 weeks 4 Active diclofenac (VOLTAREN) 1 % topical gel Apply topically. Active lidocaine (ZTlido) 1.8 % adhesive patch,medicated Apply topically. Active rosuvastatin (CRESTOR) 10 mg tablet Take 1 Tablet by mouth daily. Active topiramate (TOPAMAX) 50 mg tablet Take 1 Tablet by mouth 2 times daily. Active lidocaine (LIDODERM) 5 % patchIndication s:Neuritis of foot, left Apply 1 patch topically 1 (one) time each day. Remove & discard patch within 12 hours or as directed by . 30 each 2 4 08/19/19 25 Active ammonium lactate (AmLactin) 12 % lotion Apply topically if needed for dry skin. 400 g 5 06/20/19 26 Active ammonium lactate (AmLactin) 12 % lotion Apply topically if needed for dry skin. 400 g 4 06/20/19 25 Discontinu ed(Reorder ) Hospital, Clinic, or Other Facility Administered Medication [...] 10:30 AM EST Office Visit Orthopedic Surgery [facility] [address] [address] Moe Blair, ALEIDA Neuritis of foot, left (Primary Dx); Tendinitis of left ankle; Xerosis of skin 05/24/2024 Telephone Orthopedic [facility] [address] [phone] Moe Blair DPM 05/20/2024 10:30 AM EST Office Visit Orthopedic [facility] [address] [address] Moe Blair, ALEIDA Tendinitis of left ankle [...] on file Sexual Orientation Not on file Last Filed Vital Signs [...] 10:30 AM EST Office Visit Orthopedic [place] [address] [address] Moe Blair, DPM 175 [facility] [address] [place] [address] Health Maintenance Due Date Last Done Comments [...] patient's age to complete this topic Meningococcal B Vacine Aged Out No lo nger eligible based on patient's age to complete [...] ?? Moe Blair DPM IMG XR PROCEDURES Final R esult * Injection tendon or ligament (06/20/2024 10:30 AM EST) Narrative Moe Blair DPM - 06/20/2024 10:30 AM EST Moe Blair DPM ? 06/20/2024 11:52 AM Injection tendon or ligament Indications: pain Details: 25 G needle Medications: 0.5 mL lidocaine (PF) 1 %; 20 mg triamcinolone acetonide 40 mg/mL Informed Consent: ??Site: ??Foot ligament tendon Moe Blair DPM IN CLINIC/BEDSIDE ORDERAB LES Final Result from Last 3 Months Insurance MEDICARE MEDICAID - [place] Care Teams Domestic Violence Counselor Relationship Specialty Start Date End Date Zoila Titus MD [address] [place] [address] PCP - General 08/03/23
--- OUTSIDE RECORDS SUMMARY | 2024-07-05 09:37 | XMS_ITS | Encounter Summary ---
Author Organization [employer] Address 75 [facility] 7t [place] [address] Care Team Providers Care Zigzag Topstitcher Name Role Phone Zoila Titus MD Primary Care Provider [phone] Encounter Details Date Type Department Care Team (Late st Contact Info) Description 06/20/2024 Orders Only [facility] [address] [place] [address] ProviderDomenica MD Social History Tobacco Use Types [...] as of this encounter Miscellaneous Notes * Result Encounter Note - Marilyn Hernandez MD - 06/20/2024 1:39 PM EST Please let patient know her L foot xray results showed normal joint spaces, no foreign body, no fracture. Dr. Hernandez covering for Dr. Titus documented in this encounter Plan of Treatment Upcoming Encounters Date Type Department Care Team (Late st Contact Info) Description 11/06/2024 10:00 AM EDT Office Visit [facility] ADULT DENTAL [address] [place] [address] Rere Zarco documented as of this encounter [...] documented as of this encounter Care Teams Zigzag Topstitcher Relationship Specialty Start Date End Date Zoila Titus MD [address] [place] [address] PCP - General Family Medicine 06/28/22 Jerson Shukla-Bright Psychiatrist 07/27/23 documented as of this encounter
--- OUTSIDE RECORDS SUMMARY | 2024-07-05 09:37 | XMS_ITS | Encounter Summary ---
Author Organization [employer] Address 75 [facility] [address] 7t [place] [address] Care Team Providers Care Automation Application Engineer Name Role Phone Zoila Titus MD Primary Care Provider [phone] Reason for Visit * Reason Onset Date Comments Medication Question 12/04/2023 Encounter Details Date Type Department Care Team ([facility] Contact Info) Description 12/04/2023 Telephone [facility] MEDICINE [address] [place] [address] Zoila Titus MD [address] [place] [address] Medication Question Social History Tobacco Use Types [...] - 12/04/2023 11:36 AM EDT [facility] questions she has for Semaglutide-Weight Management (Wegovy) 0.25 MG/0.5ML solution auto-injector. Please contact Sonia at [phone]. documented in this encounter Plan of Treatment Upcoming Encounters Date Type Department Care Team (Late st Contact Info) Description 11/06/2024 10:00 AM EDT Office Visit [facility] ADULT DENTAL [address] [place] [address] Rere Zarco documented as of this encounter Visit Diagnoses Not on filedocumented in this encounter Additional Health Concerns Assessment Noted Time PHQ-9 Depression Total Score: 6 01/28/20 23 11:47 AM EDT documented as of this encounter Care Teams Automation Application Engineer Relationship Specialty Start Date End Date Zoila Titus MD [address] [place] [address] PCP - General Family Medicine 06/28/22 Jerson Ramirez Psychiatrist 07/27/23 documented as of this encounter
--- OUTSIDE RECORDS SUMMARY | 2024-07-05 09:37 | XMS_ITS | Encounter Summary ---
Author Organization [employer] Address 75 [facility] 7t [place] [address] Care Team Providers Care Net Programmer Name Role Phone Zoila Titus MD Primary Care Provider [phone] Reason for Visit * Reason Comments Med Refill Encounter Details Date Type Department Care Team ([facility] st Contact Info) Description 05/31/2023 Refill [facility] CHC MED & PEDS [address] [place], [place] [phone] Zoila Titus MD 505 [place] [address] Social History Tobacco Use Types Packs/Day Years [...] Description 11/06/2024 10:00 AM EDT Office Visit [facility] ADULT DENTAL [address] [place] [address] Rere Zarco documented as of this encounter Visit Diagnoses Not on filedocumented in this encounter Additional Health Concerns Assessment Noted Time PHQ-9 Depression Total Score: 6 01/28/20 23 11:47 AM EDT documented as of this encounter Care Teams Net Programmer Relationship Specialty Start Date End Date Zoila Titus MD [address] [place] [address] PCP - General Family Medicine 06/28/22 Jerson Shukla-Bright Psychiatrist 07/27/23 documented as of this encounter
--- OUTSIDE RECORDS SUMMARY | 2024-07-05 09:37 | XMS_ITS | Encounter Summary ---
Author Organization [employer] Address 75 [facility] 7t [place] [address] Care Team Providers Care Exhibition Designer Name Role Phone Zoila Titus MD Primary Care Provider [phone] Reason for Visit * Reason Onset Date Comments Med Refill 06/15/2023 Encounter Details Date Type Department Care Team ([facility] st Contact Info) Description 06/15/2023 Refill [facility] CHC MED & PEDS [address] [place] [address] Zoila Titus MD [address] [place] [address] Social History Tobacco Use Types Packs/Day Years [...] [facility] [address] [place] [address] Rere Zarco documented as of this encounter Visit Diagnoses Not on filedocumented in this encounter Additional Health Concerns Assessment Noted Time PHQ-9 Depression Total Score: 6 01/28/20 23 11:47 AM EDT documented as of this encounter Care Teams Exhibition Designer Relationship Specialty Start Date End Date Zoila Titus MD [address] [place] [address] PCP - General Family Medicine 06/28/22 Jerson Ramirez Psychiatrist 07/27/23 documented as of this encounter
--- OUTSIDE RECORDS SUMMARY | 2024-07-05 09:37 | XMS_ITS | Encounter Summary ---
Author Organization [employer] Address [address] [facility] [address] [place] [address] Care Team Providers Care Gas Distribution And Emergency Clerk Name Role Phone Zoila Titus MD Primary Care Provider [phone] Encounter Details Date Type Department Care Team [...] Description 11/06/2024 10:00 AM EDT Office Visit [facility] ADULT DENTAL [address] [place] [address] Rere Zarco documented as of this encounter Visit Diagnoses Not on filedocumented in this encounter Additional Health Concerns Assessment Noted Time PHQ-9 Depression Total Score: 6 01/28/20 23 11:47 AM EDT documented as of this encounter Care Teams Gas Distribution And Emergency Clerk Relationship Specialty Start Date End Date Zoila Titus MD [address] [place] [address] PCP - General Family Medicine 06/28/22 Jerson Ramirez Psychiatrist 07/27/23 documented as of this encounter
== END 2024-07-05 09:49 | disposition home or self-care (01) ==
PROVIDERS: PCP Family Medicine; Visit Provider Physician Assistant
DX: M17.12 Unilateral primary osteoarthritis, left knee (principal)
CPT/HCPCS: 20610; 99213

== ENCOUNTER → 2024-07-05 09:18 | Outpatient (BNV) | payer MEDICARE, MEDICAID, SELFPAY | PROVIDERS: Visit Provider Specialist | DX: M25.562 Pain in left knee (principal) | CPT/HCPCS: 73562 ==

== ENCOUNTER 2024-07-22 10:12 | Outpatient (REF) | payer MEDICARE, MEDICAID, SELFPAY ==
--- OUTSIDE RECORDS SUMMARY | 2024-07-22 11:44 | XMS_ITS | Encounter Summary ---
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 Advised of message from covering provider re: [...] 10:00 AM EDT Office Visit [facility] ADULT DENTAL [address] [place] [address] Rere Zarco documented as of this encounter Visit Diagnoses Not on filedocumented in this encounter Additional Health Concerns Assessment Noted Time PHQ-9 Depression Total Score: 6 01/28/20 23 11:47 AM EDT documented as of this encounter Care Teams Service Station Attendant Relationship Specialty Start Date End Date Zoila Titus MD [address] [place] [address] PCP - General Family Medicine 06/28/22 Jerson Ramirez Psychiatrist 07/27/23 documented as of this encounter
--- OUTSIDE RECORDS SUMMARY | 2024-07-22 11:44 | XMS_ITS | Encounter Summary ---
Author Organization [employer] Address [address] [place] [address] Care Team Providers Care Furniture Painter Name Role Phone Zoila Titus MD Primary Care Provider [phone] Reason for Visit * Reason Onset Date Comments Medication Question 12/04/2023 Encounter Details Date Type Department Care Team ([facility] Contact Info) Description 12/04/2023 Telephone [facility] [address] [place] [address] Zoila Titus MD [address] [place] [phone] Medication Question Social History Tobacco Use Types [...] - 12/04/2023 11:36 AM EDT [facility] she has for Semaglutide-Weight Management (Wegovy) 0.25 MG/0.5ML solution auto-injector. Please contact Sonia at [phone]. documented in this encounter Plan of Treatment Upcoming Encounters Date Type Department Care Team (Late st Contact Info) Description 11/06/2024 10:00 AM EDT Office Visit [facility] [address] [place] [address] Rere Zarco documented as of this encounter Visit Diagnoses Not on filedocumented in this encounter Additional Health Concerns Assessment Noted Time PHQ-9 Depression Total Score: 6 01/28/20 23 11:47 AM EDT documented as of this encounter Care Teams Furniture Painter Relationship Specialty Start Date End Date Zoila Titus MD [address] [place] [address] PCP - General Family Medicine 06/28/22 Jerson Ramirez Psychiatrist 07/27/23 documented as of this encounter
--- OUTSIDE RECORDS SUMMARY | 2024-07-22 11:44 | XMS_ITS | Encounter Summary ---
Author Organization [employer] Address [address] [facility] 7[address] [place] [address] Care Team Providers Care Contact Lens Fitter Name Role Phone Zoila Titus MD Primary Care Provider [phone] Reason for Visit * Reason Comments Med Refill Encounter Details Date Type Department Care Team ([facility] st Contact Info) Description 06/15/2023 Refill [facility] CHC MED & PEDS [address] [place], [place] [phone] Zoila Titus MD [address] [place] [address] Social History Tobacco Use Types Packs/Day Years [...] [facility] [address] [place] [address] Rere Zarco documented as of this encounter Visit Diagnoses Not on filedocumented in this encounter Additional Health Concerns Assessment Noted Time PHQ-9 Depression Total Score: 6 01/28/20 23 11:47 AM EDT documented as of this encounter Care Teams Contact Lens Fitter Relationship Specialty Start Date End Date Zoila Titus MD [address] [place] [id number] PCP - General Family Medicine 06/28/22 Jerson Ramirez Psychiatrist 07/27/23 documented as of this encounter
--- OUTSIDE RECORDS SUMMARY | 2024-07-22 11:44 | XMS_ITS | Encounter Summary ---
Author Organization [employer] Address [address] [facility] 7[address] [place] [address] Care Team Providers Care Skate Hop Name Role Phone Zoila Titus MD Primary Care Provider [phone] Reason for Visit * Reason Comments Med Refill Encounter Details Date Type Department Care Team ([facility] st Contact Info) Description 05/31/2023 Refill [facility] CHC MED & PEDS [address] [place], [place] [phone] Zoila Titus MD [address] [place] [address] Social History Tobacco Use Types Packs/Day Years [...] 10:00 AM EDT Office Visit [facility]ULT [facility] [address] [place] [address] Rere Zarco documented as of this encounter Visit Diagnoses Not on filedocumented in this encounter Additional Health Concerns Assessment Noted Time PHQ-9 Depression Total Score: 6 01/28/20 23 11:47 AM EDT documented as of this encounter Care Teams Skate Hop Relationship Specialty Start Date End Date Zoila Titus MD [address] [place] [address] PCP - General Family Medicine 06/28/22 Jerson Shukla-Bright Psychiatrist 07/27/23 documented as of this encounter
--- OUTSIDE RECORDS SUMMARY | 2024-07-22 11:44 | XMS_ITS | Clinical Summary ---
Author Organization [address] [facility] Address [address] [place] [address] Phone Care Team Providers Care Mixer Operator Vacuum Pan Salt Name Role Phone Zoila Titus MD Primary Care Provider [phone] Allergies No known active allergies Medications venlafaxine [...] skin. 400 g 5 06/20/19 26 Active Encounters Date Type Department Care Team Description 06/20/2024 10:30 AM EST Office Visit Orthopedic [facility] [address] [facility] [address] [place] [address] Moe Blair DPM Neuritis of foot, left (Primary Dx); Tendinitis of left ankle; Xerosis of skin 05/24/2024 Telephone Orthopedic Surgery [facility] [address] [phone] Moe Blair DPM 05/20/2024 10:30 AM EST Office Visit Orthopedic [facility] [address] [phone] Moe Blair DPM Tendinitis of left ankle (Primary Dx); Neuritis [...] 07/25/2024 10:30 AM EST Office Visit Orthopedic [facility] [address] [phone] Moe Blair DPM [address] [address] Health Maintenance Due Date Last Done Comments [...] navicular joint to calcaneal cuboid joint ?? us Moe Blair DPM IMG XR PROCEDURES Final [...] Insurance MEDICARE MEDICAID - [place] Care Teams Mixer Operator Vacuum Pan Salt Relationship Specialty Start Date End Date Zoila Titus MD [address] [place] [address] [facility] - General 08/03/23
--- OUTSIDE RECORDS SUMMARY | 2024-07-22 11:44 | XMS_ITS | Encounter Summary ---
Author Organization [employer] Address [address] [facility] 7t [place] [address] Care Team Providers Care Fire Extinguisher Mechanic Name Role Phone Zoila Titus MD Primary Care Provider [phone] Reason for Visit * Reason Comments Med Refill Encounter Details Date Type Department Care Team ([facility] st Contact Info) Description 01/08/2024 Refill [facility] CHC MED & PEDS [address] [place], [place] [phone] Zoila Titus MD [address] [place] [address] Social History Tobacco Use Types Packs/Day Years [...] 10:00 AM EDT Office Visit [facility] ADULT D[facility] [address] [place] [address] Rere Zarco documented as of this encounter Visit Diagnoses Not on filedocumented in this encounter Additional Health Concerns Assessment Noted Time PHQ-9 Depression Total Score: 6 01/28/20 23 11:47 AM EDT documented as of this encounter Care Teams Fire Extinguisher Mechanic Relationship Specialty Start Date End Date Zoila Titus MD [address] [place] [address] PCP - General Family Medicine 06/28/22 Jerson Ramirez Psychiatrist 07/27/23 documented as of this encounter
--- OUTSIDE RECORDS SUMMARY | 2024-07-22 11:44 | XMS_ITS | Encounter Summary ---
Author Organization [employer] Address [address] [facility] 7t [place] [address] Care Team Providers Care Automobile Mechanic Apprentice Name Role Phone Zoila Titus MD Primary Care Provider [phone] Encounter Details Date Type Department Care Team (Late st Contact Info) Description 06/20/2024 Orders Only [facility] [address] [place] [address] ProviderDomenica MD Social History Tobacco Use Types [...] Office Visit [facility] [address] [place] [address] Rere Zarco documented as of this encounter [...] documented as of this encounter Care Teams Automobile Mechanic Apprentice Relationship Specialty Start Date End Date Zoila Titus MD [address] [place] [address] PCP - General Family Medicine 06/28/22 Jerson Shukla-Bright Psychiatrist 07/27/23 documented as of this encounter
--- OUTSIDE RECORDS SUMMARY | 2024-07-22 11:44 | XMS_ITS | Encounter Summary ---
Author Organization [employer] Address [address] [facility] [address] [place] [address] Care Team Providers Care Marina Manager Name Role Phone Zoila Titus MD Primary Care Provider [phone] Reason for Visit * Reason Onset Date Comments Med Refill 06/15/2023 Encounter Details Date Type Department Care Team ([facility] st Contact Info) Description 06/15/2023 Refill [facility] CHC MED & PEDS [address] [place] [address] Zoila Titus MD [address] [place] [address] Social History Tobacco Use Types Packs/Day Years [...] Description 11/06/2024 10:00 AM EDT Office Visit [facility] ADULT DENTAL [address] [place] [address] Rere Zarco documented as of this encounter Visit Diagnoses Not on filedocumented in this encounter Additional Health Concerns Assessment Noted Time PHQ-9 Depression Total Score: 6 01/28/20 23 11:47 AM EDT documented as of this encounter Care Teams Marina Manager Relationship Specialty Start Date End Date Zoila Titus MD [address] [place] [address] PCP - General Family Medicine 06/28/22 Jerson Ramirez Psychiatrist 07/27/23 documented as of this encounter
--- OUTSIDE RECORDS SUMMARY | 2024-07-22 11:44 | XMS_ITS | Clinical Summary ---
Author Organization [employer] Address [address] [facility] [address] [place] [address] Care Team Providers Care Splunk Developer Name Role Phone Zoila Titus MD Primary Care Provider [phone] Allergies Active Allergy Reactions Criticality Noted Date Comments Latex Itching Low 06/09/2022 Medications ARIPiprazole (Abilify) 2 MG tablet 06/06/19 23 Active clonazePAM (KlonoPIN) 1 MG tablet 06/08/19 23 Active QvVbh-NxApjy-ED-B Cmp-C-Biot (Folivane-Plus) capsule Take 1 capsule by [...] recommended reduction of 20-30% of maintenance calories; athletic agent referral offered. 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 Right hand dominant. Will send for imaging and OP. Consider hand surgery referral. Iron deficiency 06/09/2022 Assessment & Plan (06/09/2022 4:54 PM EST): Reviewed labs from [place], reports prior hx of AUB due to [...] PM EST): Patient reports various surgeries in [place] for both knees, reports difficulties with ambulation due to this, no use of assistance devices observed, she requested disability parking given her knee pain, printed out form from [facility] for her to bring with her information for medical records. Blurry vision, bilateral 06/09/2022 Assessment & Plan (06/09/2022 4:55 PM EST): Requested communicable disease specialist referral Vitamin D insufficiency 06/09/2022 Assessment & Plan (06/09/2022 4:55 PM EST): Present on labs drawn in [place], not on supplementation, will check and supplement if needed Hyperlipidemia 06/09/2022 Assessment & Plan (02/01/2024 2:53 PM EDT): Pt was advised to stop taking Crestor. Advised to have a lipid panel recheck in 3 months to r/o necessity to continue treatment. Assessment & Plan (06/09/2022 4:56 PM EST): Present on labs review from [place], will recheck labs and assess need for pharmacotherapy after results are available for review. Fatigue 06/09/2022 Assessment & Plan (06/09/2022 4:56 PM EST): Reports fatigue more often since moving from [place], following with psychiatry. Will check labs and f/up Anxiety 06/09/2022 Moderate episode of recurrent major depressive d isorder 06/09/2022 Assessment & Plan (07/27/2023 11:23 AM EST): Following with psychiatry. On abilify, clonazepam and effexor. History of parathyroid surgery 06/09/2022 Resolved Problems Problem Noted Date Diagnosed Date Resolved Date Iron deficiency anemia 06/09/202206/09 Encounters Date Type Department Care Team Description 06/26/2024 Telephone [facility] [address] [place] [phone] Janina Prasad, ANNALISA 06/20/2024 Orders Only [facility] [address] [place] [address] Domenica Vazquez MD 06/11/2024 9:45 AM EST Office Visit [facility] [address] [place] [phone] Stephenie Cristina MD Chronic pain of both knees (Primary Dx); Stress 06/11/2024 Travel 06/04/2024 10:00 AM EST Office Visit [facility] [address] [place] [address] Stephenie Cristina MD Chronic pain of both knees (Primary Dx); Stress 06/04/2024 Travel 05/27/2024 Refill [facility] [address] [place] [address] Zoila Titus MD 05/08/2024 Telephone [facility] [address] [place] [address] Zoila Titus MD Results 05/03/2024 9:00 AM EST Office Visit [facility] [address] [place] [address] Rere Zarco Periodontal disease (Primary Dx) 05/01/2024 Orders Only [facility] [address] [place] [address] Zoila Titus MD from Last 3 Months Immunizations Name Administration [...] 10:00 AM EDT Office Visit [facility] [address] [place] [address] Rere Zarco Health Maintenance Due Date Last [...] DNA/Cologuard 08/28/2026 08/29/2023 Lipid Panel 05/01/2029 05/01/2024, 03/06/2023, 12/27/2022, Additional history exists DTaP/Tdap/Td Vaccines (2 [...] EDT Encounter for health-related screening HIV ANTIBODY/ANTIGEN (MD DPH) Routine 01/31/2023 10:48 AM EDT INTRAORAL [...] EST Narrative 05/07/2024 1:33 PM EST ? [facility] [place] ? [address] ?[place] [address] ? Mammography Report ? Signed ? Patient: Shandra Boyd ?MR#: [id number] ?? [id number] ? : 1975 ?Acct:[id number] ? Age/Sex: 48 / F ?ADM Date: 12/11/24 ? Loc: HO.MAMMO ? Attending Dr: Zoila Titus MD ? Ordering Physician: Zoila Titus MD ?Results: 2Beni ?? gn Findings ? Date of Service: 05/01/24 ?Follow Up: 1 Year From Orig ?? inal Mammogram ? Procedure(s): MM tomosynthesis screen imp BI ?? Accession Number(s): [id number] ? cc: Zoila Titus MD ? EXAMINATION: [...] DD/ 1131 ? TD/TT: 05/01/24 1158 ? Merchandiser Retail Representative: ? Procedure Note Donotuseinterpreter, Image - 05/07/2024 [facility] [address] [place], [place] [address] Mammography Report Signed Patient: Shandra BoydMR#: [id number] : 1975Acct:[id number] Age/Sex: 48 / FADM Date: 05/01/24 Loc: HO.MAMMO Attending Dr: Zoila Titus MD Ordering Physician: Zoila Titus MDResults: 2Beni gn Findings Date of Service: 05/01/24Follow Up: 1 Year From Orig inal Mammogram Procedure(s): MM tomosynthesis screen imp BI Accession Number(s): [id number] cc: Zoila Titus MD EXAMINATION: MM SCREENING [...] 05/07/24 1330 DD/ 1131 TD/TT: 05/01/24 1158 Merchandiser Retail Representative: Zoila Titus MD IMG BI PROCEDURES Final Resul t * Vitamin D, 25-Hydroxy, Total, Immunoassay (05/01/2024 9:43 AM EST) Vitamin D 25-OH Total 60.7 >30 ng/mL [facility] Comment:Health Based Referen ce Values*< 20 ng/mL Ddaxocueq24-66 ng/mL Insufficient> 30 ng/mL Sufficient*Patricia ORTIZ. N [...] MD LAB BLOOD ORDERABLES Final Re sult [facility] [address] [place] [phone] * (ABNORMAL) TSH with Reflex to Free T4 (05/01/2024 9:43 AM EST) TSH reflex Free T4 0.04(L) 0.32 - 4.0 uIU/mL [facility] 05/01/2024 9:43 AM EST 05/01/2024 9:43 AM EST us Zoila Titus MD LAB BLOOD ORDERABLES Final Re sult [facility] [address] [place] [address] [phone] * (ABNORMAL) CBC auto differential (05/01/2024 9:43 AM EST) White Blood Count 7.3 4.8 - 10.8 X10*3/uL [facility] Red Blood Count 4.70 4.20 - 5.50 X10*6/uL [facility] Hemoglobin 13.4 12.0 - 16.0 g/dl [facility] Hematocrit 39.5 37.0 - 47.0 % [facility] Mean Corpuscular Volume 84.0 80.0 - 98.0 fL [facility] Mean Corpuscular Hemoglobin 28.5 27.0 - 33.0 pg [facility] Mean Corpuscular HGB Conc 33.9 31.0 - 35.0 g/dl [facility] Red Cell Distribution Width 14.5 11.0 - 16.0 % [facility] Platelet Count 130(L) 160 - 400 X10*3/uL [facility] Mean Platelet Volume 12.0 9.4 - 12.3 fL [facility] Neutrophils Percent Auto 73.2(H) 45 - 73 % [facility] Imm Gran Pct Auto 0.4 0.0 - 0.4 % [facility] Lymphocytes Percent Auto 19.1(L) 20 - 40 % [facility] Monocytes Percent Auto 6.0 2 - 11 % [facility] Eosinophils Percent Auto 0.8 0 - 4 % [facility] Basophils Percent Auto 0.5 0 - 2 % [facility] NRBC Pct Auto 0.0 0.0 - 0.2 /100WBC [facility] Neutrophils Absolute Auto 5.3 2.0 - 8.3 x10*3/uL [facility] Imm Gran Abs Auto 0.03 0.00 - 0.03 X10*3/uL [facility] Lymphocytes Absolute Auto 1.4 1.2 - 4.9 X10*3/uL [facility] Monocytes Absolute Auto 0.4 0.1 - 1.2 X10*3/uL [facility] Eosinophils Absolute Auto 0.1 0.0 - 0.4 X10*3/uL [facility] Basophils Absolute Auto 0.0 0.0 - 0.2 X10*3/uL [facility] NRBC Abs Auto 0.000 0.0 - 0.012 X10*3/uL [facility] 05/01/2024 9:43 AM EST 05/01/2024 9:43 AM EST us Zoila Titus MD LAB BLOOD ORDERABLES Final Re sult Performing Organization Address [facility] Co fl Phone Number [facility] [address] [place] [phone] * T4, Free (05/01/2024 9:43 AM EST) Free T4 (Free Thyroxine) 1.04 0.71 - 1.85 ng/dL [facility] 05/01/2024 9:43 AM EST 05/01/2024 9:43 AM EST us Zoila Titus MD LAB BLOOD ORDERABLES Final Re sult Performing Organization Address [facility] Co de Phone Number [facility] [address] [place] [phone] * (ABNORMAL) Lipid Panel, Standard (05/01/2024 9:43 AM EST) Triglycerides 81 <150 mg/dL [facility] Comment:Desirable Triglyceri de: less than 150 mg/dLBorderline High Triglyceride 150-199 mg/dLHigh Triglyceride: 200-499 mg/dLVery High Triglyceride: greater than or equal to 5OO mg/dL Cholesterol 169 <200 mg/dL [facility] Comment:Desirable Cholestero l: less than 200 mg/dLBorderline High Cholesterol: 200-239 mg/dLHigh Cholesterol: greater than 239 mg/dL LDL Cholesterol Calculated 109(H) <100 mg/dL [facility] Comment:Desirable LDL: less than 100 mg/dLNear Optimal/Above Optimal LDL: 110- 129 mg/dLBorderline High LDL: 130-159 mg/dLHigh LDL: 160-189 mg/dLVery High LDL: greater than or equal to 190 mg/dL HDL Cholesterol 44 >40 mg/dL [facility] Comment:Desirable HDL: great er than 40 mg/dL Note: This HDL assay may give artificially low results in patients with liver disease. Blood Venous blood specimen / Unknown 05/01/2024 9:43 AM EST 05/01/2024 9:43 AM EST us Zoila Titus MD LAB BLOOD ORDERABLES Final Re sult [facility] [address] [place] [phone] * (ABNORMAL) Comprehensive Metabolic Panel (05/01/2024 9:43 AM EST) Sodium 143 135 - 145 mmol/L [facility] Potassium 4.0 3.3 - 5.1 mmol/L [facility] Chloride 111(H) 96 - 108 mmol/L [facility] Carbon Dioxide 26 22 - 29 mmol/L [facility] Anion Gap 10(L) 12 - 20 [facility] Urea Nitrogen (BUN) 13 9 - 16 mg/dL [facility] Creatinine, Serum 0.71 0.5 - 1.4 mg/dL [facility] Estimated Glomerular Filt Rate >60 [facility] Comment:Chronic Kidney Disea se: Estimated GFR < 60 mL/min/[id number] Kidney Disease: Estimated GFR < 15 mL/min/1.73m2 Glucose 83 60 - 115 mg/dL [facility] Calcium 10.0 8.4 - 10.2 mg/dL [facility] Bilirubin, Total 0.4 0.0 - 1.0 mg/dL [facility] Aspartate Amino Transferase 17 5 - 31 U/L [facility] Alanine Aminotransferase 18 0 - 31 U/L [facility] Total Protein 7.1 6.5 - 8.0 g/dL [facility] Albumin Level 4.1 3.5 - 5.0 g/dL [facility] Alkaline Phosphatase 100 39 - 117 U/L [facility] Blood Venous blood specimen / Unknown 05/01/2024 9:43 AM EST 05/01/2024 9:43 AM EST us Zoila Titus MD LAB BLOOD ORDERABLES Final Re sult [facility] [address] [place] [address] [phone] * Cologuard?? colon cancer screening (08/29/2023 6:10 AM EDT) Cologuard Result Negative Negative 09/03/19 5:36 PM EDT [facility] (CLIA #:[id number]) Comment: NEGATIVE TEST RESULT. A negative Cologuard [...] cancer. ??Following a negative Cologuard result, the [employer] and U.[place]. [place] [employer]-Society Task Force screening guidelines recommend a Cologuard re-screening interval of 3 years. References: [employer] [employer] Guideline for Colorectal Cancer Screening: https://www.cancer.org/cancer/rhzxy-iuudrf-iaukai/iwmpvaror-hfvsyuskn-asygisp/ac s-rec ommendations.html.; Alejandro DK, Pantera CR, Norma CamarilloK, Colorectal Cancer Screening: Recommendations for Physicians and Patients from the U.S. Multi-Society Task Force on Colorectal Cancer Screening , Am J Gastroenterology 2017; 112:1364-9992. TEST DESCRIPTION: Composite algorithmic analysis of stool [...] (Charly Bryant al, N Engl J Med 2014;370(14):8609-2575.) Cologuard may produce a false negative or false positive result (no colorectal cancer or precancerous polyp present at colonoscopy follow up). A negative Cologuard test result does not guarantee the absence of CRC or advanced adenoma (pre-cancer). The current Cologuard screening interval is every 3 years. ([place] [employer] and U.S. Multi-Society Task Force). Cologuard performance data in a 10,000 patient pivotal study using colonoscopy as the reference method can be accessed at the following location: www.[email or web address].[email or web address]/results. Additional description of the Cologuard test process, warnings and precautions can be found at www.[employer].CheapFlightsFinder. Stool specimen (specimen) 08/29/2023 6:10 AM EDT 08/30/2023 2:36 PM EDT Zoila Titus MD LAB MOLECULAR DIAGNOSTICS ORD ERABLES Final Result Performing Organization Address City/[facility]/ZIP Co de Phone Number [facility] (CLIA #:[id number]) [place] [address], * Hepatitis C Ab (01/31/2023 10:48 AM EDT) Pathologist [facility] [place] Hepatitis C Antibody Nonreactive Nonreactive [facility] Comment:Antibodies to HCV no t detected; does not exclude early acuteHCV infection. Blood 01/31/2023 10:4 8 AM EDT 01/31/2023 2:30 PM EDT Zoila Titus MD LAB BLOOD ORDERABLES Final Re sult Performing Organization Address [facility] Co de Phone Number [facility] [address] [place] [phone] * HIV Ab/Ag ([facility]) (01/31/2023 10:48 AM EDT) Pathologist [facility] [place] HIV AB/AG Nonreactive Nonreactive [facility] Comment:HIV-1 p24 Ag and/or HIV-1/HIV-2 Ab not detected.A test result that is nonreactive does not exclude thepossibility of exposure to or infection with HIV-1 and/orHIV-2. Nonreactive results in this assay for individualswith prior exposure to HIV-1 and/or HIV-2 may be due toantigen and antibody levels that are below the limit ofdetection of this assay.The [employer] HIV Ag/Ab Combo assay result andsupplemental assay results should be interpreted inconjunction with the patient's clinical presentation,history and other laboratory results. If the results areinconsistent with clinical evidence, additional testing issuggested to confirm the result. 01/31/2023 10:4 8 AM EDT 01/31/2023 2:30 PM EDT us Zoila Titus MD LAB BLOOD ORDERABLES Final Re sult Performing Organization Address [facility]/ZIP Co de Phone Number [facility] [address] [place] [address] [phone] * Pap Smear (09/13/2021 12:00 AM EDT) Swab us Historical Provider LAB CYTOLOGY ORDERABLES F inal Result Performing Organization Address [facility] Co de Phone Number [facility] [address] [place] [phone] from Last 3 Months or Most Recently Relevant to Health Maintenance Insurance MEDICARE [facility] AD[facility] Care Teams Splunk Developer Relationship Specialty Start Date End Date Zoila Titus MD [address] [place] [address] PCP - General Family Medicine 06/28/22 Jerson Ramirez Psychiatrist 07/27/23
[2024-07-22 14:57] LABS: TSH reflex Free T4 1.53 uIU/mL (0.32-4.0)
[2024-07-23 05:53] LABS: Triiodothyronine T3 Total 71 ng/dL (76-181)
== END 2024-07-22 10:13 | disposition home or self-care (01) ==
LOC: HO.CHCLDS 10:12
PROVIDERS: Visit Provider Family Medicine
DX: E05.90 Thyrotoxicosis, unspecified without thyrotoxic crisis or storm (principal)
CPT/HCPCS: 36415; 84443; 84480

== ENCOUNTER 2024-08-09 09:39 | Outpatient (AMB) | payer MEDICARE, MEDICAID, SELFPAY ==
--- NOTE | 2024-08-09 10:02 | MHC.OFFVISWM ---
VS Expanded 08/09/24 10:10 BP 126/77 Blood Pressure Location Rt brachial Blood Pressure Position Sitting Pulse 77 Pulse Source Pulse Oximeter Temp 98.1 F Temperature Source Temporal Artery Scan Pulse Oximetry 99 Oxygen Delivery Method Room Air Height 5 ft 6 in Weight 156 lb 3.2 oz BMI 25.2 Body Fat % 35.9 Body Fat Mass 56.0 Fat Free Mass 100.0 Visceral Fat Rating 7.0 Body Water % 45.6 Body Water Mass 71.2 Muscle Mass/Score 95.0 Basal Metabolic Rate/Score 1,372 Intake Visit Reasons: (OV) PO LSG 01/23/24 Donor Services Team Leader Services: Donor Services Team Leader Present Donor Services Team Leader Name: [facility] Allergies Latex, Natural Rubber Allergy (Severe, Verified 08/09/24 10:06) Hives Medication List - Last Reconciled 08/09/24 by RILEY Camara aripiprazole 2 mg PO BEDTIME clonazepam 1 mg PO BID rosuvastatin 10 mg PO DAILY sennosides (senna) 17.2 mg (2 x 8.6 mg) PO BEDTIME PRN 90 days venlafaxine ER (Effexor XR) 37.5 mg PO DAILY HPI Comments Details: This?a?48?yo female who is s/p LSG without hiatal hernia repair on?01/23/2024. Presents for 6 month post op visit. Weight today is 156.2 pounds, with a BMI of 25.2. There has been a 58.6 pound weight loss,(initial weight 214.8 pounds) since starting the program on 12/23/2022 reflecting a 27.2 % total body weight loss and a weight loss of 54.8 pounds since surgery (operative weight 211 pounds) reflecting a 25.9 % TBWL since surgery. No complaints of nausea, emesis, abdominal pain or reflux. Reports infrequent but normal bowel movements every 2-3 days and uses stool softeners regularly. Taking bariatric fusion mvi Reports that she is doing well and very happy with her results. Present meal plan includes: celebrate 4 in 1 ,1 scoops. 8-10, meal at 11-1, 3 forks protein and 3 forks veg celebrate bar 2-4 Meal with 3 forks of protein and 3 forks of cooked vegetables at 5 celebrate 4 in 1 ,1 scoops. 7-9 drinking 40 oz ? Exercise routine includes: treadmill 300-310 calories 4 days per week, speed 3.5, incline weights Any post op complications: None JIMMIE: Improved DM: Never HTN: Never Hyperlipidemia: Improved GERD:?0-5 scale ??0 = no symptoms ??1 = symptoms noticeable but not bothersome 2 =symptoms bothersome but not daily ? 3 = symptoms bothersome and daily 4 = symptoms affect daily activities 5 = symptoms are incapacitating, unable to do daily activities ? How bad is the heartburn: 0 ? Heartburn while lying down: 0 ? Heartburn when standing up: 0 ? Heartburn after meals: 0 ? Does heartburn change your diet: 0 ? Does heartburn wake you up from sleep: 0 ? Do you have difficulty swallowin ? Do you have pain with swallowin ? If you take medicine for your reflux, does this affect your daily life: 0 Satisfaction with present condition - satisfied or not satisfied: satisfied [facility] Medical History BMI 37.0-37.9, adult Pre-op evaluation Arthritis Thyroid nodule Elevated cholesterol Sleep apnea Anxiety GERD (gastroesophageal reflux disease) Surgical History Hx of laparoscopic partial gastrectomy History of abdominoplasty Hx of breast implant Hx of hysterectomy Hx of thyroidectomy Hx of knee surgery Family History Mother Psychiatric diagnosis Hypertension Father Diabetes Sister Hypothyroid Vitamin D deficiency Vitamin B12 deficiency Social History Household Members: Spouse Housing: House Are you a primary resident care associate to a significant other at home: No Do you presently have visiting nurse or other home services: No Alcohol intake: current Alcohol intake frequency: a few times a month Patient Tobacco Use Status: Never used Tobacco service: No Current occupational status: unemployed Physical Exam Vital Signs: Last Vital Signs Temp 98.1 F 08/09/24 10:10 Pulse 77 08/09/24 10:10 BP 126/77 08/09/24 10:10 Pulse Ox 99 08/09/24 10:10 Oxygen Delivery Method Room Air 08/09/24 10:10 BMI result Body Mass Index 25.2 Const General: cooperative and no acute distress Orientation/consciousness: patient oriented x3 Resp Effort & Inspection: normal respiratory effort Auscultation: clear to auscultation bilaterally Cardio Rate: regular rate Rhythm: regular rhythm GI Inspection: Yes normal to inspection and Yes incision (well healed) Palpation (GI): Soft to palpation and no masses Neuro General: patient oriented x3 Assessment & Plan Assessment & Plan (1) S/P laparoscopic sleeve gastrectomy: Code(s): Z98.84 - Bariatric surgery status Category: Surgical Plan: satisfied with current meal plan will get 1 year post op labs checked encouraged to continue to communicate weekly and if any problems Discussed the importance of exercise. She will continue using her treadmill and begin to incorporate weight training. She inquired about abdominal skin removal surgery. She does have some excess skin but without current rash. Discussed the criteria for approval for medically necessary skin removal surgery based on her insurance. She will alert us to any rash she may get. Orders: Orders Insulin Today E78.00 - Pure hypercholesterolemia, unspecified, G47.30 - Sleep apnea, unspecified, Z98.84 - Bariatric surgery status Complete Blood Count Auto Diff Today E78.00 - Pure hypercholesterolemia, unspecified, G47.30 - Sleep apnea, unspecified, Z98.84 - Bariatric surgery status Lipid Panel Today E78.00 - Pure hypercholesterolemia, unspecified, G47.30 - Sleep apnea, unspecified, Z98.84 - Bariatric surgery status Vitamin B12 and Folate Today E78.00 - Pure hypercholesterolemia, unspecified, G47.30 - Sleep apnea, unspecified, Z98.84 - Bariatric surgery status Zinc Today E78.00 - Pure hypercholesterolemia, unspecified, G47.30 - Sleep apnea, unspecified, Z98.84 - Bariatric surgery status C Reactive Protein Today E78.00 - Pure hypercholesterolemia, unspecified, G47.30 - Sleep apnea, unspecified, Z98.84 - Bariatric surgery status Vitamin B1 Today E78.00 - Pure hypercholesterolemia, unspecified, G47.30 - Sleep apnea, unspecified, Z98.84 - Bariatric surgery status Vitamin A Today E78.00 - Pure hypercholesterolemia, unspecified, G47.30 - Sleep apnea, unspecified, Z98.84 - Bariatric surgery status Vitamin D 25-OH Total Today E78.00 - Pure hypercholesterolemia, unspecified, G47.30 - Sleep apnea, unspecified, Z98.84 - Bariatric surgery status Hemoglobin A1c Today E78.00 - Pure hypercholesterolemia, unspecified, G47.30 - Sleep apnea, unspecified, Z98.84 - Bariatric surgery status IRON PROFILE Today E78.00 - Pure hypercholesterolemia, unspecified, G47.30 - Sleep apnea, unspecified, Z98.84 - Bariatric surgery status Comprehensive Met. Panel Today E78.00 - Pure hypercholesterolemia, unspecified, G47.30 - Sleep apnea, unspecified, Z98.84 - Bariatric surgery status TSH reflex Free T4 Today E78.00 - Pure hypercholesterolemia, unspecified, G47.30 - Sleep apnea, unspecified, Z98.84 - Bariatric surgery status Ferritin Today E78.00 - Pure hypercholesterolemia, unspecified, G47.30 - Sleep apnea, unspecified, Z98.84 - Bariatric surgery status Medications: Refilled sennosides (senna) 17.2 mg (2 x 8.6 mg) PO BEDTIME 90 days PRN 180 tabs 0RF constipation
[2024-08-09 10:10] VITALS: BP 126/77; PULSE 77; TEMP 36.7; O2SAT 99; BMI 25.2
== END 2024-08-09 10:44 | disposition home or self-care (01) ==
LOC: HO.HBS 09:39
PROVIDERS: PCP Family Medicine; Visit Provider Physician Assistant Surgical
DX: Z71.3 Dietary counseling and surveillance (principal); Z90.3 Acquired absence of stomach [part of]; Z98.84 Bariatric surgery status
CPT/HCPCS: 99214; G2211

== ENCOUNTER → 2024-08-09 09:39 | Outpatient (BNVA) | payer MEDICARE, MEDICAID, SELFPAY | PROVIDERS: PCP Family Medicine; Visit Provider Physician Assistant Surgical | DX: Z98.84 Bariatric surgery status (principal) | CPT/HCPCS: 99212 ==

== ENCOUNTER 2024-08-10 08:29 | Outpatient (REF) | payer MEDICARE, MEDICAID, SELFPAY ==
[2024-08-10 08:48] LABS: MANUAL DIFF FLAG NO
[2024-08-10 09:28] LABS: Estimated Average Glucose 105 mg/dL; Hemoglobin A1c % 5.3 % (<6.0)
[2024-08-10 09:32] LABS: Basophils Percent Auto 0.8 % (0-2); Eosinophils Absolute Auto 0.1 X10*3/uL (0.0-0.4); Eosinophils Percent Auto 1.4 % (0-4); Hematocrit 45.5 % (37.0-47.0); Hemoglobin 15.3 g/dl (12.0-16.0); Imm Gran Abs Auto 0.02 X10*3/uL (0.00-0.03); Imm Gran Pct Auto 0.4 % (0.0-0.4); Lymphocytes Absolute Auto 1.6 X10*3/uL (1.2-4.9); Lymphocytes Percent Auto 32.3 % (20-40); Mean Corpuscular HGB Conc 33.6 g/dl (31.0-35.0); Mean Corpuscular Hemoglobin 28.2 pg (27.0-33.0); Mean Corpuscular Volume 83.9 fL (80.0-98.0); Mean Platelet Volume 11.7 fL (9.4-12.3); Monocytes Absolute Auto 0.3 X10*3/uL (0.1-1.2); Monocytes Percent Auto 5.6 % (2-11); Neutrophils Percent Auto 59.5 % (45-73); Platelet Count 140 X10*3/uL (160-400); Red Blood Count 5.42 X10*6/uL (4.20-5.50); Red Cell Distribution Width 14.3 % (11.0-16.0)
[2024-08-10 09:47] LABS: Alanine Aminotransferase 26 U/L (0-31); Albumin Level 4.3 g/dL (3.5-5.0); Alkaline Phosphatase 102 U/L (39-117); Anion Gap 11 (12-20); Aspartate Amino Transferase 20 U/L (5-31); Bilirubin Total 0.4 mg/dL (0.0-1.0); Blood Urea Nitrogen 16 mg/dL (9-16); C Reactive Protein 0.61 mg/dL (< or = 0.50); Calcium 9.5 mg/dL (8.4-10.2); Carbon Dioxide 27 mmol/L (22-29); Chloride 106 mmol/L (96-108); Cholesterol 237 mg/dL (<200); Estimated Glomerular Filt Rate > 60; Glucose Random 80 mg/dL (60-115); HDL Cholesterol 65 mg/dL (>40); Iron 88 mcg/dL (30-160); LDL Cholesterol Calculated 157 mg/dL (<100); Percent Iron Saturation 39 % (15-50); Potassium 4.2 mmol/L (3.3-5.1); Sodium 140 mmol/L (135-145); Total Iron Binding Capacity 226 mcg/dL (228-428); Total Protein 7.9 g/dL (6.5-8.0); Triglycerides 75 mg/dL (<150); Unsaturated Iron Binding 138 ug/dL
[2024-08-10 10:10] LABS: Ferritin 261 ng/mL (10-250); Vitamin D 25-OH Total 74.8 ng/mL (>30)
[2024-08-10 10:17] LABS: Folate 14.5 ng/mL (> or = 4.0); Vitamin B12 912 pg/mL (200-900)
[2024-08-10 11:29] LABS: Insulin 10 uU/mL (2-29)
[2024-08-14 01:17] LABS: Vitamin A 118 mcg/dL (38-98)
[2024-08-14 05:43] LABS: Zinc 81 mcg/dL (60-130)
[2024-08-19 05:52] LABS: Vitamin B1 17 nmol/L (8-30)
== END 2024-08-10 08:30 | disposition home or self-care (01) ==
LOC: HO.LAB 08:29
PROVIDERS: PCP Family Medicine; Visit Provider Physician Assistant Surgical
DX: E78.00 Pure hypercholesterolemia, unspecified (principal); G47.30 Sleep apnea, unspecified; Z98.84 Bariatric surgery status; Z13.1 Encounter for screening for diabetes mellitus
CPT/HCPCS: 36415; 80053; 80061; 82306; 82607; 82728; 82746; 83036; 83525; 83540; 84425; 84443; 84590; 84630; 85025; 86140

== ENCOUNTER 2024-11-06 08:33 | Outpatient (REF) | payer MEDICARE, MEDICAID, SELFPAY ==
--- NOTE | ~2024-11-06 | XR_ITS ---
EXAMINATION: XR KNEE, RIGHT 1 V CLINICAL INFORMATION: M25.569 - Pain in unspecified knee COMPARISON: 07/03/2024. TECHNIQUE: AP bilateral knees standing was obtained. FINDINGS: RIGHT KNEE: No fracture, dislocation, or suspicious bone lesion. Old screw tracts are seen in the proximal tibial metaphysis. Early medial and lateral compartment osteoarthritis. Mild spurring of the tibial spines. No soft tissue abnormalities. LEFT KNEE: No fracture, dislocation, or suspicious bone lesion. Early medial and lateral compartment osteoarthritis. Mild spurring of the tibial spines. No soft tissue abnormalities. XR/XR knee RT 1V IMPRESSION: Bilateral early bicompartmental osteoarthritis. Electronically signed by: Joe Vallecillo MD 11/06/2024 09:22 AM EDT
--- OUTSIDE RECORDS SUMMARY | 2024-11-06 08:58 | XMS_ITS | Encounter Summary ---
Author Organization [employer] Address [address] [facility] [address] [place] [address] Care Team Providers Care Hand Quilter Name Role Phone Zoila Titus MD Primary Care Provider [phone] Encounter Details Date Type Department Care Team (Latest Contact Info) Description 11/04/2024 Travel Social History Tobacco Use Types Packs/Day Years Used Date Smoking Tobacco: Never Passive Smoke Exposure: Never Smokeless Tobacco: Never Alcohol Use Standard Drinks/Week Comments Never 0 (1 standard drink = 0.6 oz pur e alcohol) Depression Answer Date Recorded Patient Health Questionnaire-9 Score 6 11/04/2024 Patient Health Questionnaire-9 Score 6 11/04/2024 Last PHQ-9: Questionnaire Data Not on file 0 11/04/2024 Housing Stability Answer Date Recorded What is your housing situation today? I do not have housing (Staying with others, in a hotel, in a halfway, living outside on the street, on a beach, in a car, or in a park 10/24/[address] you li ve. Do you have problems with any of the following? None of the above 10/24/2024 Food Insecurity Answer Date Recorded Within the past 12 months, y ou worried that your food would run out before you got money to buy more: Sometimes True 2024 Within the past 12 months,th e food you bought just didn't last and you didn't have enough money to get more: Sometimes True 10/24/2024 Transportation Answer Date Recorded In the past [...] Answer Date Recorded Patient Health Questionnaire-2 Score 3 11/04/2024 Internet Access Answer Date Recorded Internet Access Q1 Yes 10/24/2024 Internet Access Q2 Not on file 10/24/2024 Comments Unknown Sex and Gender Information Value Date Recorded Sex Assigned at Female 05/18/2022 10:29 AM EST Legal Sex Female 10:26 AM EST Gender Identity Female 05/18/2022 10:29 AM EST Sexual Orientation Straight 06/09/2022 10 :26 AM EST documented as of this encounter Functional Status * Over the past 2 weeks, how often have you been bothered by any of the following problems? Question Answer Date of Assessment Author Patient Health Questionnaire -2 Score 3 11/04/2024 11:12 AM MARIANOT Sa gaurav Ramirez [place] * Little interest or pleasure in doing things Answer Date of Assessment Author Several days 11/04/2024 11:12 AM EDT Radha Lemon MA * Feeling down, depressed, or hopeless Answer Date of Assessment Author More than half the days 11/04/2024 11:12 AM MARIANOT Radha Ramirez MA * Trouble falling or staying asleep, or sleeping too much Answer Date of Assessment Author Not at all 11/04/2024 11:12 AM Radha Hebert MA * Feeling tired or having little energy Answer Date of Assessment Author Several days 11/04/2024 11:12 AM MARIANOT Radha Lemon MA * Poor appetite or overeating Answer Date of Assessment Author Not at all 11/04/2024 11:12 AM MARIANOT Radha Lemon MA * Feeling bad about yourself - or that you are a failure or have let yourself or your family down Answer Date of Assessment Author Not at all 11/04/2024 11:12 AM Radha Hebert MA * Trouble concentrating on things, such as reading the newspaper or watching television Answer Date of Assessment Author Several days 11/04/2024 11:12 AM Radha Hebert MA * Moving or speaking so slowly that other people could have noticed? Or the opposite - being so fidgety or restless that you have been moving around a lot more than usual. Answer Date of Assessment Author Several days 11/04/2024 11:12 AM EDT Radha Lemon MA * Thoughts that you would be better off or hurting yourself in some way Answer Date of Assessment Author Not at all 11/04/2024 11:12 AM EDT Radha Lemon MA * Patient Health Questionnaire-9 Score Answer Date of Assessment Author 6 11/04/2024 11:12 AM EDT Radha Lemon MA * How difficult have these problems made it for you to do your work, take care of things at home, or get along with other people? Answer Date of Assessment Author Somewhat difficult 11/04/2024 11:12 AM EDT Radha Gongora MA * Over the last 2 weeks, how often have you been bothered by any of the following problems? Question Answer Date of Assessment Author Feeling nervous, anxious, or on edge 1 11/04/2024 10:48 AM Zoila Mi MD Not being able to stop or co ntrol worrying 0 11/04/2024 10:48 AM Zoila Mi MD Worrying too much about diff erent things 1 11/04/2024 10:48 AM Zoila Mi MD Trouble relaxing 1 11/04/2024 10:48 AM Zoila Mi MD Being so restless that it is hard to sit still 1 11/04/2024 10:48 AM Zoila Mi MD Becoming easily annoyed or irritable 1 11/04/2024 10:48 AM Zoila Mi MD Feeling afraid as if somethi ng awful might happen 0 11/04/2024 10:48 AM Zoila Mi MD RADHA-7 Total Score 5 11/04/2024 10:48 AM Zoila Mi MD documented as of this encounter Plan of Treatment Upcoming Encounters Date Type Department Care Team (Late st Contact Info) Description 11/06/2024 10:00 AM EDT Office Visit [facility] [address] [place] [address] Rere Zarco documented as of this encounter Visit Diagnoses Not on filedocumented in this encounter Additional Health Concerns Assessment Noted Time PHQ-9 Depression Total Score: 6 11/05/19 25 11:12 AM EDT documented as of this encounter Care Teams Hand Quilter Relationship Specialty Start Date End Date Zoila Titus MD [address] [place] [address] PCP - General Family Medicine 06/28/22 Jerson Ramirez Psychiatrist 07/27/23 documented as of this encounter
[2024-11-06 10:34] LABS: Cholesterol 247 mg/dL (<200); HDL Cholesterol 72 mg/dL (>40); LDL Cholesterol Calculated 159 mg/dL (<100); Triglycerides 80 mg/dL (<150)
[2024-11-06 10:40] LABS: Thyroid Stimulating Hormone 1.24 uIU/mL (0.32-4.0)
== END 2024-11-06 08:34 | disposition home or self-care (01) ==
LOC: HO.LAB 08:33
PROVIDERS: PCP Family Medicine; Visit Provider Family Medicine
DX: E66.812 Obesity, class 2 (principal); E66.09 Other obesity due to excess calories; Z68.35 Body mass index [BMI] 35.0-35.9, adult; R79.89 Other specified abnormal findings of blood chemistry; R68.89 Other general symptoms and signs; M25.569 Pain in unspecified knee
CPT/HCPCS: 36415; 73560; 80061; 84443

== ENCOUNTER → 2024-11-06 08:48 | Outpatient (BNV) | payer MEDICARE, MEDICAID, SELFPAY | PROVIDERS: PCP Family Medicine; Visit Provider Radiology Diagnostic Radiology | DX: M17.0 Bilateral primary osteoarthritis of knee (principal) | CPT/HCPCS: 73560 ==

== ENCOUNTER 2024-11-07 09:41 | Outpatient (REF) | payer MEDICARE, MEDICAID, SELFPAY ==
--- NOTE | ~2024-11-07 | XR_ITS ---
CLINICAL HISTORY: NECK PAIN LEFT > RIGHT PARASPINAL SPASMS --- Additional Notes or Special Instructions: WO 5 views cervical spine Comparison: None provided Findings: Normal vertebral body alignment. No acute fractures or dislocation. No significant degenerative change. No prevertebral soft tissue swelling. Oblique views demonstrate widely patent bony foramen. IMPRESSION: No acute findings. No significant degenerative change. This document has been electronically signed by: Kan Weller MD on 11/08/2024 10:38:36
--- OUTSIDE RECORDS SUMMARY | 2024-11-07 10:42 | XMS_ITS | Encounter Summary ---
Author Organization [email or web address] Address [address] [facility] [address] [place] [address] Care Team Providers Care Mannequin Coloring Artist Name Role Phone Zoila Titus MD Primary [...] with others, in a hotel, in a penitentiary, living outside on the street, on a [...] might happen 0 11/04/2024 10:48 AM Zoila iM MD RADHA-7 Total Score 5 11/04/2024 10:48 AM Zoila Mi MD documented as of this encounter Plan of Treatment Upcoming Encounters Date Type Department Care Team (Late st Contact Info) Description 11/28/2024 9:30 AM EDT Office Visit [facility] [address] [place] [address] Zeeshan Negron, DMD [address] [place] [address] 05/12/2025 10:00 AM EST Office Visit [facility] [address] [place] [address] Rere Zarco documented as of this encounter Visit Diagnoses Not on filedocumented in this encounter Additional Health Concerns Assessment Noted Time PHQ-9 Depression Total Score: 6 11/05/19 25 11:12 AM EDT documented as of this encounter Care Teams Mannequin Coloring Artist Relationship Specialty Start Date End Date Zoila Titus MD [address] [place] [id number] PCP - General Family Medicine 06/28/22 Jerson Ramirez Psychiatrist 07/27/23 documented as of this encounter
== END 2024-11-07 09:42 | disposition home or self-care (01) ==
LOC: HO.XRAY 09:41
PROVIDERS: PCP Family Medicine; Visit Provider Family Medicine
DX: M54.2 Cervicalgia (principal)
CPT/HCPCS: 72050

== ENCOUNTER → 2024-11-07 09:59 | Outpatient (BNV) | payer MEDICARE, MEDICAID, SELFPAY | PROVIDERS: PCP Family Medicine; Visit Provider Radiology Vascular & Interventional Radiology | DX: M54.2 Cervicalgia (principal); M62.838 Other muscle spasm | CPT/HCPCS: 72050 ==

== ENCOUNTER 2024-12-04 10:11 | Outpatient (AMB) | payer MEDICARE, MEDICAID, SELFPAY ==
--- NOTE | 2024-12-04 10:12 | MHC.OFFVIS ---
Vital Signs 12/04/24 10:13 Height 5 ft 6 in Weight 161 lb 8 oz BMI 26.1 BP 104/60 Blood Pressure Location Rt brachial Position Sitting Pulse 86 Pulse Source Pulse Oximeter Pulse Oximetry (%) 98 Oxygen Delivery Method Room Air Intake Visit Reasons: 6 mnts Intake Note: Patient presents 6 month follow up for JIMMIE. Dedicated Owner Operator Required: Yes Dedicated Owner Operator Services: Dedicated Owner Operator Offered & Declined Allergies Latex, Natural Rubber Allergy (Severe, Verified 12/04/24 10:16) Hives Medication List - Last Reconciled 12/04/24 by TERRELL Holliday aripiprazole 2 mg PO BEDTIME clonazepam 1 mg PO BID rosuvastatin 10 mg PO DAILY sennosides (senna) 17.2 mg (2 x 8.6 mg) PO BEDTIME PRN 90 days venlafaxine ER (Effexor XR) 37.5 mg PO DAILY HPI Comments Details: History of Present Illness The patient is a 49-year-old female presenting with a follow-up visit concerning sleep apnea and associated snoring. She has been using a CPAP machine to manage her condition. The therapy initially faced some issues as she reported drying of the throat which was rectified by adjusting the machine settings. The patient's sleep apnea has improved with the current CPAP therapy, with her residual Apnea-Hypopnea Index (AHI) now reduced to 2.1 events per hour from Her baseline of 20 events per hour noted in her last home sleep study. She is now using her CPAP regularly, though not every night. Her partner notes a reduction in snoring, especially with the CPAP machine in use. She also notes that she continues to sleep better with the CPAP than without the CPAP, even since achieving weight loss goal status post weight loss surgery. Social History - Reports regular use of a CPAP machine with adjustments based on ambient conditions and personal comfort. - Acknowledges the importance of weight management for her condition, mentioning recent weight loss. - No new hospitalizations reported. CPAP compliance review: Does patient have sufficient PAP supplies? Yes Does patient clean PAP supplies on a regular basis? Yes Does the patient use distilled water in their PAP machine water reservoir? Yes PAP compliance report reviewed. [facility] AirSense 10 AutoSet Serial number [id number] Compliance report date range: September 05, 2024 - December 03, 2024 Overall usage: 92 percent Usage greater than 4 hours: 87 percent PAP setting: APAP 4 to 8 cmH2O with EPR3 Average usage on days used: 6 hours and 46 minutes Average mask leakage: 0 LPM Residual AHI: 2.1 per hour HST showed AHI 20/hr and oxygen bia was 87% with excessive snoring for 54 % of the sleep time. [facility] Medical History BMI 37.0-37.9, adult Pre-op evaluation Arthritis Thyroid nodule Elevated cholesterol Sleep apnea Anxiety GERD (gastroesophageal reflux disease) Surgical History Hx of laparoscopic partial gastrectomy History of abdominoplasty Hx of breast implant Hx of hysterectomy Hx of thyroidectomy Hx of knee surgery Family History Mother Psychiatric diagnosis Hypertension Father Diabetes Sister Hypothyroid Vitamin D deficiency Vitamin B12 deficiency Social History Household Members: Spouse Housing: House Are you a primary aged or disabled care worker to a significant other at home: No Do you presently have visiting nurse or other home services: No Alcohol intake: current Alcohol intake frequency: a few times a month Patient Tobacco Use Status: Never used Tobacco service: No Current occupational status: unemployed Physical Exam Vital Signs: Last Vital Signs Pulse 86 12/04/24 10:13 BP 104/60 12/04/24 10:13 Pulse Ox 98 12/04/24 10:13 Oxygen Delivery Method Room Air 12/04/24 10:13 BMI result Body Mass Index 26.1 Const General: no acute distress Orientation/consciousness: patient oriented x3 Resp Effort & Inspection: normal respiratory effort and able to speak in complete sentences Neuro General: patient oriented x3 Psych Mental Status: mental status grossly normal Speech and movement: Clear speech present Attitude: cooperative Assessment & Plan Assessment & Plan (1) JIMMIE (obstructive sleep apnea): Comment: Moderately severe degree of sleep apnea. The AHI was 20/hr and oxygen bia was 87% Code(s): G47.33 - Obstructive sleep apnea (adult) (pediatric) Category: Medical Plan Discussion Notes During the visit, I reviewed the patient's progress in managing her sleep apnea under CPAP therapy. I noted a significant reduction in snoring and apnea episodes, likely attributable to consistent usage and appropriate adjustments of the CPAP settings. The discussion emphasized the continued use of the CPAP machine, albeit not every night, but with an acceptable level of compliance. The patient acknowledged improvement in her condition, expressing satisfaction with the CPAP therapy's outcome on her sleep quality and overall health. No changes to the current management plan were deemed necessary, but weight management was highlighted as an ancillary aid in her therapy. We discussed that a new sleep study might not be necessary at this time, as she continues to benefit from CPAP therapy. Plan and Patient Instructions Continue APAP 6-20 cmH2O w/ EPR 3 nightly > 4 hours, as pt continues to have good clinical effect from use. - Continue to use PAP nightly with a goal of greater than 4 hours nightly, as patient is experiencing good clinical effect from use. - Clean and change PAP supplies routinely, including filters, masks, tubing, and water reservoir. - Use distilled water in PAP water reservoir. - Maintain regular follow-up to monitor sleep apnea control and adjust treatment as clinically indicated. Patient was informed and verbally consented to the use of an ambient scribe for clinic note documentation during this visit. Pt to follow-up in 12 months or sooner prn. Coding Level of Care Code Est Pt Level 3 (73101) Diagnoses JIMMIE (obstructive sleep apnea) G47.33
[2024-12-04 10:13] VITALS: BP 104/60; PULSE 86; O2SAT 98; BMI 26.1
--- OUTSIDE RECORDS SUMMARY | 2024-12-04 10:43 | XMS_ITS | Clinical Summary ---
Author Organization [address] [place] [address] Address [address] [place] [address] Phone Care Team Providers Care Statistical Clerk Advertising Name Role Phone Zoila Titus MD Primary Care Provider [phone] Allergies No known active allergies Medications venlafaxine [...] Tablet by mouth 2 times daily. Active ammonium lactate (AmLactin) 12 % lotion Apply topically if needed for dry skin. 400 g 5 06/20/19 26 Active ciclopirox (LOPROX) 0.77 % gel Apply topically 2 (two) times a day. 45 g 5 01/27/20 25 Active Encounters Date Type Department Care Team Description 10/28/2024 10:00 AM EDT Office Visit Orthopedic Surgery [facility] [address] [facility] [address] [place] [address] Moe Blair, DPM Dermatophytosis of nail (Primary Dx) from Last 3 Months Social History Tobacco [...] - - Weight 95.3 kg (210 lb) 07/25/2024 10:26 AM EST Height 170.2 cm (5' 7.01 ) 10/28/2024 9:54 AM ED T Body Mass Index 32.88 07/25/2024 10:26 AM EST Plan of Treatment Upcoming Encounters Date Type Department Care Team ([facility] st Contact Info) Description 01/28/2025 9:45 AM EDT Office Visit Orthopedic Surgery - [place] [address] [address] Moe Blair, DPM [address] [address] Health Maintenance Due Date Last Done Comments Breast Cancer Screening 1975 HIV Screening 12/15/2023 Hepatitis C Screening 12/15/2023 Medicare Annual Wellness Visit 12/15/2023 Social Influencers of Health Screening 12/15/2023 Depression Screening 01/28/2024 01/27/2023 Hepatitis B Vaccines (3 of 3 - 19+ 3-dose series) 04/14/2024 11/13/2023, 10/13/2023 Cervical Cancer Screening: Pap Smear 09/13/2024 09/13/2021 Influenza Vaccine (#1) 2025 , 01/20/2023, 02/24/2022 Colorectal Cancer Screening: FIT-DNA (Cologuard) 08/28/2026 08/29/2023 Cholesterol Screening (Lipid Panel) 08/10/2029 08/10/2024, 05/01/2024 DTaP,Tdap,and Td Vaccines (2 - Td or Tdap) 01/27/2033 01/27/2023 COVID-19 Vaccine Completed 08/06/2024, 11/2023, 03/29/2021, Additional history exists HIB Vaccines Aged Out [...] age to complete this topic Meningococcal B Vaccine Aged Out No l onger eligible based on patient's age to complete this topic Pneumococcal Vaccine: Pediatrics (0 to 5 Years) and At-Risk Patients (6 to 49 Years) Aged Out No longer eligible based on patient's age to complete this topic RSV Immunization Patients Under 20 months Aged Out No longer eligible based on patient's age to complete this topic Varicella Vaccines Aged Out No longer eligible based on patient's age to complete this topic Insurance MEDICARE MEDICAID - [place] Care Teams Statistical Clerk Advertising Relationship Specialty Start Date End Date Zoila Titus MD [address] [place] [address] [facility] - General 08/03/23
--- OUTSIDE RECORDS SUMMARY | 2024-12-04 10:43 | XMS_ITS | Encounter Summary ---
Author Organization [employer] Address [address] [facility] 7 [place] [address] Care Team Providers Care Divisional Storekeeper Name Role Phone Zoila Titus MD Primary Care Provider [phone] Reason for Visit * Reason Onset Date Comments Medication Question 12/04/2023 Encounter Details Date Type Department Care Team ([facility] Contact Info) Description 12/04/2023 Telephone [facility] [address] [place] [address] Zoila Titus MD [address] [place] [phone] Medication Question Social History Tobacco Use Types [...] - 12/04/2023 11:36 AM EDT [facility] call back regarding questions she has for Semaglutide-Weight Management (Wegovy) 0.25 MG/0.5ML solution auto-injector. Please contact [facility]onia at [phone]. documented in this encounter Plan of Treatment Upcoming Encounters Date Type Department Care Team ([facility] st Contact Info) Description 02/04/2025 10:15 AM EDT Office Visit [facility] [address] [place] [address] El Sen MD [address] [place] [address] 05/12/2025 10:00 AM EST Office Visit [facility] [address] [place] [address] Rere Zarco documented as of this encounter Visit Diagnoses Not on filedocumented in this encounter Additional Health Concerns Assessment Noted Time PHQ-9 Depression Total Score: 6 01/28/20 23 11:47 AM EDT documented as of this encounter Care Teams Divisional Storekeeper Relationship Specialty Start Date End Date Zoila Titus MD [address] [place] [address] PCP - General Family Medicine 06/28/22 Jerson Ramirez Psychiatrist 07/27/23 documented as of this encounter
== END 2024-12-04 11:09 | disposition home or self-care (01) ==
LOC: HO.HSMS 10:12
PROVIDERS: PCP Family Medicine; Visit Provider Nurse Practitioner Family
DX: G47.33 Obstructive sleep apnea (adult) (pediatric) (principal)
CPT/HCPCS: 99213

== ENCOUNTER → 2024-12-04 10:11 | Outpatient (BNVA) | payer MEDICARE, MEDICAID, SELFPAY | PROVIDERS: PCP Family Medicine; Visit Provider Nurse Practitioner Family | DX: G47.33 Obstructive sleep apnea (adult) (pediatric) (principal) | CPT/HCPCS: 99212 ==

== ENCOUNTER 2024-12-12 09:05 | Outpatient (AMB) | payer MEDICARE, MEDICAID, SELFPAY ==
--- NOTE | 2024-12-12 09:08 | MHC.OFFVISWM ---
VS Expanded 12/12/24 09:15 BP 122/59 L Blood Pressure Location Rt brachial Blood Pressure Position Sitting Pulse 59 Pulse Source Pulse Oximeter Temp 96.5 F L Temperature Source Temporal Artery Scan Pulse Oximetry 100 Oxygen Delivery Method Room Air Height 5 ft 6 in Weight 156 lb 12.8 oz BMI 25.3 Body Fat % 36.0 Body Fat Mass 56.4 Fat Free Mass 100.4 Visceral Fat Rating 7.0 Body Water % 45.4 Body Water Mass 71.2 Muscle Mass/Score 95.2 Basal Metabolic Rate/Score 1,374 Intake Visit Reasons: (OV) PO LSG 01/23/24 Assistive Technology Specialist Required: Yes Assistive Technology Specialist Services: Assistive Technology Specialist Present Assistive Technology Specialist Name: hospital cmi Allergies Latex, Natural Rubber Allergy (Severe, Verified 12/12/24 09:11) Hives Medication List - Last Reconciled 12/12/24 by RILEY Camara aripiprazole 2 mg PO BEDTIME clonazepam 1 mg PO BID rosuvastatin 10 mg PO DAILY sennosides (senna) 17.2 mg (2 x 8.6 mg) PO BEDTIME PRN 90 days venlafaxine ER (Effexor XR) 37.5 mg PO DAILY HPI Comments Details: This?a?48?yo female who is s/p LSG without hiatal hernia repair on?01/23/2024. Presents for 10 month post op visit. Weight today is 156.8 pounds, with a BMI of 25.3. There has been a 58 pound weight loss,(initial weight 214.8 pounds) since starting the program on 12/23/2022 reflecting a 27.2 % total body weight loss and a weight loss of 54.2 pounds since surgery (operative weight 211 pounds) reflecting a 25.9 % TBWL since surgery. No complaints of nausea, emesis, abdominal pain or reflux. Reports infrequent but normal bowel movements every 2-3 days and uses stool softeners regularly. Taking bariatric fusion mvi Reports that she is doing well and very happy with her results. She was not following the meal plan below and she felt too full all day and she was eating less and so Dr Santizo changed her meal plan. She had been using celebrate 4 in 1 as well but without direction. She additionally reports difficulty with clothes fitting around her waistline. Present meal plan includes: fusion shake 1/4 packet in 8 oz ,6-8, 9-11 1/2 packet 12-2, 3-5 dinner at 6 4 forks protein and 4 forks veg drinking 40 oz ? Exercise routine includes: treadmill 200-300 calories 3 days per week, speed 3.5, incline spinning 2 days per week 450-600 halima weights PFSH Medical History BMI 37.0-37.9, adult Pre-op evaluation Arthritis Thyroid nodule Elevated cholesterol Sleep apnea Anxiety GERD (gastroesophageal reflux disease) Surgical History Hx of laparoscopic partial gastrectomy History of abdominoplasty Hx of breast implant Hx of hysterectomy Hx of thyroidectomy Hx of knee surgery Family History Mother Psychiatric diagnosis Hypertension Father Diabetes Sister Hypothyroid Vitamin D deficiency Vitamin B12 deficiency Social History Household Members: Spouse Housing: House Are you a primary certified social workers in health care to a significant other at home: No Do you presently have visiting nurse or other home services: No Alcohol intake: current Alcohol intake frequency: a few times a month Patient Tobacco Use Status: Never used Tobacco service: No Current occupational status: unemployed Physical Exam Vital Signs: Last Vital Signs Temp 96.5 F L 12/12/24 09:15 Pulse 59 12/12/24 09:15 BP 122/59 L 12/12/24 09:15 Pulse Ox 100 12/12/24 09:15 Oxygen Delivery Method Room Air 12/12/24 09:15 BMI result Body Mass Index 25.3 Const General: healthy appearing and no acute distress Resp Effort & Inspection: normal respiratory effort Auscultation: clear to auscultation bilaterally Cardio Rate: regular rate Rhythm: regular rhythm GI Auscultation: normal bowel sounds Extrem General: Yes normal to inspection Assessment & Plan Assessment & Plan (1) S/P laparoscopic sleeve gastrectomy: Code(s): Z98.84 - Bariatric surgery status Category: Surgical Plan: Patient has had her meal plan adjusted by Dr. Santizo. She changed some of it on her own in that she would sometimes use celebrate 4 in 1. I discussed that she will need to text Dr. Santizo this information so he may make the appropriate adjustments. I additionally encouraged her to switch her spinning and treadmill days so that she spends 3 days a week and does treadmill 2 days a week. Increasing calories burned on the treadmill to around 300. She will return to the office for her 1 year follow-up.
[2024-12-12 09:15] VITALS: BP 122/59; PULSE 59; TEMP 35.8; O2SAT 100; BMI 25.3
--- OUTSIDE RECORDS SUMMARY | 2024-12-12 09:32 | XMS_ITS | Encounter Summary ---
Author Organization [email or web address] Address [address] [facility] 7 [place] [address] Care Team Providers Care Senior Maintenance Machinist Name Role Phone Zoila Titus MD Primary Care Provider [phone] Reason for Visit * Reason Onset Date Comments Medication Question 12/04/2023 Encounter Details Date Type Department Care Team ([facility] Contact Info) Description 12/04/[address] [facility] MEDICINE [address] [place] [address] Zoila Titus MD [address] [place] [phone] Medication Question Social History Tobacco Use Types [...] - 12/04/2023 11:36 AM EDT [facility] questions she has for Semaglutide-Weight Management (Wegovy) 0.25 MG/0.5ML solution auto-injector. Please contact Sonai at [phone]. documented in this encounter Plan of Treatment Upcoming Encounters Date Type Department Care Team ([facility] st Contact Info) Description 02/04/2025 10:15 AM EDT Office Visit [facility] MED & PEDS [address] [place] [address] El Sen MD [address] [place] [address] 05/12/2025 10:00 AM EST Office Visit [facility] ADULT DENTAL [address] [place] [address] Rere Zarco documented as of this encounter Visit Diagnoses Not on filedocumented in this encounter Additional Health Concerns Assessment Noted Time PHQ-9 Depression Total Score: 6 01/28/20 23 11:47 AM EDT documented as of this encounter Care Teams Senior Maintenance Machinist Relationship Specialty Start Date End Date Zoila Titus MD [address] [place] [address] PCP - General Family Medicine 06/28/22 Jerson Ramirez Psychiatrist 07/27/23 documented as of this encounter
--- OUTSIDE RECORDS SUMMARY | 2024-12-12 09:32 | XMS_ITS | Clinical Summary ---
Author Organization [address] [place] [address] Address [address] [place] [address] Phone Care Team Providers Care Folder Inspector Name Role Phone Zoila Titus MD Primary Care Provider [phone] Allergies No known active allergies Medications venlafaxine [...] 10:00 AM EDT Office Visit Orthopedic Surgery [facility] [address] [facility] [address] [place] [address] Moe Blair, DPM Dermatophytosis of [...] Upcoming Encounters Date Type Department Care Team ([facility] st Contact Info) Description 01/28/2025 9:45 AM EDT Office Visit Orthopedic Surgery - [place] [address] [address] Moe Blair, DPM [address] [address] Health Maintenance Due Date Last Done Comments Breast Cancer Screening 1975 HIV Screening 12/15/2023 Hepatitis C Screening 12/15/2023 Medicare Annual Wellness Visit 12/15/2023 Social Influencers of Health Screening 12/15/2023 Hepatitis B Vaccines (3 of 3 - 19+ 3-dose series) 04/14/2024 11/13/2023, 10/13/2023 Depression Screening 05/22/2024 Cervical Cancer Screening: Pap Smear 09/13/2024 09/13/2021 [...] Insurance MEDICARE MEDICAID - [place] Care Teams Folder Inspector Relationship Specialty Start Date End Date Zoila Titus MD [address] [place] [address] [facility] - General 08/03/23
== END 2024-12-12 09:43 | disposition home or self-care (01) ==
LOC: HO.HBS 09:06
PROVIDERS: PCP Family Medicine; Visit Provider Physician Assistant Surgical
DX: E66.3 Overweight (principal); Z68.25 Body mass index [BMI] 25.0-25.9, adult; Z90.3 Acquired absence of stomach [part of]; Z98.84 Bariatric surgery status
CPT/HCPCS: 99213

== ENCOUNTER → 2024-12-12 09:05 | Outpatient (BNVA) | payer MEDICARE, MEDICAID, SELFPAY | PROVIDERS: PCP Family Medicine; Visit Provider Physician Assistant Surgical | DX: Z98.84 Bariatric surgery status (principal); Z68.25 Body mass index [BMI] 25.0-25.9, adult | CPT/HCPCS: 99212 ==

== ENCOUNTER 2025-03-26 09:23 | Outpatient (AMB) | payer MEDICARE, MEDICAID, SELFPAY ==
--- NOTE | 2025-03-26 09:58 | A.OFFVIS_ITS ---
VS Expanded 03/26/25 10:13 BP 134/72 Blood Pressure Location Rt brachial Blood Pressure Position Sitting Pulse 61 Pulse Source Pulse Oximeter Temp 96.6 F L Temperature Source Temporal Artery Scan Pulse Oximetry 100 Oxygen Delivery Method Room Air Height 5 ft 6 in Weight 155 lb 12.8 oz BMI 25.1 Body Fat % 35.0 Body Fat Mass 54.4 Fat Free Mass 101.2 Visceral Fat Rating 7.0 Body Water % 46.3 Body Water Mass 72.0 Muscle Mass/Score 96.2 Basal Metabolic Rate/Score 1,381 Intake Visit Reasons: (OV) PO LSG 01/23/24 Vp Talent Management Required: Yes Vp Talent Management Name: Jose Murphy, [id number] Information Interpreted: clinical only Allergies Latex, Natural Rubber Allergy (Severe, Verified 03/26/25 10:02) Hives Medication List - Last Reconciled 03/26/25 by RILEY Colon aripiprazole 2 mg PO BEDTIME clonazepam 1 mg PO BID rosuvastatin 40 mg PO DAILY sennosides (senna) 17.2 mg (2 x 8.6 mg) PO BEDTIME PRN 90 days venlafaxine ER (Effexor XR) 37.5 mg PO DAILY HPI Comments Details: This a 49 yo female who is s/p LSG without hiatal hernia repair on 01/23/2024. Presents for 14 month post op visit. Weight today is 155.8 pounds, with a BMI of 25.1; weight loss of 1lb since last OV 3mo ago. Initial weight 214.8 pounds since starting the program on 12/23/2022 and operative weight 211 pounds. No complaints of nausea, emesis, abdominal pain or reflux. Reports infrequent but normal bowel movements every 2-3 days and uses stool softeners regularly. Taking bariatric fusion mvi Reports that she is doing well and very happy with her results. She was not following the meal plan below and she felt too full all day and she was eating less and so Dr Santizo changed her meal plan. She additionally reports issues with excess skin of abdomen. She difficulty with clothes fitting around her waistline. She notices skin irritation with itchiness. In the past she has experienced unpleasant odor in skin folds due to moisture, has to clean frequently to prevent this from happening. Pt has had a previous abdominoplasty 19 years ago in Present meal plan includes: fusion shake 1/4 packet in 8 oz, 6-8, 9-11 1/2 packet 12-2, 3-5 dinner at 6 4 forks protein and 4 forks veg drinking 40 oz sometimes she will have a yogurt in place of one of her protein shakes not using any protein bars due to being to sweet Exercise routine includes: treadmill 200-300 calories 3 days per week, speed 3.5, incline spinning 2 days per week 450-600 halima weights Have you been diagnosed with reflux (GERD)? Score 0-5: 0=no symptoms, 1=noticeable but not bothersome (slight or occasional), 2=noticeable, bothersome but not daily, 3=bothersome and daily, 4=affects daily activities, 5=incapacitating, unable to do daily activities How bad is the heartburn: 0 Heartburn when lying down: 0 Heartburn when standing up: 0 Heartburn after meals: 0 Does heartburn change your diet: 0 Does heartburn wake you up from sleep: 0 Do you have difficulty swallowin Do you have pain with swallowin If you take medication for reflux, does this affect your daily life: 0 Total score: 0 PFSH Medical History BMI 37.0-37.9, adult Pre-op evaluation Arthritis Thyroid nodule Elevated cholesterol Sleep apnea Anxiety GERD (gastroesophageal reflux disease) Surgical History Hx of laparoscopic partial gastrectomy History of abdominoplasty Hx of breast implant Hx of hysterectomy Hx of thyroidectomy Hx of knee surgery Family History Mother Psychiatric diagnosis Hypertension Father Diabetes Sister Hypothyroid Vitamin D deficiency Vitamin B12 deficiency Social History Household Members: Spouse Housing: House Are you a primary careers adviser to a significant other at home: No Do you presently have visiting nurse or other home services: No Alcohol intake: current Alcohol intake frequency: a few times a month Patient Tobacco Use Status: Never used Tobacco service: No Current occupational status: unemployed Physical Exam Const General: cooperative, comfortable and no acute distress Orientation/consciousness: patient oriented x3 GI Other: soft, nontender, nondistended, incisions well healed, no hernia, no masses previous panniculectomy incision and umbilical incision well healed Neuro General: patient oriented x3 Assessment & Plan Assessment & Plan (1) S/P laparoscopic sleeve gastrectomy: Code(s): Z98.84 - Bariatric surgery status Category: Medical (2) Overweight: Code(s): E66.3 - Overweight Category: Medical Plan Pt doing well with current meal plan. We discussed goal of a few additional lbs weight loss to reach healthy weight. Labs ordered. We discussed that she may not qualify for panniculectomy based on previous surgery but I will discuss this with Dr. Ziggy CARDOSO 3mo for 18mo postop visit. Orders: Orders Ferritin Today Z98.84 - Bariatric surgery status C Reactive Protein Today Z98.84 - Bariatric surgery status Vitamin B1 Today Z98.84 - Bariatric surgery status Comprehensive Met. Panel Today Z98.84 - Bariatric surgery status Complete Blood Count Auto Diff Today Z98.84 - Bariatric surgery status Hemoglobin A1c Today Z98.84 - Bariatric surgery status Vitamin D 25-OH Total Today Z98.84 - Bariatric surgery status TSH reflex Free T4 Today Z98.84 - Bariatric surgery status Vitamin A Today Z98.84 - Bariatric surgery status Zinc Today Z98.84 - Bariatric surgery status Vitamin B12 and Folate Today Z98.84 - Bariatric surgery status Lipid Panel Today Z98.84 - Bariatric surgery status IRON PROFILE Today Z98.84 - Bariatric surgery status Insulin Today Z98.84 - Bariatric surgery status Medications: New clotrimazole 1% 1 appl topical BID 45 grams 3RF
[2025-03-26 10:13] VITALS: BP 134/72; PULSE 61; TEMP 35.9; O2SAT 100; BMI 25.1
--- OUTSIDE RECORDS SUMMARY | 2025-03-26 10:22 | XMS_ITS | Encounter Summary ---
Author Organization [employer] Address [address] [place] [address] 7 [place] [address] Care Team Providers Care Coordinate Measuring Equipment Operator Name Role Phone Zoila Titus MD Primary Care Provider [phone] Reason for Visit * Reason Onset Date Comments DERM Appointment 11/12/2024 Encounter Details Date Type Department Care Team ([facility] Contact Info) Description 11/12/2024 Telephone [facility] MEDICINE [address] [place] [address] Zoila Titus MD [address] [place] [id number] DERM Appointment Social History Tobacco Use Types Packs/Day Years [...] with others, in a hotel, in a intermediate, living outside on the street, on a [...] encounter Miscellaneous Notes * Telephone Encounter - Rebekah Ramírez - 11/12/2024 1:38 PM EDT Tc from pt requesting schedule derm appointment with Francy. documented in this encounter Plan of Treatment Upcoming Encounters Date Type Department Care Team ([facility] st Contact Info) Description 04/08/2025 10:00 AM EST Office Visit [facility] MED & PEDS [address] [place] [address] El Sen MD [address] [place] [address] 05/13/2025 10:15 AM EST Office Visit [facility] ADULT DENTAL [address] [place] [address] Rere Zarco documented as of this encounter Visit Diagnoses Not on filedocumented in this encounter Additional Health Concerns Assessment Noted Time PHQ-9 Depression Total Score: 6 11/05/19 25 11:12 AM EDT documented as of this encounter Care Teams Coordinate Measuring Equipment Operator Relationship Specialty Start Date End Date Zoila Titus MD [address] [place] [address] PCP - General Family Medicine 06/28/22 Jerson Ramirez Psychiatrist 07/27/23 documented as of this encounter
--- OUTSIDE RECORDS SUMMARY | 2025-03-26 10:22 | XMS_ITS | Clinical Summary ---
Author Organization [employer] Address [address] [facility] 7t [place] [address] Care Team Providers Care Breastfeeding Program Coordinator Name Role Phone Zoila Titus MD Primary Care Provider Allergies Active Allergy Reactions Criticality Noted Date Comments Latex Itching Low 06/09/2022 Medications ARIPiprazole (Abilify) 2 MG tablet 3 Active clonazePAM (KlonoPIN) 1 MG tablet 3 Active venlafaxine XR (Effexor XR) 37.5 MG 24 hr capsule 3 Active clotrimazole (Lotrimin) 1 % cream 4 Active senna (Senokot) 8.6 MG tablet Take 2 tablets (17.2 mg) by mouth if needed at bedtime for constipation. 120 tablet 2 4 Active pantoprazole (ProtoNix) 40 MG EC tablet 4 Active Diclofenac Sodium 1 % gel APPLY 5 GRAMS TOPICALLY BEFORE BREAKFAST, BEFORE LUNCH, BEFORE EVENING MEAL, AND AT BEDTIME. 200 g 1 5 Active cyclobenzaprine (Flexeril) 10 MG tabletIndications:N libertad pain, musculoskeletal,Ten osynovitis, de Quervain Take 1 tablet (10 mg) by mouth at bedtime. 21 tablet 5 Active acetaminophen (Tylenol Extra Strength) 500 MG tabletIndications:N libertad pain, musculoskeletal Take 2 tablets (1,000 mg) by mouth every 8 (eight) hours if needed for mild pain. 60 tablet 5 Active rosuvastatin (Crestor) 40 MG tablet Take 1 tablet (40 mg) by mouth Once per day. 90 tablet 1 Active Active Problems Problem Noted Date Diagnosed Date Alopecia 11/04/2024 Neck pain, musculoskeletal 11/04/2024 Tenosynovitis, de Quervain 11/04/2024 Abnormal endocrine laboratory test finding 11/04 Encounter for immunization 11/04/2024 Class 2 severe obesity with serious comorbidity and body mass index (BMI) of 35.0 to 35.9 in adult 11/13/2023 Assessment & Plan (11/14/2023 10:43 AM EDT): Discussed alternative treatments to aid with weight loss and side effects. Discussed calorie deficit, recommended reduction of 20-30% of maintenance calories; emergency medical dispatcher referral offered. Recommended to decrease soda and [...] Medications Beta Carotene (Vitamin A) 3 MG (19315 UT) Capsule Semaglutide-Weight Management (Wegovy) 0.25 MG [...] Ordered XR ankle and sent referral to press operator carbon blocks for left heel pain worse with stepping, [...] EDT): New onset, does have some decrease end trimmer strength unknown if chronic. Right hand dominant. Will send for imaging and OP. Consider hand surgery referral. Iron deficiency 06/09/2022 Assessment & Plan (06/09/2022 4:54 PM EST): Reviewed labs from [place], reports prior hx of AUB due to fibroids and hx of iron deficiency, last last Hgb normal and ferritin within normal limits, if normal on labs then will discontinue iron Chronic pain of both knees 06/09/2022 Assessment & Plan (08/08/2022 1:06 PM EDT): Patient s clinical findings support the need for a walker given the patient has a mobility limitation that significantly impairs her ability to participate in one or more mobility-related activities of daily living (MRADL). Medical condition: Severe bilateral knee osteoarthrtiis Patient needs a walker to perform MRADL s and the functional mobility deficit cannot [...] PM EST): Patient reports various surgeries in [place] for both knees, reports difficulties with ambulation due to this, no use of assistance devices observed, she requested disability parking given her knee pain, printed out form from [employer] for her to bring with her information for medical records. Blurry vision, bilateral 06/09/2022 Assessment & Plan (06/09/2022 4:55 PM EST): Requested methods specialist engineer referral Vitamin D insufficiency 06/09/2022 Assessment & Plan (06/09/2022 4:55 PM EST): Present on labs drawn in [place], not on supplementation, will check and supplement if needed Hyperlipidemia 06/09/2022 Assessment & Plan (02/01/2024 2:53 PM EDT): Pt was advised to stop taking Crestor. Advised to have a lipid panel recheck in 3 months to r/o necessity to continue treatment. Assessment & Plan (06/09/2022 4:56 PM EST): Present on labs review from [place], will recheck labs and assess need for pharmacotherapy after results are available for review. Fatigue 06/09/2022 Assessment & Plan (06/09/2022 4:56 PM EST): Reports fatigue more often since moving from [place], following with psychiatry. Will check labs and f/up Anxiety 06/09/2022 Moderate episode of recurren t major depressive disorder (CMS/HCC) 06/09/2022 Assessment & Plan (07/27/2023 11:23 AM EST): Following with psychiatry. On abilify, clonazepam and effexor. History of parathyroid surgery 06/09/2022 Resolved Problems Problem Noted Date Diagnosed Date Resolved Date Iron deficiency anemia 06/09/202206/09 Encounters Date Type Department Care Team Description 01/10/2025 Telephone [facility] MED & PEDS [address] [place] [address] Zoila Titus MD Appointment Request 01/07/2025 Telephone [facility] MED & PEDS [address] [place] [address] Zoila Titus MD Appointment Request from Last 3 Months Immunizations Immunization Administration Dates Next Due Hep B, adult 11/04/2024,11/13/2023,10/13/2023 INFLUENZA VACCINE QUADRIVALE NT RECOMBINANT PRESERVATIVE FREE RIV4 01/20/2023 Influenza injectable quadriv alent preservative free 02/24/2022 Influenza, IIV3, injectable 01/20/2023 Influenza, seasonal, injecta ble, preservative free 02/01/2024 Pfizer Covid-19 Vaccine 12+ 08/06/2024,0 09/26/2023,09/24/2020,2020 Tdap 01/27/2023 Family History Medical History Relation [...] with others, in a hotel, in a usp, living outside on the street, on a [...] Q2 Not on file 10/24/2024 Comments Unknown Intention Date Recorded No desire to become (finding) 0 11/04/2024 Sex and Gender Information Value Date Recorded Sex Assigned at Female 05/18/2022 10:29 AM EST Legal Sex Female 10:26 AM EST Gender Identity Female 05/18/2022 10:29 AM EST Sexual Orientation Straight 06/09/2022 10 :26 AM EST Last Filed Vital Signs Vital Sign Reading Time Taken Comments Blood Pressure 122/80 11/28/2024 10:16 AM EDT Pulse 63 11/04/2024 9:48 AM EDT Temperature 36.8 C (98.3 F) 11/04/2024 9:48 AM EDT Respiratory Rate 14 11/04/2024 9:48 AM EDT Oxygen Saturation 100% 11/04/2024 9:48 AM EDT Inhaled Oxygen Concentration - - Weight 72.1 kg (159 lb) 11/04/2024 9:48 AM EDT Height 165.1 cm (5' 5 ) 11/04/2024 9:48 AM EDT Body Mass Index 26.46 11/04/2024 9:48 AM EDT Plan of Treatment Upcoming Encounters Date Type Department Care Team (Late st Contact Info) Description 04/08/2025 10:00 AM EST Office Visit [facility] MED & PEDS [address] [place] [address] El Sen MD [address] [place] [address] 05/13/2025 10:15 AM EST Office Visit [facility] ADULT DENTAL [address] [place] [address] Rere Zarco Health Maintenance Due Date Last Done Comments CT Colonography 1975 Colonoscopy 1975 FIT 1975 Sigmoidoscopy 1975 Alcohol/Substance Use Screening 1987 FOBT 08/28/2024 08/29/2023 Mammogram 05/01/2025 05/01/2024, 03/23, 03/01/2023 Dental Oral Exam 05/09/2025 11/06/2024, , 10/18/2023, Additional history exists Dental Prophylaxis 05/09/2025 11/06/2024, 1 07/04/2023, 10/18/2023, Additional history exists Dental X-Ray: Full Mouth 07/08/2025 07/07/2022 Zoster Vaccines (1 of 2) 09/19/2025 SDOH Screening 10/24/2025 10/24/2024 Depression Screening 11/04/2025 11/04/2024, 11/05/19 Disability Screening 11/04/2025 11/04/2024 Family Planning (PISQ) 11/04/2025 11/04/2024 Dental X-Ray: Bitewings 11/07/2025 11/07/19, 10/18/2023, 07/07/2022 Tobacco Screening 11/28/2025 11/28/2024 Colorectal Cancer Screening 08/28/2026 FIT DNA/Cologuard 08/28/2026 08/29/2023 Cervical Cancer Screening 09/13/2026 HPV/Cotest 09/13/2026 Pap Smear 09/13/2026 09/13/2021 Lipid Panel 11/06/2029 11/06/2024, 07/21, 05/01/2024, Additional history exists DTaP/Tdap/Td Vaccines (2 - Td or Tdap) 01/27/2033 01/27/2023 RSV Patients and Patients Aged 60 years or older (1 - 1-dose 75+ series) 09/19/2050 HIV Screening Completed 01/31/2023 Hepatitis C Screening Completed 01/31/2023 COVID-19 Vaccine Completed 08/06/2024, 11/2023, 03/29/2021, Additional history exists Hepatitis B Vaccines Completed 11/04/2024, 11/13/2023, 10/13/2023 Influenza Vaccine Completed 03/03/2025, , 01/20/2023, Additional history exists HIB Vaccines [...] Years) and At-Risk Patients (6 to 49) Years Aged Out No longer eligible based on patient's age to complete this topic RSV under 20 months Aged Out No longe r eligible based on patient's age to complete this topic Rotavirus Vaccines Aged Out No longer eligible based on patient's age to complete this topic Procedures Procedure Name Priority Date/Time Associated Diagnosis Comments PROPHYLAXIS - ADULT Routine 11/06/2024 1 0:00 AM EDT Dental caries BITEWINGS - 4 RADIOGRAPHIC IMAGES Routine 11/06/2024 10:00 AM EDT Dental caries PERIODIC ORAL EVALUATION - ESTABLISHED PATIENT Routine 11/06/2024 10:00 AM EDT Dental caries LIPID PANEL, STANDARD Routine 11/06/2024 8:47 AM EDT Class 2 obesity due to excess calories without serious comorbidity with body mass index (BMI) of 35.0 to 35.9 in adult BI MAMMOGRAM SCREEN W FRITZ W IMPLANTS ROGER Routine 05/01/2024 11:31 AM EST LAB COLOGUARD COLON CANCER SCREEN Routine 08/29/2023 6:10 AM [...] Recently Relevant to Health Maintenance Results * (ABNORMAL) Lipid Panel, Standard (11/06/2024 8:47 AM EDT) Triglycerides 80 <150 mg/dL [facility] Comment:Desirable Triglyceri de: less than 150 mg/dLBorderline High Triglyceride 150-199 mg/dLHigh Triglyceride: 200-499 mg/dLVery High Triglyceride: greater than or equal to 5OO mg/dL Cholesterol 247(H) <200 mg/dL [facility] Comment:Desirable Cholestero l: less than 200 mg/dLBorderline High Cholesterol: 200-239 mg/dLHigh Cholesterol: greater than 239 mg/dL LDL Cholesterol Calculated 159(H) <100 mg/dL [facility] Comment:Desirable LDL: less than 100 mg/dLNear Optimal/Above Optimal LDL: 110- 129 mg/dLBorderline High LDL: 130-159 mg/dLHigh LDL: 160-189 mg/dLVery High LDL: greater than or equal to 190 mg/dL HDL Cholesterol 72 >40 mg/dL [facility] Comment:Desirable HDL: great er than 40 mg/dL Note: This HDL assay may give artificially low results in patients with liver disease. Blood Venous blood specimen / Unknown 11/06/2024 8:47 AM EDT 11/06/2024 8:47 AM EDT us Zoila Titus MD LAB BLOOD ORDERABLES Final Re sult [facility] [address] [place] [phone] * BI Mammogram Screen w/ Fritz w/ Implants Roger (05/01/2024 11:31 AM EST) Anatomical Region Laterality Modality Mammography 05/01/2024 11:3 1 AM EST Narrative 05/07/2024 1:33 PM EST [facility] [address] [place] [id number] Mammography Report Signed Patient: Shandra Boyd MR#: [id number] : 1975 Acct:[id number] Age/Sex: 48 / F ADM Date: 05/01/24 Loc: HO.MAMMO Attending Dr: Zoila Titus MD Ordering Physician: Zoila Titus MD Results: 2Beni gn Findings Date of Service: 05/01/24 Follow Up: 1 Year From Orig inal Mammogram Procedure(s): MM tomosynthesis screen imp BI Accession Number(s): [id number] cc: Zoila Titus MD EXAMINATION: MM SCREENING [...] by: Kamla Christianson DO 05/07/2024 01:30 PM [facility] Dictated By: Kamla Christianson DO Signed By: <Electronically signed by Kamla Christianson DO in OV> 05/07/24 1330 DD/ 1131 TD/TT: 05/01/24 1158 Ball Truing Machine Operator: Procedure Note Donotuseinterpreter, Image - 05/07/2024 [facility] [address] [place] [address] Dr. [place], [place] [address] Mammography Report Signed Patient: Shandra Boyd#: [id number] : 1975Acct:[id number] Age/Sex: 48 / FADM Date: 05/01/24 Loc: HO.MAMMO Attending Dr: Zoila Titus MD Ordering Physician: Zoila Titus MDResults: 2Beni gn Findings Date of Service: 05/01/24Follow Up: 1 Year From Orig inal Mammogram Procedure(s): MM tomosynthesis screen imp BI Accession Number(s): [id number] cc: Zoila Titus MD EXAMINATION: MM SCREENING [...] by: Kamla Christianson DO 05/07/2024 01:30 PM [facility] Dictated By: Kamla Christianson DO Signed By: <Electronically signed by Kamla Christianson DO in OV> 05/07/24 1330 DD/ 1131 TD/TT: 05/01/24 1158 Ball Truing Machine Operator: Zoila Titus MD [facility] BI PROCEDURES Final Resul t * Cologuard?? colon cancer screening (08/29/2023 6:10 AM EDT) Cologuard Result Negative Negative 09/03/19 5:36 PM EDT [employer] (CLIA #:[id number]) Comment: NEGATIVE TEST RESULT. A negative Cologuard result indicates a low likelihood that a colorectal cancer (CRC) or advanced adenoma (adenomatous polyps with more advanced pre-malignant features) is present. The chance that a person with a negative Cologuard test has a colorectal cancer is less than 1 in 1500 (negative predictive value >99.9%) or has an advanced adenoma is less than 5.3% (negative predictive value 94.7%). These data are based on a prospective cross-sectional study of 10,000 individuals at average risk for colorectal cancer who were screened with both Cologuard and colonoscopy. (Charly Bryant al, N Engl J Med 2014;370(14):6488-6451) The normal value (reference range) for this assay is negative. COLOGUARD RE-SCREENING RECOMMENDATION: Periodic colorectal cancer screening is an important part of preventive healthcare for asymptomatic individuals at average risk for colorectal cancer. Following a negative Cologuard result, the [place] Cancer Society and U.S. Multi-Society Task Force screening guidelines recommend a Cologuard re-screening interval of 3 years. References: [place] [employer] Guideline for Colorectal Cancer Screening: https://www.cancer.org/cancer/pkhce-nobdhf-upsbwz/hntklitxk-mhfwlltzo-frljclf/ac s-rec ommendations.html.; Alejandro DK, Pantera STANLEY, Norma CamarilloK, Colorectal Cancer Screening: Recommendations for Physicians and Patients from the U.S. Multi-Society Task Force on Colorectal Cancer Screening , Am J Gastroenterology 2017; 112:7392-3122. TEST DESCRIPTION: Composite algorithmic analysis of stool DNA-biomarkers with hemoglobin immunoassay. Quantitative values of individual biomarkers are not [...] (Charly Bryant al, N Engl J Med 2014;370(14):6127-1904.) Cologuard may produce a false negative or false positive result (no colorectal cancer or precancerous polyp present at colonoscopy follow up). A negative Cologuard test result does not guarantee the absence of CRC or advanced adenoma (pre-cancer). The current Cologuard screening interval is every 3 years. ([place] Cancer Society and U.S. Multi-Society Task Force). Cologuard performance data in a 10,000 patient pivotal study using colonoscopy as the reference method can be accessed at the following location: www.Zapa.Pathfire/results. Additional description of the Cologuard test process, warnings and precautions can be found at www.cologuard.com. Stool specimen (specimen) 08/29/2023 6:10 AM EDT 08/30/2023 2:36 PM EDT Zoila Titus MD LAB MOLECULAR DIAGNOSTICS ORD ERABLES Final Result Performing Organization Address City/[facility]/ZIP Co de Phone Number [employer] (CLIA #:[id number]) [place] [address], * Hepatitis C Ab (01/31/2023 10:48 AM EDT) [facility] Hepatitis C Antibody Nonreactive Nonreactive [facility] Comment:Antibodies to HCV no t detected; does not exclude early acuteHCV infection. Blood 01/31/2023 10:4 8 AM EDT 01/31/2023 2:30 PM EDT Zoila Titus MD LAB BLOOD ORDERABLES Final Re sult Performing Organization Address City/[facility]/ZIP Co de Phone Number [facility] [address] [place] [phone] * HIV Ab/Ag ([facility]) (01/31/2023 10:48 AM EDT) HIV AB/AG Nonreactive Nonreactive [facility] Comment:HIV-1 p24 Ag and/or HIV-1/HIV-2 Ab not detected.A test result that is nonreactive does not exclude thepossibility of exposure to or infection with HIV-1 and/orHIV-2. Nonreactive results in this assay for individualswith prior exposure to HIV-1 and/or HIV-2 may be due toantigen and antibody levels that are below the limit ofdetection of this assay.The [employer]ium HIV Ag/Ab Combo assay result andsupplemental assay results should be interpreted inconjunction with the patient's clinical presentation,history and other laboratory results. If the results areinconsistent with clinical evidence, additional testing issuggested to confirm the result. 01/31/2023 10:4 8 AM EDT 01/31/2023 2:30 PM EDT Zoila Titus MD LAB BLOOD ORDERABLES Final Re sult Performing Organization Address [facility] Co de Phone Number [facility] [address] [place] [phone] * Pap Smear (09/13/2021 12:00 AM EDT) Swab us Historical Provider LAB CYTOLOGY ORDERABLES F inal Result Performing Organization Address [facility] Co de Phone Number [facility] [address] [place] [phone] from Last 3 Months or Most Recently Relevant to Health Maintenance Insurance MEDICARE [facility] STANDARD DENTAL-[facility] MEDICAID STAND ADULT Care Teams Breastfeeding Program Coordinator Relationship Specialty Start Date End Date Zoila Titus MD [address] [place] [phone] PCP - General Family Medicine 06/28/22 Jerson Ramirez Psychiatrist 07/27/23
--- OUTSIDE RECORDS SUMMARY | 2025-03-26 10:22 | XMS_ITS | Encounter Summary ---
Author Organization [employer] Address [address] [place] [address] 7 [place] [address] Care Team Providers Care Emt B Name Role Phone Zoila Titus MD Primary Care Provider [phone] Reason for Visit * Reason Onset Date Comments Med Refill 06/15/2023 Encounter Details Date Type Department Care Team ([facility] st Contact Info) Description 06/15/2023 Refill [facility] MED & PEDS [address] [place] [address] Zoila Titus MD [address] [place] [address] Social History Tobacco Use Types Packs/Day Years [...] Description 04/08/2025 10:00 AM EST Office Visit [facility] MED & PEDS [address] [place] [address] El Sen MD [address] [place] [address] 05/13/2025 10:15 AM EST Office Visit [facility] ADULT DENTAL [address] [place] [address] Rere Zarco documented as of this encounter Visit Diagnoses Not on filedocumented in this encounter Additional Health Concerns Assessment Noted Time PHQ-9 Depression Total Score: 6 01/28/20 23 11:47 AM EDT documented as of this encounter Care Teams Emt B Relationship Specialty Start Date End Date Zoila Titus MD [address] [place] [phone] PCP - General Family Medicine 06/28/22 Jerson Shukla-Bright Psychiatrist 07/27/23 documented as of this encounter
--- OUTSIDE RECORDS SUMMARY | 2025-03-26 10:22 | XMS_ITS | Clinical Summary ---
Author Organization [address] [place] [address] Address [address] [place] [address] Phone Care Team Providers Care Optometric Coordinator Name Role Phone Zoila Titus MD Primary Care Provider [phone] Allergies No known active allergies Medications venlafaxine [...] skin. 400 g 5 06/20/19 26 Active Social History Tobacco Use Types Packs/Day Years [...] 07/25/2024 10:26 AM EST Plan of Treatment Health Maintenance Due Date Last Done Comments [...] - Td or Tdap) 01/27/2033 01/27/2023 RSV Immunization Adult Patients (1 - 1-dose 75+ series) 09/19/2050 COVID-19 Vaccine Completed 08/06/2024, 11/2023, 03/29/2021, Additional [...] Insurance MEDICARE MEDICAID - [place] Care Teams Optometric Coordinator Relationship Specialty Start Date End Date Zoila Titus MD [address] [place] [phone] PCP - General 08/03/23
--- OUTSIDE RECORDS SUMMARY | 2025-03-26 10:22 | XMS_ITS | Encounter Summary ---
Author Organization [employer] Address [address] [facility] 7t [place] [address] Care Team Providers Care [place] Boatman Name Role Phone Zoila Titus MD Primary Care Provider [phone] Encounter Details Date Type Department Care Team (Late st Contact Info) Description 06/20/2024 Orders Only [facility] [address] [place] [address] ProviderDomenica MD Social History Tobacco Use Types [...] Description 04/08/2025 10:00 AM EST Office Visit [facility] MED & PEDS [address] [place] [address] El Sen MD [address] [place] [address] 05/13/2025 10:15 AM EST Office Visit [facility] ADULT DENTAL [address] [place] [address] Rere Zarco documented as of this encounter [...] documented as of this encounter Care Teams [place] Boatman Relationship Specialty Start Date End Date Zoila Titus MD [address] [place] [address] PCP - General Family Medicine 06/28/22 Jerson Ramirez Psychiatrist 07/27/23 documented as of this encounter
--- OUTSIDE RECORDS SUMMARY | 2025-03-26 10:22 | XMS_ITS | Encounter Summary ---
Author Organization [employer] Address [address] [facility] 7t [place] [address] Care Team Providers Care Air Valve Repairer Name Role Phone Zoila Titus MD Primary Care Provider [phone] Reason for Visit * Reason Comments Med Refill Encounter Details Date Type Department Care Team ([facility] st Contact Info) Description 06/15/[address] [facility] MED & PEDS [address] [place], [place] [phone] Zoila Titus MD [address] [place] [address] Social History Tobacco Use Types Packs/Day Years [...] Description 04/08/2025 10:00 AM EST Office Visit [facility] MED & PEDS [address] [place] [address] El Sen MD [address] [place] [address] 05/13/2025 10:15 AM EST Office Visit [facility] ADULT DENTAL [address] [place] [address] Rere Zarco documented as of this encounter Visit Diagnoses Not on filedocumented in this encounter Additional Health Concerns Assessment Noted Time PHQ-9 Depression Total Score: 6 01/28/20 23 11:47 AM EDT documented as of this encounter Care Teams Air Valve Repairer Relationship Specialty Start Date End Date Zoila Titus MD [address] [place] [phone] PCP - General Family Medicine 06/28/22 Jerson Ramirez Psychiatrist 07/27/23 documented as of this encounter
--- OUTSIDE RECORDS SUMMARY | 2025-03-26 10:22 | XMS_ITS | Encounter Summary ---
Author Organization [employer] Address [address] [facility] [address] [place] [address] Care Team Providers Care Quality Assurance Advisor Name Role Phone Zoila Titus MD Primary Care Provider [phone] Reason for Visit * Reason Onset Date Comments Medication Question 12/04/2023 Encounter Details Date Type Department Care Team ([facility] Contact Info) Description 12/04/2023 Telephone [facility] MEDICINE [address] [place] [address] Zoila Titus MD [address] [place] [phone] Medication Question Social History Tobacco Use Types [...] - 12/04/2023 11:36 AM EDT [facility] regarding questions she has for Semaglutide-Weight Management (Wegovy) 0.25 MG/0.5ML solution auto-injector. Please contact [facility] at [phone]. documented in this encounter Plan of Treatment Upcoming Encounters Date Type Department Care Team ([facility] st Contact Info) Description 04/08/2025 10:00 AM EST Office Visit [facility] MED & PEDS [address] [place] [address] El Sen MD [address] [place] [address] 05/13/2025 10:15 AM EST Office Visit [facility] ADULT DENT[facility] [address] [place] [address] Rere Zarco documented as of this encounter Visit Diagnoses Not on filedocumented in this encounter Additional Health Concerns Assessment Noted Time PHQ-9 Depression Total Score: 6 01/28/20 23 11:47 AM EDT documented as of this encounter Care Teams Quality Assurance Advisor Relationship Specialty Start Date End Date Zoila Titus MD [address] [place] [address] PCP - General Family Medicine 06/28/22 Jerson Ramirez Psychiatrist 07/27/23 documented as of this encounter
--- OUTSIDE RECORDS SUMMARY | 2025-03-26 10:22 | XMS_ITS | Encounter Summary ---
Author Organization [employer] Address [address] [facility] 7t [place] [address] Care Team Providers Care Linoleum Installer Name Role Phone Zoila Titus MD Primary Care Provider [phone] Reason for Visit * Reason Comments Med Refill Encounter Details Date Type Department Care Team ([facility] st Contact Info) Description 01/08/2024 Refill [facility] CHC MED & PEDS [address] [place], [place] [phone] Zoila Titus MD [address] [place] [address] Social History Tobacco Use Types Packs/Day Years [...] 04/08/2025 10:00 AM EST Office Visit [facility] MED & PEDS [address] [place] [address] El Sen MD [address] [place] [address] 05/13/2025 10:15 AM EST Office Visit [facility] ADULT DENTAL [address] [place] [address] Rere Zarco documented as of this encounter Visit Diagnoses Not on filedocumented in this encounter Additional Health Concerns Assessment Noted Time PHQ-9 Depression Total Score: 6 01/28/20 23 11:47 AM EDT documented as of this encounter Care Teams Linoleum Installer Relationship Specialty Start Date End Date Zoila Titus MD [address] [place] [id number] PCP - General Family Medicine 06/28/22 Jerson Ramirez Psychiatrist 07/27/23 documented as of this encounter
--- OUTSIDE RECORDS SUMMARY | 2025-03-26 10:22 | XMS_ITS | Encounter Summary ---
Author Organization [employer] Address [address] [facility] 7t [place] [address] Care Team Providers Care Polishing Machine Tender Name Role Phone Zoila Titus MD Primary Care Provider [phone] Reason for Visit * Reason Comments Med Refill Encounter Details Date Type Department Care Team ([facility] st Contact Info) Description 05/31/2023 Refill [facility] CHC MED & PEDS [address] [place], [place] [phone] Zoila Titus MD [address] [place] [address] Social History Tobacco Use Types Packs/Day Years [...] 04/08/2025 10:00 AM EST Office Visit [facility] MED & PEDS [address] [place] [address] El Sen MD [address] [place] [address] 05/13/2025 10:15 AM EST Office Visit [facility] ADULT DENTAL [address] [place] [address] Rere Zarco documented as of this encounter Visit Diagnoses Not on filedocumented in this encounter Additional Health Concerns Assessment Noted Time PHQ-9 Depression Total Score: 6 01/28/20 23 11:47 AM EDT documented as of this encounter Care Teams Polishing Machine Tender Relationship Specialty Start Date End Date Zoila Titus MD [address] [place] [address] PCP - General Family Medicine 06/28/22 Jerson Shukla-Bright Psychiatrist 07/27/23 documented as of this encounter
--- OUTSIDE RECORDS SUMMARY | 2025-03-26 10:22 | XMS_ITS | Encounter Summary ---
Author Organization [employer] Address [address] [facility] 7t [place] [address] Care Team Providers Care Fire Equipment Operator Name Role Phone Zoila Titus MD Primary Care Provider [phone] Encounter Details Date Type Department Care Team (Late st Contact Info) Description 07/24/2024 Orders Only [facility] MEDICINE [address] [place] [address] El Sen MD [address] [place] [address] Social History Tobacco Use Types Packs/Day Years Used Date Smoking Tobacco: Never Passive Smoke Exposure: Never Smokeless Tobacco: Never Alcohol Use Standard Drinks/Week Comments Never 0 (1 standard drink = 0.6 oz pur e alcohol) Depression Answer Date Recorded Patient Health Questionnaire-9 Score 6 01/27/2023 Housing Stability Answer Date Recorded What is your housing situation today? I have arseniojamie may 03/06/[address] you [...] Description 04/08/2025 10:00 AM EST Office Visit [facility] MED & PEDS [address] [place] [address] El Sen MD [address] [place] [address] 05/13/2025 10:15 AM EST Office Visit [facility] ADULT DENTAL [address] [place] [address] Rere Zarco documented as of this encounter Visit Diagnoses Not on filedocumented in this encounter Additional Health Concerns Assessment Noted Time PHQ-9 Depression Total Score: 6 01/28/20 23 11:47 AM EDT documented as of this encounter Care Teams Fire Equipment Operator Relationship Specialty Start Date End Date Zoila Titus MD [address] [place] [id number] PCP - General Family Medicine 06/28/22 Jerson Shukla-Bright Psychiatrist 07/27/23 documented as of this encounter
--- OUTSIDE RECORDS SUMMARY | 2025-03-26 10:22 | XMS_ITS | Encounter Summary ---
Author Organization [employer] Address [address] [place] [address] [address] [place] [address] Care Team Providers Care Cloth Printing Back Tender Name Role Phone Zoila Titus MD Primary Care Provider [phone] Reason for Visit * Reason Onset Date Comments Appointment Request 01/07/2025 Encounter Details Date Type Department Care Team ([facility] Contact Info) Description 01/07/2025 Telephone [facility] CHC MED & PEDS [address] [place] [address] Zoila Titus MD [address] [place] [address] Appointment Request Social History Tobacco Use Types Packs/Day Years [...] with others, in a hotel, in a nursing home, living outside on the street, on a [...] encounter Miscellaneous Notes * Telephone Encounter - Jack Fatima - 01/07/2025 2:53 PM EDT Tc from pt requesting to reschedule derm apt scheduled for 02/04 , pt states she has a family emergency and will be in [place] . Requesting new apt to be scheduled in March Contact pt at [phone] ([email or web address]) documented in this encounter Plan of Treatment Upcoming Encounters Date Type Department Care Team (Late st Contact Info) Description 04/08/2025 10:00 AM EST Office Visit [facility] MED & PEDS [address] [place] [address] El Sen MD [address] [place] [address] 05/13/2025 10:15 AM EST Office Visit [facility] ADULT DENTAL [address] [place] [address] Rere Zarco documented as of this encounter Visit Diagnoses Not on filedocumented in this encounter Additional Health Concerns Assessment Noted Time PHQ-9 Depression Total Score: 6 11/05/19 25 11:12 AM EDT documented as of this encounter Care Teams Cloth Printing Back Tender Relationship Specialty Start Date End Date Zoila Titus MD [address] [place] [address] PCP - General Family Medicine 06/28/22 Jerson Ramirez Psychiatrist 07/27/23 documented as of this encounter
== END 2025-03-26 10:47 | disposition home or self-care (01) ==
PROVIDERS: PCP Family Medicine; Visit Provider Physician Assistant Surgical
DX: E66.3 Overweight (principal); Z68.25 Body mass index [BMI] 25.0-25.9, adult; Z90.3 Acquired absence of stomach [part of]; Z98.84 Bariatric surgery status
CPT/HCPCS: 99214; G2211

== ENCOUNTER 2025-03-26 09:23 | Outpatient (REF) | payer MEDICARE, MEDICAID, SELFPAY ==
[2025-03-26 11:01] LABS: MANUAL DIFF FLAG NO
[2025-03-26 12:00] LABS: Hematocrit 48.6 % (37.0-47.0); Hemoglobin 16.2 g/dl (12.0-16.0); Imm Gran Abs Auto 0.02 X10*3/uL (0.00-0.03); Imm Gran Pct Auto 0.4 % (0.0-0.4); Lymphocytes Absolute Auto 1.6 X10*3/uL (1.2-4.9); Mean Corpuscular HGB Conc 33.3 g/dl (31.0-35.0); Mean Corpuscular Hemoglobin 28.1 pg (27.0-33.0); Mean Corpuscular Volume 84.2 fL (80.0-98.0); NRBC Abs Auto 0.000 X10*3/uL (0.0-0.012); NRBC Pct Auto 0.0 /100WBC (0.0-0.2); Platelet Count 149 X10*3/uL (160-400); Red Blood Count 5.77 X10*6/uL (4.20-5.50); White Blood Count 5.0 X10*3/uL (4.8-10.8)
[2025-03-26 12:48] LABS: Alanine Aminotransferase 36 U/L (0-31); Albumin Level 5.1 g/dL (3.5-5.0); Alkaline Phosphatase 103 U/L (39-117); Anion Gap 11 (12-20); Aspartate Amino Transferase 25 U/L (5-31); Blood Urea Nitrogen 14 mg/dL (9-16); Calcium 9.7 mg/dL (8.4-10.2); Carbon Dioxide 30 mmol/L (22-29); Chloride 107 mmol/L (96-108); Cholesterol 172 mg/dL (<200); Estimated Glomerular Filt Rate > 60; HDL Cholesterol 71 mg/dL (>40); Iron 97 mcg/dL (30-160); Percent Iron Saturation 38 % (15-50); Potassium 4.5 mmol/L (3.3-5.1); Sodium 143 mmol/L (135-145); Total Iron Binding Capacity 254 mcg/dL (228-428); Total Protein 8.1 g/dL (6.5-8.0); Triglycerides 105 mg/dL (<150); Unsaturated Iron Binding 157 ug/dL
[2025-03-26 13:07] LABS: Ferritin 216 ng/mL (10-250)
[2025-03-26 13:11] LABS: Folate 13.4 ng/mL (> or = 4.0); Vitamin B12 1103 pg/mL (200-900)
== END 2025-03-26 09:24 | disposition home or self-care (01) ==
LOC: HO.LAB 09:23
PROVIDERS: PCP Family Medicine; Visit Provider Physician Assistant Surgical
DX: Z98.84 Bariatric surgery status (principal); E66.3 Overweight; Z13.1 Encounter for screening for diabetes mellitus
CPT/HCPCS: 36415; 80053; 80061; 82306; 82607; 82728; 82746; 83036; 83525; 83540; 84425; 84443; 84590; 84630; 85025; 86140; 99212